=== PATIENT | female | born 1955 | race Caucasian/White ===

== ENCOUNTER 2023-12-04 08:15 | Outpatient (RCR) | payer MEDICARE, OTHER, SELFPAY ==
[2023-11-29] MEDS: ZOFRAN 4 MG IV (13:50)
[2023-11-29] MEDS: ROCEPHIN 70 MG IV (13:51)
[2023-11-29 14:22] VITALS: BP 171/68
[2023-11-30 11:59] LABS: Glucose - Point of Care 139 mg/dl (70-99)
[2023-11-30] MEDS: ZOFRAN 4 MG IV (12:01)
[2023-11-30 12:03] VITALS: BP 119/77
[2023-11-30] MEDS: ROCEPHIN 70 MG IV (12:07)
[2023-12-01 11:00] VITALS: BP 162/65
[2023-12-01] MEDS: ZOFRAN 4 MG IV (11:13)
[2023-12-01] MEDS: ROCEPHIN 70 MG IV (11:14)
[2023-12-01 11:50] VITALS: BP 149/66
[2023-12-02] MEDS: ZOFRAN 4 MG IV (10:23)
[2023-12-02] MEDS: ROCEPHIN 70 MG IV (10:24)
[2023-12-02 10:38] VITALS: BP 170/66
[2023-12-04] MEDS: ZOFRAN 4 MG IV (09:50)
[2023-12-04] MEDS: ROCEPHIN 70 MG IV (10:00)
[2023-12-04 11:36] VITALS: BP 143/72
== END 2023-12-06 09:26 | disposition home or self-care (01) ==
LOC: OID 08:15
PROVIDERS: ATTENDING PHYSICIAN Student in an Organized Health Care Education/Training Program; FAMILY PHYSICIAN Family Medicine
DX: T80.211A Bloodstream infection due to central venous catheter, initial encounter (principal); Y83.8 Other surgical procedures as the cause of abnormal reaction of the patient, or of later complication, without mention of misadventure at the time of the procedure
CPT/HCPCS: 82962; 96365; 96374; 96375

== ENCOUNTER 2024-01-16 13:13 | Emergency (ER) | payer MEDICARE, OTHER, SELFPAY ==
[2024-01-16 13:21] VITALS: BP 144/58
[2024-01-16 16:35] VITALS: BMI 25.4
[2024-01-16 17:23] LABS: % Basophils 0.5 % (0-2); % Eosinophils 1.5 % (0-6); % Immature Granulocytes 0.6 % (0-0.5); % Lymphocytes 9.3 % (20.5-51.1); % Monocytes 9.3 % (1.7-9.3); % Neutrophils 78.8 % (42.2-75.2); Absolute Basophils 0.1 10^3/uL (0-0.2); Absolute Eosinophils 0.2 10^3/uL (0-0.7); Absolute Immature Granulocytes 0.1 10^3/uL (0-0.05); Absolute Lymphocytes 1.3 10^3/uL (1.2-3.4); Absolute Monocytes 1.3 10^3/uL (0.1-0.6); Absolute Neutrophils 11.3 10^3/uL (1.4-6.5); Hematocrit 29.2 % (37.0-47.0); Hemoglobin 9.3 g/dL (12.0-16.0); Mean Corp Hgb Conc. 31.8 g/dL (33.0-37.0); Mean Corpuscular Hgb 24.8 pg (27.0-31.0); Mean Corpuscular Volume 77.9 fL (81.0-99.0); Mean Platelet Volume 10.2 fL (7.4-10.4); Nucleated Red Blood Cells % 0 %; Platelet Count 344 10^3/uL (130-400); Red Blood Cell Count 3.75 10^6/uL (4.20-5.40); White Blood Cell Count 14.4 10^3/uL (4.8-10.8)
[2024-01-16 17:26] VITALS: BP 97/46
[2024-01-16 17:31] LABS: INR 1.82; PT 20.9 Sec (11.4-14.6)
[2024-01-16 17:32] LABS: APTT 38.8 Sec (23.4-35.0)
[2024-01-16 17:42] LABS: ALT (SGPT) 28 U/L (0-35); AST (SGOT) 42 U/L (14-36); Albumin 3.7 g/dl (3.5-5.0); Alkaline Phosphatase 180 U/L (38-126); Blood Urea Nitrogen 30 mg/dl (7-17); Calcium 9.2 mg/dl (8.4-10.2); Carbon Dioxide 29 mmol/L (22-30); Chloride 100 mmol/L (98-107); Estimated Creatinine Clearance 50 ml/min; Glucose 136 mg/dl (70-99); Potassium 4.1 mmol/L (3.5-5.1); Sodium 137 mmol/L (135-145); Total Bilirubin 0.4 mg/dl (0.2-1.3); Total Protein 6.6 g/dl (6.3-8.2); eGFR > 60.00
[2024-01-16 17:48] LABS: NT-proBNP 691 pg/ml; Troponin I < 0.012 ng/ml
--- NOTE | 2024-01-16 18:31 | ED.GENMED ---
History of Present Illness
General
Chief Complaint: Chest Pain
Source: patient
Exam Limitations: none
Time Seen by Provider: 01/16/24 16:40
Nursing documentation reviewed up to this point in time: agreed with
Travel History
Have you had any contact with someone who has COVID-19?: No
Do you have any symptoms of coronavirus? Fever > 100 degrees, chills, cough, shortness of breath, sore throat, loss of taste or smell, muscle aches, or headache?: No
History of Present Illness
History of Present Illness:
68-year-old female presenting to the emergency department today with concerns of worsening chest pain shortness of breath since yesterday only with exertion asymptomatic at rest last episode was 5 hours ago. Does have a history of previous PE
currently on Eliquis did not miss any doses history of hypertension hyperlipidemia pulmonary fibrosis and diabetes.
Past History
Past History
ED Past Medical History: Cancer (Patient has had breast cancer and Hodgkin's lymphoma. Squamous cell carcinoma of the esophagus), COPD, CVA, HTN, Hypercholesterolemia, Valvular disease (Mitral regurgitation, aortic regurgitation with normal EF 55
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 Pneumonia, infectious colitis, IBS. PNA, Pulmonary nodules, right lymphedema. PE)
ED Past Surgical History: Other (Abdominal surgery for Hodgkin's disease modified right mastectomy, hysterectomy with ovary removed. Splenectomy, Breast reconstruction)
Social History
Tobacco: Non-smoker
Alcohol: None
Drug: None
Personal: Single
Living: alone
Employment: Employed
Family History
Family History: Hypertension
Review of Systems
Review of Systems
Allergies reviewed?: Yes
All Other Systems: ROS reviewed and negative except as documented in HPI and ROS
Phy Exam
Physical Exam
Physical Exam:
GENERAL: Alert , in no apparent distress
EYE: pupils equal and reactive
NECK: Supple, no significant adenopathy.
ENT: o/p clr, mmm.
CARDIAC: Regular rate and rhythm .
LUNGS: Clear breath sounds bilaterally, no acute respiratory distress, no wheezes/rales/rhonchi
ABDOMEN: Soft, without focal tenderness, no r/g, no cvat
NEUROLOGICAL: Alert and oriented, no focal neuro deficits
SKIN: Warm and dry, skin intact.
MUSCULOSKELETAL: No edema, well perfused.
PSYCH: Normal and appropriate interaction.
Scores
Heart Score for Chest Pain Patients
STEMI patient?: No
History: Slightly or Non-Suspicious
ECG: Normal
Age: >/= 65 years
Risk Factors: >/= 3 Risk Factors or History of CAD
Troponin: </= Normal Limit
Heart Score for Chest Pain Patients: 4
Heart Score Risk: 20.3% MACE over next 6 weeks
Course
Orders/Labs/Results
Orders:
Orders
01/16/24 13:22
Electrocardiogram (*1) Urgent
Reason for Study: Chest Pain
01/16/24 13:23
EKG- Treatment ONCE
01/16/24 16:41
Chest [CR Chest - 2 Views ] Urgent
Comment:
Reason For Exam: chest pain sob
01/16/24 17:05
BNP [NT-proBNP] Urgent
Complete Blood Count/With Diff Urgent
Comprehensive Metabolic Panel Urgent
Protime/PTT Urgent
Troponin I Urgent
01/16/24 18:00
EKG [Electrocardiogram (*1)] Urgent
Reason for Study: Shortness of Breath
Hydrocortisone [Cortef] 5 mg PO NOW ONE
01/16/24 18:01
EKG- Treatment ONCE
Abnormal Lab Results
01/16/24
17:05
WBC 14.4 H 10^3/uL
(4.8-10.8)
RBC 3.75 L 10^6/uL
(4.20-5.40)
Hgb 9.3 L g/dL
(12.0-16.0)
Hct 29.2 L %
(37.0-47.0)
MCV 77.9 L fL
(81.0-99.0)
MCH 24.8 L pg
(27.0-31.0)
MCHC 31.8 L g/dL
(33.0-37.0)
RDW 17.0 H %
(11.5-14.5)
Abs Immat Gran (auto) 0.1 H 10^3/uL
(0-0.05)
Absolute Neuts (auto) 11.3 H 10^3/uL
(1.4-6.5)
Absolute Monos (auto) 1.3 H 10^3/uL
(0.1-0.6)
Immature Gran % 0.6 H %
(0-0.5)
Neutrophils % 78.8 H %
(42.2-75.2)
Lymphocytes % 9.3 L %
(20.5-51.1)
PT 20.9 H Sec
(11.4-14.6)
APTT 38.8 H Sec
(23.4-35.0)
BUN 30 H mg/dl
(7-17)
Glucose 136 H mg/dl
(70-99)
AST 42 H U/L
(14-36)
Alkaline Phosphatase 180 H U/L
(38-126)
01/16/24 17:05
01/16/24 17:05
Vital Signs
Initial and Last Documented VS:
Initial Vital Signs
Temp Pulse Resp BP Pulse Ox
98.6 F 105 18 144/58 99
01/16/24 13:21 01/16/24 13:21 01/16/24 13:21 01/16/24 13:21 01/16/24 13:21
Last Documented Vital Signs
Temp Pulse Resp BP Pulse Ox
98.6 F 88 13 97/46 97
01/16/24 13:21 01/16/24 17:45 01/16/24 17:45 01/16/24 17:26 01/16/24 18:00
MDM/Problems Addressed
MDM/Problems Addressed:
68-year-old female presenting to the emergency department today with concerns of pressure and shortness of breath mainly with exertion starting yesterday last episode 5 hours prior to arrival. Here EKG nonischemic troponin negative BNP better than
previous baseline other labs unremarkable. Asymptomatic throughout ER stay normal pulse ox when ambulated here has been taking her Eliquis for PE. Patient appears stable for outpatient close follow-up with cardiology. Patient was given the option
of being admitted for further assessment if she feels that symptoms are significant considering her significant medical history she significantly preferred to go home and will return for any worsening symptoms.
*Critical Care Note
Total Time (30-74mins, 75-104mins- exclusive of procedures): Not Applicable
ED Attending Note
-
Portions of this chart may have been created with voice recognition software.� Occasional wrong word or��sound alike� substitutions may have occurred due to the inherent limitations of voice recognition software.
Discharge Plan
Departure
Patient Disposition: Home (Routine Discharge)
Date of Disposition: 01/16/24
Time of Disposition: 18:31
Patient with high blood pressure during this ER visit?: No
Condition: Good
Covid-19: Not Applicable
Discharge Problem:
Chest pain
Instructions: Chest Pain DCA Follow Up
Prescriptions:
No Action
Eliquis 5 mg tablet
5 mg PO BID
hydrocortisone 5 mg Tablet
5 mg PO BID@1200,1800
pantoprazole 20 mg Tablet,Delayed Release (Dr/Ec)
20 mg PO DAILY
levothyroxine 100 mcg Tablet
88 mcg PO DAILY
hydrocortisone 20 mg Tablet
10 mg PO DAILY
metoprolol succinate [Toprol XL] 25 mg Tablet Extended Release 24 Hr
12.5 mg PO BID
albuterol sulfate [ProAir HFA] 90 mcg/actuation Hfa Aerosol Inhaler
2 puff INHALATION R Q6HPRN PRN (Reason: sob)
ceftriaxone 2 gram Recon Soln
2,000 mg IV Q24H Qty: 6 0RF
Probiotic 3 billion cell Capsule
1 PO
Referrals:
Asa Munoz DO [Family Provider] -
Activity Restrictions/Additional Instructions:
You came to the emergency department today with concerns of chest discomfort.. Reassuring evaluation. Please follow-up closely with cardiology. Return to the emergency department immediately for any worsening, new or concerning symptoms.
Interventions
Interventions:
*Risk Screen - Suicide Last Done: 01/16/24 13:21
*General Assessment Last Done: 01/16/24 13:21
*Neglect/Abuse Screening Last Done: 01/16/24 13:21
*ED COVID-19 Vaccine History Last Done: 01/16/24 13:21
ED- Cardiac Assessment Last Done: 01/16/24 16:33
[2024-01-16] MEDS: NSS 500 IV (18:49)
[2024-01-16] MEDS: CORTEF 5 MG PO (19:02)
[2024-01-16 19:30] VITALS: BP 134/50
== END 2024-01-16 20:01 | disposition home or self-care (01) ==
LOC: EMR 13:13
PROVIDERS: Emergency Medicine; EMERGENCY PHYSICIAN Emergency Medicine; FAMILY PHYSICIAN Family Medicine
DX: R07.89 Other chest pain (principal); R06.02 Shortness of breath; I10 Essential (primary) hypertension; E78.00 Pure hypercholesterolemia, unspecified; C50.919 Malignant neoplasm of unspecified site of unspecified female breast; C78.7 Secondary malignant neoplasm of liver and intrahepatic bile duct; J84.10 Pulmonary fibrosis, unspecified; E11.9 Type 2 diabetes mellitus without complications; I08.0 Rheumatic disorders of both mitral and aortic valves; J44.9 Chronic obstructive pulmonary disease, unspecified; K58.9 Irritable bowel syndrome, unspecified; Z79.01 Long term (current) use of anticoagulants; Z85.71 Personal history of Hodgkin lymphoma; Z85.01 Personal history of malignant neoplasm of esophagus; Z87.01 Personal history of pneumonia (recurrent); Z86.711 Personal history of pulmonary embolism; Z86.73 Personal history of transient ischemic attack (TIA), and cerebral infarction without residual deficits; Z86.16 Personal history of COVID-19; Z92.3 Personal history of irradiation; Z90.11 Acquired absence of right breast and nipple; Z90.81 Acquired absence of spleen; Z88.8 Allergy status to other drugs, medicaments and biological substances; Z88.1 Allergy status to other antibiotic agents; Z91.041 Radiographic dye allergy status
CPT/HCPCS: 99284; 71046; 80053; 83880; 84484; 85025; 85610; 85730; 93005

== ENCOUNTER 2024-01-17 16:22 | Inpatient (IN) | payer MEDICARE, OTHER, SELFPAY ==
[2024-01-17 16:38] VITALS: BMI 24.7
[2024-01-17 16:42] VITALS: BP 132/58
--- NOTE | 2024-01-17 16:43 | W.PN.CARDCBS ---
Addendum entered and electronically signed by Rossy Ronquillo MD 01/17/24 17:19:
Please refer to my office note. Patient with increased shortness of breath and angina which has been crescendo over the past week and especially the past few days limiting household activity.
Patient with history of mantle radiation and direct esophageal radiation in the setting of metastatic esophageal cancer. Upcoming plan is noted for intrahepatic chemotherapy.
Moderate regurgitant valvular heart disease noted. History of pneumonitis, pulmonary embolism (08/2022) and adrenal insufficiency.
Given crescendo symptoms plan is for cardiac catheterization tomorrow early afternoon. Eliquis on hold heparin to be started. Aspirin to be started here.
Avoid hepatotoxic medication. Studies started.
Patient understands the plan. All questions answered. Procedure discussed with patient and also with interventional cardiology given complexities.
Original Note:
Today's Communication / Plan
-
-Patient was directly admitted from cardiology office to IVU.
-Check labs once port is accessed and then start Heparin gtt tonight. Eliquis is on hold.
-Plan is for cath tomorrow afternoon, will make NPO after midnight.
-Aspirin 324 mg PO now and then 81 mg daily starting in AM.
-Start Zetia 10 mg daily.
-No evidence of volume overload and patient takes Lasix 20 mg daily PRN and has not taken a dose for weeks.
-Patient with a h/o orthostasis. If significant this admission then consider starting midodrine.
-Patient with a significant oncologic history as detailed above. If patient requires coronary intervention then we should notify Dr. Godinez at the number listed above.
Impression / Plan
-
PCP: Dr. Munoz
Cardiology: Dr. Rossy Ronquillo
Onc: Dr. Godinez at [facility] [phone]
Impression:
Chest pain
SOB/MONTANEZ
Chronic HFpEF
Chronic orthostasis
h/o mantle radiation for Non-Hodgkin's lymphoma age 30
h/o breast cancer treated with mastectomy, Cytoxan, methotrexate and 5-FU 1997
Esophageal cancer with liver mets undergoing chemoembolization therapy directed at the liver, scheduled at [facility] for 01/25/24
Chronic B/L UE lymphedema
PE 08/08/22
Chronic Eliquis OAC, last dose 01/17/24 AM
h/o CVA 08/02/20
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
Mod AI without
HTN
Hyperlipidemia
Echo 11/22/23: EF 55-60%, GLS -14.2% (previously -18% 08/2023), mod eccentric MR, mod aortic regurgitation
Plan:
-Patient was seen in the cardiology office 01/17/24 as a follow up to ER visit 01/16/24 for chest pain. Troponin was undetectable in the ER 01/16/24. Patient had visible MONTANEZ walking from waiting room to exam room in the office and this is new MONTANEZ.
Patient also has a h/o NHL with mantle radiation at age 30 then later she had breast cancer and now she is battling esophageal cancer with mets to liver. Patient is scheduled to undergo chemoembolization therapy directed at the liver at [facility]
01/25/24. Patient also with a h/o PE in 08/2022 and she took her usual dose of Eliquis this morning. Patient previously had lacunar infarcts on MRI brain, but there is no known h/o atrial arrhythmia.
-Patient was directly admitted from cardiology office to IVU.
-Check labs once port is accessed and then start Heparin gtt tonight. Eliquis is on hold.
-Plan is for cath tomorrow afternoon, will make NPO after midnight.
-Aspirin 324 mg PO now and then 81 mg daily starting in AM.
-Start Zetia 10 mg daily.
-No evidence of volume overload and patient takes Lasix 20 mg daily PRN and has not taken a dose for weeks.
-Patient with a h/o orthostasis. If significant this admission then consider starting midodrine.
-Patient with a significant oncologic history as detailed above. If patient requires coronary intervention then we should notify Dr. Godinez at the number listed above.
Progress Note - Zone Maintenance Technician
Subjective
Date of Service: January 17, 2024
Objective
Labs:
Labs
APTT Cancelled 01/17/24 16:41
Vital Signs and I&O:
Vital Signs
Temp Pulse Resp Pulse Ox
98.3 F 100 16 99
01/17/24 16:39 01/17/24 16:39 01/17/24 16:39 01/17/24 16:39
Vital Signs
Temp Pulse Resp Pulse Ox
98.3 F 100 16 99
01/17/24 16:39 01/17/24 16:39 01/17/24 16:39 01/17/24 16:39
Physical Exam
Physical Exam
GEN: No distress, awake, Ox3
HEENT: EOMI, MMM
LUNGS: CTA B/L, no wheezes/rales
CV: Reg, S1/S2, 2/6 BSM, 2/6 diastolic murmur
ABD: soft, BS+, NT, ND
EXT: No LE edema, but B/L UE edema.
NEURO: Gross non-focal
SKIN: No rash
[2024-01-17] MEDS: LOW STRENGTH ASPIRIN 324 MG PO (18:14)
[2024-01-17] MEDS: CORTEF 5 MG PO (18:15)
[2024-01-17 18:17] LABS: Hematocrit 29.9 % (37.0-47.0); Hemoglobin 9.6 g/dL (12.0-16.0); Mean Corp Hgb Conc. 32.1 g/dL (33.0-37.0); Mean Corpuscular Hgb 25.1 pg (27.0-31.0); Mean Corpuscular Volume 78.3 fL (81.0-99.0); Mean Platelet Volume 10.3 fL (7.4-10.4); Platelet Count 348 10^3/uL (130-400); Red Blood Cell Count 3.82 10^6/uL (4.20-5.40); White Blood Cell Count 12.4 10^3/uL (4.8-10.8)
[2024-01-17 18:25] LABS: APTT 39.3 Sec (23.4-35.0)
[2024-01-17 18:28] LABS: Troponin I < 0.012 ng/ml
--- NOTE | 2024-01-17 18:31 | PTCARENOTE ---
received as direct admit. admission done. ekg done. port accessed by iv team rn. labs drawn and sent. no current complaints of chest pain. will continue to monitor
[2024-01-17 18:32] LABS: ALT (SGPT) 29 U/L (0-35); AST (SGOT) 48 U/L (14-36); Albumin 3.8 g/dl (3.5-5.0); Alkaline Phosphatase 187 U/L (38-126); Blood Urea Nitrogen 27 mg/dl (7-17); Chloride 105 mmol/L (98-107); Estimated Creatinine Clearance 45 ml/min; Glucose 139 mg/dl (70-99); Total Bilirubin 0.7 mg/dl (0.2-1.3); Total Protein 6.9 g/dl (6.3-8.2); eGFR 55.42
[2024-01-17 18:38] LABS: Carbon Dioxide 24 mmol/L (22-30); Potassium 4.2 mmol/L (3.5-5.1); Sodium 136 mmol/L (135-145)
[2024-01-17 18:44] VITALS: BP 117/40
[2024-01-17 19:15] LABS: Hepatitis C Antibody Negative (Negative)
[2024-01-17] MEDS: HEPARIN 25000 UNITS/250 ML IV (19:38)
[2024-01-17] MEDS: TOPROL XL 12.5 MG PO (19:48)
[2024-01-17 22:51] VITALS: BP 114/47
--- NOTE | 2024-01-17 23:00 | PTCARENOTE ---
report received from previous RN, assumed care of pt. pt in bed, AAOx4. pt denies any pain. NSR on monitor, HR 70's-80's. Heparin gtt infusing per protocol. POX 99% on room air. right subclavian port intact and patent. see worklist for full
assessment, VS, and interventions. pt resting between care.
[2024-01-17 23:38] LABS: Troponin I < 0.012 ng/ml
[2024-01-18] VITALS (27 sets, daily range): BP systolic 95–150; BP diastolic 37–95; BMI 24.5
--- NOTE | 2024-01-18 03:30 | PTCARENOTE ---
no changes in assessment overnight, pt VSS. NSR, RA. AM labs drawn and sent. pt sleeping between care. heparin gtt maintained.
[2024-01-18 03:56] LABS: APTT 69.6 Sec (23.4-35.0)
[2024-01-18 04:14] LABS: Troponin I < 0.012 ng/ml
[2024-01-18 05:24] LABS: Blood Urea Nitrogen 29 mg/dl (7-17); Calcium 8.5 mg/dl (8.4-10.2); Carbon Dioxide 26 mmol/L (22-30); Chloride 104 mmol/L (98-107); Estimated Creatinine Clearance 50 ml/min; Glucose 146 mg/dl (70-99); HDL Cholesterol 37 mg/dl; LDL Cholesterol, Calculated 97 mg/dl; Sodium 138 mmol/L (135-145); Total Cholesterol 161 mg/dl (50-199); Triglyceride 135 mg/dl (10-149); Very Low Density Lipoprotein 27 mg/dl (0-30); eGFR > 60.00
[2024-01-18] MEDS: SYNTHROID 88 MCG PO (08:17)
[2024-01-18] MEDS: ZETIA 10 MG PO (08:23)
[2024-01-18] MEDS: CORTEF 10 MG PO (08:23)
[2024-01-18] MEDS: PROTONIX 20 MG PO (08:23)
[2024-01-18] MEDS: LOW STRENGTH ASPIRIN 81 MG PO (08:24)
[2024-01-18] MEDS: TOPROL XL 12.5 MG PO (08:24)
--- NOTE | 2024-01-18 08:56 | PTCARENOTE ---
Patient received from cook night resting comfortably in bed, AAO X 3, denies SOB or pain at this time. NSR via cm. R chest wall SQ port, accessed, heparin infusing @ 900units/hr. Patient updated to plan of care for the day, in agreement, emotional
support provided. See work list for full assessment and interventions performed.
[2024-01-18 10:04] LABS: APTT 76.5 Sec (23.4-35.0)
--- NOTE | 2024-01-18 11:22 | PTCARENOTE ---
VS obtained, assessment unchanged. Patient resting comfortably, awaiting CCL.
--- NOTE | 2024-01-18 11:42 | CM ---
Chart reviewed. Patient is independent of ADLS, lives alone in a 1 STH, 5 NOAH through the front and 2 NOAH in the back, 0 DME. Plan is for the patient to return home. CM to follow
--- NOTE | 2024-01-18 11:54 | PTCARENOTE ---
human resource officer to bedside for patient keys. Car to be moved out of senior storage engineer.
[2024-01-18] MEDS: CORTEF 5 MG PO ×2 (13:50→22:03)
--- NOTE | 2024-01-18 14:29 | PTCARENOTE ---
laboratory inspector staff to bedside, heparin gtt discontinued. Patient to CCL via bed w/staff for procedure.
[2024-01-18 15:46] LABS: ACT-LR - POC 202 Seconds (116-155)
[2024-01-18 16:07] LABS: ACT-LR - POC 226 Seconds (116-155)
[2024-01-18 16:18] LABS: ACT-LR - POC 329 Seconds (116-155)
[2024-01-18 16:41] LABS: ACT-LR - POC 303 Seconds (116-155)
[2024-01-18 17:08] LABS: ACT-LR - POC 268 Seconds (116-155)
[2024-01-18] MEDS: NSS 500 VEN SHEATH (17:56)
--- NOTE | 2024-01-18 17:59 | W.PN.UPDATE ---
Update Note
Progress Note Update
I spoke with Dr. Godinez at [facility] the physician who is planning to proceed with intrahepatic chemotherapy. He prefers not to do the procedure on Plavix.
Plan will be once triple therapy is completed at 1 week Plavix and Eliquis.
Patient is to contact him to move out procedure to 30 days. At that time before procedure she will hold Plavix (5 days) and during the Plavix hold start 81 mg aspirin. She will hold Eliquis (2 days).
She then will resume Plavix and Eliquis postprocedure. Anytime she is off of the Plavix during this time she must be on 81 mg aspirin.
[2024-01-18] MEDS: NSS 1000 IV (18:04)
--- NOTE | 2024-01-18 18:08 | ITS.CL.CATH ---
[facility] - Catheterization
Cardiac Catheterization
Procedure Report:
LEFT HEART CATHETERIZATION AND CORONARY INTERVENTION
Date of Procedure: January 18, 2024
Referring: Rossy Joseronnie
PROCEDURES:
1. Left heart catheterization, coronary angiogram.
2. Right heart catheterization.
3. Ultrasound-guided access.
4. IVUS assessment of ostial left main stenosis.
5. Successful percutaneous coronary artery intervention of 70 to 80% mid LAD stenosis with one 3.5 x 28 mm Xience terry point drug-eluting stent, successfully post dilated using a 3.5 x 20 mm NC Euphora balloon at 20 kodi with an excellent
angiographic result.
6. Successful percutaneous coronary artery intervention of 90% ostial RCA stenosis with one 3.0 x 12 mm Xience terry point drug-eluting stent, postdilated using a 3.5 x 15 mm NC trek balloon at 18 kodi with an excellent angiographic result.
INDICATION: Progressive dyspnea on exertion and exertional chest pressure.
ACCESS:
1. Right common femoral artery, 6 Slovenian sheath, under ultrasound guidance using a micropuncture kit.
2. Right common femoral vein, 6 Slovenian sheath, under ultrasound guidance using a micropuncture kit.
HEMODYNAMICS : (mmHg)
RA (m) :11
RV (s/d,m) : 43/7, 14
PA (s/d, m) : 46/22, 35
PCWP (m) : 24 with V waves up to 39
PA saturation: 62.1% on room air
AO saturation: 98.4% on room air
RA saturation: 58.3% on room air
Cardiac Output : 4.08 L/min by Marielle
Cardiac Index : 2.3 L/min/m-2 by Marielle
Systemic vascular resistance: 1313 dsc^(-5)
Pulmonary vascular resistance: 2.70 watson unit
AO (s/d) : 146/60
LV (s/d) : 144/9
LVEDP : 20
CORONARY FINDINGS
DOMINANCE: Right
LEFT MAIN: The left main artery is a large-caliber vessel which gives rise to left anterior descending artery and the left circumflex artery. There is an eccentric 30% ostial left main stenosis. There was pressure dampening and ventricularization
with engagement with a 5 Slovenian diagnostic catheter and therefore intravascular ultrasound was utilized to assess this lesion to make sure it was not significant. The smallest MLA was found to be 7.9 mm�
LEFT ANTERIOR DESCENDING: The left anterior descending artery is a large-caliber vessel which gives rise to multiple small to medium caliber diagonal branches as it courses through the anterior interventricular groove and wraps around the apex.
There is an eccentric 70 to 80% mid LAD stenosis.
CIRCUMFLEX: The left circumflex artery is a medium caliber vessel which gives rise to one major obtuse marginal branch. There is mild diffuse atherosclerotic plaque in the proximal left circumflex. Otherwise there is minimal luminal irregularities.
RIGHT CORONARY ARTERY: The right coronary artery is a medium to large caliber, dominant vessel which gives rise to the right posterior descending artery and the right posterolateral system. There is a 90% ostial RCA stenosis with otherwise minimal
luminal irregularities.
IVUS ASSESSMENT OF OSTIAL LEFT MAIN: The left coronary artery was selectively engaged using a 5 Slovenian JL 4 guide catheter and a 190 cm 0.014 BMW wire was carefully advanced across the ostial left main stenosis into the left circumflex artery.
Using Venetie eye IVUS catheter, we performed multiple passes and upon assessment of these images the minimal luminal area was noted to be smallest at 7.9 mm�.
While patient was on the table a lengthy discussion was had over the phone with one of our CT surgeons, Dr. Henrik Burger discussing the anatomy and patient's past medical history including mantle cell radiation for history of Hodgkin's lymphoma.
Given that we had proven through intravascular ultrasound that the ostial left main was not involved and did not need acute intervention, CT surgery agreed that patient would be too high risk for CABG even in the setting of two-vessel coronary
artery disease and diabetes and therefore decision was made to move forward with percutaneous coronary artery intervention.
CORONARY INTERVENTION: Using the same 5 Slovenian JL 4 guide catheter that we utilized to perform intravascular ultrasound, the same 190 cm 0.014' BMW wire was carefully rewired into the LAD and advanced across the mid LAD stenosis into the distal LAD.
The mid LAD lesion was directly stented using a 3.5 x 28 mm Xience terry point drug-eluting stent and successfully postdilated using a 3.5 x 20 mm NC Euphora balloon at 20 kodi with an excellent angiographic result. We then decided to move forward
with ostial RCA intervention. The groin access was upgraded to a 6 Slovenian femoral sheath. Through this we introduced a 6 Slovenian JR4 guide catheter with an holes and attempted to selectively engage the RCA. After multiple passes we successfully
navigated a new 190 cm 0.014 BMW wire across the ostial RCA stenosis into the RPDA. The lesion was initially predilated using a 2.5 x 12 mm semi-compliant balloon with good expansion. Despite this we were not able to introduce her stent. We
further predilated using a 3.0 x 12 mm semi-compliant balloon where we noted a waist which eventually expanded well. At this point we deployed a 3.0 x 12 mm Xience terry point drug-eluting stent at the ostium of the RCA and postdilated using a 3.5 x
15 mm NC trek balloon at 18 kodi with an excellent angiographic result. Patient was loaded with 600 mg of Plavix at the end of the case. No acute complications.
SEDATION: 148 minutes of procedural sedation was utilized. An independent medical physics researcher was present to assist with and help manage the patient's level of consciousness and physiologic status.
RADIATION SUMMARY: Fluoro Time (min): 25.9, Dose (mGy): 456.4, DAP (Gy.cm2) : 36.2
Closure Device:
1. Perclose over right common femoral arterial access with successful hemostasis.
2. Manual pressure will be held over the right common femoral venous access site once ACT is below 200 ms
CONCLUSIONS
1. Successful percutaneous coronary artery intervention of 70 to 80% mid LAD stenosis with one 3.5 x 28 mm Xience terry point drug-eluting stent, successfully post dilated using a 3.5 x 20 mm NC Euphora balloon at 20 kodi with an excellent
angiographic result.
2. Successful percutaneous coronary artery intervention of 90% ostial RCA stenosis with one 3.0 x 12 mm Xience terry point drug-eluting stent, postdilated using a 3.5 x 15 mm NC trek balloon at 18 kodi with an excellent angiographic result.
3. Significantly elevated right and left-sided filling pressures with normal cardiac output and mildly elevated systemic vascular resistance.
RECOMMENDATIONS
1. Bedrest per protocol.
2. Uninterrupted dual antiplatelet therapy with daily baby aspirin and Plavix 75 mg daily for at least 1 week, then plan to discontinue daily baby aspirin and continue Plavix 75 mg daily and Eliquis. Trial statin along with Zetia. Beta-shayna if
tolerated.
3. IV diuresis to improve filling pressures.
4. Aggressive management of cardiovascular risk factors.
Copy to: Rossy Ronquillo
[2024-01-18 18:21] LABS: ACT-LR - POC 266 Seconds (116-155)
--- NOTE | 2024-01-18 18:34 | PTCARENOTE ---
Pt received from CCL post R and L CC and stenting to Mid lad and Ostial RCA. Pt arrives awake and alert, Ox3. VSS, CM shows NSR 90's, POX 97%. Venous sheath intact to right femoral artery, ACT at [id number]. HOB raised as directed. Pt denies any
pain or discomfort.
[2024-01-18 19:24] LABS: ACT-LR - POC 197 Seconds (116-155)
[2024-01-18 20:03] LABS: ACT-LR - POC 192 Seconds (116-155)
[2024-01-18 21:01] LABS: ACT-LR - POC 171 Seconds (116-155)
[2024-01-18 21:50] LABS: ACT-LR - POC 147 Seconds (116-155)
[2024-01-18] MEDS: LASIX 20 MG IV (22:27)
--- NOTE | 2024-01-18 23:09 | W.PN.CARD.SR ---
Sheath/IABP Sheath Removal
Sheath Removal
Right Venous Femoral:
Site appearance prior to sheath removal: Intact
Size of hematoma in cm: 0
Sheath removed by:: Physician cataloging assistant
Name of associate removing sheath: Pradip Damian
Time of sheath removal: 22:10
Time hemostasis achieved: 22:25
Site appearance post sheath removal: Intact
Size of hematoma in cm: 0
Method of Hemostasis Post Sheath Removal: Manual Pressure
Dressing dry and intact?: Yes
Comments: R groin is soft, dry, intact, no hematoma, no pain. Prior arterial incision is also cdi. Placed Innoseal, gauze, tegaderm dressing.
[2024-01-19] VITALS (11 sets, daily range): BP systolic 91–136; BP diastolic 37–63; BMI 24.9
[2024-01-19] MEDS: TOPROL XL PO (00:08)
--- NOTE | 2024-01-19 00:13 | PTCARENOTE ---
ACT down to 147 at 2144; Right venous femoral sheath pulled at 2210 by MARCI Medina. Hemostasis achieved at 2225 using manual pressure & external hemostasis pad; site remains free from hematoma/drainage, pedal pulse palpable. Lasix IV x 1
given, after which pt. was unable to void using both Purewick and bedpan. Bladder scanned for 647 ml then strait cath'd for 1150 ml clear yellow urine; pt. expressed much relief. SBP 90's-low 100's, 2000 Toprol help per Pradip. Pt. denies any
CP/discomfort, currently in NSR rate 80's. Resting quietly.
[2024-01-19] MEDS: TUMS 2 TABLET PO (03:27)
--- NOTE | 2024-01-19 03:34 | PTCARENOTE ---
Pt. OOB to BR, able to ambulate without difficulty. Voided large amount urine on toilet. Right groin site intact, no bleeding or hematoma, pedal pulse palpable.
[2024-01-19] MEDS: SYNTHROID 88 MCG PO (03:44)
[2024-01-19 03:58] LABS: Hematocrit 27.4 % (37.0-47.0); Hemoglobin 8.7 g/dL (12.0-16.0); Mean Corp Hgb Conc. 31.8 g/dL (33.0-37.0); Mean Corpuscular Hgb 24.6 pg (27.0-31.0); Mean Corpuscular Volume 77.6 fL (81.0-99.0); Mean Platelet Volume 10.7 fL (7.4-10.4); Platelet Count 354 10^3/uL (130-400); Red Blood Cell Count 3.53 10^6/uL (4.20-5.40); Red Cell Dist. Width 16.9 % (11.5-14.5); White Blood Cell Count 12.1 10^3/uL (4.8-10.8)
[2024-01-19 04:22] LABS: Blood Urea Nitrogen 23 mg/dl (7-17); Calcium 8.4 mg/dl (8.4-10.2); Carbon Dioxide 27 mmol/L (22-30); Chloride 103 mmol/L (98-107); Estimated Creatinine Clearance 45 ml/min; Glucose 136 mg/dl (70-99); HDL Cholesterol 41 mg/dl; LDL Cholesterol, Calculated 121 mg/dl; Sodium 136 mmol/L (135-145); Total Cholesterol 185 mg/dl (50-199); Triglyceride 116 mg/dl (10-149); Very Low Density Lipoprotein 23 mg/dl (0-30); eGFR 55.42
--- NOTE | 2024-01-19 07:28 | W.PN.CARDCBS ---
Addendum entered and electronically signed by Leigh Nichols MD 01/19/24 11:30:
I saw and examined the patient.
The Die Repair's note was reviewed and I agree with the note.
Comment: Overall patient is doing well and tells me that her chest discomfort has not reoccurred. She does experience still ongoing dyspnea on exertion even with just walking within the room. No issues at the right groin access site.
No major events noted on telemetry. Vital signs and lab work reviewed. Patient is a well-appearing female in no acute distress, normal S1 and S2, no murmurs, rubs or gallops, lungs are clear to auscultation bilaterally, right femoral arterial and
venous access site with dressing in place which is clean, dry and intact without evidence of hematoma or bruit. Warm extremities without significant edema.
Recommendations:
1. In regards to her LAD and RCA PCI, plan is for triple therapy for 1 week, then discontinue daily baby aspirin and continue on Plavix 75 mg daily and Eliquis for at least a total of 4 weeks. Beyond this, her oncologist will help facilitate
scheduling of her chemoembolization for her active liver cancer which they are not comfortable performing on Plavix. Therefore the plan will be to hold Plavix as requested per her oncologist and resume baby aspirin in place of it and to stop
Eliquis 2 days prior to planned chemoembolization. Recommend resuming Plavix as soon as safe postprocedure.
2. We will plan to resume her Eliquis this evening.
3. Given elevated right and left-sided filling pressures, continue with IV diuresis with close monitoring of orthostatic vitals given her history.
4. Start discharge planning with tentative discharge in next 24 to 48 hours.
5. Referral for outpatient cardiac rehab.
Discussed all of the above in significant detail with patient and answered all of her questions. Discussed findings of the heart catheterization with her outpatient rn on site yesterday evening who helped facilitate discussion with her oncologist.
Leigh Nichols MD, [facility], [facility]
Original Note:
Today's Communication / Plan
-
Resume Eliquis today, then triples for a week, then stop Plavix at 30 days post-PCI and start aspirin, then stop Eliquis 2 days prior to planned chemoembolization, then post-chemoembolization restart Plavix and Eliquis
Lasix 40 mg IV x1 now
If orthostatic then consider starting midodrine
Impression / Plan
-
PCP: Dr. Munoz
Cardiology: Dr. Rossy Ronquillo
Onc: Dr. Godinez at [facility] [phone]
Impression:
Chest pain
CAD
s/p 3.5 mm Xience mid LAD and 3.0 mm Xience ostial RCA 01/18/24
SOB/MONTANEZ
Acute on chronic HFpEF
PCWP 24 by [facility] 01/18/24
Chronic orthostasis
h/o mantle radiation for Non-Hodgkin's lymphoma age 30
h/o breast cancer treated with mastectomy, Cytoxan, methotrexate and 5-FU 1997
Esophageal cancer with liver mets undergoing chemoembolization therapy directed at the liver, scheduled at [facility] for 01/25/24
Chronic B/L UE lymphedema
PE 08/08/22
Chronic Eliquis OAC, last dose 01/17/24 AM
h/o CVA 08/02/20
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
Mod AI without
HTN
Hyperlipidemia
Echo 11/22/23: EF 55-60%, GLS -14.2% (previously -18% 08/2023), mod eccentric MR, mod aortic regurgitation
Plan:
-Patient reports symptomatic improvement with regards to chest pain after PCI 01/18/24, but ongoing MONTANEZ.
-Tolerating DAPT with aspirin and Plavix. Eventually resume Eliquis for h/o PE.
-Patient needs to have intrahepatic chemoembolization therapy at [facility] and was scheduled for 01/25/24. Dr. Rossy Ronquillo communicated with patient's oncologist at [facility], Dr. Godinez, and the plan is for triple therapy with aspirin 81 mg daily, Plavix 75
mg daily and Eliquis 5 mg BID for 1 week (until 01/26/24), then patient will discontinue aspirin and continue to take Plavix 75 mg daily and Eliquis 5 mg BID for 3 more weeks (until 02/18/24). Then patient will stop Plavix at 30 days post-PCI
(02/18/24) and resume aspirin and pending the exact date of procedure with Dr. Godinez she will stop Eliquis 2 days prior to procedure. Following chemoembolization procedure she will resume Plavix and Eliquis.
-PCWP was 24 by [facility] 01/18/24. Weight is up 2 lbs despite Lasix 20 mg IV x1 on 01/18/24. Patient was taking Lasix 20 mg daily PRN prior to admission and had not taken a dose for weeks leading up to admission. Patient with a h/o orthostasis. Will try
another dose of Lasix 40 mg IV 01/19/24 AM and follow response. If recurrent orthostasis then consider starting midodrine
-EF 55-60% by echo 11/22/23.
-Cre stable at 1.1
-Outpatient Eliquis is for h/o PE. Eliquis has been interrupted for treatments at [facility] in the past without bridging. Patient was bridged with Heparin on admission to 01/17/24. Eliquis can likely be restarted 01/19/24.
-New to Zetia 10 mg daily this admission. Patient was not started on statin due to liver mets. LDL 121.
-Patient feels she is deconditioned, offered PT and she declines. Reports that overall she is already feeling better and does not need PT eval.
-Likely d/c to home 01/20/24
HPI: Patient was seen in the cardiology office 01/17/24 as a follow up to ER visit 01/16/24 for chest pain. Troponin was undetectable in the ER 01/16/24. Patient had visible MONTANEZ walking from waiting room to exam room in the office and this is new MONTANEZ.
Patient also has a h/o NHL with mantle radiation at age 30 then later she had breast cancer and now she is battling esophageal cancer with mets to liver. Patient is scheduled to undergo chemoembolization therapy directed at the liver at [facility]
01/25/24. Patient also with a h/o PE in 08/2022 and she took her usual dose of Eliquis this morning. Patient previously had lacunar infarcts on MRI brain, but there is no known h/o atrial arrhythmia.
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
Subjective
Date of Service: January 19, 2024
She has not chest pain, but still some MONTANEZ
Objective
Labs:
01/19/24 03:25
01/19/24 03:25
Labs
Hgb 8.7 g/dL (12.0-16.0) L 01/19/24 03:25
Hct 27.4 % (37.0-47.0) L 01/19/24 03:25
Plt Count 354 10^3/uL (130-400) 01/19/24 03:25
APTT Cancelled 01/18/24 16:00
Sodium 136 mmol/L (135-145) 01/19/24 03:25
Potassium 4.0 mmol/L (3.5-5.1) 01/19/24 03:25
BUN 23 mg/dl (7-17) H 01/19/24 03:25
Creatinine 1.1 mg/dL (0.6-1.0) H 01/19/24 03:25
Glucose 136 mg/dl (70-99) H 01/19/24 03:25
Troponins
01/17/24 01/17/24 01/18/24
17:51 23:05 03:17
Troponin I < 0.012 < 0.012 < 0.012
Vital Signs and I&O:
Vital Signs
Temp Pulse Resp BP Pulse Ox
97.6 F 97 20 112/47 100
01/19/24 03:02 01/19/24 03:00 01/19/24 03:02 01/19/24 02:11 01/19/24 03:02
Vital Signs
Temp Pulse Resp BP Pulse Ox
97.6 F 97 20 112/47 100
01/19/24 03:02 01/19/24 03:00 01/19/24 03:02 01/19/24 02:11 01/19/24 03:02
Intake & Output
01/17/24 01/18/24 01/19/24 01/20/24
06:59 06:59 06:59 06:59
Intake Total 240 / 240 885 / 885
Output Total 1150 / 1150
Balance 240 / 240 -265 / -265
Physical Exam
Physical Exam
GEN: NAD, AAOx3
HEENT: EOMI, MMM
LUNGS: CTA B/L
CV: Reg, S1/S2, 2/6 BSM, 2/6 diastolic murmur
ABD: soft, BS+, NT, ND
EXT: No LE edema, but B/L UE edema.
NEURO: Gross non-focal
SKIN: No rash
[2024-01-19] MEDS: NSS VEN SHEATH (09:27)
[2024-01-19] MEDS: LOW STRENGTH ASPIRIN 81 MG PO (09:34)
[2024-01-19] MEDS: PLAVIX 75 MG PO (09:34)
[2024-01-19] MEDS: CORTEF 10 MG PO (09:35)
[2024-01-19] MEDS: ZETIA 10 MG PO (09:35)
[2024-01-19] MEDS: PROTONIX 20 MG PO (09:35)
[2024-01-19] MEDS: TOPROL XL 12.5 MG PO ×2 (09:35→20:02)
[2024-01-19] MEDS: LASIX 40 MG IV (09:35)
[2024-01-19] MEDS: FLUSH (NSS) 2 FLUSH IV (09:36)
--- NOTE | 2024-01-19 10:46 | PTCARENOTE ---
Received patient this morning resting in bed. Dressing right groin is dry and intact without any signs of hematoma. Patient stating she feels much better. Rechecked patient's weight with the standing scale and result the same as recorded weight by
shift leader. Seen by cardiology and given IV lasix as ordered. Patient is aware of need for accurate I&O.
--- NOTE | 2024-01-19 11:33 | CM ---
Chart reviewed. Patient is independent of ADLS, lives alone in a 1 [address], 5 NOAH through the front and 2 NOAH through the back, 0 DME. Patient currently with no discharge needs. Plan is for the patient to return home. CM to follow
--- NOTE | 2024-01-19 13:00 | PTCARENOTE ---
Patient ambulating to the bathroom and diuresing after IV lasix. States she does feel a little 'winded' with activity/ambulation but nothing like prior to getting her stent, denies any chest pain and overall feels great.
[2024-01-19] MEDS: CORTEF 5 MG PO ×2 (14:33→20:03)
[2024-01-19] MEDS: ELIQUIS 5 MG PO (20:02)
--- NOTE | 2024-01-19 22:34 | W.PN.UPDATE ---
Update Note
Progress Note Update
Nursing requesting something for constipation. Patient with complaint of feeling constipated and no BM since Tuesday. Order placed for one time [place].
[2024-01-19] MEDS: SENOKOT-S 1 TABLET PO (22:43)
--- NOTE | 2024-01-19 23:58 | PTCARENOTE ---
Recieved pt at handoff. AOx3. R groin c/d/i. Assessment noted as documented. VSS. Pt ambulatory in hallway w/ this RN standby assist. Pt reports being excited about not being so SOB like she was before stents. Pt c/o last BM Tuesday 01/16. Aniket LOPEZ
notified. Senokot ordered and administered. Currently in bed; call huan w/in reach.
[2024-01-20 04:08] VITALS: BP 126/52
[2024-01-20 04:25] VITALS: BMI 24.8
[2024-01-20 05:28] LABS: ALT (SGPT) 23 U/L (0-35); AST (SGOT) 38 U/L (14-36); Albumin 3.4 g/dl (3.5-5.0); Alkaline Phosphatase 174 U/L (38-126); Blood Urea Nitrogen 26 mg/dl (7-17); Calcium 8.7 mg/dl (8.4-10.2); Carbon Dioxide 31 mmol/L (22-30); Chloride 99 mmol/L (98-107); Estimated Creatinine Clearance 45 ml/min; Glucose 115 mg/dl (70-99); Potassium 3.6 mmol/L (3.5-5.1); Sodium 138 mmol/L (135-145); Total Bilirubin 0.3 mg/dl (0.2-1.3); Total Protein 6.2 g/dl (6.3-8.2); eGFR 55.42
[2024-01-20 08:09] VITALS: BP 99/46
--- NOTE | 2024-01-20 08:53 | W.PN.CARDCBS ---
Addendum entered and electronically signed by Eileen Osborne PA-C 01/20/24 15:35:
[id number]
Addendum entered and electronically signed by Bhavesh Murray MD 01/20/24 11:32:
I saw and examined the patient.
The STAFF MINE WARFARE OFFICER or PA's note was reviewed and I agree with the note.
Comment: General: Well developed, well nourished in NAD.
Neck: Supple, no JVD, HJR, carotids +2 B/L, no bruits bilaterally.
Heart: Non displaced PMI, RRR, no murmurs, No S3, S4, no rubs.
Lungs: Scattered rhonchi
Extremities: No clubbing, cyanosis or edema bilaterally.
Neuro: Grossly nonfocal, awake, alert and oriented x3.
She complains of not having bowel movement. No weight loss with diuresis and likely is at dry weight. Stable cardiology status for discharge. Follow-up arranged. Will give laxative.
Original Note:
Today's Communication / Plan
-
miralax
for DC today
asa, plavix, eliquis as outlined below
20mg po lasix MWF
BMP in 1 week
Impression / Plan
-
PCP: Dr. Munoz
Cardiology: Dr. Rossy Ronquillo
Onc: Dr. Godinez at [facility] [phone]
Impression:
Chest pain
CAD
s/p 3.5 mm Xience mid LAD and 3.0 mm Xience ostial RCA 01/18/24
SOB/MONTANEZ
Acute on chronic HFpEF
PCWP 24 by [facility] 01/18/24
Chronic orthostasis
h/o mantle radiation for Non-Hodgkin's lymphoma age 30
h/o breast cancer treated with mastectomy, Cytoxan, methotrexate and 5-FU 1997
Esophageal cancer with liver mets undergoing chemoembolization therapy directed at the liver, scheduled at [facility] for 01/25/24
Chronic B/L UE lymphedema
PE 08/08/22
Chronic Eliquis OAC, last dose 01/17/24 AM
h/o CVA 08/02/20
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
Mod AI without
HTN
Hyperlipidemia
Echo 11/22/23: EF 55-60%, GLS -14.2% (previously -18% 08/2023), mod eccentric MR, mod aortic regurgitation
Plan:
-she had been in ER 01/16/24 due to CP, trops were negative and she was discharged to home. she was seen in cardiology office 01/17/24 and had MONTANEZ. was directly admitted for cardiac catheterization. by cath 01/18/24 patient had LAD and RCA lesion s/p
PCI.
-she was also noted to be in acute CHF with PCWP of 24. consider for po lasix 20mg MWF upon DC with BMP in 1 week. initially discussed PRN lasix however patient with concerns about how she will know when to take lasix at home.
-Cr stable at 1.1
-recent echo 11/22/23 with preserved EF, mod MR and AR
-she also has history of orthostasis so will need to follow volume status closely. if recurrent orthostasis, consider midodrine
-weight stable overnight if accurate despite IV lasix however patient feels this is due to constipation and is requesting miralax.
-she is currently on triple therapy (DAPT for stents, eliquis for history of PE). she needs intrahepatic chemoembolization therapy at [facility] and was originally scheduled for 01/25/24. Dr. Rossy Ronquillo communicated with patient's oncologist at [facility],
Dr. Godinez, and the plan is for triple therapy with aspirin 81 mg daily, Plavix 75 mg daily and Eliquis 5 mg BID for 1 week (until 01/26/24), then patient will discontinue aspirin and continue to take Plavix 75 mg daily and Eliquis 5 mg BID for 3 more
weeks (until 02/18/24). Then patient will stop Plavix at 30 days post-PCI (02/18/24) and resume aspirin and pending the exact date of procedure with Dr. Godinez she will stop Eliquis 2 days prior to procedure. Following chemoembolization procedure she
will resume Plavix and Eliquis.
-New to Zetia 10 mg daily this admission. Patient was not started on statin due to liver mets. LDL 121.
-remains in SR upon review of tele. continue toprol 12.5mg BID
-plan for DC to home today
-OP cardiac follow up arranged
-cardiac rehab
-d/w nursing
-total DC time 35 minutes
HPI: Patient was seen in the cardiology office 01/17/24 as a follow up to ER visit 01/16/24 for chest pain. Troponin was undetectable in the ER 01/16/24. Patient had visible MONTANEZ walking from waiting room to exam room in the office and this is new MONTANEZ.
Patient also has a h/o NHL with mantle radiation at age 30 then later she had breast cancer and now she is battling esophageal cancer with mets to liver. Patient is scheduled to undergo chemoembolization therapy directed at the liver at [facility]
01/25/24. Patient also with a h/o PE in 08/2022 and she took her usual dose of Eliquis this morning. Patient previously had lacunar infarcts on MRI brain, but there is no known h/o atrial arrhythmia.
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
Subjective
Date of Service: January 20, 2024
reports constipation this morning. no CP
Objective
Labs:
01/19/24 03:25
01/20/24 04:36
Labs
Hgb 8.7 g/dL (12.0-16.0) L 01/19/24 03:25
Hct 27.4 % (37.0-47.0) L 01/19/24 03:25
Plt Count 354 10^3/uL (130-400) 01/19/24 03:25
APTT Cancelled 01/18/24 16:00
Sodium 138 mmol/L (135-145) 01/20/24 04:36
Potassium 3.6 mmol/L (3.5-5.1) 01/20/24 04:36
BUN 26 mg/dl (7-17) H 01/20/24 04:36
Creatinine 1.1 mg/dL (0.6-1.0) H 01/20/24 04:36
Glucose 115 mg/dl (70-99) H 01/20/24 04:36
Troponins
01/17/24 01/17/24 01/18/24
17:51 23:05 03:17
Troponin I < 0.012 < 0.012 < 0.012
Vital Signs and I&O:
Vital Signs
Temp Pulse Resp BP Pulse Ox
98.8 F 95 16 99/46 98
01/20/24 08:11 01/20/24 08:09 01/20/24 08:11 01/20/24 08:09 01/20/24 08:11
Vital Signs
Temp Pulse Resp BP Pulse Ox
98.8 F 95 16 99/46 98
01/20/24 08:11 01/20/24 08:09 01/20/24 08:11 01/20/24 08:09 01/20/24 08:11
Intake & Output
01/18/24 01/19/24 01/20/24 01/21/24
07:59 07:59 07:59 07:59
Intake Total 240 / 249 885 / 885 940 / 940
Output Total 1150 / 1150 1999 / 1999
Balance 240 / 249 -265 / -265 -1060 / -1060
Physical Exam
Physical Exam
GEN: No distress, awake, alert, oriented x3
HEENT: supple, anicteric, mmm, eomi
LUNGS: CTA B/L, no wheezes/rales
CV: Reg, S1/S2, 2/6 murmur
ABD: soft, BS+, NT/ND
EXT: No cyanosis, clubbing, edema
NEURO: Gross non-focal
SKIN: Warm, pink, dry. No rash. R chest port
[2024-01-20] MEDS: PLAVIX 75 MG PO (09:01)
[2024-01-20] MEDS: ELIQUIS 5 MG PO (09:01)
[2024-01-20] MEDS: LOW STRENGTH ASPIRIN 81 MG PO (09:01)
[2024-01-20] MEDS: CORTEF 10 MG PO (09:02)
[2024-01-20] MEDS: PROTONIX 20 MG PO (09:02)
[2024-01-20] MEDS: ZETIA 10 MG PO (09:02)
[2024-01-20] MEDS: MIRALAX 17 GRAMS PO (09:02)
[2024-01-20 09:05] VITALS: BP 112/48
[2024-01-20] MEDS: TOPROL XL 12.5 MG PO (09:07)
--- NOTE | 2024-01-20 09:31 | W.DS.TRANS ---
DC Summary - Staff Development Manager
-
Discharge Instructions:
Discharge Diagnosis/Procedures Angioplasty with stent to LAD and RCA
Diet Low Cholesterol,2 Gram Sodium,Restrict fluids to
64 oz
Activity Other activity
Additional Activity See attached sheet
Driving Restrictions No driving for 24 hours
Bathing Restrictions OK to Shower
Blood Work BMP in 1 week
Other Services Cardiac Rehab
Specialty Instructions Weigh Daily
Instructions:
Stand-Alone Forms: DC Instructions- Cath/EP Lab
Changes to Home Medications: Yes
Discharge Medications:
DC Medications w/original date entered in [email or web address]
apixaban 5 mg tablet (Eliquis) 5 mg PO BID Blood clot prevention/tx 08/30/22
hydrocortisone 20 mg tablet 10 mg PO DAILY Anti-Inflammatory 07/17/23
hydrocortisone 5 mg tablet 5 mg PO BID@1200,1800 Anti-Inflammatory 07/17/23
metoprolol succinate 25 mg tablet,extended release 24 hr (Toprol XL) 12.5 mg PO BID Blood Pressure 07/17/23
pantoprazole 20 mg tablet,delayed release 20 mg PO DAILY Gastrointestinal Issue 07/17/23
albuterol sulfate 90 mcg/actuation aerosol inhaler (ProAir HFA) 2 puff inhalation R [id number] PRN sob 08/07/23
aspirin 81 mg chewable tablet (Children's Aspirin) 81 mg PO DAILY Heart disease/condition #30 tabs 01/19/24
clopidogrel 75 mg tablet 75 mg PO DAILY Heart disease/condition #30 tabs 01/19/24
ezetimibe 10 mg tablet 10 mg PO DAILY High cholesterol #30 tabs 01/19/24
levothyroxine 88 mcg tablet 88 mcg PO DAILY 01/19/24
furosemide 20 mg tablet (Lasix) 20 mg PO MOWEFR #30 tabs 01/20/24
Home Medication Changes
asa, plavix, zetia, lasix are new
Pending Results: No
--- NOTE | 2024-01-20 10:40 | PTCARENOTE ---
Received patient this morning resting in bed. Concerned that she has not had a bowel movement and upset that her weight did not change since receiving IV lasix yesterday. Seen by cardiology, discharge plan discussed and patient given miralax as
ordered. Patient drove herself to the hospital, she wants to wait until she moves her bowels before heading home.
[2024-01-20] MEDS: SYNTHROID 88 MCG PO (10:53)
[2024-01-20 12:01] VITALS: BP 119/49
[2024-01-20] MEDS: CORTEF 5 MG PO (13:18)
--- NOTE | 2024-01-20 15:27 | PTCARENOTE ---
Patient was able to move her bowels, order was obtained for a supp but she states she no longer needs and plans to go home later this afternoon.
--- NOTE | 2024-01-20 17:20 | PTCARENOTE ---
Reviewed discharge orders in detail and special instructions re: baby aspirin, plavix and eliquis with her upcoming embolization and she states her understanding of plan. Patient aware of follow up appointment and lab work needed. Patient discharged
home at 1600 after having a bowel movement, aware of prescriptions needed to be picked up.
== END 2024-01-20 17:36 | disposition home or self-care (01) | DRG 321 ==
LOC: IVU 16:22
PROVIDERS: Internal Medicine Interventional Cardiology; Nurse Practitioner Adult Health; Physician Assistant Medical; ADMITTING PHYSICIAN Internal Medicine Cardiovascular Disease; FAMILY PHYSICIAN Family Medicine
PROC: 027135Z Dilation of Coronary Artery, Two Arteries with Two Drug-eluting Intraluminal Devices, Percutaneous Approach (ICD-10-PCS; 2024-01-18)
PROC: B2151ZZ Fluoroscopy of Left Heart using Low Osmolar Contrast (ICD-10-PCS; 2024-01-18)
PROC: 4A023N8 Measurement of Cardiac Sampling and Pressure, Bilateral, Percutaneous Approach (ICD-10-PCS; 2024-01-18)
PROC: B240ZZ3 Ultrasonography of Single Coronary Artery, Intravascular (ICD-10-PCS; 2024-01-18)
PROC: B2111ZZ Fluoroscopy of Multiple Coronary Arteries using Low Osmolar Contrast (ICD-10-PCS; 2024-01-18)
DX: I25.119 Atherosclerotic heart disease of native coronary artery with unspecified angina pectoris (principal); I50.33 Acute on chronic diastolic (congestive) heart failure; C15.9 Malignant neoplasm of esophagus, unspecified; C78.7 Secondary malignant neoplasm of liver and intrahepatic bile duct; E27.40 Unspecified adrenocortical insufficiency; I11.0 Hypertensive heart disease with heart failure; I95.1 Orthostatic hypotension; I89.0 Lymphedema, not elsewhere classified; I08.0 Rheumatic disorders of both mitral and aortic valves; E78.5 Hyperlipidemia, unspecified; K59.00 Constipation, unspecified; Z79.01 Long term (current) use of anticoagulants; Z85.3 Personal history of malignant neoplasm of breast; Z85.72 Personal history of non-Hodgkin lymphomas; Z86.711 Personal history of pulmonary embolism; Z86.73 Personal history of transient ischemic attack (TIA), and cerebral infarction without residual deficits; Z92.3 Personal history of irradiation
CPT/HCPCS: 71046; 76937; 80048; 80053; 80061; 83735; 83880; 84484; 85025; 85027; 85347; 85610; 85730; 86803; 92978; 93005; 93460; 99152; 99153; C1725; C1753; C1760; C1769; C1874; C1894; C9600; Q9967

== ENCOUNTER 2024-01-30 11:56 | Emergency (ER) | payer MEDICARE, OTHER, SELFPAY ==
[2024-01-30 11:58] VITALS: BP 145/56
--- NOTE | 2024-01-30 13:26 | ED.GENMED ---
History of Present Illness
General
Chief Complaint: Breathing Problem
Source: patient
Exam Limitations: none
Time Seen by Provider: 01/30/24 12:14
Nursing documentation reviewed up to this point in time: agreed with
Travel History
Have you had any contact with someone who has COVID-19?: No
Do you have any symptoms of coronavirus? Fever > 100 degrees, chills, cough, shortness of breath, sore throat, loss of taste or smell, muscle aches, or headache?: No
History of Present Illness
History of Present Illness:
68 y/o F with h/o mulitple medical problems hodgkins lymphoma s/p radiation and then breast ca, esophageal ca with newer mets to liver
complicated by valve disorder, HTN, HLD, cad s/p stents R coronary and LAD 01/17 here
pulm fibrosis
anticoagulated
here with fatigue and sob
pt says she has chroind MONTANEZ which has been worked up every which way and without explanation. it has progressed over time
she has had it for at least a year
there was thought that pt had CHF and cards tried to diurse her but she didn't tolerate it and she didn't get any better
recently she had 2 stents placed and she felt better initialy but still had exertional dyspnea though her energy was better
but she continues with inability to do easy tasks, like stairs and getting drressed etc
Past History
Past History
ED Past Medical History: Cancer (Patient has had breast cancer and Hodgkin's lymphoma. Squamous cell carcinoma of the esophagus), COPD, CVA, HTN, Hypercholesterolemia, Valvular disease (Mitral regurgitation, aortic regurgitation with normal EF 55
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 Pneumonia, infectious colitis, IBS. PNA, Pulmonary nodules, right lymphedema. PE)
ED Past Surgical History: Other (Abdominal surgery for Hodgkin's disease modified right mastectomy, hysterectomy with ovary removed. Splenectomy, Breast reconstruction)
Social History
Tobacco: Non-smoker
Alcohol: None
Drug: None
Personal: Single
Living: alone
Employment: Employed
Family History
Family History: Hypertension
Phy Exam
Physical Exam
Physical Exam:
GENERAL: Alert , in no apparent distress
EYE: pupils equal and reactive
NECK: Supple
ENT: o/p clr, mmm.
CARDIAC: Regular rate and rhythm . Speaking full sentences
LUNGS: Clear breath sounds bilaterally, no acute respiratory distress, no wheezes/rales/rhonchi
ABDOMEN: Soft, without focal tenderness, no r/g, no cvat, normal bowel sounds
NEUROLOGICAL: Alert and oriented, no focal neuro deficits
SKIN: Warm and dry, skin intact.
MUSCULOSKELETAL: Lymphedema right arm, nontender, and no significant erythema in the lower extremities
PSYCH: Normal and appropriate interaction.
Scores
Heart Failure Risk
Heart Failure Risk Score: Not Applicable
Course
Orders/Labs/Results
Orders:
Orders
01/30/24
Electrocardiogram (*1) Stat
Comment: DONE EMR
01/30/24 13:10
Type+Screen Urgent
Complete Blood Count/With Diff Urgent
Comprehensive Metabolic Panel Urgent
NT-proBNP Urgent
Troponin I Urgent
01/30/24 13:54
COVID-19 Antigen Urgent
Source: Nasal Swab
Influenza A+B Rapid Molecular Urgent
MICK Source: Nasal Swab
Specimen Description:
01/30/24 14:39
CR Chest - 2 Views Urgent
Comment:
Reason For Exam: sob
01/30/24 16:17
Heparin Pf [Heparin Lock Flush] 500 unit IV NOW ONE
Abnormal Lab Results
01/30/24
13:10
WBC 18.7 H 10^3/uL
(4.8-10.8)
RBC 3.72 L 10^6/uL
(4.20-5.40)
Hgb 9.0 L g/dL
(12.0-16.0)
Hct 28.6 L %
(37.0-47.0)
MCV 76.9 L fL
(81.0-99.0)
MCH 24.2 L pg
(27.0-31.0)
MCHC 31.5 L g/dL
(33.0-37.0)
RDW 17.2 H %
(11.5-14.5)
Plt Count 520 H 10^3/uL
(130-400)
Abs Immat Gran (auto) 0.1 H 10^3/uL
(0-0.05)
Absolute Neuts (auto) 16.0 H 10^3/uL
(1.4-6.5)
Absolute Lymphs (auto) 0.9 L 10^3/uL
(1.2-3.4)
Absolute Monos (auto) 1.5 H 10^3/uL
(0.1-0.6)
Immature Gran % 0.7 H %
(0-0.5)
Neutrophils % 85.3 H %
(42.2-75.2)
Lymphocytes % 4.7 L %
(20.5-51.1)
Carbon Dioxide 31 H mmol/L
(22-30)
BUN 24 H mg/dl
(7-17)
Creatinine 1.1 H mg/dL
(0.6-1.0)
Glucose 157 H mg/dl
(70-99)
AST 43 H U/L
(14-36)
Alkaline Phosphatase 198 H U/L
(38-126)
01/30/24 13:10
01/30/24 13:10
Vital Signs
Initial and Last Documented VS:
Initial Vital Signs
Temp Pulse Resp BP Pulse Ox
97.6 F 105 18 145/56 100
01/30/24 11:58 01/30/24 11:58 01/30/24 11:58 01/30/24 11:58 01/30/24 11:58
Last Documented Vital Signs
Temp Pulse Resp BP Pulse Ox
97.6 F 84 16 122/74 98
01/30/24 11:58 01/30/24 16:00 01/30/24 16:00 01/30/24 16:00 01/30/24 16:00
MDM/Problems Addressed
Differential Diagnosis Includes:
Anxiety, CHF, anemia, pulmonary fibrosis
MDM/Problems Addressed:
68-year-old female with a very complex medical history, ongoing active cancer in her liver, anticoagulated and recently status post PCI of LAD in the right RCA 2 weeks ago presents for continued exertional dyspnea. Patient thought that the PCI
would have treated her dyspnea however she was frustrated to realize that she has had the same symptoms since her cath that she has had over the last year which has been not able to be diagnosed. Patient says she initially was thought to have CHF
and was treated with IV diuresis but ultimately that did not treat her symptoms which include exam dyspnea with any activity which resolved completely with rest. She has not had any chest discomfort. This morning which seems to be different is
that felt like she could not even get dressed without being winded. She has had her oxygen level checked and she has been to the acid correction hand and she does have some restrictive lung disease but it is not severe and she is never hypoxic and she is
anticoagulated so she should not not have a new clot. It really is quite a mystery why the patient feels this way. She thought maybe she was increasingly anemic since her hemoglobin has been downtrending and wanted that checked today. She
unfortunately could not get it done as an outpatient because she would need her port accessed because she has poor venous access otherwise and ultimately decided to come here. On exam the patient speaks in full sentences and is not tachypneic, she
has clear lungs, no signs of CHF on x-ray, BNP is normal, she does have a leukocytosis but always takes hydrocortisone and her baseline is in the 12-16,000 range, she is up to 18,000 and was otherwise not feeling well this morning so perhaps she has
an infectious cause for this bump in her white count. I did a flu and COVID which were negative and she has no signs of pneumonia and is not coughing. Requested a UA but she was not able to give 1 and she has no urinary symptoms. I spoke with
Trevor who is the compliance representative who knows her and says that he is perplexed by her case as well. He doubts that this is cardiac related, she has had a follow-up with the PA since her surgery and was complaining of the same symptoms. His thought
was that the patient could be symptomatic anemia but patient's hemoglobin is back up to 9.0 and is not going down. At this point he does not feel that the patient needs any further testing cardiac macdonald. I spent a long time speaking with this
patient and what she ended up requesting was that I give her a very low-dose of muscle relaxer because she believes that since her abdominoplasty following her surgeries previously that her abdomen is pulled too tight and she feels like she gets a
spasm in her diaphragm. Reviewing her medications I did not feel that 2 mg Valium at night would be risky for her and I only gave her a few tablets just in case, patient will follow-up with her family doctor if she does have relief here.
*Critical Care Note
Total Time (30-74mins, 75-104mins- exclusive of procedures): Not Applicable
ED Attending Note
-
Portions of this chart may have been created with voice recognition software.� Occasional wrong word or��sound alike� substitutions may have occurred due to the inherent limitations of voice recognition software.
Discharge Plan
Departure
Patient Disposition: Home (Routine Discharge)
Date of Disposition: 01/30/24
Time of Disposition: 15:59
Patient with high blood pressure during this ER visit?: No
Condition: Fair
Covid-19: Not Applicable
Discharge Problem:
Dyspnea
Instructions: Shortness of Breath (Dyspnea) (DC)
Prescriptions:
New
diazepam [Valium] 2 mg tablet
2 mg PO HS PRN (Reason: muscle spasm) Qty: 5 0RF
No Action
Eliquis 5 mg tablet
5 mg PO BID
hydrocortisone 5 mg Tablet
5 mg PO BID@1200,1800
pantoprazole 20 mg Tablet,Delayed Release (Dr/Ec)
20 mg PO DAILY
hydrocortisone 20 mg Tablet
10 mg PO DAILY
metoprolol succinate [Toprol XL] 25 mg Tablet Extended Release 24 Hr
12.5 mg PO BID
albuterol sulfate [ProAir HFA] 90 mcg/actuation Hfa Aerosol Inhaler
2 puff INHALATION R Q6HPRN PRN (Reason: sob)
clopidogrel 75 mg Tablet
75 mg PO DAILY Qty: 30 11RF
ezetimibe 10 mg Tablet
10 mg PO DAILY Qty: 30 11RF
levothyroxine 88 mcg Tablet
88 mcg PO DAILY
furosemide [Lasix] 20 mg tablet
20 mg PO MOWEFR Qty: 30 0RF
polyethylene glycol 3350 [Miralax] 17 gram Powder In Packet
17 g PO DAILYPRN PRN (Reason: constipation)
Tums 300 mg (750 mg) Tablet,Chewable
300 mg PO BIDPRN PRN (Reason: gerd)
famotidine [Pepcid] 20 mg Tablet
20 mg PO HS
Referrals:
Asa Munoz DO [Family Provider] -
Activity Restrictions/Additional Instructions:
We are not sure the cause of your shortness of breath is this is been an ongoing issue but it does not seem to be an acute emergency with your heart. You are anemic but not worse than previous. At night you can try Valium 2 mg to see if this helps
your diaphragm spasm that you are having. Talk to your family doctor if this helps.
Interventions
Interventions:
*Risk Screen - Suicide Last Done: 01/30/24 16:33
*General Assessment Last Done: 01/30/24 16:33
*Neglect/Abuse Screening Last Done: 01/30/24 16:33
*ED COVID-19 Vaccine History Last Done: 01/30/24 11:58
*Nursing Disposition Last Done: 01/30/24 16:37
ED- Cardiac Assessment Last Done: 01/30/24 16:33
ED- Pulmonary Assessment Last Done: 01/30/24 16:33
Discharge Date and Time
Discharge Date/Time: 01/30/24 16:38
[2024-01-30 13:28] LABS: % Basophils 0.4 % (0-2); % Eosinophils 1.1 % (0-6); % Immature Granulocytes 0.7 % (0-0.5); % Lymphocytes 4.7 % (20.5-51.1); % Monocytes 7.8 % (1.7-9.3); % Neutrophils 85.3 % (42.2-75.2); Absolute Basophils 0.1 10^3/uL (0-0.2); Absolute Eosinophils 0.2 10^3/uL (0-0.7); Absolute Immature Granulocytes 0.1 10^3/uL (0-0.05); Absolute Lymphocytes 0.9 10^3/uL (1.2-3.4); Absolute Monocytes 1.5 10^3/uL (0.1-0.6); Hematocrit 28.6 % (37.0-47.0); Mean Corp Hgb Conc. 31.5 g/dL (33.0-37.0); Mean Corpuscular Hgb 24.2 pg (27.0-31.0); Mean Corpuscular Volume 76.9 fL (81.0-99.0); Mean Platelet Volume 9.6 fL (7.4-10.4); Nucleated Red Blood Cells % 0.1 %; Platelet Count 520 10^3/uL (130-400); Red Blood Cell Count 3.72 10^6/uL (4.20-5.40); Red Cell Dist. Width 17.2 % (11.5-14.5); White Blood Cell Count 18.7 10^3/uL (4.8-10.8)
[2024-01-30 13:32] LABS: ALT (SGPT) 25 U/L (0-35); AST (SGOT) 43 U/L (14-36); Albumin 3.9 g/dl (3.5-5.0); Alkaline Phosphatase 198 U/L (38-126); Blood Urea Nitrogen 24 mg/dl (7-17); Calcium 8.9 mg/dl (8.4-10.2); Carbon Dioxide 31 mmol/L (22-30); Chloride 98 mmol/L (98-107); Glucose 157 mg/dl (70-99); Sodium 136 mmol/L (135-145); Total Bilirubin 0.5 mg/dl (0.2-1.3); Total Protein 6.7 g/dl (6.3-8.2); eGFR 55.42
[2024-01-30 13:43] LABS: NT-proBNP 789 pg/ml; Troponin I < 0.012 ng/ml
[2024-01-30 14:00] VITALS: BP 150/63
[2024-01-30 14:24] LABS: COVID-19 Antigen Negative (Negative)
[2024-01-30 15:00] VITALS: BP 119/52
[2024-01-30 16:00] VITALS: BP 122/74
--- NOTE | 2024-01-30 16:21 | VATNOTE ---
right subq port deaccessed per protocol. Brisk blood return noted prior to.
== END 2024-01-30 16:38 | disposition home or self-care (01) ==
LOC: EMR 11:56
PROVIDERS: Physician Assistant; EMERGENCY PHYSICIAN Emergency Medicine; FAMILY PHYSICIAN Family Medicine
DX: R06.00 Dyspnea, unspecified (principal); E78.00 Pure hypercholesterolemia, unspecified; I11.0 Hypertensive heart disease with heart failure; I50.9 Heart failure, unspecified; I25.10 Atherosclerotic heart disease of native coronary artery without angina pectoris; J44.9 Chronic obstructive pulmonary disease, unspecified; J84.10 Pulmonary fibrosis, unspecified; K58.9 Irritable bowel syndrome, unspecified; Z82.49 Family history of ischemic heart disease and other diseases of the circulatory system; Z85.01 Personal history of malignant neoplasm of esophagus; Z85.3 Personal history of malignant neoplasm of breast; Z85.71 Personal history of Hodgkin lymphoma; Z86.73 Personal history of transient ischemic attack (TIA), and cerebral infarction without residual deficits; Z90.11 Acquired absence of right breast and nipple; Z90.710 Acquired absence of both cervix and uterus; Z90.721 Acquired absence of ovaries, unilateral; Z92.3 Personal history of irradiation; Z95.5 Presence of coronary angioplasty implant and graft
CPT/HCPCS: 99283; 71046; 80053; 83880; 84484; 85025; 86850; 86900; 86901; 87502; 87811; 93005

== ENCOUNTER 2024-02-03 15:49 | Emergency (ER) | payer MEDICARE, OTHER, SELFPAY ==
[2024-02-03 15:57] VITALS: BP 140/50
[2024-02-03 17:11] VITALS: BMI 25.8
[2024-02-03 17:13] VITALS: BP 100/86
--- NOTE | 2024-02-03 17:15 | ED.GENMED ---
History of Present Illness
<Vianney Hernández PA-C - Last Filed: 02/06/24 11:07>
General
Chief Complaint: Blood Pressure Problem
Source: patient
Exam Limitations: none
Time Seen by Provider: 02/03/24 16:44
Nursing documentation reviewed up to this point in time: agreed with
Travel History
Have you had any contact with someone who has COVID-19?: No
Do you have any symptoms of coronavirus? Fever > 100 degrees, chills, cough, shortness of breath, sore throat, loss of taste or smell, muscle aches, or headache?: No
History of Present Illness
History of Present Illness:
68-year-old female with past medical history of radiation pneumonitis, POTS, metastatic cancer, valvular disease, diabetes, adrenal insufficiency, CVA presenting to the emergency department today with concerns of chronic shortness of breath and
concerns of low blood pressure. Patient states that she has feeling dizziness and lightheadedness with standing which she experiences with her POTS. Patient was evaluated in office today by Dr. Ronquillo, her management engineer, who started her on
midodrine today. However, midodrine takes many days to kick in and Dr. Ronquillo advised her to report to emergency department for IV fluids. Regarding patient's shortness of breath, she states that she has had this chronically however recently
has become worse. It only occurs with exertion. Patient has had a PE in the past but she does take Eliquis twice daily. Patient has been worked up by her university extension specialist, management engineer, and seen in the ER a few days ago for the shortness of breath.
Patient denies any chest pain, nausea or vomiting, abdominal pain, fevers or chills.
Past History
<Vianney Hernández PA-C - Last Filed: 02/06/24 11:07>
Past History
ED Past Medical History: Cancer (Patient has had breast cancer and Hodgkin's lymphoma. Squamous cell carcinoma of the esophagus), COPD, CVA, HTN, Hypercholesterolemia, Valvular disease (Mitral regurgitation, aortic regurgitation with normal EF 55
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 Pneumonia, infectious colitis, IBS. PNA, Pulmonary nodules, right lymphedema. PE)
ED Past Surgical History: Other (Abdominal surgery for Hodgkin's disease modified right mastectomy, hysterectomy with ovary removed. Splenectomy, Breast reconstruction)
Social History
Tobacco: Non-smoker
Alcohol: None
Drug: None
Personal: Single
Living: alone
Employment: Employed
Family History
Family History: Hypertension
Review of Systems
<Vianney Hernández PA-C - Last Filed: 02/06/24 11:07>
Review of Systems
All Other Systems: ROS reviewed and negative except as documented in HPI and ROS
EENT: Reports no symptoms
ABD/GI: Reports no symptoms
: Reports no symptoms
Musculoskeletal: Reports no symptoms
Skin: Reports no symptoms
Neurological: Reports no symptoms
Endocrine: Reports no symptoms
Psychiatric: Reports no symptoms
Phy Exam
<Vianney Hernández PA-C - Last Filed: 02/06/24 11:07>
Physical Exam
Physical Exam:
Vitals: Vital signs are stable
General: Patient is well-appearing, no acute distress
Skin: Warm and dry, no rashes or lesions
Head: Normocephalic, atraumatic
Cardiac: Patient is tachycardic, otherwise regular rhythm, no murmurs
Peripheral vascular: No lower extremity edema. 2+ dorsalis pedis pulses bilaterally. Chronic right sided upper extremity lymphedema.
Pulm: Normal respiratory effort, patient not hypoxic, no wheezes, rales, rhonchi heard on exam
Abdomen: No abdominal tenderness palpation
Neuro: CN II-XII intact. AAOx3. No focal neurologic deficits.
Course
<VERONICA Henao Last Filed: 02/06/24 11:07>
Orders/Labs/Results
Orders:
Orders
02/03/24 17:11
0.9% Sodium Chloride 1000 ml [Nss] 1,000 ml IV BOLUS
02/03/24 17:40
Complete Blood Count/With Diff Urgent
Comprehensive Metabolic Panel Urgent
02/03/24 17:47
Electrocardiogram (*1) Urgent
Reason for Study: Shortness of Breath
EKG- Treatment ONCE
02/03/24 18:09
Midodrine [ProAmatine] 2.5 mg PO NOW STA
Abnormal Lab Results
02/03/24
17:40
WBC 14.0 H 10^3/uL
(4.8-10.8)
RBC 3.59 L 10^6/uL
(4.20-5.40)
Hgb 8.7 L g/dL
(12.0-16.0)
Hct 27.2 L %
(37.0-47.0)
MCV 75.8 L fL
(81.0-99.0)
MCH 24.2 L pg
(27.0-31.0)
MCHC 32.0 L g/dL
(33.0-37.0)
RDW 17.0 H %
(11.5-14.5)
Plt Count 450 H 10^3/uL
(130-400)
Abs Immat Gran (auto) 0.1 H 10^3/uL
(0-0.05)
Absolute Neuts (auto) 11.1 H 10^3/uL
(1.4-6.5)
Absolute Monos (auto) 1.2 H 10^3/uL
(0.1-0.6)
Neutrophils % 79.3 H %
(42.2-75.2)
Lymphocytes % 10.3 L %
(20.5-51.1)
Chloride 97 L mmol/L
(98-107)
BUN 28 H mg/dl
(7-17)
Creatinine 1.4 H mg/dL
(0.6-1.0)
Glucose 150 H mg/dl
(70-99)
AST 39 H U/L
(14-36)
Alkaline Phosphatase 175 H U/L
(38-126)
02/03/24 17:40
02/03/24 17:40
Vital Signs
Initial and Last Documented VS:
Initial Vital Signs
Temp Pulse Resp BP Pulse Ox
97.7 F 101 18 140/50 100
02/03/24 15:57 02/03/24 15:57 02/03/24 15:57 02/03/24 15:57 02/03/24 15:57
Last Documented Vital Signs
Temp Pulse Resp BP Pulse Ox
97.7 F 80 7 155/67 98
02/03/24 15:57 02/03/24 20:45 02/03/24 20:45 02/03/24 20:00 02/03/24 20:45
<Asa Woodson MD - Last Filed: 02/03/24 19:56>
Orders/Labs/Results
Orders:
Orders
02/03/24 17:11
0.9% Sodium Chloride 1000 ml [Nss] 1,000 ml IV BOLUS
02/03/24 17:40
Complete Blood Count/With Diff Urgent
Comprehensive Metabolic Panel Urgent
02/03/24 17:47
Electrocardiogram (*1) Urgent
Reason for Study: Shortness of Breath
EKG- Treatment ONCE
02/03/24 18:09
Midodrine [ProAmatine] 2.5 mg PO NOW STA
Abnormal Lab Results
02/03/24
17:40
WBC 14.0 H 10^3/uL
(4.8-10.8)
RBC 3.59 L 10^6/uL
(4.20-5.40)
Hgb 8.7 L g/dL
(12.0-16.0)
Hct 27.2 L %
(37.0-47.0)
MCV 75.8 L fL
(81.0-99.0)
MCH 24.2 L pg
(27.0-31.0)
MCHC 32.0 L g/dL
(33.0-37.0)
RDW 17.0 H %
(11.5-14.5)
Plt Count 450 H 10^3/uL
(130-400)
Abs Immat Gran (auto) 0.1 H 10^3/uL
(0-0.05)
Absolute Neuts (auto) 11.1 H 10^3/uL
(1.4-6.5)
Absolute Monos (auto) 1.2 H 10^3/uL
(0.1-0.6)
Neutrophils % 79.3 H %
(42.2-75.2)
Lymphocytes % 10.3 L %
(20.5-51.1)
Chloride 97 L mmol/L
(98-107)
BUN 28 H mg/dl
(7-17)
Creatinine 1.4 H mg/dL
(0.6-1.0)
Glucose 150 H mg/dl
(70-99)
AST 39 H U/L
(14-36)
Alkaline Phosphatase 175 H U/L
(38-126)
02/03/24 17:40
02/03/24 17:40
Vital Signs
Initial and Last Documented VS:
Initial Vital Signs
Temp Pulse Resp BP Pulse Ox
97.7 F 101 18 140/50 100
02/03/24 15:57 02/03/24 15:57 02/03/24 15:57 02/03/24 15:57 02/03/24 15:57
Last Documented Vital Signs
Temp Pulse Resp BP Pulse Ox
97.7 F 80 7 155/67 98
02/03/24 15:57 02/03/24 20:45 02/03/24 20:45 02/03/24 20:00 02/03/24 20:45
<Vianney Hernández PA-C - Last Filed: 02/06/24 11:07>
MDM/Problems Addressed
Differential Diagnosis Includes:
ddx include pulmonary embolism, heart block/dysrhythmia, POTS, anemia, adrenal insufficiency, dehydration
MDM/Problems Addressed:
Problems adressed: Low blood pressure, shortness of breath

Will obtain labs, EKG, give fluids and reassess
Chronic conditions affecting care:
CVA, PE, POTS, hypertension, diabetes, Hodgkin's lymphoma, breast cancer, liver mets, hyperlipidemia, CAD
Acute Exacerbation and/or Progression of Chronic Illness:
CVA, PE, POTS, hypertension, diabetes, Hodgkin's lymphoma, breast cancer, liver mets, hyperlipidemia, CAD
<Vianney Hernández PA-C - Last Filed: 02/06/24 11:07>
*Pulse Oximetry
Patient hypoxic: no
*Critical Care Note
Total Time (30-74mins, 75-104mins- exclusive of procedures): Not Applicable
Data Reviewed
Review of Other/Old Records Reveals: Records (Reviewed ER physician documentation from 01/30/2024, 01/16/24) and Discharge Summary (Reviewed discharge summary from 01/21/2024)
Source: patient and records
<Asa Woodson MD - Last Filed: 02/03/24 19:56>
*EKG
Interpreted by ED Provider?: Yes
Interpretation: normal
Comparison EKG: no changes
Heart Rate: 90
Rate: normal
Rhythm: sinus
[place]: normal axis
Interval: normal interval
QRS Pattern: normal QRS
Ischemia: no ischemia
*Chef'S Assistant Interpretation
Rate: normal
Interpretation: normal
Heart Rate: 88
Rhythm: sinus
ED Attending Note
<Vianney Hernández PA-C - Last Filed: 02/06/24 11:07>
-
Portions of this chart may have been created with voice recognition software.� Occasional wrong word or��sound alike� substitutions may have occurred due to the inherent limitations of voice recognition software.
<Asa Woodson MD - Last Filed: 02/03/24 19:56>
ED Attending Note
Patient seen and examined by attending physician: Yes
I performed the substantive portion of visit, reviewed & personally made and approve the management plan that is documented in note by myself or LOUANN.: Yes
ED Attending Note:
68-year-old female stood up this morning hypotensive. Blood pressure in the 60s. Saw her management engineer today who wanted her sent for fluids. Feels well at rest. No pleuritic chest pain. Has had ongoing shortness of breath that has become
progressive. No fever chills cough leg pain etc.
GENERAL: Alert and oriented in no apparent distress
EYE: Orbits normal.
NECK: Supple
CARDIAC: Regular rate and rhythm without any obvious murmurs. Port upper right chest wall
LUNGS: Clear breath sounds,normal
ABDOMEN: Soft, without focal tenderness or distention
NEUROLOGICAL: Alert and oriented , grossly non-focal
SKIN: Warm and dry, no rash or lesion, no discoloration, skin intact.
MUSCULOSKELETAL: No edema,no deformity.Good color
PSYCH: Normal and appropriate interaction.
EKG normal sinus rhythm at 90. No acute changes. Intervals within normal limits. Likely all orthostatic related to her ongoing recurrent episodes of hypotension. Patient has had slow progression of shortness of breath. Very unlikely to be
pulmonary emboli given her faithful Eliquis dosing, lack of tachycardia lack of tachypnea and lack of chest pain. I did discuss getting a CT scan which would be complicated with her history of dye allergy and history of antihistamine issues. Joint
decision we decided to hold on CT given the very low risk that this would be a pulmonary emboli.
1952... Patient doing well. Stable. Will discharge after liter of fluid
Discharge Plan
Departure
Patient Disposition: Home (Routine Discharge)
Date of Disposition: 02/03/24
Time of Disposition: 19:54
Patient with high blood pressure during this ER visit?: Yes
Condition: Good
Discharge Problem:
POTS (postural orthostatic tachycardia syndrome), Hypotension
Instructions: Shortness of Breath (Dyspnea) (DC), Orthostatic Hypotension (DC)
Prescriptions:
No Action
Eliquis 5 mg tablet
5 mg PO BID
hydrocortisone 5 mg Tablet
5 mg PO BID@1200,1800
pantoprazole 20 mg Tablet,Delayed Release (Dr/Ec)
20 mg PO DAILY
hydrocortisone 20 mg Tablet
10 mg PO DAILY
metoprolol succinate [Toprol XL] 25 mg Tablet Extended Release 24 Hr
12.5 mg PO BID
albuterol sulfate [ProAir HFA] 90 mcg/actuation Hfa Aerosol Inhaler
2 puff INHALATION R Q6HPRN PRN (Reason: sob)
clopidogrel 75 mg Tablet
75 mg PO DAILY Qty: 30 11RF
ezetimibe 10 mg Tablet
10 mg PO DAILY Qty: 30 11RF
levothyroxine 88 mcg Tablet
88 mcg PO DAILY
furosemide [Lasix] 20 mg tablet
20 mg PO MOWEFR Qty: 30 0RF
polyethylene glycol 3350 [Miralax] 17 gram Powder In Packet
17 g PO DAILYPRN PRN (Reason: constipation)
Tums 300 mg (750 mg) Tablet,Chewable
300 mg PO BIDPRN PRN (Reason: gerd)
famotidine [Pepcid] 20 mg Tablet
20 mg PO HS
diazepam [Valium] 2 mg tablet
2 mg PO HS PRN (Reason: muscle spasm) Qty: 5 0RF
Referrals:
Asa Munoz DO [Family Provider] - Follow up in 2-3 days
Activity Restrictions/Additional Instructions:
Please follow-up with your primary care provider and your university extension specialist regarding your persistent shortness of breath.
Please return to emergency department should you experience any acute worsening or symptoms, chest pain, syncopal episodes, slurring of speech, motor weakness, severe headache, or other concerning signs or symptoms.
Interventions
Interventions:
*Risk Screen - Suicide Last Done: 02/03/24 19:05
*General Assessment Last Done: 02/03/24 17:13
*Neglect/Abuse Screening Last Done: 02/03/24 19:04
ED- Fall Risk Assessment Last Done: 02/03/24 19:05
*ED COVID-19 Vaccine History Last Done: 02/03/24 17:13
*Nursing Disposition Last Done: 02/03/24 20:57
ED- Cardiac Assessment Last Done: 02/03/24 19:04
ED- Neurological Assessment Last Done: 02/03/24 19:05
ED- Pulmonary Assessment Last Done: 02/03/24 19:04
Discharge Date and Time
Discharge Date/Time: 02/03/24 20:58
Print Language: CHINESE
[2024-02-03 17:45] LABS: % Basophils 0.6 % (0-2); % Eosinophils 1.2 % (0-6); % Immature Granulocytes 0.4 % (0-0.5); % Lymphocytes 10.3 % (20.5-51.1); % Monocytes 8.2 % (1.7-9.3); % Neutrophils 79.3 % (42.2-75.2); Absolute Basophils 0.1 10^3/uL (0-0.2); Absolute Eosinophils 0.2 10^3/uL (0-0.7); Absolute Immature Granulocytes 0.1 10^3/uL (0-0.05); Absolute Lymphocytes 1.5 10^3/uL (1.2-3.4); Absolute Monocytes 1.2 10^3/uL (0.1-0.6); Absolute Neutrophils 11.1 10^3/uL (1.4-6.5); Hematocrit 27.2 % (37.0-47.0); Hemoglobin 8.7 g/dL (12.0-16.0); Mean Corpuscular Hgb 24.2 pg (27.0-31.0); Mean Corpuscular Volume 75.8 fL (81.0-99.0); Mean Platelet Volume 9.7 fL (7.4-10.4); Nucleated Red Blood Cells % 0 %; Platelet Count 450 10^3/uL (130-400); Red Blood Cell Count 3.59 10^6/uL (4.20-5.40)
[2024-02-03 18:00] VITALS: BP 99/63
[2024-02-03 18:04] LABS: ALT (SGPT) 23 U/L (0-35); AST (SGOT) 39 U/L (14-36); Albumin 3.9 g/dl (3.5-5.0); Alkaline Phosphatase 175 U/L (38-126); Blood Urea Nitrogen 28 mg/dl (7-17); Calcium 9.2 mg/dl (8.4-10.2); Carbon Dioxide 30 mmol/L (22-30); Chloride 97 mmol/L (98-107); Estimated Creatinine Clearance 36 ml/min; Glucose 150 mg/dl (70-99); Potassium 4.1 mmol/L (3.5-5.1); Sodium 137 mmol/L (135-145); Total Bilirubin 0.5 mg/dl (0.2-1.3); Total Protein 6.9 g/dl (6.3-8.2); eGFR 41.49
[2024-02-03] MEDS: NSS 1000 IV (18:57)
[2024-02-03] MEDS: ProAmatine 2.5 MG PO (18:57)
[2024-02-03 19:00] VITALS: BP 126/68
[2024-02-03 20:00] VITALS: BP 155/67
== END 2024-02-03 20:58 | disposition home or self-care (01) ==
LOC: EMR 15:49
PROVIDERS: Physician Assistant; EMERGENCY PHYSICIAN Emergency Medicine; FAMILY PHYSICIAN Family Medicine
DX: G90.A Postural orthostatic tachycardia syndrome [POTS] (principal); I95.9 Hypotension, unspecified
CPT/HCPCS: 99284; 96360; 80053; 85025; 93005

== ENCOUNTER 2024-02-21 20:09 | Inpatient (IN) | payer MEDICARE, OTHER, SELFPAY ==
[2024-02-21] VITALS (10 sets, daily range): BP systolic 106–153; BP diastolic 42–82; BMI 26.1
--- NOTE | 2024-02-21 14:33 | ED.GENMED ---
History of Present Illness
<Vianney Hernández PA-C - Last Filed: 02/21/24 18:48>
General
Chief Complaint: Breathing Problem
Source: patient and records
Exam Limitations: none
Time Seen by Provider: 02/21/24 14:29
Nursing documentation reviewed up to this point in time: agreed with
Travel History
Have you had any contact with someone who has COVID-19?: No
Do you have any symptoms of coronavirus? Fever > 100 degrees, chills, cough, shortness of breath, sore throat, loss of taste or smell, muscle aches, or headache?: No
History of Present Illness
History of Present Illness:
68-year-old female with past medical history of radiation pneumonitis, POTS, metastatic cancer, valvular disease, diabetes, adrenal insufficiency, CVA presenting to the emergency department today with concerns of acute on chronic shortness of
breath. Patient states that she has had persistent shortness of breath for many months which has been getting worse as the week progressed, her central aisle cashier attributes this to radiation pneumonitis but she feels that this is something more.
Patient was evaluated by her demurrage man today, Dr. Ronquillo, in the office who advised patient to come into the emergency department today for evaluation. Patient demurrage man suspects that she is still short of breath because of her anemia.
Patient had a coronary artery catheterization done last month and had stents placed in her heart, this did not improve her symptoms. Patient has a follow-up appointment scheduled with her central aisle cashier at the end of this week. Patient is no
shortness of breath associated with this. Patient has no upper URI symptoms. Patient is no fever here or chills. Patient states that is gotten so severe to the point where she could not barely walk without severe shortness of breath. At rest,
she feels well.
Past History
<Vianney Hernández PA-C - Last Filed: 02/21/24 18:48>
Past History
ED Past Medical History: Cancer (Patient has had breast cancer and Hodgkin's lymphoma. Squamous cell carcinoma of the esophagus), COPD, CVA, HTN, Hypercholesterolemia, Valvular disease (Mitral regurgitation, aortic regurgitation with normal EF 55
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 Pneumonia, infectious colitis, IBS. PNA, Pulmonary nodules, right lymphedema. PE)
ED Past Surgical History: Other (Abdominal surgery for Hodgkin's disease modified right mastectomy, hysterectomy with ovary removed. Splenectomy, Breast reconstruction)
Social History
Tobacco: Non-smoker
Alcohol: None
Drug: None
Personal: Single
Living: alone
Employment: Employed
Family History
Family History: Hypertension
Review of Systems
<Vianney Hernández PA-C - Last Filed: 02/21/24 18:48>
Review of Systems
All Other Systems: ROS reviewed and negative except as documented in HPI and ROS
Phy Exam
<Vianney Hernández PA-C - Last Filed: 02/21/24 18:48>
Physical Exam
Physical Exam:
Vitals: Patient's vital signs are stable
General: Patient is well-appearing in no acute distress
Skin: Warm and dry, no rashes or lesions
Head: Normocephalic, atraumatic
Eyes: Scleral nonicteric
Cardiac: Regular rate and rhythm, no murmurs
Pulm: Tachypnea, breath sounds equal on exam, no wheezes, rales, or rhonchi. No tenderness palpation of the posterior chest wall.
Abdomen: No abdominal tenderness to palpation
Psychiatric: Appropriate mood and affect
Scores
<VERONICA Henao Last Filed: 02/21/24 18:48>
Heart Failure Risk
Heart Failure Risk Score: Not Applicable
Course
<VERONICA Henao Last Filed: 02/21/24 18:48>
Orders/Labs/Results
Orders:
Orders
02/21/24 12:31
Electrocardiogram (*1) Urgent
Reason for Study: Chest Pain
EKG- Treatment ONCE
02/21/24 15:01
BNP [NT-proBNP] Urgent
Complete Blood Count/With Diff Urgent
Comprehensive Metabolic Panel Urgent
Ferritin Urgent
Iron Urgent
Total Iron Binding Urgent
02/21/24 15:42
Transferrin [S] Urgent
Troponin I Urgent
02/21/24 16:06
CR Chest - 2 Views Urgent
Comment:
Reason For Exam: shortness of breath
02/21/24 18:17
Blood Bank Products [* Blood Bank Products] Urgent
Blood Bank Products: *Packed RBC Leuko(PRBC's)
Quantity: 1
Transfuse Today: Yes
Reason: Anemia
02/21/24 18:40
Type+Screen Urgent
BBK Wristband Number:
02/21/24 19:40
Admit/Transfer Patient As Directed
Co-Sign Provider:
Level of Care: Inpatient admission
Assign to:: Medical/Surgical
Physician / Group: tyrel
Diagnosis: anemia
Reason for Hospitalization: anemia
Expected length of stay greater than two midnights?: Yes
ELOS- Estimated Length of Stay in days: 3
I certify the patient meets the requirements for IP care: Yes
02/21/24 19:41
Code Status As Directed
Resuscitation Status: Full Code
02/21/24 19:43
Add On- LAB Stat
Tests Added?: iron, b12, ferritin tibc, folate
Abnormal Lab Results
02/21/24
15:01
WBC 17.4 H 10^3/uL
(4.8-10.8)
RBC 3.55 L 10^6/uL
(4.20-5.40)
Hgb 8.4 L g/dL
(12.0-16.0)
Hct 26.5 L %
(37.0-47.0)
MCV 74.6 L fL
(81.0-99.0)
MCH 23.7 L pg
(27.0-31.0)
MCHC 31.7 L g/dL
(33.0-37.0)
RDW 17.7 H %
(11.5-14.5)
Plt Count 406 H 10^3/uL
(130-400)
Abs Immat Gran (auto) 0.1 H 10^3/uL
(0-0.05)
Absolute Neuts (auto) 14.7 H 10^3/uL
(1.4-6.5)
Absolute Lymphs (auto) 0.9 L 10^3/uL
(1.2-3.4)
Absolute Monos (auto) 1.5 H 10^3/uL
(0.1-0.6)
Immature Gran % 0.7 H %
(0-0.5)
Neutrophils % 84.9 H %
(42.2-75.2)
Lymphocytes % 4.9 L %
(20.5-51.1)
BUN 28 H mg/dl
(7-17)
Creatinine 1.8 H mg/dL
(0.6-1.0)
Glucose 138 H mg/dl
(70-99)
Iron 28 L ug/dl
(37-170)
% Saturation 7 L %
(20-50)
AST 55 H U/L
(14-36)
Alkaline Phosphatase 167 H U/L
(38-126)
02/21/24 15:01
02/21/24 15:01
Vital Signs
Initial and Last Documented VS:
Initial Vital Signs
Temp Pulse Resp BP Pulse Ox
97.7 F 95 20 106/82 97
02/21/24 12:26 02/21/24 12:26 02/21/24 12:26 02/21/24 12:26 02/21/24 12:26
Last Documented Vital Signs
Temp Pulse Resp BP Pulse Ox
97.7 F 83 19 107/44 98
02/21/24 12:26 02/21/24 18:00 02/21/24 18:00 02/21/24 17:06 02/21/24 17:45
<Hever Redmond, DO - Last Filed: 02/21/24 19:50>
Orders/Labs/Results
Orders:
Orders
02/21/24 12:31
Electrocardiogram (*1) Urgent
Reason for Study: Chest Pain
EKG- Treatment ONCE
02/21/24 15:01
BNP [NT-proBNP] Urgent
Complete Blood Count/With Diff Urgent
Comprehensive Metabolic Panel Urgent
Ferritin Urgent
Iron Urgent
Total Iron Binding Urgent
02/21/24 15:42
Transferrin [S] Urgent
Troponin I Urgent
02/21/24 16:06
CR Chest - 2 Views Urgent
Comment:
Reason For Exam: shortness of breath
02/21/24 18:17
Blood Bank Products [* Blood Bank Products] Urgent
Blood Bank Products: *Packed RBC Leuko(PRBC's)
Quantity: 1
Transfuse Today: Yes
Reason: Anemia
02/21/24 18:40
Type+Screen Urgent
BBK Wristband Number:
02/21/24 19:40
Admit/Transfer Patient As Directed
Co-Sign Provider:
Level of Care: Inpatient admission
Assign to:: Medical/Surgical
Physician / Group: veldanda
Diagnosis: anemia
Reason for Hospitalization: anemia
Expected length of stay greater than two midnights?: Yes
ELOS- Estimated Length of Stay in days: 3
I certify the patient meets the requirements for IP care: Yes
02/21/24 19:41
Code Status As Directed
Resuscitation Status: Full Code
02/21/24 19:43
Add On- LAB Stat
Tests Added?: iron, b12, ferritin tibc, folate
Abnormal Lab Results
02/21/24
15:01
WBC 17.4 H 10^3/uL
(4.8-10.8)
RBC 3.55 L 10^6/uL
(4.20-5.40)
Hgb 8.4 L g/dL
(12.0-16.0)
Hct 26.5 L %
(37.0-47.0)
MCV 74.6 L fL
(81.0-99.0)
MCH 23.7 L pg
(27.0-31.0)
MCHC 31.7 L g/dL
(33.0-37.0)
RDW 17.7 H %
(11.5-14.5)
Plt Count 406 H 10^3/uL
(130-400)
Abs Immat Gran (auto) 0.1 H 10^3/uL
(0-0.05)
Absolute Neuts (auto) 14.7 H 10^3/uL
(1.4-6.5)
Absolute Lymphs (auto) 0.9 L 10^3/uL
(1.2-3.4)
Absolute Monos (auto) 1.5 H 10^3/uL
(0.1-0.6)
Immature Gran % 0.7 H %
(0-0.5)
Neutrophils % 84.9 H %
(42.2-75.2)
Lymphocytes % 4.9 L %
(20.5-51.1)
BUN 28 H mg/dl
(7-17)
Creatinine 1.8 H mg/dL
(0.6-1.0)
Glucose 138 H mg/dl
(70-99)
Iron 28 L ug/dl
(37-170)
% Saturation 7 L %
(20-50)
AST 55 H U/L
(14-36)
Alkaline Phosphatase 167 H U/L
(38-126)
02/21/24 15:01
02/21/24 15:01
Vital Signs
Initial and Last Documented VS:
Initial Vital Signs
Temp Pulse Resp BP Pulse Ox
97.7 F 95 20 106/82 97
02/21/24 12:26 02/21/24 12:26 02/21/24 12:26 02/21/24 12:26 02/21/24 12:26
Last Documented Vital Signs
Temp Pulse Resp BP Pulse Ox
97.7 F 83 19 107/44 98
02/21/24 12:26 02/21/24 18:00 02/21/24 18:00 02/21/24 17:06 02/21/24 17:45
<Vianney Hernández PA-C - Last Filed: 02/21/24 18:48>
MDM/Problems Addressed
Differential Diagnosis Includes:
ddx include progression of radiation pneumonitis, PE, pneumonia, lung metastasis, COPD,
MDM/Problems Addressed:
shortness of breath
Chronic conditions affecting care: DM, HTN, CAD, Cancer and Other (adrenal insufficiency, hyperlipidemia, IBS)
Acute Exacerbation and/or Progression of Chronic Illness: DM, HTN, CAD, Cancer and Other (adrenal insufficiency, hyperlipidemia, IBS)
<Vianney Hernández PA-C - Last Filed: 02/21/24 18:48>
*Pulse Oximetry
Patient hypoxic: no
*Critical Care Note
Total Time (30-74mins, 75-104mins- exclusive of procedures): Not Applicable
<Hever Redmond DO - Last Filed: 02/21/24 19:50>
*Critical Care Note
Total Time (30-74mins, 75-104mins- exclusive of procedures): 30
comment:
Critical care statement: A total of 30 minutes of critical care time was provided for this patient. This includes management of unstable vital signs, evaluation of the patient at bedside, reviewing the patient's pertinent medical records, discussion
with consultants, review of old EKGs and review of pertinent medical records. This time with separate from time utilized to perform the aforementioned documented procedures
<Vianney Hernández PA-C - Last Filed: 02/21/24 18:48>
Patient Management
Escalation/DeEscalation of care consider admission/obs:
68-year-old female with past medical history of radiation pneumonitis, POTS, metastatic cancer, valvular disease, diabetes, adrenal insufficiency, CVA presenting to the emergency department today with concerns of acute on chronic shortness of
breath. Patient was seen in the office today by her demurrage man who sent her here due to her significant shortness of breath in the office today. Patient has been worked up for this issue and follows with a central aisle cashier from [facility], central aisle cashier and [facility] believes is due to her radiation pneumonitis. Dr. Ronquillo is concerned about symptomatic anemia. Here in the emergency department, patient is anemic to 8.4. CXR negative for acute cardiopulmonary disease.
Patient was consented for blood and blood has been ordered, admit for response to treatment and further evaluation.
ED Attending Note
<Vianney Hernández PA-C - Last Filed: 02/21/24 18:48>
-
Portions of this chart may have been created with voice recognition software.� Occasional wrong word or��sound alike� substitutions may have occurred due to the inherent limitations of voice recognition software.
<Hever Redmond, DO - Last Filed: 02/21/24 19:50>
ED Attending Note
Patient seen and examined by attending physician: Yes
I performed a history and physical exam of patient and discussed management with resident, I reviewed resident's note and agree with documented findings and plan of care.: Yes
ED Attending Note:
I have reviewed and agree with history and treatment plan by Vianney Hernández. My exam revealed 68-year-old female with clear lungs, no acute distress. Suspect shortness of breath due to anemia. Will not CT scan at this time, PE diagnosis less
likely. 1 unit packed red blood cells ordered. Admit to hospitalist.
Discharge Plan
Departure
Patient Disposition: Admit
Date of Disposition: 02/21/24
Time of Disposition: 18:36
Presentation/result/management discussed w/ accepting MD/DO: Hospitalist
Patient with high blood pressure during this ER visit?: No
Condition: Fair
Discharge Problem:
Symptomatic anemia
Prescriptions:
No Action
Eliquis 5 mg tablet
5 mg PO BID
hydrocortisone 5 mg Tablet
5 mg PO BID@1200,1800
pantoprazole 20 mg Tablet,Delayed Release (Dr/Ec)
20 mg PO BID@0800,1200
hydrocortisone 20 mg Tablet
10 mg PO DAILY
metoprolol succinate [Toprol XL] 25 mg Tablet Extended Release 24 Hr
12.5 mg PO BID
albuterol sulfate [ProAir HFA] 90 mcg/actuation Hfa Aerosol Inhaler
2 puff INHALATION R Q6HPRN PRN (Reason: sob)
clopidogrel 75 mg Tablet
75 mg PO DAILY Qty: 30 11RF
ezetimibe 10 mg Tablet
10 mg PO DAILY Qty: 30 11RF
levothyroxine 88 mcg Tablet
88 mcg PO DAILY
furosemide [Lasix] 20 mg tablet
20 mg PO MOWEFR Qty: 30 0RF
polyethylene glycol 3350 [Miralax] 17 gram Powder In Packet
17 g PO DAILYPRN PRN (Reason: constipation)
Tums 300 mg (750 mg) Tablet,Chewable
300 mg PO BIDPRN PRN (Reason: gerd)
famotidine [Pepcid] 20 mg Tablet
20 mg PO HS
sennosides [senna] 8.6 mg Tablet
17.2 mg PO HS
acetaminophen 500 mg Tablet
1,000 mg PO HS PRN (Reason: mild pain)
midodrine 2.5 mg tablet
2.5 mg PO BID@0800,1800
diazepam [Valium] 2 mg tablet
1 mg PO HS PRN (Reason: muscle spasm)
Patient Comments:
02/21/2024: last filled 02/03/24, 10 tabs for 10 days from [id number]
Referrals:
Asa Munoz DO [Family Provider] -
Interventions
Interventions:
*Risk Screen - Suicide Last Done: 02/21/24 12:26
*General Assessment Last Done: 02/21/24 12:26
*Neglect/Abuse Screening Last Done: 02/21/24 12:26
ED- Fall Risk Assessment Last Done: 02/21/24 14:38
*ED COVID-19 Vaccine History Last Done: 02/21/24 14:38
ED- Cardiac Assessment Last Done: 02/21/24 14:38
ED- Pulmonary Assessment Last Done: 02/21/24 14:58
Discharge Date and Time
Print Language: SWAZI
[2024-02-21 15:09] LABS: % Basophils 0.5 % (0-2); % Eosinophils 0.7 % (0-6); % Immature Granulocytes 0.7 % (0-0.5); % Lymphocytes 4.9 % (20.5-51.1); % Monocytes 8.3 % (1.7-9.3); % Neutrophils 84.9 % (42.2-75.2); Absolute Basophils 0.1 10^3/uL (0-0.2); Absolute Eosinophils 0.1 10^3/uL (0-0.7); Absolute Immature Granulocytes 0.1 10^3/uL (0-0.05); Absolute Lymphocytes 0.9 10^3/uL (1.2-3.4); Absolute Monocytes 1.5 10^3/uL (0.1-0.6); Absolute Neutrophils 14.7 10^3/uL (1.4-6.5); Hematocrit 26.5 % (37.0-47.0); Hemoglobin 8.4 g/dL (12.0-16.0); Mean Corp Hgb Conc. 31.7 g/dL (33.0-37.0); Mean Corpuscular Hgb 23.7 pg (27.0-31.0); Mean Corpuscular Volume 74.6 fL (81.0-99.0); Mean Platelet Volume 10.4 fL (7.4-10.4); Nucleated Red Blood Cells % 0.3 %; Platelet Count 406 10^3/uL (130-400); Red Blood Cell Count 3.55 10^6/uL (4.20-5.40); Red Cell Dist. Width 17.7 % (11.5-14.5); White Blood Cell Count 17.4 10^3/uL (4.8-10.8)
[2024-02-21 15:28] LABS: NT-proBNP 1720 pg/ml
[2024-02-21 15:34] LABS: Iron 28 ug/dl (37-170)
[2024-02-21 15:35] LABS: ALT (SGPT) 32 U/L (0-35); AST (SGOT) 55 U/L (14-36); Albumin 3.7 g/dl (3.5-5.0); Alkaline Phosphatase 167 U/L (38-126); Blood Urea Nitrogen 28 mg/dl (7-17); Calcium 8.8 mg/dl (8.4-10.2); Carbon Dioxide 28 mmol/L (22-30); Chloride 101 mmol/L (98-107); Estimated Creatinine Clearance 28 ml/min; Glucose 138 mg/dl (70-99); Potassium 3.7 mmol/L (3.5-5.1); Sodium 139 mmol/L (135-145); Total Bilirubin 0.9 mg/dl (0.2-1.3); Total Protein 6.5 g/dl (6.3-8.2); eGFR 30.69
[2024-02-21 15:43] LABS: Percent Saturation 7 % (20-50); Total Iron Binding Capacity 384 ug/dl (265-497)
[2024-02-21 16:11] LABS: Ferritin 20.4 ng/ml (11.1-264.0)
[2024-02-21 16:21] LABS: Troponin I < 0.012 ng/ml
--- NOTE | 2024-02-21 19:05 | HPS.HSE ---
Family Physician
-
Family Physician: Asa Munoz
Chief Complaint
-
sob
History of Present Illness
68-year-old female with past medical history of radiation pneumonitis, POTS, metastatic cancer, valvular disease, diabetes, adrenal insufficiency, CVA presenting to the emergency department today with concerns of acute on chronic shortness of
breath. Patient states that she has had persistent shortness of breath for many months which has been getting worse as the week progressed. Patient denies chest pain. Patient had a cardiac stent on January 17, but this did not improved her short of
breath. Patient stated short of breath worse with mild activity. Denied chest pain since the stent. Patient denied runny nose, congestion, cough, fever, chills patient denied headache, dizziness, syncopal episode patient denied any abdominal pain
nausea, vomiting, diarrhea. Patient denied any blood in the stool. Patient denied any dysuria hematuria. patient has a follow-up appointment scheduled with her extension service specialist at the end of this week.
Chest x-ray with no acute disease. Troponin negative. BNP 1720. Patient was noted to have a hemoglobin of 8.4. 1 unit ordered in ER. Admitting for further management
Medical History
Past Medical History
Past Medical History: Reports Other
Additional Past Medical History:
Hyperlipidemia
CVA
TIA
Type 2 diabetes
breast cancer squamous cell esophageal cancer
Compression fracture
Pulmonary fibrosis
History of Hodgkin's disease
History of basal cell cancer
Essential hypertension
Lymphedema of right upper extremity
Arthritis
Mitral valve regurgitation
Pulmonary embolism
Coronary artery disease
hypothyroidism
osteopenia
Depression
Heart failure
Past Surgical History: Reports Other
Additional Past Surgical History:
Splenectomy
Hysterectomy
Mastectomy with axillary node resection
Liposuction
Social History
Tobacco: Non-smoker
Alcohol: None
Drug: None
Personal: Single
Living: Alone
Family History
Family History: Not pertinent
Allergies / Home Medications
Allergies reflects when Allergies were last updated in [facility].
Home Medications with original date entered in [facility]
Allergy/Medication List:
Allergies
Allergy/AdvReac Type Severity Reaction Status Date / Time
diphenhydramine Allergy IV Verified 02/21/24 12:30
[From Benadryl] benadryl
caused
reaction
Iodinated Contrast Media Allergy Hives Verified 02/21/24 12:30
vancomycin Allergy infusion Verified 02/21/24 12:30
reaction
Home Medications
apixaban 5 mg tablet (Eliquis) 5 mg PO BID Blood clot prevention/tx 08/30/22
hydrocortisone 20 mg tablet 10 mg PO DAILY Anti-Inflammatory 07/17/23
hydrocortisone 5 mg tablet 5 mg PO BID@1200,1800 Anti-Inflammatory 07/17/23
metoprolol succinate 25 mg tablet,extended release 24 hr (Toprol XL) 12.5 mg PO BID Blood Pressure 07/17/23
pantoprazole 20 mg tablet,delayed release 20 mg PO BID@0800,1200 Gastrointestinal Issue 07/17/23
albuterol sulfate 90 mcg/actuation aerosol inhaler (ProAir HFA) 2 puff inhalation R Q6HPRN PRN sob 08/07/23
clopidogrel 75 mg tablet 75 mg PO DAILY Heart disease/condition #30 tabs 01/19/24
ezetimibe 10 mg tablet 10 mg PO DAILY High cholesterol #30 tabs 01/19/24
levothyroxine 88 mcg tablet 88 mcg PO DAILY 01/19/24
furosemide 20 mg tablet (Lasix) 20 mg PO MOWEFR #30 tabs 01/20/24
calcium carbonate (Tums) 300 mg PO BIDPRN PRN gerd 01/30/24
famotidine 20 mg tablet (Pepcid) 20 mg PO HS 01/30/24
polyethylene glycol 3350 17 gram oral powder packet (Miralax) 17 g PO DAILYPRN PRN constipation 01/30/24
acetaminophen 500 mg tablet 1,000 mg PO HS PRN mild pain 02/21/24
diazepam 2 mg tablet (Valium) 1 mg PO HS PRN muscle spasm 02/21/24
midodrine 2.5 mg tablet 2.5 mg PO BID@0800,1800 02/21/24
sennosides 8.6 mg tablet (senna) 17.2 mg PO HS 02/21/24
Review of Systems
-
Constitutional: Reports No Symptoms
EENT: Reports No Symptoms
Respiratory: Reports Trouble Breathing
Cardiac: Reports No Symptoms
Abdomen/GI: Reports No Symptoms
: Reports No Symptoms
Musculoskeletal: Reports No Symptoms
Skin: Reports No Symptoms
Neurological: Reports No Symptoms
Endocrine: Reports No Symptoms
Hematologic/Lymphatic: Reports No Symptoms
Psych: Reports No Symptoms
Physical Exam
Vital Signs
Vital Signs
Temp Pulse Resp BP Pulse Ox
97.7 F 83 19 107/44 98
02/21/24 12:26 02/21/24 18:00 02/21/24 18:00 02/21/24 17:06 02/21/24 17:45
Physical Exam
General: Well Developed, Well Nourished and No Apparent Distress
HEENT: NormoCephalic, Moist mucous membranes and Atraumatic
Respiratory: Clear
Cardiac: S1/S2 and Regular Rhythm; No Murmur or Rub
GI: Soft, Non Tender, Non Distended and Normal Bowel Sounds; No Organomegaly
Rectal: Deferred by Provider
Musculoskeletal: No Clubbing, No Cyanosis and No Edema
Skin: No Rash
Neuro: AO x 3 and Nonfocal/grossly intact
Psych: Calm
Laboratory Results
-
02/21/24 15:01
02/21/24 15:01
Laboratory Results
Total Bilirubin 0.9 mg/dl (0.2-1.3) 02/21/24 15:01
AST 55 U/L (14-36) H 02/21/24 15:01
ALT 32 U/L (0-35) 02/21/24 15:01
Alkaline Phosphatase 167 U/L (38-126) H 02/21/24 15:01
Troponin I < 0.012 ng/ml 02/21/24 15:42
Data Reviewed
-
Diagnostic Radiology: Report Reviewed by me
Lab Data: Labs Reviewed by me
Impression/Plan
-
# Acute on chronic exertion short of breath likely from symptomatic anemia
-Hemoglobin 8.4
-1 unit of blood ordered in ER
-Chest x-ray with no acute cardiopulmonary process
-Continue to monitor hemoglobin
-Obtain iron panel, b12, ferritin, folate
# Chronic leukocytosis likely from steroids
-WBC 17.4
-Afebrile
-Continue to monitor
# Acute on chronic kidney disease stage IIIb likely from diuretics
-Creatinine 1.8
-Continue to monitor
# History for heart failure
-Not in acute exacerbation
-Check I's and O's/daily weights
-Lasix continued
-Recent echocardiogram showed EF of 55 to 60%
#Right upper extremity edema secondary to lymphedema secondary to breast cancer
#Esophageal cancer, with later metastatic lesion of liver
-Scheduled for chemo later this month follows [facility]
-Follows with [facility]
#Adrenal insufficiency secondary to surgery/radiation/chemotherapy for Hodgkin's disease
-Continue hydrocortisone
#Hypothyroidism
-Continue levothyroxine
#Essential hypertension
-Continue metoprolol
# History of hypotension
-Midodrine continued
#History of DVT/pulm embolism
-Continue Eliquis
# GERD
-PPI
GERD
History of small lacunar CVA
FULL/Eliquis
--- NOTE | 2024-02-21 19:44 | W.PN.UPDATE ---
Update Note
Progress Note Update
This is an addendum to the H&P written by JESSICA Arguelles on 02/21/2024.
Patient seen and examined independently with FINISH GRINDER. 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
breast cancer, adrenal insufficiency, anemia of chronic disease, pulm embolism, radiation pneumonitis, Streptococcus oralis/anginosus bacteremia in November, here for acute on chronic shortness of breath ongoing for months but worse in the past week
associate with minimal exertion. No bleeding.
Patient underwent cardiac catheterization with stent placement in January without any improvement in symptoms. She saw Dr. Ronquillo who noted that she was very pale and suspected symptoms were due to anemia. Labs show hemoglobin of 8.4 which is
stable in recent times although downtrending from 12 in July when she last received chemotherapy. Anemia workup, 1 unit of blood transfusion.
Labs show GERALDO on CKD, and may need to decrease Lasix dosage after receiving blood transfusion as patient appears to be euvolemic.
[2024-02-21 21:29] LABS: Folate 13.1 ng/ml (2.76-20); Vitamin B12 613 pg/ml (239-931)
[2024-02-21] MEDS: TOPROL XL 12.5 MG PO (23:20)
[2024-02-21] MEDS: PEPCID 20 MG PO (23:20)
[2024-02-21] MEDS: SENOKOT 17.1999999999999993 MG PO (23:23)
[2024-02-21] MEDS: ELIQUIS 5 MG PO (23:23)
[2024-02-21] MEDS: TYLENOL 1000 MG PO (23:24)
[2024-02-21] MEDS: CORTEF 10 MG PO (23:58)
[2024-02-22] VITALS (13 sets, daily range): BP systolic 75–141; BP diastolic 39–72; PULSE 66–90; O2SAT 98–99; BMI 25.1
--- NOTE | 2024-02-22 04:46 | DOWNTIME ---
There was a [employer] Client [employer] Downtime on 02/22/2024 from 0100 to 02/22/2024 at 0439. Downtime documentation of patient's care, including medication administrations, has been reconciled in the electronic record per guidelines. Refer to the
patient's paper chart under the miscellaneous tab to see printed paper medication records and downtime forms.
[2024-02-22 06:17] LABS: Hematocrit 31.4 % (37.0-47.0); Hemoglobin 9.9 g/dL (12.0-16.0); Mean Corp Hgb Conc. 31.5 g/dL (33.0-37.0); Mean Corpuscular Hgb 24.7 pg (27.0-31.0); Mean Corpuscular Volume 78.3 fL (81.0-99.0); Mean Platelet Volume 11.1 fL (7.4-10.4); Platelet Count 360 10^3/uL (130-400); Red Blood Cell Count 4.01 10^6/uL (4.20-5.40); Red Cell Dist. Width 18.4 % (11.5-14.5); White Blood Cell Count 13.8 10^3/uL (4.8-10.8)
[2024-02-22] MEDS: SYNTHROID 88 MCG PO (06:26)
[2024-02-22 06:41] LABS: Blood Urea Nitrogen 29 mg/dl (7-17); Calcium 8.6 mg/dl (8.4-10.2); Carbon Dioxide 31 mmol/L (22-30); Chloride 104 mmol/L (98-107); Estimated Creatinine Clearance 31 ml/min; Glucose 107 mg/dl (70-99); Potassium 4.4 mmol/L (3.5-5.1); Sodium 139 mmol/L (135-145); eGFR 35.35
--- NOTE | 2024-02-22 08:39 | W.PN.HOSP.TC ---
Today's Communication/Plan
-
Pulm Cardio Eval
PT/OT
checking ECHO
orthostatic Vitals
Assessment / Plan
Assessment / Plan
Physical Exam
General: Well Developed, Well Nourished and No Apparent Distress
HEENT: NormoCephalic, Moist mucous membranes and Atraumatic
Respiratory: Clear
Cardiac: S1/S2 and Regular Rhythm; Possible 2/6 systolic murmur
GI: Soft, Non Tender, Non Distended and Normal Bowel Sounds; No Organomegaly
Musculoskeletal: RUE lymphedema
Skin: No Rash
Neuro: AO x 3 and Nonfocal/grossly intact
Psych: Calm
68F hx Radiation Pneumonitis POTS Met Ca Valve Dz DM Adrenal Insuff CVA HFpEF Hypothyroidism hx PE on Eliqus here for progressive SOB since November, debilitating. Asymptomatic at rest but SOB occurs with a few steps.
# Unclear Etiology Exertional Dyspnea, possibly multifactorial vs heart failure vs progressive pulm htn
#Anemia, Iron def, Anemia of chronic disease
-No improvement in symptoms noted with 1PRBC transfusion Hgb 8.4 increased to 9.9
-Chest x-ray with no acute cardiopulmonary process
-Continue to monitor hemoglobin
-B12 wnl
-IV iron supplementation
-check Orthostatic Vitals
-PT/OT
# Chronic leukocytosis likely from steroids
-Afebrile
-Continue to monitor
# Acute on chronic kidney disease stage IIIb likely from diuretics
-initial Creatinine 1.8
-trending down
-Continue to monitor
# HFpEF
-Check I's and O's/daily weights
-Lasix continued
-Recent echocardiogram November showed EF of 55 to 60%
-Repeating ECHO
-Cardio Eval requested
#Possible progressive Pulm Hypertension
Repeat ECHO as above
Pulm eval requested
#Right upper extremity edema secondary to lymphedema secondary to breast cancer
#Esophageal cancer, with later metastatic lesion of liver
-Scheduled for chemo later this month follows [facility]abb[facility] Robles
-Follows with Shabbir Robles
#Adrenal insufficiency secondary to surgery/radiation/chemotherapy for Hodgkin's disease
-Continue hydrocortisone
#Hypothyroidism
-Continue levothyroxine
#Essential hypertension
-Continue metoprolol
# History of hypotension
-Midodrine continued
#History of DVT/pulm embolism
-Continue Eliquis
# GERD
-PPI
GERD
History of small lacunar CVA
dvt ppx Eliquis
Full Code
I spent a total of 55 minutes with the patient or on the floor. More than 50% of this time involved counseling and coordination of care.
Anticipated Discharge: 24 - 48 hours
Subjective/Interval History
-
Date of Service: February 22, 2024
continues to report exertional dyspnea. Asymptomatic at rest. SOB with 1-3 steps
Objective Data
-
Labs:
Laboratory Results
02/22/24
04:41
WBC 13.8 H
Hgb 9.9 L
Hct 31.4 L
Plt Count 360
Sodium 139
Potassium 4.4
Chloride 104
Carbon Dioxide 31 H
BUN 29 H
Creatinine 1.6 H
Glucose 107 H
Calcium 8.6
Vital Signs:
Vital Signs
Temp Pulse Resp BP Pulse Ox
98.2 F 75 13 126/55 98
02/22/24 00:38 02/22/24 03:45 02/22/24 03:45 02/22/24 01:00 02/22/24 04:57
I&O
02/21/24 02/22/24 02/23/24
06:59 06:59 06:59
Intake Total 1080 / 1080
Balance 1080 / 1080
[2024-02-22] MEDS: TOPROL XL 12.5 MG PO ×2 (10:00→22:20)
[2024-02-22] MEDS: ProAmatine 2.5 MG PO ×2 (10:01→17:25)
[2024-02-22] MEDS: ELIQUIS 5 MG PO ×2 (10:01→22:20)
[2024-02-22] MEDS: PROTONIX 20 MG PO ×2 (10:02→13:45)
[2024-02-22] MEDS: ZETIA 10 MG PO (10:02)
[2024-02-22] MEDS: CORTEF 10 MG PO (10:02)
[2024-02-22] MEDS: LASIX 20 MG PO (10:05)
--- NOTE | 2024-02-22 10:18 | CON.PUL ---
Consultation
Consultation Request
Date/Time Consultation Requested: 02/22/2024 - 901
Date/Time Consultation Performed: 02/22/2024 - 1000
Requesting Provider: Dr. Henderson
Performing Provider: Dr. Collins
Reason for Consultation: MONTANEZ
Medical History
-
Chief Complaint: SOB
History of Present Illness:
68-year-old female with a past medical history of POTS, history of breast cancer, Hodgkin lymphoma, CVA, adrenal insufficiency and DM type II who presents with shortness of breath. SOB has been occurring for many months but worsened over the last
week [employer]. She had a coronary stent placed on 01/18/2024 in the mid LAD as well as the ostial RCA but her shortness of breath did not improve. Of note, she had elevated PCWP (24 with PADP of 22) during the [facility]. Initial labs here showed an Hb of
8.4, leukocytosis to 17.4, GERALDO to 1.8, and elevated BNP at 1720 (789 on 01/30/2024). Patient transfused 1 unit PRBC on 02/20 but her shortness of breath did not improve. CXR 02/20 showed no acute pathology. She remains on room air with pulse
oximetry between 97-99%. Her troponin was negative X1 on 02/20. She does have a history of pulm hypertension. Given her continued shortness of breath with no obvious inciting factor, pulmonary now consulted for additional
management/recommendations.
When I saw the patient she was in bed, in no acute distress complaining of shortness of breath. She does have a patient coordinator at [facility] - Dr. Gabbie Beltran. She says she has known restrictive lung disease. She says she has been off chemotherapy
since , and has been off of immunotherapy since fall 2022 (Opdivo). She says that this current severity of her SOB has happened twice, and the last time she was this short of breath her breathing spontaneously improved. She was here in
November 2023 with sepsis after getting a clinical trial drug for her esophageal cancer, and after she went home she started feeling shortness of breath since that time. She currently denies fevers, chills, cough, chest pain. She is eager to go
home but understands that she wants to feel better. She denies headache, diarrhea.
PMHx: History of radiation pneumonitis, Hodgkin lymphoma, DM type II, history of TIA/CVA, history of breast cancer, adrenal insufficiency, right upper extremity lymphedema, mitral valve regurgitation, pulmonary hypertension, anemia, depression,
chronic HFpEF, CAD, history of PE (RLL - Dx 08/2022) on Eliquis
PSHx: Modified radical right mastectomy with lymph node resection, hysterectomy, splenectomy, s/p coronary stents
Past Medical History
Past Medical History: Other (Above as per HPI)
Past Surgical History: Other (Above as per HPI)
Social History
Tobacco: Non-smoker
Alcohol: None
Drug: None
Personal: Single
Family History
Family History: Reviewed & Not Pertinent
Allergies / Home Medications
Allergies
Allergy/AdvReac Type Severity Reaction Status Date / Time
diphenhydramine Allergy IV Verified 02/21/24 12:30
[From Benadryl] benadryl
caused
reaction
Iodinated Contrast Media Allergy Hives Verified 02/21/24 12:30
vancomycin Allergy infusion Verified 02/21/24 12:30
reaction
Home Medications
�Medication �Instructions �Recorded �Confirmed �Last Taken �Type
apixaban 5 mg tablet (Eliquis) 5 mg PO BID Blood clot 08/30/22 02/21/24 02/21/24 History
prevention/tx
hydrocortisone 20 mg tablet 10 mg PO DAILY Anti-Inflammatory 07/17/23 02/21/24 02/21/24 History
hydrocortisone 5 mg tablet 5 mg PO BID@1200,1800 07/17/23 02/21/24 02/20/24 History
Anti-Inflammatory
metoprolol succinate 25 mg 12.5 mg PO BID Blood Pressure 07/17/23 02/21/24 02/21/24 History
tablet,extended release 24 hr
(Toprol XL)
pantoprazole 20 mg tablet,delayed 20 mg PO BID@0800,1200 07/17/23 02/21/24 02/21/24 08:00 History
release Gastrointestinal Issue
albuterol sulfate 90 mcg/actuation 2 puff inhalation R Q6HPRN PRN sob 08/07/23 02/21/24 11/30/23 History
aerosol inhaler (ProAir HFA)
clopidogrel 75 mg tablet 75 mg PO DAILY Heart 01/19/24 02/21/24 02/21/24 Rx
disease/condition #30 tabs
ezetimibe 10 mg tablet 10 mg PO DAILY High cholesterol 01/19/24 02/21/24 02/21/24 Rx
#30 tabs
levothyroxine 88 mcg tablet 88 mcg PO DAILY 01/19/24 02/21/24 02/21/24 History
furosemide 20 mg tablet (Lasix) 20 mg PO MOWEFR #30 tabs 01/20/24 02/21/24 02/20/24 Rx
calcium carbonate (Tums) 300 mg PO BIDPRN PRN gerd 01/30/24 02/21/24 Unknown History
famotidine 20 mg tablet (Pepcid) 20 mg PO HS 01/30/24 02/21/24 02/20/24 History
polyethylene glycol 3350 17 gram 17 g PO DAILYPRN PRN constipation 01/30/24 02/21/24 Unknown History
oral powder packet (Miralax)
acetaminophen 500 mg tablet 1,000 mg PO HS PRN mild pain 02/21/24 02/21/24 Unknown History
diazepam 2 mg tablet (Valium) 1 mg PO HS PRN muscle spasm 02/21/24 02/21/24 Unknown History
midodrine 2.5 mg tablet 2.5 mg PO BID@0800,1800 02/21/24 02/21/24 02/21/24 08:00 History
sennosides 8.6 mg tablet (senna) 17.2 mg PO HS 02/21/24 02/21/24 02/20/24 History
Review of Systems
-
History Source: Patient
All other systems: Negative unless noted (12 point ROS performed and is negative unless mentioned above.)
Vitals / Labs / Diagnostic Testing
Vital Signs
Temp Pulse Resp BP Pulse Ox
97.7 F 87 18 118/47 97
02/22/24 07:00 02/22/24 15:09 02/22/24 15:09 02/22/24 15:09 02/22/24 15:09
Lab Data
02/22/24 04:41
02/22/24 04:41
Diagnostic Testing:
Physical Exam
-
HEENT: Normocephalic and Anicteric
Cardiovascular: S1/S2 and Peripheral Edema (Edematous right upper extremity; lower extremities show no edema b/l)
Respiratory: Clear, Wheeze (negative), Rales (negative), Rhonchi (negative) and Non-Labored Respirations
GI: Soft, Non Distended and Non Tender
Neurology: AO x 3
Skin: Warm and Dry
General: Comfortable, Chills (negative) and Sweats (negative)
Assessment
-
Assessment: 68-year-old female with a past medical history of POTS, history of breast cancer, Hodgkin lymphoma, CVA, adrenal insufficiency and DM type II who presents with shortness of breath. SOB has been occurring for many months but worsened
over the last week [employer]. She had a coronary stent placed on 01/18/2024 in the mid LAD as well as the ostial RCA but her shortness of breath did not improve. Of note, she had elevated PCWP (24 with PADP of 22) during the [facility]. Initial labs here
showed an Hb of 8.4, leukocytosis to 17.4, GERALDO to 1.8, and elevated BNP at 1720 (789 on 01/30/2024). Patient transfused 1 unit PRBC on 02/20 but her shortness of breath did not improve. CXR 02/20 showed no acute pathology. She remains on room air
with pulse oximetry between 97-99%. Her troponin was negative X1 on 02/20. She does have a history of pulm hypertension. Given her continued shortness of breath with no obvious inciting factor, pulmonary now consulted for additional
management/recommendations.
Chronic conditions [employer]: History of radiation pneumonitis, Hodgkin lymphoma, DM type II, history of TIA/CVA, history of breast cancer, adrenal insufficiency, right upper extremity lymphedema, mitral valve regurgitation, pulmonary hypertension,
anemia, depression, chronic HFpEF, CAD, history of PE (RLL - Dx 08/2022) on Eliquis, history of esophageal cancer with mets to liver (follows at [facility])
Impression:
#MONTANEZ without hypoxia at rest - seems to be neuromuscular vs other myopathy; lungs appear functional as she is not hypoxic and her CXR is clear, doubt PE given not tachycardic or hypoxic
#Anemia (baseline Hb 9�10.5)
#Acute kidney injury (baseline Cr 0.9 - 1.1)
#Adrenal insufficiency on hydrocortisone
#Reported history of restrictive lung disease
#History of radiation pneumonitis/fibrosis
Plan:
- Given concern for neuromuscular vs muscular etiology of her SOB, I will check a NIF study. If abnormal, then will consult neurology
- Re-check TTE to assess severity of pHTN and r-sided pressures
- Check blood gas given her elevated sHCO3 despite having an GERALDO
- Check TSH and free T4
- If leukocytosis persists then check blood and UA/UCx and consider arredondo-scan with CT chest/Abd/Pelvis
- Iron supplementation per primary team
- Maintain SpO2 >90-94% with supplemental O2 as needed
- Encourage incentive spirometer
- Replete electrolytes with K>4, Mg>2
- Maintain euglycemia with goal BG >100 and <180
- prn nebulized bronchodilators
- PT/OT - recommending home with home health
- DVT ppx
Pulmonary service will continue to follow along.
Total time spent today was 55 minutes for this encounter. Time includes reviewing laboratory test/imaging results, reviewing pertinent medical records, obtaining and reviewing medical history, performing an appropriate exam, ordering medications,
tests and procedures. Time also includes documentation of this encounter, coordinating patient care and communicating with other healthcare professionals. Total time does not include separately billed tests performed on this date of service.
Data:
CXR 02-21-2024: No acute cardiopulmonary process.
--- NOTE | 2024-02-22 12:58 | CON.CAR ---
Addendum entered and electronically signed by Luis Alfaro DO 02/22/24 15:28:
I saw and examined the patient.
The Hub Lead's note was reviewed and I agree with the note.
Comment:
Plan:
Multifactorial dyspnea.
Just seen yesterday by Dr Rossy Ronquillo.
Check echo. Last echo reviewed, EF preserved.
Cont oral lasix regimen. Cr improved. Monitor wt. pBNP was 1720
Monitor H/H s/p transfusion
Patient needs to have intrahepatic chemoembolization therapy at [facility] and is scheduled for 03/01/24. Patient completed triple therapy with aspirin 81 mg daily, Plavix 75 mg daily and Eliquis 5 mg BID for 1 week (stopped 01/26/24). With upcoming
procedure Plavix was stopped and aspirin was started 02/18/24.
Cont Eliquis 5 mg BID (age 68, Cre 1.6, wt 68 kg) for now and patient will stop 3 days prior to chemoembolization procedure (last dose should be 02/26/24 PM).
-Patient should resume Eliquis and Plavix post-procedure.
Continue Zetia 10 mg daily since 01/2024 admission. Patient was not started on statin due to liver mets. LDL 121.
Original Note:
Consultation
Consultation Request
Date/Time Consultation Requested: 02/22/24
Date/Time Consultation Performed: 02/22/24
Requesting Provider: Dr. Henderson
Performing Provider: Dr. Alfaro
Reason for Consultation: SOB, MONTANEZ
Medical History
-
History of Present Illness:
Patient came to [facility] after her cardiology office visit yesterday for concerns about anemia and cardiology is now consulted for ongoing MONTANEZ. Patient also has a h/o NHL with mantle radiation at age 30 then later she had breast cancer and now she is
battling esophageal cancer with mets to liver. Patient is scheduled to undergo chemoembolization therapy directed at the liver at [facility] 03/01/24. Patient also with a h/o PE in 08/2022 and takes Eliquis. Patient previously had lacunar infarcts on MRI
brain, but there is no known h/o atrial arrhythmia. Most recently patient was sent to [facility] from cardiology office 01/17/24 with MONTANEZ. At that time patient had R/LHC and PCWP was 24 so she was diuresed. There was LAD and ostial RCA disease on cath so
she had PCI. Overall situation is complicated because patient needs to have chemoembolization of liver mets so a plan for interrupting DAPT and Eliquis was made. Patient was discharged to home 01/19/24 and was back in the ER 02/03/24 and that was also
after a cardiology office visit. On 02/03/24 the patient was seen in the office and was orthostatic and complained of MONTANEZ and it was felt that orthostasis might be contributing to symptoms so she was started on midodrine and sent to [facility] for IVFs and
then discharged to home. Patient was seen in the office yesterday and had ongoing MONTANEZ and was sent to [facility] for possible anemia. Hgb was 8.4 in the ER and patient was given 1 unit of PRBCs and she says that initially she had dramatic symptomatic
improvement, but after waking up this AM she feels she is back to her usual MONTANEZ symptoms. Patient repeatedly says, 'I can't live like this anymore.'
PMH:
CAD
s/p 3.5 mm Xience mid LAD and 3.0 mm Xience ostial RCA 01/18/24
Chronic HFpEF
PCWP 24 by [facility] 01/18/24
Chronic orthostasis, started midodrine 02/03/24
h/o mantle radiation for Non-Hodgkin's lymphoma age 30
h/o breast cancer treated with mastectomy, Cytoxan, methotrexate and 5-FU 1997
Esophageal cancer with liver mets undergoing chemoembolization therapy directed at the liver, scheduled at [facility] for 01/25/24
Chronic B/L UE lymphedema
PE 08/08/22
Chronic Eliquis OAC, last dose 01/17/24 AM
h/o CVA 08/02/20
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
Mod AI without
HTN
Hyperlipidemia
Past Medical History
Past Medical History: Other (in HPI)
Past Surgical History: Gynecological (hysterectomy, YOSSI BSO, breast reconstruction) and Other (anterior ethmoidectomy and maxillary antrostomy, splenectomy)
Social History
Tobacco: Non-Smoker
Alcohol: None
Drug: None
Personal: Single
Family History
Family History: CAD, Cancer and Diabetes
Allergies / Home Medications
Allergy/AdvReac Type Severity Reaction Status Date / Time
diphenhydramine Allergy IV Verified 02/21/24 12:30
[From Benadryl] benadryl
caused
reaction
Iodinated Contrast Media Allergy Hives Verified 02/21/24 12:30
vancomycin Allergy infusion Verified 02/21/24 12:30
reaction
�Medication �Instructions �Recorded �Confirmed �Type
apixaban 5 mg tablet (Eliquis) 5 mg PO BID Blood clot 08/30/22 02/21/24 History
prevention/tx
hydrocortisone 20 mg tablet 10 mg PO DAILY Anti-Inflammatory 07/17/23 02/21/24 History
hydrocortisone 5 mg tablet 5 mg PO BID@1200,1800 07/17/23 02/21/24 History
Anti-Inflammatory
metoprolol succinate 25 mg 12.5 mg PO BID Blood Pressure 07/17/23 02/21/24 History
tablet,extended release 24 hr
(Toprol XL)
pantoprazole 20 mg tablet,delayed 20 mg PO BID@0800,1200 07/17/23 02/21/24 History
release Gastrointestinal Issue
albuterol sulfate 90 mcg/actuation 2 puff inhalation R Q6HPRN PRN sob 08/07/23 02/21/24 History
aerosol inhaler (ProAir HFA)
clopidogrel 75 mg tablet 75 mg PO DAILY Heart 01/19/24 02/21/24 Rx
disease/condition #30 tabs
ezetimibe 10 mg tablet 10 mg PO DAILY High cholesterol 01/19/24 02/21/24 Rx
#30 tabs
levothyroxine 88 mcg tablet 88 mcg PO DAILY 01/19/24 02/21/24 History
furosemide 20 mg tablet (Lasix) 20 mg PO MOWEFR #30 tabs 01/20/24 02/21/24 Rx
calcium carbonate (Tums) 300 mg PO BIDPRN PRN gerd 01/30/24 02/21/24 History
famotidine 20 mg tablet (Pepcid) 20 mg PO HS 01/30/24 02/21/24 History
polyethylene glycol 3350 17 gram 17 g PO DAILYPRN PRN constipation 01/30/24 02/21/24 History
oral powder packet (Miralax)
acetaminophen 500 mg tablet 1,000 mg PO HS PRN mild pain 02/21/24 02/21/24 History
diazepam 2 mg tablet (Valium) 1 mg PO HS PRN muscle spasm 02/21/24 02/21/24 History
midodrine 2.5 mg tablet 2.5 mg PO BID@0800,1800 02/21/24 02/21/24 History
sennosides 8.6 mg tablet (senna) 17.2 mg PO HS 02/21/24 02/21/24 History
Review of Systems
-
History Source: Patient
All other systems: Negative unless noted
Physical Exam
Vital Signs
Temp Pulse Resp BP Pulse Ox
97.7 F 75 13 126/55 98
02/22/24 07:00 02/22/24 03:45 02/22/24 03:45 02/22/24 01:00 02/22/24 04:57
GEN: NAD, AAOx3
HEENT: EOMI, MMM
LUNGS: CTA B/L
CV: Reg, S1/S2, 2/6 BSM, 2/6 diastolic murmur
ABD: soft, BS+, NT, ND
EXT: No LE edema, but B/L UE edema.
NEURO: Gross non-focal
SKIN: No rash
Lab Results
02/22/24 04:41
02/22/24 04:41
Troponin I < 0.012 ng/ml 02/21/24 15:42
Enf-Q-Mhgcsqxivwd Pept 1720 pg/ml 02/21/24 15:01
Impression / Plan
-
PCP: Dr. Munoz
Cardiology: Dr. Rossy Ronquillo
Onc: Dr. Godinez at [facility] [phone]
Impression:
MONTANEZ
Anemia
s/p 1 unit PRBCs 02/21/24
CAD
s/p 3.5 mm Xience mid LAD and 3.0 mm Xience ostial RCA 01/18/24
Chronic HFpEF
PCWP 24 by [facility] 01/18/24
Chronic orthostasis, started midodrine 02/03/24
h/o mantle radiation for Non-Hodgkin's lymphoma age 30
h/o breast cancer treated with mastectomy, Cytoxan, methotrexate and 5-FU 1997
Esophageal cancer with liver mets undergoing chemoembolization therapy directed at the liver, scheduled at [facility] for 01/25/24
Chronic B/L UE lymphedema
PE 08/08/22
Chronic Eliquis OAC, last dose 01/17/24 AM
h/o CVA 08/02/20
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
Mod AI without
HTN
Hyperlipidemia
Echo 11/22/23: EF 55-60%, GLS -14.2% (previously -18% 08/2023), mod eccentric MR, mod aortic regurgitation
Echo 02/22/24: Report pending
Plan:
-Patient came to [facility] after her cardiology office visit yesterday for concerns about anemia and cardiology is now consulted for ongoing MONTANEZ. Patient also has a h/o NHL with mantle radiation at age 30 then later she had breast cancer and now she is
battling esophageal cancer with mets to liver. Patient is scheduled to undergo chemoembolization therapy directed at the liver at [facility] 03/01/24. Patient also with a h/o PE in 08/2022 and takes Eliquis. Patient previously had lacunar infarcts on MRI
brain, but there is no known h/o atrial arrhythmia. Most recently patient was sent to [facility] from cardiology office 01/17/24 with MONTANEZ. At that time patient had R/LHC and PCWP was 24 so she was diuresed. There was LAD and ostial RCA disease on cath so
she had PCI. Overall situation is complicated because patient needs to have chemoembolization of liver mets so a plan for interrupting DAPT and Eliquis was made. Patient was discharged to home 01/19/24 and was back in the ER 02/03/24 and that was also
after a cardiology office visit. On 02/03/24 the patient was seen in the office and was orthostatic and complained of MONTANEZ and it was felt that orthostasis might be contributing to symptoms so she was started on midodrine and sent to [facility] for IVFs and
then discharged to home. Patient was seen in the office yesterday and had ongoing MONTANEZ and was sent to [facility] for possible anemia. Hgb was 8.4 in the ER and patient was given 1 unit of PRBCs and she says that initially she had dramatic symptomatic
improvement, but after waking up this AM she feels she is back to her usual MONTANEZ symptoms. Patient repeatedly says, 'I can't live like this anymore.'
-Patient with 1+ month of MONTANEZ that has not improved with diuresis, PCI, initiation of midodrine or transfusion. Patient says that she feels her problems are either structural or metabolic. She says structural problems could be related to previous
surgeries and that she understands her labs haven't shown any obvious metabolic disorder findings thus far. Patient says her biggest fear is that she will not be able to have her chemoembolization of liver mets on 03/01/24 and that she could have
further metastatic spread and this obviously worries her.
-Check echo. EF 55-60% by echo 11/22/23.
-Ordered Lasix 20 mg PO now and then 20 mg every MWF which is her outpatient regimen
-Patient needs to have intrahepatic chemoembolization therapy at [facility] and is scheduled for 03/01/24. Patient completed triple therapy with aspirin 81 mg daily, Plavix 75 mg daily and Eliquis 5 mg BID for 1 week (stopped 01/26/24). With upcoming
procedure Plavix was stopped and aspirin was started 02/18/24. She does not have an order for the aspirin 81 mg daily, I will order now. Also she was ordered Plavix 75 mg daily and thankfully was smart enough to refuse that dose this AM, I d/c'd the
Plavix. Cont Eliquis 5 mg BID (age 68, Cre 1.6, wt 68 kg) for now and patient will stop 3 days prior to chemoembolization procedure (last dose should be 02/26/24 PM).
-Patient should resume Eliquis and Plavix post-procedure.
-pro-BNP 1720 which is high for her although no change in edema or weight. GERALDO with Cre up to 1.8 on admission and improved to 1.6 today following transfusion overnight. Will cont Lasix 20 mg PO MWF for now
-New to Zetia 10 mg daily since 01/2024 admission. Patient was not started on statin due to liver mets. LDL 121.
-Patient feels deconditioned and was agreeable to seeing PT and following through with home PT if offered.
[2024-02-22] MEDS: CORTEF PO (13:44)
[2024-02-22] MEDS: CORTEF 5 MG PO ×2 (13:45→17:58)
[2024-02-22] MEDS: TYLENOL 1000 MG PO (13:49)
[2024-02-22] MEDS: FERRLECIT 110 MG IV (15:57)
[2024-02-22] MEDS: LOW STRENGTH ASPIRIN 81 MG PO (16:00)
--- NOTE | 2024-02-22 16:23 | PTCARENOTE ---
1548 pt received from ED via stretcher accompanied by 2 ED staff. pt AAOX3. Pt oriented to staff, call light and environment. personal items and call light within reach.
[2024-02-22] MEDS: PEPCID 20 MG PO (22:20)
[2024-02-22] MEDS: SENOKOT 17.1999999999999993 MG PO (22:21)
[2024-02-23] MEDS: SYNTHROID 88 MCG PO (05:40)
[2024-02-23 06:10] LABS: Venous Blood Gas B.E. 4.2 mmol/L (-4 to +4); Venous Blood Gas HCO3 29.7 mmol/L (22-27); Venous Blood Gas O2 Sat % 95.7 %; Venous Blood Gas pCO2 48 mmHg (35-48); Venous Blood Gas pO2 70 mmHg (30-50)
[2024-02-23 06:12] LABS: Hematocrit 31.5 % (37.0-47.0); Mean Corp Hgb Conc. 31.7 g/dL (33.0-37.0); Mean Corpuscular Hgb 24.2 pg (27.0-31.0); Mean Corpuscular Volume 76.1 fL (81.0-99.0); Mean Platelet Volume 10.8 fL (7.4-10.4); Platelet Count 339 10^3/uL (130-400); Red Blood Cell Count 4.14 10^6/uL (4.20-5.40); Red Cell Dist. Width 18.6 % (11.5-14.5); White Blood Cell Count 11.8 10^3/uL (4.8-10.8)
[2024-02-23 06:35] LABS: Blood Urea Nitrogen 30 mg/dl (7-17); Calcium 8.9 mg/dl (8.4-10.2); Carbon Dioxide 28 mmol/L (22-30); Chloride 101 mmol/L (98-107); Estimated Creatinine Clearance 36 ml/min; Glucose 94 mg/dl (70-99); Potassium 4.1 mmol/L (3.5-5.1); Sodium 139 mmol/L (135-145); eGFR 41.49
[2024-02-23 07:23] LABS: TSH Reflex To Free T4 1.55 uIU/ml (0.47-4.68)
[2024-02-23 07:25] VITALS: BP 123/58
--- NOTE | 2024-02-23 07:28 | W.PN.HOSP.TC ---
Today's Communication/Plan
-
cont PT/OT
IV iron supplementation
monitor
Assessment / Plan
Assessment / Plan
Physical Exam
General: Well Developed, Well Nourished and No Apparent Distress
HEENT: NormoCephalic, Moist mucous membranes and Atraumatic
Respiratory: Clear
Cardiac: S1/S2 and Regular Rhythm; Possible 2/6 systolic murmur
GI: Soft, Non Tender, Non Distended and Normal Bowel Sounds; No Organomegaly
Musculoskeletal: RUE lymphedema
Skin: No Rash
Neuro: AO x 3 and Nonfocal/grossly intact
Psych: Calm
68F hx Radiation Pneumonitis POTS Met Ca Valve Dz DM Adrenal Insuff CVA HFpEF Hypothyroidism hx PE on Eliqus here for progressive SOB since November, debilitating. Asymptomatic at rest but SOB occurs with a few steps.
# Unclear Etiology Exertional Dyspnea, possibly multifactorial vs heart failure vs progressive pulm htn
#Anemia, Iron def, Anemia of chronic disease
-No improvement in symptoms noted with 1PRBC transfusion Hgb 8.4 increased to 9.9, H&H remains stable
-Chest x-ray with no acute cardiopulmonary process
-Continue to monitor hemoglobin
-B12 wnl
-IV iron supplementation
-monitor Orthostatic Vitals
-PT/OT appreciated Home Health
-Neuro eval appreciated neuromuscular disorder unlikely
# Chronic leukocytosis likely from steroids
-Afebrile
-Continue to monitor
# Acute on chronic kidney disease stage IIIb likely from diuretics
-initial Creatinine 1.8
-trending down
-Continue to monitor
# HFpEF
-Check I's and O's/daily weights
-Lasix continued
-Recent echocardiogram November showed EF of 55 to 60%
-Repeating ECHO
-Cardio Eval appreciated EF 50-55% Mod MR mod to severe AR mod TR, no significant change from Nov ECHO noted
#Possible progressive Pulm Hypertension ruled out
Pulm eval appreciated
#Right upper extremity edema secondary to lymphedema secondary to breast cancer
#Esophageal cancer, with later metastatic lesion of liver
-Scheduled for chemo later this month follows [facility]
-Follows with Shabb[facility] Robles
#Adrenal insufficiency secondary to surgery/radiation/chemotherapy for Hodgkin's disease
-Continue hydrocortisone
#Hypothyroidism
-Continue levothyroxine
#Essential hypertension
-Continue metoprolol
# History of hypotension
-Midodrine continued
#History of DVT/pulm embolism
-Continue Eliquis
# GERD
-PPI
GERD
History of small lacunar CVA
dvt ppx Eliquis
Full Code
I spent a total of 55 minutes with the patient or on the floor. More than 50% of this time involved counseling and coordination of care.
Anticipated Discharge: Within 24 hours
Subjective/Interval History
-
Date of Service: February 23, 2024
Reports exertional dyspnea symptom persists but remains asymptomatic at rest.
Objective Data
-
Labs:
Laboratory Results
02/23/24
05:58
WBC 11.8 H
Hgb 10.0 L
Hct 31.5 L
Plt Count 339
Sodium 139
Potassium 4.1
Chloride 101
Carbon Dioxide 28
BUN 30 H
Creatinine 1.4 H
Glucose 94
Calcium 8.9
Vital Signs:
Vital Signs
Temp Pulse Resp BP Pulse Ox
98.3 F 76 17 123/58 97
02/23/24 07:25 02/23/24 07:25 02/23/24 07:25 02/23/24 07:25 02/23/24 07:25
I&O
02/22/24 02/23/24 02/24/24
06:59 06:59 06:59
Intake Total 1080 / 1080 710 / 710
Balance 1080 / 1080 710 /
[2024-02-23] MEDS: ProAmatine 2.5 MG PO ×2 (07:39→17:12)
[2024-02-23] MEDS: ZETIA 10 MG PO (07:40)
[2024-02-23] MEDS: LOW STRENGTH ASPIRIN 81 MG PO (07:40)
[2024-02-23] MEDS: TOPROL XL 12.5 MG PO (07:40)
[2024-02-23] MEDS: ELIQUIS 5 MG PO ×2 (07:41→20:03)
[2024-02-23] MEDS: PROTONIX 20 MG PO ×2 (07:41→12:05)
[2024-02-23 07:47] VITALS: BMI 25.3
--- NOTE | 2024-02-23 08:38 | W.PN.PUL3 ---
Today's Communication / Plan
-
Up OOB as tolerated
Encourage incentive spirometer
Maintain SpO2 >90-94%
Resting saturations are >95% on room air, hence no need to check ambulatory pulse oximetry prior to discharge
Would discuss obtaining outpatient CPET with her private records coordinator to further evaluate her MONTANEZ
Pulmonary service will continue to briefly follow along
Assessment
-
Assessment: 68-year-old female with a past medical history of POTS, history of breast cancer, Hodgkin lymphoma, CVA, adrenal insufficiency and DM type II who presents with shortness of breath. SOB has been occurring for many months but worsened
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 She had a coronary stent placed on 01/18/2024 in the mid LAD as well as the ostial RCA but her shortness of breath did not improve. Of note, she had elevated PCWP (24 with PADP of 22) during the [facility]. Initial labs here
showed an Hb of 8.4, leukocytosis to 17.4, GERALDO to 1.8, and elevated BNP at 1720 (789 on 01/30/2024). Patient transfused 1 unit PRBC on 02/20 but her shortness of breath did not improve. CXR 02/20 showed no acute pathology. She remains on room air
with pulse oximetry between 97-99%. Her troponin was negative X1 on 02/20. She does have a history of pulm hypertension. Given her continued shortness of breath with no obvious inciting factor, pulmonary now consulted for additional
management/recommendations.
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
anemia, depression, chronic HFpEF, CAD, history of PE (RLL - Dx 08/2022) on Eliquis, history of esophageal cancer with mets to liver (follows at [place])
Impression:
#MONTANEZ without hypoxia at rest - unknown etiology - perhaps physical deconditioning given normal NIF, normal CPK, she is not hypoxic and her CXR is clear; doubt PE given not tachycardic or hypoxic
#Anemia (baseline Hb 9�10.5)
#Acute kidney injury (baseline Cr 0.9 - 1.1)
#Adrenal insufficiency on hydrocortisone
#Reported history of restrictive lung disease
#History of radiation pneumonitis/fibrosis
Plan:
- MIP was 50 cmH2O, ruling out neuromuscular etiology for SOB
- Check CPK and aldolase levels --> CPK levels are low, ruling out an active myositis
- Repeat TTE shows improved PASP from 45 now down to 33mmHg, compared to former TTE in nov 2023; moderate MR persists
- Blood gas shows adequate ventilation (7.4/48/70/96%)
- Leukocytosis is better today; can hold off on imaging at this time; if she spikes fever then arredondo-Cx and arredondo-scan with CT chest/Abd/Pelvis
- Iron supplementation per primary team
- Maintain SpO2 >90-94% with supplemental O2 as needed
- Encourage incentive spirometer
- Replete electrolytes with K>4, Mg>2
- Maintain euglycemia with goal BG >100 and <180
- prn nebulized bronchodilators
- PT/OT - recommending home with home health
- DVT ppx
Pulmonary service will continue to follow along. I advised her to follow-up with her private records coordinator at [place], Dr. Gabbie Beltran. I advised her to request a CPET as well to further evaluate her SOB/MONTANEZ.
Total time spent today was 35 minutes for this encounter. Time includes reviewing laboratory test/imaging results, reviewing pertinent medical records, obtaining and reviewing medical history, performing an appropriate exam, ordering medications,
tests and procedures. Time also includes documentation of this encounter, coordinating patient care and communicating with other healthcare professionals. Total time does not include separately billed tests performed on this date of service.
Data:
CXR 02-21-2024: No acute cardiopulmonary process.
TTE 02-22-2024:
Normal left ventricular size, wall thickness and systolic function. No regional
wall motion abnormalities are seen. LV ejection fraction is 50-55% by Johnson's
method of discs. Diastolic function indeterminate.
GLS is -15.8%.
Mitral valve opens normally. Mitral sclerosis without stenosis. Moderate mitral
regurgitation.
Trileaflet aortic valve. Aortic sclerosis without stenosis. Moderate to severe
aortic regurgitation.
Structurally normal tricuspid valve. Tricuspid valve opens normally. Moderate
tricuspid regurgitation. Estimated pulmonary artery pressure of 33 mmHg.
Assuming a right atrial pressure of 3 mmHg.
Since echocardiogram November 2023, there is no significant change. Global
strain was -14.2% and is currently -15.8%.
Subjective Data
-
Date of Service:
Date of Service: February 23, 2024
Chief Complaint: Pulmonary Follow Up
Subjective:
Patient seen today. Sleeping in no acute distress. No acute events reported from overnight. Echo repeated today showing improved pulmonary hypertension with PASP improving to 33 mmHg from 45 previously. Patient still endorsing shortness of
breath with activity. She is on room air breathing comfortably. MIP performed yesterday and it was normal ([id number]).
Review of Systems
General: Other (Negative unless mentioned above)
Objective Data
Data Reviewed
Vital Signs / I&O / Oxygen:
Vital Signs
Temp Pulse Resp BP Pulse Ox
98.3 F 76 17 123/58 97
02/23/24 07:25 02/23/24 07:25 02/23/24 07:25 02/23/24 07:25 02/23/24 07:25
Intake and Output
02/22/24 02/23/24 02/24/24
06:59 06:59 06:59
Intake Total 1080 / 1080 710 / 710
Balance 1080 / 1080 710 / 710
SaO2 97
Physical Exam
General: Respiratory Distress (Negative) and Comfortable
HEENT: Normocephalic and Anicteric
Cardiovascular: S1-S2 and Peripheral Edema (Edematous right upper extremity; lower extremities have no edema)
Respiratory: Clear, Wheeze (Negative), Crackles (Negative), Rhonchi (Negative) and Accessory Resp Muscle Use (With exertion)
GI: Soft, Non Distended, Non Tender and Normal Bowel Sounds
Neurology: Awake and Alert
Skin: Warm and Dry
Labs/Micro/Reports
Lab Data
02/23/24 05:58
02/23/24 05:58
[2024-02-23] MEDS: CORTEF 10 MG PO (09:26)
--- NOTE | 2024-02-23 09:26 | W.PN.CARDCBS ---
Today's Communication / Plan
-
Her echo was reviewed and is unchanged from prior.
She appears euvolemic and she will continue with oral diuretic therapy. Lasix 20 mg every MWF is her outpatient regimen
Agree with pulm eval of her symptoms. Pulm is considering neuro eval.
She needs intrahepatic chemoembolization of liver mets on 03/01/24
Monitor H/H s/p transfusion
Continue Zetia 10 mg daily since 01/2024 admission. Patient was not started on statin due to liver mets. LDL 121.
Outpt follow up with Dr Rossy Ronquillo.
Please recall if needed
Impression / Plan
-
.
PCP: Dr. Munoz
Cardiology: Dr. Rossy Ronquillo
Onc: Dr. Godinez at [facility] [phone]
Impression:
MONTANEZ
Anemia
s/p 1 unit PRBCs 02/21/24
CAD
s/p 3.5 mm Xience mid LAD and 3.0 mm Xience ostial RCA 01/18/24
Chronic HFpEF
PCWP 24 by [facility] 01/18/24
Chronic orthostasis, started midodrine 02/03/24
h/o mantle radiation for Non-Hodgkin's lymphoma age 30
h/o breast cancer treated with mastectomy, Cytoxan, methotrexate and 5-FU 1997
Esophageal cancer with liver mets undergoing chemoembolization therapy directed at the liver, scheduled at [facility] for 01/25/24
Chronic B/L UE lymphedema
PE 08/08/22
Chronic Eliquis OAC, last dose 01/17/24 AM
h/o CVA 08/02/20
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
Mod AI without
HTN
Hyperlipidemia
Echo 11/22/23: EF 55-60%, GLS -14.2% (previously -18% 08/2023), mod eccentric MR, mod aortic regurgitation
Echo 02/22/24: EF 50-55% GLS is -15.8%. Moderate mitral regurgitation. Moderate to severe AR
Moderate TR Estimated pulmonary artery pressure of 33 mmHg. Since echocardiogram November 2023, there is no significant change. Global strain was -14.2% and is currently -15.8%.
Plan:
Her echo was reviewed and is unchanged from prior.
She appears euvolemic and she will continue with oral diuretic therapy. Lasix 20 mg every MWF is her outpatient regimen
Agree with pulm eval of her symptoms. Pulm is considering neuro eval.
She needs intrahepatic chemoembolization of liver mets on 03/01/24
Monitor H/H s/p transfusion
Continue Zetia 10 mg daily since 01/2024 admission. Patient was not started on statin due to liver mets. LDL 121.
Outpt follow up with Dr Rossy Ronquillo.
Please recall if needed
HPI: Patient came to [facility] after her cardiology office visit yesterday for concerns about anemia and cardiology is now consulted for ongoing MONTANEZ. Patient also has a h/o NHL with mantle radiation at age 30 then later she had breast cancer and now she
is battling esophageal cancer with mets to liver. Patient is scheduled to undergo chemoembolization therapy directed at the liver at [facility] 03/01/24. Patient also with a h/o PE in 08/2022 and takes Eliquis. Patient previously had lacunar infarcts on
MRI brain, but there is no known h/o atrial arrhythmia.
Most recently patient was sent to [facility] from cardiology office 01/17/24 with MONTANEZ. At that time patient had R/LHC and PCWP was 24 so she was diuresed. There was LAD and ostial RCA disease on cath so she had PCI. Overall situation is complicated because
patient needs to have chemoembolization of liver mets so a plan for interrupting DAPT and Eliquis was made. Patient was discharged to home 01/19/24 and was back in the ER 02/03/24 and that was also after a cardiology office visit.
On 02/03/24 the patient was seen in the office and was orthostatic and complained of MONTANEZ and it was felt that orthostasis might be contributing to symptoms so she was started on midodrine and sent to [facility] for IVFs and then discharged to home. Patient
was seen in the office yesterday and had ongoing MONTANEZ and was sent to [facility] for possible anemia. Hgb was 8.4 in the ER and patient was given 1 unit of PRBCs and she says that initially she had dramatic symptomatic improvement, but after waking up this
AM she feels she is back to her usual MONTANEZ symptoms. Patient repeatedly says, 'I can't live like this anymore.'
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
Subjective
Date of Service: February 23, 2024
Pt seen and examined. No complaints. No chest pain or shortness of breath.
Objective
Labs:
02/23/24 05:58
02/23/24 05:58
Labs
Hgb 10.0 g/dL (12.0-16.0) L 02/23/24 05:58
Hct 31.5 % (37.0-47.0) L 02/23/24 05:58
Plt Count 339 10^3/uL (130-400) 02/23/24 05:58
Sodium 139 mmol/L (135-145) 02/23/24 05:58
Potassium 4.1 mmol/L (3.5-5.1) 02/23/24 05:58
BUN 30 mg/dl (7-17) H 02/23/24 05:58
Creatinine 1.4 mg/dL (0.6-1.0) H 02/23/24 05:58
Glucose 94 mg/dl (70-99) 02/23/24 05:58
Troponins
02/21/24
15:42
Troponin I < 0.012
Vital Signs and I&O:
Vital Signs
Temp Pulse Resp BP Pulse Ox
98.3 F 76 17 123/58 97
04/18/24 07:25 02/23/24 07:25 02/23/24 07:25 02/23/24 07:25 02/23/24 07:25
Vital Signs
Temp Pulse Resp BP Pulse Ox
98.3 F 76 17 123/58 97
02/23/24 07:25 02/23/24 07:25 02/23/24 07:25 02/23/24 07:25 02/23/24 07:25
Intake & Output
02/21/24 02/22/24 02/23/24 02/24/24
06:59 06:59 06:59 06:59
Intake Total 1080 / 1080 710 / 710
Balance 1080 / 1080 710 / 710
Physical Exam
Physical Exam
General: No acute distress, AAOX3
Neck: Negative JVD
Heart: Regular, Negative S3 positive S1/S2, Negative S4, No murmur
Lungs: CTA b/l, negative wheezes/rales/rhonchi
Abd: Positive BS, NT/ND, neg rebound/rigidity/guarding
Ext: Negative cyanosis/clubbing/edema
Neuro: nonfocal
[2024-02-23] MEDS: VALIUM 1 MG PO (09:30)
[2024-02-23 11:30] LABS: Creatine Phosphokinase 24 U/L (30-135)
[2024-02-23] MEDS: CORTEF 5 MG PO ×2 (12:04→17:12)
--- NOTE | 2024-02-23 14:11 | CON.NEURO4 ---
Consultation - Neurology 4
-
CONSULTING PHYSICIAN: Meghann Nath
REFERRING PHYSICIAN: Hospitalist
DICTATED BY: Meghann Nath
DATE/TIME OF REQUEST: 02/23/24
DATE/TIME OF CONSULTATION: 02/23/24
Reason for Consultation: Dyspnea on exertion evaluation for neuromuscular disorders
History of Present Illness:
Patient is a 68-year-old woman with a past medical history of breast cancer, Hodgkin's disease, esophageal cancer status post radiation treatments, pulmonary embolism and coronary artery disease who presents to the hospital because of acute on
chronic shortness of breath. Reports that this has been going on on a frequent basis since approximately November of this year. Reports this is similar to an instance in the past where she had complications with esophageal cancer as well as
pulmonary embolism.
She is clear in saying that the shortness of breath comes on with activity. She is able to speak and have long conversations without any involvement of dyspnea or difficulty in speaking. There is not been any dysarthria, she does feel like she
needs some dilation for her esophagus with some occasional dysphagia, there is been no ptosis double vision, or weakness of the neck muscles or hand muscles. No tremors no history of peripheral neuropathy or previous cancers or chemotherapy
treatments denies any paresthesia.
Past Medical History: TIA, type 2 diabetes mellitus, breast cancer, esophageal cancer, pulmonary fibrosis, Hodgkin's disease, hypertension, lymphedema, pulmonary embolism, coronary artery disease status post stent, hypothyroidism, osteopenia,
depression
Surgical History: Splenectomy, hysterectomy, mastectomy with axillary node resection
Family History: No family history neuromuscular disorder
Social History: Is retired, non-smoker no significant alcohol lives at home with her dog and she loves, has supportive friends if she keeps in touch with
Review of Symptoms:
Patient denies any fever, headache, chest pain, positive for shortness of breath on exertion, GI or symptoms.
Physical Exam:
Middle-aged woman appears in no distress well-nourished, well-groomed no signs of head or neck trauma oropharynx is clear eyes are clear, heart regular breathing unlabored abdomen is obese soft nontender no lower extremity edema or rash or joint
deformities seen.
Neurologic Examination:
The patient is awake, alert and oriented x 3. (He/She) is able to follow commands and answer questions appropriately. There is no aphasia or dysarthria. On cranial nerve assessment, pupils are 3 mm bilateral, round and reactive to light and
accommodation. Visual brown are full. Extraocular movements are intact. Facial sensations are intact and bilaterally symmetrical, there is no facial asymmetry. Hearing is intact bilaterally to normal conversation volume. Tongue palate and uvula
are midline. Sternocleidomastoid strengths are full bilaterally. Normal muscle bulk and tone no fasciculations or tremor. Motor strengths are 5/5 head and neck flexion as well as bilateral upper and lower extremities on medical research [employer]
scale. No muscle atrophy noted. There is no drift or involuntary movement noted.Reflexes absent throughout. Normal to light touch and vibration throughout. There was no extinction noted on double simultaneous stimulation. Coordination is intact by
finger to nose bilaterally.
Impressions
Her history and neurologic examination are very reassuring that there is no neuromuscular disorder present. No description of episodes that fit a Lambert Eaton or myasthenia gravis picture. Patient is able to have long conversations without any
development of dyspnea or dysarthria which argues very strongly against any type of weakness of the diaphragm or muscles of speech. Her examination shows absent reflexes but otherwise very good strength and muscle tone.
CONSULTING PHYSICIAN: Meghann Nath
REFERRING PHYSICIAN: Hospitalist
DICTATED BY: Meghann Nath
DATE/TIME OF REQUEST: 02/23/24
DATE/TIME OF CONSULTATION: 02/23/24
Reason for Consultation: Dyspnea on exertion evaluation for neuromuscular disorders
History of Present Illness:
Patient is a 68-year-old woman with a past medical history of breast cancer, Hodgkin's disease, esophageal cancer status post radiation treatments, pulmonary embolism and coronary artery disease who presents to the hospital because of acute on
chronic shortness of breath. Reports that this has been going on on a frequent basis since approximately November of this year. Reports this is similar to an instance in the past where she had complications with esophageal cancer as well as
pulmonary embolism.
She is clear in saying that the shortness of breath comes on with activity. She is able to speak and have long conversations without any involvement of dyspnea or difficulty in speaking. There is not been any dysarthria, she does feel like she
needs some dilation for her esophagus with some occasional dysphagia, there is been no ptosis double vision, or weakness of the neck muscles or hand muscles. No tremors no history of peripheral neuropathy or previous cancers or chemotherapy
treatments denies any paresthesia.
Past Medical History: TIA, type 2 diabetes mellitus, breast cancer, esophageal cancer, pulmonary fibrosis, Hodgkin's disease, hypertension, lymphedema, pulmonary embolism, coronary artery disease status post stent, hypothyroidism, osteopenia,
depression
Surgical History: Splenectomy, hysterectomy, mastectomy with axillary node resection
Family History: No family history neuromuscular disorder
Social History: Is retired, non-smoker no significant alcohol lives at home with her dog and she loves, has supportive friends if she keeps in touch with
Review of Symptoms:
Patient denies any fever, headache, chest pain, positive for shortness of breath on exertion, GI or symptoms.
Physical Exam:
Middle-aged woman appears in no distress well-nourished, well-groomed no signs of head or neck trauma oropharynx is clear eyes are clear, heart regular breathing unlabored abdomen is obese soft nontender no lower extremity edema or rash or joint
deformities seen.
Neurologic Examination:
The patient is awake, alert and oriented x 3. (He/She) is able to follow commands and answer questions appropriately. There is no aphasia or dysarthria. On cranial nerve assessment, pupils are 3 mm bilateral, round and reactive to light and
accommodation. Visual brown are full. Extraocular movements are intact. Facial sensations are intact and bilaterally symmetrical, there is no facial asymmetry. Hearing is intact bilaterally to normal conversation volume. Tongue palate and uvula
are midline. Sternocleidomastoid strengths are full bilaterally. Normal muscle bulk and tone no fasciculations or tremor. Motor strengths are 5/5 head and neck flexion as well as bilateral upper and lower extremities on medical research [employer]
scale. No muscle atrophy noted. There is no drift or involuntary movement noted.Reflexes absent throughout. Normal to light touch and vibration throughout. There was no extinction noted on double simultaneous stimulation. Coordination is intact by
finger to nose bilaterally.
Impressions
Her history and neurologic examination are very reassuring that there is no neuromuscular disorder present. No description of episodes that fit a Lambert Eaton or myasthenia gravis picture. Patient is able to have long conversations without any
development of dyspnea or dysarthria which argues very strongly against any type of weakness of the diaphragm or muscles of speech. Her examination shows absent reflexes but otherwise very good strength and muscle tone.
Would estimate her dyspnea on exertion is multifactorial. Malignancy, previous heart issues and PE, deconditioning and sarcopenia.
Recommendations:
-Continue the current treatment plans and workup I do not have any diagnostic testing or therapeutics to offer at this time
Discussed patient care with: Patient and hospitalist
[2024-02-23] MEDS: FERRLECIT 110 MG IV (14:12)
[2024-02-23] MEDS: TUMS EX (EXTRA STRENGTH) CHEWABLE 1 TABLET PO (14:21)
[2024-02-23 16:04] VITALS: BP 129/56
[2024-02-23 17:12] VITALS: BP 103/42; BP 92/44; BP 99/44; PULSE 101; PULSE 91; PULSE 96
[2024-02-23 17:15] VITALS: BP 103/42; BP 92/44; BP 99/44; PULSE 101; PULSE 91; PULSE 96
[2024-02-23 19:00] LABS: Hepatitis C Antibody Negative (Negative)
[2024-02-23] MEDS: TOPROL XL PO (20:26)
[2024-02-23] MEDS: PEPCID 20 MG PO (21:21)
[2024-02-23] MEDS: SENOKOT 17.1999999999999993 MG PO (21:21)
[2024-02-23 23:00] VITALS: BP 115/50
[2024-02-24 00:34] LABS: Transferrin 281 mg/dL (200-360)
[2024-02-24 05:00] LABS: Hematocrit 30.1 % (37.0-47.0); Hemoglobin 9.7 g/dL (12.0-16.0); Mean Corp Hgb Conc. 32.2 g/dL (33.0-37.0); Mean Corpuscular Hgb 24.9 pg (27.0-31.0); Mean Corpuscular Volume 77.4 fL (81.0-99.0); Mean Platelet Volume 10.5 fL (7.4-10.4); Platelet Count 308 10^3/uL (130-400); Red Blood Cell Count 3.89 10^6/uL (4.20-5.40); Red Cell Dist. Width 18.9 % (11.5-14.5); White Blood Cell Count 11.7 10^3/uL (4.8-10.8)
[2024-02-24 05:29] LABS: Blood Urea Nitrogen 23 mg/dl (7-17); Calcium 8.9 mg/dl (8.4-10.2); Carbon Dioxide 28 mmol/L (22-30); Chloride 102 mmol/L (98-107); Estimated Creatinine Clearance 41 ml/min; Glucose 99 mg/dl (70-99); Potassium 4.1 mmol/L (3.5-5.1); Sodium 138 mmol/L (135-145); eGFR 49.92
[2024-02-24 06:00] VITALS: BMI 25.5
[2024-02-24] MEDS: SYNTHROID 88 MCG PO (06:08)
[2024-02-24 07:00] VITALS: BP 128/61
[2024-02-24] MEDS: PROTONIX 20 MG PO ×2 (08:11→13:07)
[2024-02-24] MEDS: LOW STRENGTH ASPIRIN 81 MG PO (08:11)
[2024-02-24] MEDS: ZETIA 10 MG PO (08:11)
[2024-02-24] MEDS: ProAmatine 2.5 MG PO (08:12)
[2024-02-24] MEDS: TOPROL XL 12.5 MG PO (08:13)
[2024-02-24] MEDS: CORTEF 10 MG PO (08:13)
[2024-02-24] MEDS: ELIQUIS 5 MG PO (08:13)
[2024-02-24] MEDS: LASIX 20 MG PO (08:14)
--- NOTE | 2024-02-24 09:10 | W.PN.PUL3 ---
Today's Communication / Plan
-
Up OOB as tolerated
Encourage incentive spirometer
Maintain SpO2 >90-94%
Resting saturations are >95% on room air, hence no need to check ambulatory pulse oximetry prior to discharge
Would discuss obtaining outpatient CPET with her private training and development specialist to further evaluate her MONTANEZ
Pt being prepared for DC home. Pulmonary service will now sign off. Please reconsult if respiratory issues develop.
Assessment
-
Assessment: 68-year-old female with a past medical history of POTS, history of breast cancer, Hodgkin lymphoma, CVA, adrenal insufficiency and DM type II who presents with shortness of breath. SOB has been occurring for many months but worsened
over the last week [employer] WORK[employer]. She had a coronary stent placed on 01/18/2024 in the mid LAD as well as the ostial RCA but her shortness of breath did not improve. Of note, she had elevated PCWP (24 with PADP of 22) during the [facility]. Initial labs here
showed an Hb of 8.4, leukocytosis to 17.4, GERALDO to 1.8, and elevated BNP at 1720 (789 on 01/30/2024). Patient transfused 1 unit PRBC on 02/20 but her shortness of breath did not improve. CXR 02/20 showed no acute pathology. She remains on room air
with pulse oximetry between 97-99%. Her troponin was negative X1 on 02/20. She does have a history of pulm hypertension. Given her continued shortness of breath with no obvious inciting factor, pulmonary now consulted for additional
management/recommendations.
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
anemia, depression, chronic HFpEF, CAD, history of PE (RLL - Dx 08/2022) on Eliquis, history of esophageal cancer with mets to liver (follows at [facility])
Impression:
#MONTANEZ without hypoxia at rest - unknown etiology - perhaps physical deconditioning given normal NIF, normal CPK, she is not hypoxic and her CXR is clear; doubt PE given not tachycardic or hypoxic
#Anemia (baseline Hb 9�10.5)
#Acute kidney injury (baseline Cr 0.9 - 1.1)
#Adrenal insufficiency on hydrocortisone
#Reported history of restrictive lung disease
#History of radiation pneumonitis/fibrosis
Plan:
- MIP was 50 cmH2O, ruling out neuromuscular etiology for SOB
- Check CPK and aldolase levels --> CPK levels are low, ruling out an active myositis; aldolase levels are pending
- Repeat TTE shows improved PASP from 45 now down to 33mmHg, compared to former TTE in nov 2023; moderate MR persists
- Blood gas shows adequate ventilation (7.4/48/70/96%)
- Leukocytosis has improved and is stable; hold off on imaging at this time; if she spikes fever then arredondo-Cx and arredondo-scan with CT chest/Abd/Pelvis
- Iron supplementation per primary team
- Maintain SpO2 >90-94% with supplemental O2 as needed
- Encourage incentive spirometer
- Replete electrolytes with K>4, Mg>2
- Maintain euglycemia with goal BG >100 and <180
- prn nebulized bronchodilators
- PT/OT - recommending home with home health
- DVT ppx
Pt being prepared for DC home. Pulmonary service will now sign off. Thank you for allowing us to be involved in the care of this patient. Please reconsult if respiratory issues develop.
I advised her to follow-up with her private training and development specialist at [facility], Dr. Gabbie Beltran. I advised her to request a CPET as well to further evaluate her SOB/MONTANEZ.
Total time spent today was 35 minutes for this encounter. Time includes reviewing laboratory test/imaging results, reviewing pertinent medical records, obtaining and reviewing medical history, performing an appropriate exam, ordering medications,
tests and procedures. Time also includes documentation of this encounter, coordinating patient care and communicating with other healthcare professionals. Total time does not include separately billed tests performed on this date of service.
Data:
CXR 02-21-2024: No acute cardiopulmonary process.
TTE 02-22-2024:
Normal left ventricular size, wall thickness and systolic function. No regional
wall motion abnormalities are seen. LV ejection fraction is 50-55% by Johnson's
method of discs. Diastolic function indeterminate.
GLS is -15.8%.
Mitral valve opens normally. Mitral sclerosis without stenosis. Moderate mitral
regurgitation.
Trileaflet aortic valve. Aortic sclerosis without stenosis. Moderate to severe
aortic regurgitation.
Structurally normal tricuspid valve. Tricuspid valve opens normally. Moderate
tricuspid regurgitation. Estimated pulmonary artery pressure of 33 mmHg.
Assuming a right atrial pressure of 3 mmHg.
Since echocardiogram November 2023, there is no significant change. Global
strain was -14.2% and is currently -15.8%.
Subjective Data
-
Date of Service:
Date of Service: February 24, 2024
Chief Complaint: Pulmonary Follow Up
Subjective:
Seen today. No acute events reported from overnight. Going home today. No significant changes compared to yesterday. Still SOB with exertion. On room air with sats >94%.
Review of Systems
General: Other (negative unless mentioned above.)
Objective Data
Data Reviewed
Vital Signs / I&O / Oxygen:
Vital Signs
Temp Pulse Resp BP Pulse Ox
97.6 F 92 16 138/61 95
02/24/24 07:00 02/24/24 08:14 02/24/24 07:00 02/24/24 08:14 02/24/24 07:00
Intake and Output
02/23/24 02/24/24 02/25/24
06:59 06:59 06:59
Intake Total 710 / 710 360 / 360
Balance 710 / 710 360 / 360
SaO2 95
Physical Exam
General: Respiratory Distress (Negative) and Comfortable
HEENT: Normocephalic and Anicteric
Cardiovascular: S1-S2 and Peripheral Edema (Edematous right upper extremity; lower extremities have no edema)
Respiratory: Clear, Wheeze (Negative), Crackles (Negative), Rhonchi (Negative) and Accessory Resp Muscle Use (With exertion)
GI: Soft, Non Distended, Non Tender and Normal Bowel Sounds
Neurology: AO x 3
Skin: Warm and Dry
Labs/Micro/Reports
Lab Data
02/24/24 04:45
02/24/24 04:45
[2024-02-24] MEDS: VALIUM 1 MG PO (09:15)
--- NOTE | 2024-02-24 09:36 | W.PN.HOSP.TC ---
Today's Communication/Plan
-
discharge
Assessment / Plan
Assessment / Plan
Physical Exam
General: Well Developed, Well Nourished and No Apparent Distress
HEENT: NormoCephalic, Moist mucous membranes and Atraumatic
Respiratory: Clear
Cardiac: S1/S2 and Regular Rhythm; Possible 2/6 systolic murmur
GI: Soft, Non Tender, Non Distended and Normal Bowel Sounds; No Organomegaly
Musculoskeletal: RUE lymphedema
Skin: No Rash
Neuro: AO x 3 and Nonfocal/grossly intact
Psych: Calm
68F hx Radiation Pneumonitis POTS Met Ca Valve Dz DM Adrenal Insuff CVA HFpEF Hypothyroidism hx PE on Eliqus here for progressive SOB since November, debilitating. Asymptomatic at rest but SOB occurs with a few steps.
# Unclear Etiology Exertional Dyspnea, most likely multifactorial
#Anemia, Iron def, Anemia of chronic disease
-No improvement in symptoms noted with 1PRBC transfusion Hgb 8.4 increased to 9.9, H&H remains stable
-Chest x-ray with no acute cardiopulmonary process
-Continue to monitor hemoglobin
-B12 wnl
-IV iron supplementation
-monitor Orthostatic Vitals
-PT/OT appreciated Home Health
-Neuro eval appreciated neuromuscular disorder unlikely
# Chronic leukocytosis likely from steroids
-Afebrile
-Continue to monitor
# Acute on chronic kidney disease stage IIIb
-initial Creatinine 1.8
-trending down, near baseline
# HFpEF
-Check I's and O's/daily weights
-Lasix continued
-Recent echocardiogram November showed EF of 55 to 60%
-Repeated ECHO appreciated EF 50-55% Mod MR mod to severe AR mod TR, no significant change from [place] ECHO noted
-Cardio Eval appreciated
#Possible progressive Pulm Hypertension ruled out
Pulm eval appreciated oupt CPET (cardiopulmonary exercise test) recommended
#Right upper extremity edema secondary to lymphedema secondary to breast cancer
#Esophageal cancer, with later metastatic lesion of liver
-Scheduled for chemo later this month follows [facility]
-Follows with [facility]
#Adrenal insufficiency secondary to surgery/radiation/chemotherapy for Hodgkin's disease
-Continue hydrocortisone
#Hypothyroidism
-Continue levothyroxine
#Essential hypertension
-Continue metoprolol
# History of hypotension
-Midodrine continued
#History of DVT/pulm embolism
-Continue Eliquis
# GERD
-PPI
GERD
History of small lacunar CVA
dvt ppx Eliquis
Full Code
PT/OT appreciated home services
Medically stable for discharge home with home services and outpatient follow up recommendations.
Total Time Preparing Discharge ___50____ minutes including examination of the patient, summary of the hospital stay, instructions for continuing care to all relevant caregivers; and preparation of discharge records, prescriptions, and referral
forms if necessary.
Anticipated Discharge: Today
Subjective/Interval History
-
Date of Service: February 24, 2024
Seen and examined at bedside in no acute distress sitting up comfortably in bed. Reports muscle spasm earlier in morning resolved with once Valium. Continues to report exertional dyspnea. Denies new acute issues at this time.
Objective Data
-
Labs:
Laboratory Results
02/24/24
04:45
WBC 11.7 H
Hgb 9.7 L
Hct 30.1 L
Plt Count 308
Sodium 138
Potassium 4.1
Chloride 102
Carbon Dioxide 28
BUN 23 H
Creatinine 1.2 H
Glucose 99
Calcium 8.9
Vital Signs:
Vital Signs
Temp Pulse Resp BP Pulse Ox
97.6 F 92 16 138/61 95
02/24/24 07:00 02/24/24 08:14 02/24/24 07:00 02/24/24 08:14 02/24/24 07:00
I&O
02/23/24 02/24/24 02/25/24
06:59 06:59 06:59
Intake Total 710 / 710 360 / 360
Balance 710 / 710 360 / 360
[2024-02-24] MEDS: CORTEF 5 MG PO (13:07)
[2024-02-24 14:24] VITALS: BP 112/54; PULSE 89; O2SAT 96
[2024-02-24] MEDS: FERRLECIT 110 MG IV (15:01)
--- NOTE | 2024-02-24 16:04 | CM ---
Spoke with patient to obtain information for assessment, patient stated that she lives alone in a one floor townhouse with no steps. She described herself as in need of some assistance with bathing, dressing all ADLs and ambulating but she does the
best she can independently. She does use a cane. She orders food, has a friend do laundry, she can drive herself to her appointments and do all her own shopping. Her family assists her with vamp liner.
Patient has had VN in the past.
She has not been to a SNF.
She has a prescription plan and uses [facility] on [address] for all of her medications.
Her PCP is, Asa Brar.
Patient was asked if she would like VN services and she stated that she would like PT, OT, and a CERTIFIED ADAPTED PHYSICAL EDUCATOR.
Updated VN liason.
Plan: Case management will continue to follow and assist with discharge planning. Home with VN services.
--- NOTE | 2024-02-24 16:06 | W.DCSUMMARY ---
Discharge Summary
Discharge Data
Date of Admission: 02/21/24
Date of Discharge: 02/24/24
-
Pending Results: Yes
Additional Pending Results:
aldolase
Hospital Course
68F hx Radiation Pneumonitis POTS Met Ca Valve Dz DM Adrenal Insuff CVA HFpEF Hypothyroidism hx PE on Eliqus here for progressive SOB since November, debilitating. Asymptomatic at rest but SOB occurs with a few steps. Unclear Etiology Exertional
Dyspnea, most likely multifactorial, physically deconditioned, Anemia, Iron def, Anemia of chronic disease. No improvement in symptoms noted with 1PRBC transfusion Hgb 8.4 increased to 9.9, H&H remains stable. Chest x-ray with no acute
cardiopulmonary process. B12 wnl. IV iron supplementation was provided. PT/OT appreciated Home Health. Neuro eval appreciated neuromuscular disorder unlikely. Chronic leukocytosis likely from steroids. Acute on chronic kidney disease stage
IIIb, initial Creatinine 1.8, trended down near baseline towards end of hospitalization. HFpEF, home Lasix continued, recent echocardiogram November showed EF of 55 to 60%. Repeated ECHO appreciated EF 50-55% Mod MR mod to severe AR mod TR, no
significant change from Nov ECHO noted. Cardiology evaluated during this hospitalization. Possible progressive Pulm Hypertension ruled out. Pulm evaluated and recommended oupt CPET (cardiopulmonary exercise test). Esophageal cancer metastatic
lesion of liver, scheduled for chemo later this month follows [facility]. Medically stable, patient was discharged home with home services and outpatient follow up recommendations.
Discharge Plan
-
Patient Disposition: Home with Home Care
Discharge Diagnosis/Procedures: Exertional Dyspnea likely multifactorial due to multiple medical issues, possible physical deconditioning, history Radiation Pneumonitis, POTS, Esophageal Cancer Metastatic to Liver, Valve Disease, Adrenal
Insufficiency, Hypothyroidism, History Pulmonary Embolism on Eliquis, history stroke, Heart Failure with preserved ejection fraction, Anemia, Iron deficiency, Anemia of Chronic Disease, Acute Kidney Injury on Chronic Kidney disease stage III
resolving, GERD, Hypotension
Condition: Fair
Diet: Low Cholesterol and 2 Gram Sodium
Activity: As tolerated
Driving Restrictions: As prior to admission
Bathing Restrictions: None
Blood Work: Please obtain CBC and BMP with primary care provider or other healthcare provider involved in your care in 1 week of discharge.
Please repeat Iron studies with primary care provider in 1 month of discharge.
Others Tests: Outpatient Cardiopulmonary Exercise Test (CPET) is recommended with [facility] in 1 month of discharge. Referral has been provided if you do not currently follow with a Pulmnologist.
Other Services: VN, PT and OT
Activity Restrictions/Additional Instructions:
Please follow up with primary care provider in 1 week of discharge, pulmonology in 1 month of discharge, and keep your appointments with all healthcare providers involved in your care.
Iron supplementation has been prescribed for anemia of chronic disease and iron deficiency.
Please take medications as prescribed/recommended and follow up with primary care provider and/or other healthcare provider involved in your care for refills and/or further adjustment to your medication regimen as necessary.
apixaban 5 mg tablet (Eliquis) 5 mg PO BID history pulmonary embolism
hydrocortisone 20 mg tablet 10 mg PO DAILY Adrenal Insufficiency
hydrocortisone 5 mg tablet 5 mg PO BID@1200,1800 Adrenal Insufficiency
metoprolol succinate 25 mg tablet,extended release 24 hr (Toprol XL) 12.5 mg PO BID Heart Failure
pantoprazole 20 mg tablet,delayed release 20 mg PO BID@0800,1200 Gastrointestinal Issue
albuterol sulfate 90 mcg/actuation aerosol inhaler (ProAir HFA) 2 puff inhalation R Q6HPRN PRN sob
clopidogrel 75 mg tablet 75 mg PO DAILY Coronary artery disease on hold for intrahepatic chemoembolization therapy at [facility], aspirin 81 mg daily substituted in the meantime.
ezetimibe 10 mg tablet 10 mg PO DAILY High cholesterol
levothyroxine 88 mcg tablet 88 mcg PO DAILY Hypothyroidism
furosemide 20 mg tablet (Lasix) 20 mg PO MOWEFR Heart Failure
calcium carbonate (Tums) 300 mg PO BIDPRN PRN GERD
famotidine 20 mg tablet (Pepcid) 20 mg PO HS Gastrointestinal Issue
polyethylene glycol 3350 17 gram oral powder packet (Miralax) 17 g PO DAILYPRN PRN constipation
acetaminophen 500 mg tablet 1,000 mg PO HS PRN mild pain
diazepam 2 mg tablet (Valium) 1 mg PO HS PRN muscle spasm
midodrine 2.5 mg tablet 2.5 mg PO BID@0800,1800 Blood Pressure Support
sennosides 8.6 mg tablet (senna) 17.2 mg PO HS Constipation
aspirin 81 mg chewable tablet (Children's Aspirin) 81 mg PO DAILY Coronary Artery Disease substituting Plavix as above
ferrous sulfate 325 mg (65 mg iron) tablet (iron) 325 mg PO DAILY Iron Deficiency Anemia, Anemia of chronic disease
Referrals:
Demetrio Collins MD [Active] - in one month
Asa Munoz DO [Family Provider] - in one week
Prescriptions:
New
ferrous sulfate [iron] 325 mg (65 mg iron) tablet
325 mg PO DAILY 30 Days Qty: 30 0RF
aspirin [Children's Aspirin] 81 mg Tablet,Chewable
81 mg PO DAILY Qty: 7 0RF
Continued
Eliquis 5 mg tablet
5 mg PO BID
hydrocortisone 5 mg Tablet
5 mg PO BID@1200,1800
pantoprazole 20 mg Tablet,Delayed Release (Dr/Ec)
20 mg PO BID@0800,1200
hydrocortisone 20 mg Tablet
10 mg PO DAILY
metoprolol succinate [Toprol XL] 25 mg Tablet Extended Release 24 Hr
12.5 mg PO BID
albuterol sulfate [ProAir HFA] 90 mcg/actuation Hfa Aerosol Inhaler
2 puff INHALATION R Q6HPRN PRN (Reason: sob)
ezetimibe 10 mg Tablet
10 mg PO DAILY Qty: 30 11RF
levothyroxine 88 mcg Tablet
88 mcg PO DAILY
furosemide [Lasix] 20 mg tablet
20 mg PO MOWEFR Qty: 30 0RF
polyethylene glycol 3350 [Miralax] 17 gram Powder In Packet
17 g PO DAILYPRN PRN (Reason: constipation)
Tums 300 mg (750 mg) Tablet,Chewable
300 mg PO BIDPRN PRN (Reason: gerd)
famotidine [Pepcid] 20 mg Tablet
20 mg PO HS
sennosides [senna] 8.6 mg Tablet
17.2 mg PO HS
acetaminophen 500 mg Tablet
1,000 mg PO HS PRN (Reason: mild pain)
midodrine 2.5 mg tablet
2.5 mg PO BID@0800,1800
diazepam [Valium] 2 mg tablet
1 mg PO HS PRN (Reason: muscle spasm)
Patient Comments:
02/21/2024: last filled 02/03/24, 10 tabs for 10 days from [facility]#[id number]
Held
clopidogrel 75 mg Tablet
75 mg PO DAILY Qty: 30 11RF
Hold Instructions: Continue with aspirin for now, eventually resume plavix after intrahepatic chemoembolization therapy at [facility]. Discuss with your healthcare providers before switching back
Discharge Orders:
Discharge Patient (As Directed); Ordered 02/24/24
Ordered By: Sarai Henderson
Discharge Date and Time
Discharge Date/Time: 02/24/24 18:09
Print Language: SINHALA
--- NOTE | 2024-02-24 16:19 | VNURNOTE ---
Home Health Liaison met spoke patient at 1615 to discuss [facility] nurse/therapy, visits, schedule and homebound status. Patient is agreeable only for PT/OT and understands that visits at home will be 2x per week to assess and teach strengthening
exercises and energy conservation.
Patient is aware that [facility] will contact them for start of care in couple of days after discharge from .
[facility] referral completed in Care Port.
[2024-02-25 17:03] LABS: Aldolase 9.9 U/L (1.2-7.6)
== END 2024-02-24 18:09 | disposition home health service (06) | DRG 315 ==
LOC: 3 WEST ACU 20:09
PROVIDERS: Emergency Medicine; Physician Assistant; Registered Nurse; ADMITTING PHYSICIAN Hospitalist; ATTENDING PHYSICIAN Internal Medicine; CONSULT PHYSICIAN Internal Medicine Critical Care Medicine; CONSULT PHYSICIAN Nuclear Medicine Nuclear Cardiology; CONSULT PHYSICIAN Student in an Organized Health Care Education/Training Program; EMERGENCY PHYSICIAN Emergency Medicine; FAMILY PHYSICIAN Family Medicine
PROC: 30233N1 Transfusion of Nonautologous Red Blood Cells into Peripheral Vein, Percutaneous Approach (ICD-10-PCS; 2024-02-21)
DX: I27.20 Pulmonary hypertension, unspecified (principal); C15.9 Malignant neoplasm of esophagus, unspecified; I13.0 Hypertensive heart and chronic kidney disease with heart failure and stage 1 through stage 4 chronic kidney disease, or unspecified chronic kidney disease; C78.7 Secondary malignant neoplasm of liver and intrahepatic bile duct; E27.40 Unspecified adrenocortical insufficiency; Z79.01 Long term (current) use of anticoagulants; Z79.82 Long term (current) use of aspirin; D63.8 Anemia in other chronic diseases classified elsewhere; E11.22 Type 2 diabetes mellitus with diabetic chronic kidney disease; N18.32 Chronic kidney disease, stage 3b; E03.9 Hypothyroidism, unspecified; K21.9 Gastro-esophageal reflux disease without esophagitis; E78.00 Pure hypercholesterolemia, unspecified; I25.10 Atherosclerotic heart disease of native coronary artery without angina pectoris
CPT/HCPCS: 71046; 80048; 80053; 82085; 82550; 82607; 82728; 82746; 82805; 83540; 83550; 83880; 84443; 84466; 84484; 85025; 85027; 86803; 86850; 86900; 86901; 86920; 93005; 93306; 97116; 99291; J2916; P9016

== ENCOUNTER 2024-03-14 21:00 | Emergency (ER) | payer MEDICARE, OTHER, SELFPAY ==
[2024-03-14 21:12] VITALS: BP 98/36
[2024-03-14 21:34] VITALS: BP 88/40
[2024-03-14 22:00] VITALS: BP 103/43
[2024-03-14 22:05] LABS: % Basophils 0.3 % (0-2); % Eosinophils 0.7 % (0-6); % Immature Granulocytes 1.2 % (0-0.5); % Lymphocytes 8.9 % (20.5-51.1); % Monocytes 8.9 % (1.7-9.3); Absolute Basophils 0.1 10^3/uL (0-0.2); Absolute Eosinophils 0.2 10^3/uL (0-0.7); Absolute Immature Granulocytes 0.3 10^3/uL (0-0.05); Absolute Lymphocytes 1.8 10^3/uL (1.2-3.4); Absolute Monocytes 1.8 10^3/uL (0.1-0.6); Absolute Neutrophils 16.5 10^3/uL (1.4-6.5); Hematocrit 32.7 % (37.0-47.0); Hemoglobin 10.7 g/dL (12.0-16.0); Mean Corp Hgb Conc. 32.7 g/dL (33.0-37.0); Mean Corpuscular Hgb 26.2 pg (27.0-31.0); Mean Corpuscular Volume 80.1 fL (81.0-99.0); Nucleated Red Blood Cells % 0.2 %; Platelet Count 156 10^3/uL (130-400); Red Blood Cell Count 4.08 10^6/uL (4.20-5.40); Red Cell Dist. Width 26.9 % (11.5-14.5); White Blood Cell Count 20.6 10^3/uL (4.8-10.8)
--- NOTE | 2024-03-14 22:09 | ED.GENMED ---
History of Present Illness
<REYES Garrison - Last Filed: 03/15/24 05:28>
General
Chief Complaint: Abdominal Symptoms
Source: patient
Exam Limitations: none
Time Seen by Provider: 03/14/24 22:08
Travel History
Have you had any contact with someone who has COVID-19?: No
Do you have any symptoms of coronavirus? Fever > 100 degrees, chills, cough, shortness of breath, sore throat, loss of taste or smell, muscle aches, or headache?: No
History of Present Illness
History of Present Illness:
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 She estimates vomiting 4 times and took an oral zofran at 3pm. She states nausea has
persisted since arrival. She admits to associated epigastric abdominal pain 7/10 in severity and nonradiating. This pain began after arrival to the ED. She has been having difficulty urinating with the comode since arrival to the ED, but denies
dysuria.
She denies diarrhea, constipation, hematemesis, hematochezia, fever.
Recent medical history significant for 8 days spent in hospital for sepsis after involvement in a clinical trial.
Past History
<REYES Garrison - Last Filed: 03/15/24 05:28>
Past History
ED Past Medical History: Cancer (Patient has had breast cancer and Hodgkin's lymphoma. Squamous cell carcinoma of the esophagus), COPD, CVA, HTN, Hypercholesterolemia, Valvular disease (Mitral regurgitation, aortic regurgitation with normal EF 55
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 Pneumonia, infectious colitis, IBS. PNA, Pulmonary nodules, right lymphedema. PE)
ED Past Surgical History: Other (Abdominal surgery for Hodgkin's disease modified right mastectomy, hysterectomy with ovary removed. Splenectomy, Breast reconstruction)
Social History
Tobacco: Non-smoker
Alcohol: None
Drug: None
Personal: Single
Living: alone
Employment: Employed
Family History
Family History: Hypertension
Review of Systems
<REYES Garrison - Last Filed: 03/15/24 05:28>
Review of Systems
Allergies reviewed?: Yes
Constitutional: Reports no symptoms
EENT: Reports no symptoms
Respiratory: Reports no symptoms
ABD/GI: Reports abdominal pain, nausea and vomiting
: Reports difficulty voiding
Musculoskeletal: Reports muscle pain and edema
Skin: Reports no symptoms
Neurological: Reports no symptoms
Phy Exam
<REYES Garrison - Last Filed: 03/15/24 05:28>
General Physical Exam
General Presentation: well appearing
General age: appears stated age
General Skin: warm and dry
General Habitus: normal
General Mental: alert
Cardiovascular Exam
Cardiovascular Exam: tachycardia
Pulmonary Exam
Pulmonary Exam: lungs clear
Gastrointestinal Exam
Gastrointestinal Exam: non tender, soft and non distended
Neurological Exam
Neurological Exam: alert and oriented x3
Course
<REYES Garrison - Last Filed: 03/15/24 05:28>
Orders/Labs/Results
Orders:
Orders
03/14/24 21:49
EKG [Electrocardiogram (*1)] Urgent
Reason for Study: Fatigue / Weakness
03/14/24 21:50
EKG- Treatment ONCE
03/14/24 21:55
Complete Blood Count/With Diff Urgent
Comprehensive Metabolic Panel Urgent
Lipase Urgent
Comment: ADD ON
03/14/24 22:47
Bladder Scan- Treatment ONCE
Lactic Acid Urgent
Urinalysis Reflex To Culture Urgent
Date Specimen was Collected: 03/15/24
Time Specimen was Collected: 04:28
03/14/24 23:00
Blood Culture Q30M
MICK Source: Blood/Venous
Specimen Description:
03/14/24 23:03
0.9% Sodium Chloride 1000 ml [Nss] 1,000 ml IV BOLUS
Hydrocortisone Sod Succinate [Solu-Cortef] 100 mg IV NOW STA
Lidocaine [Lidocaine 4% Patch] 1 patch TOPICAL NOW STA
Pantoprazole [Protonix IV] 40 mg IV NOW STA
Prochlorperazine [Compazine] 10 mg IV NOW STA
03/14/24 23:04
Add On- LAB Urgent
Tests Added?: lipase
03/14/24 23:30
Blood Culture Q30M
MICK Source: Blood/Venous
Specimen Description:
03/15/24 00:08
Morphine Sulfate 4 mg IV NOW STA
03/15/24 01:42
US Abdomen Complete/Upper Urgent
Comment:
Reason For Exam: uper abd pain, N/V, elev LFT's.esoph ca-liver mets
03/15/24 04:29
Urine Microscopic Reflex Cult Urgent
Urine Culture Urgent
MICK Source: U
Specimen Description:
Date Specimen was Collected: 03/15/24
Time Specimen was Collected: 04:28
Abnormal Lab Results
03/14/24 03/15/24
21:55 04:29
WBC 20.6 H 10^3/uL
(4.8-10.8)
RBC 4.08 L 10^6/uL
(4.20-5.40)
Hgb 10.7 L g/dL
(12.0-16.0)
Hct 32.7 L %
(37.0-47.0)
MCV 80.1 L fL
(81.0-99.0)
MCH 26.2 L pg
(27.0-31.0)
MCHC 32.7 L g/dL
(33.0-37.0)
RDW 26.9 H %
(11.5-14.5)
Abs Immat Gran (auto) 0.3 H 10^3/uL
(0-0.05)
Absolute Neuts (auto) 16.5 H 10^3/uL
(1.4-6.5)
Absolute Monos (auto) 1.8 H 10^3/uL
(0.1-0.6)
Immature Gran % 1.2 H %
(0-0.5)
Neutrophils % 80.0 H %
(42.2-75.2)
Lymphocytes % 8.9 L %
(20.5-51.1)
Sodium 134 L mmol/L
(135-145)
BUN 33 H mg/dl
(7-17)
Creatinine 1.8 H mg/dL
(0.6-1.0)
Total Bilirubin 2.1 H mg/dl
(0.2-1.3)
AST 98 H U/L
(14-36)
ALT 51 H U/L
(0-35)
Alkaline Phosphatase 311 H U/L
(38-126)
Total Protein 5.9 L g/dl
(6.3-8.2)
Albumin 3.2 L g/dl
(3.5-5.0)
Urine RBC 7-10 A /HPF
(0-2)
Urine WBC (Reflex) 30-40 A /HPF
(0-5)
Urine Bacteria (Reflex) Moderate A
(Negative)
Urine Albumin (Reflex) 2+ A
(Neg - Trace)
03/14/24 21:55
03/14/24 21:55
Vital Signs
Initial and Last Documented VS:
Initial Vital Signs
Pulse Resp BP Pulse Ox
105 18 98/36 95
03/14/24 21:12 03/14/24 21:12 03/14/24 21:12 03/14/24 21:12
Last Documented Vital Signs
Temp Pulse Resp BP Pulse Ox
98.2 F 78 13 99/43 89
03/14/24 21:15 03/15/24 03:00 03/15/24 03:00 03/15/24 03:00 03/15/24 03:00
<Maryana Akhtar, DO - Last Filed: 03/15/24 06:21>
Orders/Labs/Results
Orders:
Orders
03/14/24 21:49
EKG [Electrocardiogram (*1)] Urgent
Reason for Study: Fatigue / Weakness
03/14/24 21:50
EKG- Treatment ONCE
03/14/24 21:55
Complete Blood Count/With Diff Urgent
Comprehensive Metabolic Panel Urgent
Lipase Urgent
Comment: ADD ON
03/14/24 22:47
Bladder Scan- Treatment ONCE
Lactic Acid Urgent
Urinalysis Reflex To Culture Urgent
Date Specimen was Collected: 03/15/24
Time Specimen was Collected: 04:28
03/14/24 23:00
Blood Culture Q30M
MICK Source: Blood/Venous
Specimen Description:
03/14/24 23:03
0.9% Sodium Chloride 1000 ml [Nss] 1,000 ml IV BOLUS
Hydrocortisone Sod Succinate [Solu-Cortef] 100 mg IV NOW STA
Lidocaine [Lidocaine 4% Patch] 1 patch TOPICAL NOW STA
Pantoprazole [Protonix IV] 40 mg IV NOW STA
Prochlorperazine [Compazine] 10 mg IV NOW STA
03/14/24 23:04
Add On- LAB Urgent
Tests Added?: lipase
03/14/24 23:30
Blood Culture Q30M
MICK Source: Blood/Venous
Specimen Description:
03/15/24 00:08
Morphine Sulfate 4 mg IV NOW STA
03/15/24 01:42
US Abdomen Complete/Upper Urgent
Comment:
Reason For Exam: uper abd pain, N/V, elev LFT's.esoph ca-liver mets
03/15/24 04:29
Urine Microscopic Reflex Cult Urgent
Urine Culture Urgent
MICK Source: U
Specimen Description:
Date Specimen was Collected: 03/15/24
Time Specimen was Collected: 04:28
Abnormal Lab Results
03/14/24 03/15/24
21:55 04:29
WBC 20.6 H 10^3/uL
(4.8-10.8)
RBC 4.08 L 10^6/uL
(4.20-5.40)
Hgb 10.7 L g/dL
(12.0-16.0)
Hct 32.7 L %
(37.0-47.0)
MCV 80.1 L fL
(81.0-99.0)
MCH 26.2 L pg
(27.0-31.0)
MCHC 32.7 L g/dL
(33.0-37.0)
RDW 26.9 H %
(11.5-14.5)
Abs Immat Gran (auto) 0.3 H 10^3/uL
(0-0.05)
Absolute Neuts (auto) 16.5 H 10^3/uL
(1.4-6.5)
Absolute Monos (auto) 1.8 H 10^3/uL
(0.1-0.6)
Immature Gran % 1.2 H %
(0-0.5)
Neutrophils % 80.0 H %
(42.2-75.2)
Lymphocytes % 8.9 L %
(20.5-51.1)
Sodium 134 L mmol/L
(135-145)
BUN 33 H mg/dl
(7-17)
Creatinine 1.8 H mg/dL
(0.6-1.0)
Total Bilirubin 2.1 H mg/dl
(0.2-1.3)
AST 98 H U/L
(14-36)
ALT 51 H U/L
(0-35)
Alkaline Phosphatase 311 H U/L
(38-126)
Total Protein 5.9 L g/dl
(6.3-8.2)
Albumin 3.2 L g/dl
(3.5-5.0)
Urine RBC 7-10 A /HPF
(0-2)
Urine WBC (Reflex) 30-40 A /HPF
(0-5)
Urine Bacteria (Reflex) Moderate A
(Negative)
Urine Albumin (Reflex) 2+ A
(Neg - Trace)
03/14/24 21:55
03/14/24 21:55
Vital Signs
Initial and Last Documented VS:
Initial Vital Signs
Pulse Resp BP Pulse Ox
105 18 98/36 95
03/14/24 21:12 03/14/24 21:12 03/14/24 21:12 03/14/24 21:12
Last Documented Vital Signs
Temp Pulse Resp BP Pulse Ox
98.2 F 78 13 99/43 89
03/14/24 21:15 03/15/24 03:00 03/15/24 03:00 03/15/24 03:00 03/15/24 03:00
<REYES Garrison - Last Filed: 03/15/24 05:28>
MDM/Problems Addressed
Differential Diagnosis Includes:
Urinary Tract infection, Acute Pancreatitis, electrolyte abnormality, bowel obstruction, adrenal insufficiency
-acute onset epigastric pain
<REYES Garrison - Last Filed: 03/15/24 05:28>
*Critical Care Note
Total Time (30-74mins, 75-104mins- exclusive of procedures): Not Applicable
<Maryana Akhtar DO - Last Filed: 03/15/24 06:21>
*Radiology
Radiology exam reviewed: radiology read reviewed
*Pulse Oximetry
Patient hypoxic: no
*EKG
Interpreted by ED Provider?: Yes
Comparison EKG: no changes (Unchanged from previous February 21, 2024)
Rate: normal
Rhythm: sinus
[place]: normal axis
Interval: normal interval
QRS Pattern: normal QRS
Ischemia: no ischemia
*Timber Framer Interpretation
Rate: normal
Interpretation: normal
Rhythm: sinus
ED Attending Note
<REYES Garrison - Last Filed: 03/15/24 05:28>
-
Portions of this chart may have been created with voice recognition software.� Occasional wrong word or��sound alike� substitutions may have occurred due to the inherent limitations of voice recognition software.
<Maryana Akhtar DO - Last Filed: 03/15/24 06:21>
ED Attending Note
Patient seen and examined by attending physician: Yes
I performed the substantive portion of visit, reviewed & personally made and approve the management plan that is documented in note by myself or LOUANN.: Yes
I performed a history and physical exam of patient and discussed management with resident, I reviewed resident's note and agree with documented findings and plan of care.: Yes
ED Attending Note:
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 She also
has history of hypertension, hyperlipidemia, CHF with preserved EF, history of CAD status post right coronary and LAD stents January of this year.
She had been enrolled in a trial medication at [facility] for her esophageal carcinoma but this was discontinued in November after she developed sepsis syndrome and was hospitalized here. Since then she has had no further cancer treatments but is
scheduled to initiate chemotherapy this March 16 at [facility].
She was last hospitalized here 1 month ago with complaints of persistent dyspnea. Initial thought was dyspnea related to symptomatic anemia but no improvement in dyspnea after 1 unit of packed red blood cells. There is no evidence of pneumonia nor
CHF.
She does continue with some chronic dyspnea on exertion but has not had a cough nor fever. She denies difficulty swallowing. No chest pain nor palpitations.
She presents today with complaints of generalized upper abdominal discomfort accompanied with nausea and several episodes of vomiting since this afternoon. She did take a dose of Zofran 8 mg without improvement in nausea. She admits to overall not
feeling well but has not had a fever, no diarrhea or constipation.
She reports no similar episodes of nausea and vomiting in the past. No close contacts with similar symptoms.
She denies dysuria and urgency nor hematuria but admits that she has attempted to void on the commode twice since arrival to the ED and is unable to do so. She feels this inability to void is related to the commode itself.
She does note some chronic 'sciatic' pain right lateral hip. She denies back pain. Right lateral hip pain has been persistent since hospitalization here in November. She has had no falls. No weakness nor numbness and she denies back pain.
GENERAL: 68-year-old woman appears her stated age, chronically ill in appearance. Awake and alert, easily communicative.
EYE: pupils equal and reactive. anicteric
NECK: Supple, nontender, no meningismus, no significant adenopathy.
ENT: posterior pharynx is clear, oral mucosa is moderately dry. TM clear b/l, nares patent.
CARDIAC: Regular rate and rhythm. no murmur. Port-A-Cath right upper chest wall.
LUNGS: Clear breath sounds bilaterally, no acute respiratory distress, no wheezes/rales/rhonchi
ABDOMEN: Soft, nondistended, mild generalized tenderness to the upper abdomen, no r/g, no cvat. normoactive BS.
NEUROLOGICAL: Alert and oriented x3, no focal neuro deficits.
SKIN: Warm and dry, moderately pale, skin intact. No rash.
MUSCULOSKELETAL: No C/C/E. peripheral pulses are full and equal b/l. Mild tenderness right lateral hip posterior to the greater trochanter. There is no tenderness to the posterior hip, no tenderness to the lumbar spine nor palpable bony pelvic
tenderness. There is no erythema nor soft tissue swelling.
PSYCH: Normal and appropriate interaction.
Concern for progression of metastatic liver disease, concern for cholecystitis, pancreatitis, bowel obstruction, sepsis, adrenal insufficiency, electrolyte abnormality, UTI.
Labs thus far reveal moderately elevated white blood cell count of 20. She is noted to have some chronically elevated white blood cell count which generally ranges 11-18.
Mild anemia with hemoglobin of 10.7 is improved from previous.
Chemistries reveal mildly elevated LFTs, mildly elevated T. bili of 2.1 as well as elevated alkaline phosphatase of 311, all have trended up compared to previous.
Will add lipase to blood in lab.
Will check lactic acid, blood cultures, urinalysis with reflex to culture. Patient remains afebrile and has not reported a fever but is certainly at risk for sepsis due to chronically immunocompromised.
Blood pressure borderline low and she has history of adrenal insufficiency, history of POTS. Chronically maintained on hydrocortisone as well as midodrine.
Will give an IV dose of Solu-Cortef.
Will initiate IV fluids, given IV dose of Compazine for nausea. Patient requesting lidocaine patch for right lateral hip pain.
Will consider imaging depending on results and clinical course.
03/15/2024 0609 AM
Patient feeling markedly improved after IV fluids, 1 IV dose of Compazine and 1 IV dose of morphine.
Has been resting comfortably with no further abdominal pain or nausea.
Abdominal ultrasound shows cholelithiasis but no evidence of cholecystitis. Common bile duct 6 mm. 3.5 cm central mass consistent with known metastatic disease.
Urinalysis is leukocyte Estrace negative. Nitrite negative. There is moderate bacteria, 30-40 white cells but appears to be a contaminated specimen with 11-15 squamous epithelial cells.
She remains afebrile.
Due to potential for UTI we will treat with a one-time dose of Monurol and await urine culture.
Patient is eager to be discharged to home, she plans to follow-up with Shabbir Robles tomorrow.
She has Compazine tablets at home available to her for as needed nausea.
Discharge Plan
Departure
Patient Disposition: Home (Routine Discharge)
Date of Disposition: 03/15/24
Time of Disposition: 06:18
Patient with high blood pressure during this ER visit?: No
Condition: Good
Discharge Problem:
acute nausea and vomiting, Bacteriuria
Instructions: Independence Diet, Acute Nausea and Vomiting
Prescriptions:
No Action
Eliquis 5 mg tablet
5 mg PO BID
hydrocortisone 5 mg Tablet
5 mg PO BID@1200,1800
pantoprazole 20 mg Tablet,Delayed Release (Dr/Ec)
20 mg PO BID@0800,1200
hydrocortisone 20 mg Tablet
10 mg PO DAILY
metoprolol succinate [Toprol XL] 25 mg Tablet Extended Release 24 Hr
12.5 mg PO BID
albuterol sulfate [ProAir HFA] 90 mcg/actuation Hfa Aerosol Inhaler
2 puff INHALATION R Q6HPRN PRN (Reason: sob)
clopidogrel 75 mg Tablet
75 mg PO DAILY Qty: 30 11RF
Hold Instructions: Continue with aspirin for now, eventually resume plavix after intrahepatic chemoembolization therapy at [facility]. Discuss with your healthcare providers before switching back
ezetimibe 10 mg Tablet
10 mg PO DAILY Qty: 30 11RF
levothyroxine 88 mcg Tablet
88 mcg PO DAILY
furosemide [Lasix] 20 mg tablet
20 mg PO MOWEFR Qty: 30 0RF
polyethylene glycol 3350 [Miralax] 17 gram Powder In Packet
17 g PO DAILYPRN PRN (Reason: constipation)
Tums 300 mg (750 mg) Tablet,Chewable
300 mg PO BIDPRN PRN (Reason: gerd)
famotidine [Pepcid] 20 mg Tablet
20 mg PO HS
sennosides [senna] 8.6 mg Tablet
17.2 mg PO HS
acetaminophen 500 mg Tablet
1,000 mg PO HS PRN (Reason: mild pain)
midodrine 2.5 mg tablet
2.5 mg PO BID@0800,1800
diazepam [Valium] 2 mg tablet
1 mg PO HS PRN (Reason: muscle spasm)
Patient Comments:
02/21/2024: last filled 02/03/24, 10 tabs for 10 days from [id number]
ferrous sulfate [iron] 325 mg (65 mg iron) tablet
325 mg PO DAILY 30 Days Qty: 30 0RF
aspirin [Children's Aspirin] 81 mg Tablet,Chewable
81 mg PO DAILY Qty: 7 0RF
Referrals:
Asa Munoz DO [Family Provider] -
Activity Restrictions/Additional Instructions:
Follow-up with Shabbir Robles tomorrow as already planned.
Continue Compazine/prochlorperazine every 6 hours as needed for nausea.
Continue clear liquids/bland diet.
Interventions
Interventions:
*Risk Screen - Suicide Last Done: 03/14/24 21:15
*General Assessment Last Done: 03/14/24 21:15
*Neglect/Abuse Screening Last Done: 03/14/24 21:15
ED- Fall Risk Assessment Last Done: 03/14/24 21:32
*ED COVID-19 Vaccine History Last Done: 03/14/24 21:32
SY-Onvhfb-Lywrbgzcff Assessment Last Done: 03/14/24 21:32
Discharge Date and Time
Print Language: VIETNAMESE
[2024-03-14 22:18] LABS: ALT (SGPT) 51 U/L (0-35); AST (SGOT) 98 U/L (14-36); Albumin 3.2 g/dl (3.5-5.0); Alkaline Phosphatase 311 U/L (38-126); Anisocytosis 2+; Blood Urea Nitrogen 33 mg/dl (7-17); Calcium 8.8 mg/dl (8.4-10.2); Carbon Dioxide 28 mmol/L (22-30); Chloride 99 mmol/L (98-107); Glucose 97 mg/dl (70-99); Normal RBC Morphology No; Potassium 4.2 mmol/L (3.5-5.1); Sodium 134 mmol/L (135-145); Target Cells 2+; Total Bilirubin 2.1 mg/dl (0.2-1.3); Total Protein 5.9 g/dl (6.3-8.2); eGFR 30.69
[2024-03-14 22:19] LABS: Acanthocytes 2+
[2024-03-14 22:30] VITALS: BP 105/32
[2024-03-14 23:00] VITALS: BP 107/56
[2024-03-14 23:30] VITALS: BP 111/49
[2024-03-14 23:36] LABS: Lipase 40 U/L (23-300)
[2024-03-14] MEDS: LIDOCAINE 4% PATCH 1 PATCH TOPICAL (23:58)
[2024-03-14] MEDS: PROTONIX IV 40 MG IV (23:58)
[2024-03-14] MEDS: COMPAZINE 10 MG IV (23:58)
[2024-03-14] MEDS: SOLU-CORTEF 100 MG IV (23:58)
[2024-03-14] MEDS: NSS 1000 IV (23:59)
[2024-03-15] VITALS (8 sets, daily range): BP systolic 85–125; BP diastolic 36–46
[2024-03-15] MEDS: MORPHINE SULFATE 4 MG IV (00:17)
[2024-03-15 00:44] LABS: Lactic Acid 1.8 mmol/L (0.7-2.0)
[2024-03-15 04:47] LABS: Urine Bilirubin Negative (Negative); Urine Character Clear (Clear); Urine Color Yellow; Urine Glucose Negative (Negative); Urine Ketone Negative (Negative); Urine Leukocyte Negative (Negative); Urine Nitrite Negative (Negative); Urine Occult Blood Negative (Negative); Urine Specific Gravity 1.015 (<1.030); Urine Urobilinogen Negative (Neg - 1+)
[2024-03-15 04:52] LABS: Urine Albumin 2+ (Neg - Trace)
[2024-03-15 05:59] LABS: Urine Bacteria Moderate (Negative); Urine White Cell 30-40 /HPF (0-5)
[2024-03-15] MEDS: MONUROL 3 GM PO (06:32)
--- NOTE | 2024-03-15 07:00 | VATNOTE ---
Right SQ port flushed with 500 units of heparin and deaccessed.
== END 2024-03-15 07:36 | disposition home or self-care (01) ==
LOC: EMR 21:00
PROVIDERS: Emergency Medicine; EMERGENCY PHYSICIAN Emergency Medicine; FAMILY PHYSICIAN Family Medicine
DX: R11.2 Nausea with vomiting, unspecified (principal); R10.13 Epigastric pain; E27.40 Unspecified adrenocortical insufficiency; J44.9 Chronic obstructive pulmonary disease, unspecified; E78.00 Pure hypercholesterolemia, unspecified; I25.10 Atherosclerotic heart disease of native coronary artery without angina pectoris; R11.0 Nausea; I50.32 Chronic diastolic (congestive) heart failure; J84.10 Pulmonary fibrosis, unspecified; K56.609 Unspecified intestinal obstruction, unspecified as to partial versus complete obstruction; K58.9 Irritable bowel syndrome, unspecified; Z82.49 Family history of ischemic heart disease and other diseases of the circulatory system; Z85.3 Personal history of malignant neoplasm of breast; Z86.73 Personal history of transient ischemic attack (TIA), and cerebral infarction without residual deficits; Z90.11 Acquired absence of right breast and nipple; Z90.710 Acquired absence of both cervix and uterus; Z90.721 Acquired absence of ovaries, unilateral; Z92.3 Personal history of irradiation; Z95.5 Presence of coronary angioplasty implant and graft
CPT/HCPCS: 99284; 96374; 96375; 76700; 80053; 81003; 81015; 83605; 83690; 85025; 87040; 87086; 93005

== ENCOUNTER 2024-03-18 02:11 | Emergency (ER) | payer MEDICARE, OTHER, SELFPAY ==
[2024-03-18 02:11] VITALS: BMI 25.9
[2024-03-18 02:23] VITALS: BP 130/63
[2024-03-18 03:36] LABS: Hematocrit 37.5 % (37.0-47.0); Hemoglobin 12.5 g/dL (12.0-16.0); Mean Corp Hgb Conc. 33.3 g/dL (33.0-37.0); Mean Corpuscular Hgb 26.5 pg (27.0-31.0); Mean Corpuscular Volume 79.6 fL (81.0-99.0); Platelet Count 115 10^3/uL (130-400); Red Blood Cell Count 4.71 10^6/uL (4.20-5.40); Red Cell Dist. Width 27.2 % (11.5-14.5); White Blood Cell Count 21.8 10^3/uL (4.8-10.8)
[2024-03-18] MEDS: COMPAZINE 10 MG IV (03:59)
[2024-03-18 04:00] LABS: ALT (SGPT) 95 U/L (0-35); AST (SGOT) 91 U/L (14-36); Albumin 3.6 g/dl (3.5-5.0); Alkaline Phosphatase 349 U/L (38-126); Blood Urea Nitrogen 49 mg/dl (7-17); Calcium 8.3 mg/dl (8.4-10.2); Carbon Dioxide 27 mmol/L (22-30); Chloride 99 mmol/L (98-107); Estimated Creatinine Clearance 29 ml/min; Glucose 199 mg/dl (70-99); Potassium 4.6 mmol/L (3.5-5.1); Sodium 136 mmol/L (135-145); Total Bilirubin 1.6 mg/dl (0.2-1.3); Total Protein 6.4 g/dl (6.3-8.2); eGFR 30.69
[2024-03-18 04:05] VITALS: BP 124/50
[2024-03-18 04:10] LABS: NT-proBNP 2140 pg/ml
[2024-03-18 04:52] LABS: Absolute Neutrophils -Man Diff 21.5 10^3/uL (1.4-6.5); Band Neutrophils 4 % (0-3); Hypochromasia Slight; Lymphocytes 1 % (20-51); Microcytosis Slight; Normal RBC Morphology No; Platelets Checked Yes; Poikilocytosis Moderate; Segmented Neutrophils 95 % (42-75)
[2024-03-18 04:53] LABS: Acanthocytes Slight; Burr Cells Slight; Target Cells Slight; Total Cells Counted 100
[2024-03-18 05:00] VITALS: BP 121/53
[2024-03-18] MEDS: LASIX 20 MG IV (05:32)
[2024-03-18] MEDS: LIDOCAINE 4% PATCH 1 PATCH TOPICAL (05:34)
[2024-03-18 06:00] VITALS: BP 132/59
--- NOTE | 2024-03-18 06:03 | ED.GENMED ---
History of Present Illness
General
Chief Complaint: Breathing Problem
Source: patient and previous hospital records (ED visit 2 days ago for similar complaint. Hospitalization 1 month ago for similar complaint.)
Exam Limitations: none
Time Seen by Provider: 03/18/24 02:46
Nursing documentation reviewed up to this point in time: agreed with
Travel History
Have you had any contact with someone who has COVID-19?: No
Do you have any symptoms of coronavirus? Fever > 100 degrees, chills, cough, shortness of breath, sore throat, loss of taste or smell, muscle aches, or headache?: No
Symptoms:: SOB
History of Present Illness
History of Present Illness:
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 She also
has history of hypertension, hyperlipidemia, CHF with preserved EF, history of CAD status post right coronary and LAD stents January of this year. She had been enrolled in a trial medication at [facility] for her esophageal carcinoma but this was
discontinued in November after developing sepsis syndrome and was hospitalized here. Since then she has had no further cancer treatments until initiation of 5-FU at [facility] just yesterday. 5-FU currently infusing via her Port-A-Cath and is
scheduled to be completed Tuesday, March 18.
She was most recently hospitalized here 1 month ago with complaints of persistent dyspnea. Initially dyspnea thought to be related to symptomatic anemia but no improvement after 1 unit of packed red blood cells. There was also no evidence of
pneumonia nor CHF.
She continues with chronic dyspnea and was evaluated in this ED just 3 days ago. Dyspnea was accompanied with nausea and dry heaves as well. She was feeling improved after a liter of IV fluids and IV Compazine and discharged to home
morning. Laboratory studies significant for elevated white blood cell count of 20. Chronically elevated white blood cell count generally runs 11-18. Hemoglobin had improved to 10.7.
Mildly elevated LFTs with mildly elevated T. bili of 2.1 and elevated alkaline phosphatase of 311, all mildly trended up compared to previous.
Unremarkable lactic acid, unremarkable urinalysis and abdominal ultrasound showed cholelithiasis but no evidence of cholecystitis as well as hepatic mass consistent with known metastatic disease.
She was discharged to home, has since followed up with [facility] and has started 5-FU on March 16.
She presents this morning with complaints of shortness of breath that feels worse than her prior shortness of breath. She does admit to rare, chronic dry cough but has not had a fever, no chest pain, no palpitations.
She admits to ongoing nausea but has had no recurrent vomiting, no abdominal pain, no diarrhea or constipation.
She has not had a fever nor chills. No dizziness nor lightheadedness nor palpitations.
She does note very mild swelling around her right ankle that is new this morning. She denies leg pain, no ankle pain. No injury nor fall.
Past History
Past History
ED Past Medical History: Cancer (Patient has had breast cancer and Hodgkin's lymphoma. Squamous cell carcinoma of the esophagus), COPD, CVA, HTN, Hypercholesterolemia, Valvular disease (Mitral regurgitation, aortic regurgitation with normal EF 55
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 Pneumonia, infectious colitis, IBS. PNA, Pulmonary nodules, right lymphedema. PE)
ED Past Surgical History: Other (Abdominal surgery for Hodgkin's disease modified right mastectomy, hysterectomy with ovary removed. Splenectomy, Breast reconstruction)
Social History
Tobacco: Non-smoker
Alcohol: None
Drug: None
Personal: Single
Living: alone
Employment: Employed
Family History
Family History: Hypertension
Phy Exam
Physical Exam
Physical Exam:
GENERAL: 68-year-old woman appears her stated age, chronically ill in appearance. She is awake and alert, pleasant, easily communicative. Respirations are easy and nonlabored. Pulse ox 97% on room air. No cough appreciated during exam.
EYE: pupils equal and reactive. anicteric
NECK: Supple, nontender, no meningismus, no significant adenopathy.
ENT: oral mucosa is moist. No rhinorrhea.
CARDIAC: Regular rate and rhythm. no murmur.
LUNGS: Clear breath sounds bilaterally, no acute respiratory distress, no wheezes/rales/rhonchi
ABDOMEN: Soft, nondistended, without focal tenderness, no r/g, no cvat. normoactive BS.
NEUROLOGICAL: Alert and oriented x3, no focal neuro deficits.
SKIN: Warm and dry, mildly pale in color, skin intact. No rash.
MUSCULOSKELETAL: No clubbing or cyanosis. There is minimal/trace edema about the right ankle, otherwise no appreciable lower extremity edema. Peripheral pulses are full and equal b/l. No palpable tenderness.
PSYCH: Normal and appropriate interaction.
Scores
Heart Failure Risk
Heart Failure Risk Score: Yes
History of Stroke or TIA: No
History of intubation for respiratory distress: No
Heart rate on ED arrival >/= 110: No
SaO2 <90% on arrival on room air: No
HR >/=110 during 3min walk test (or too ill to perform test): No
ECG has acute ischemic changes: No
Urea >/=12mmol/L (BUN 33.6mg/dL): Yes
Serum CO2>/=35mmol/L: No
Troponin I or T elevated to ND Level (0.4mg/dL): No
NT-proBNP >/=5,000ng/L (5,000pg/ml): No
HF Risk Score: 1
Admission Status: MEDIUM RISK 5.1% Consider observation or discharge to home with homecare & f/u visit to PCP/[facility], or SNF for treatment
Course
Orders/Labs/Results
Orders:
Orders
03/18/24 02:55
Electrocardiogram (*1) Urgent
Reason for Study: Shortness of Breath
EKG- Treatment ONCE
CR Chest - 2 Views Urgent
Comment:
Reason For Exam: SOB
03/18/24 03:26
Complete Blood Count/With Diff Urgent
Comprehensive Metabolic Panel Urgent
Manual Differential Urgent
NT-proBNP Urgent
03/18/24 03:50
Prochlorperazine [Compazine] 10 mg IV NOW STA
03/18/24 05:22
Furosemide [Lasix] 20 mg IV NOW STA
Lidocaine [Lidocaine 4% Patch] 1 patch TOPICAL NOW STA
03/18/24 06:01
Doxycycline [Vibramycin] 100 mg PO NOW STA
Abnormal Lab Results
03/18/24
03:26
WBC 21.8 H 10^3/uL
(4.8-10.8)
MCV 79.6 L fL
(81.0-99.0)
MCH 26.5 L pg
(27.0-31.0)
RDW 27.2 H %
(11.5-14.5)
Plt Count 115 L D 10^3/uL
(130-400)
Abs Neuts (Manual) 21.5 H 10^3/uL
(1.4-6.5)
Segmented Neutrophils 95 H %
(42-75)
Band Neutrophils 4 H %
(0-3)
Lymphocytes (Manual) 1 L %
(20-51)
BUN 49 H mg/dl
(7-17)
Creatinine 1.8 H mg/dL
(0.6-1.0)
Glucose 199 H mg/dl
(70-99)
Calcium 8.3 L mg/dl
(8.4-10.2)
Total Bilirubin 1.6 H mg/dl
(0.2-1.3)
AST 91 H U/L
(14-36)
ALT 95 H U/L
(0-35)
Alkaline Phosphatase 349 H U/L
(38-126)
03/18/24 03:26
03/18/24 03:26
Vital Signs
Initial and Last Documented VS:
Initial Vital Signs
Temp Pulse Resp BP Pulse Ox
97.8 F 94 20 130/63 99
03/18/24 02:23 03/18/24 02:23 03/18/24 02:23 03/18/24 02:23 03/18/24 02:23
Last Documented Vital Signs
Temp Pulse Resp BP Pulse Ox
97.8 F 82 20 132/59 100
03/18/24 02:23 03/18/24 06:15 03/18/24 02:23 03/18/24 06:00 03/18/24 05:30
MDM/Problems Addressed
Differential Diagnosis Includes:
As patient received IV fluids 2 days ago, concern for mild acute exacerbation of CHF. Other consideration is pneumonia, exacerbation of radiation pneumonitis.
Overall appears comfortable and there is a significant element of worry, anxiety which is certainly understandable.
Will check labs including BNP, check chest x-ray.
Chronic conditions affecting care: HTN, CAD, COPD, Immunosuppressed, Psychiatric illness and Cancer
*Radiology
Radiology exam reviewed: preliminary read by ED provider
*Pulse Oximetry
Patient hypoxic: no
*EKG
Interpreted by ED Provider?: Yes
Interpretation: normal
Comparison EKG: no changes (un-Changed from previous March 14, 2024)
Rate: normal
Rhythm: sinus
[place]: normal axis
Interval: normal interval
QRS Pattern: normal QRS
Ischemia: no ischemia
*Computer Customer Support Specialist Interpretation
Rate: normal
Interpretation: normal
Rhythm: sinus
*Critical Care Note
Total Time (30-74mins, 75-104mins- exclusive of procedures): Not Applicable
Update Note
Update Note:
03/18/2024 0613 AM
Patient continues to rest comfortably, respirations are easy nonlabored. No cough appreciated. She remains afebrile.
Labs show continued elevated white blood cell count, trending up slightly from previous.
Chronic but stable kidney disease.
BNP 2100 has trended up slightly from 1700, 1-month ago.
Chest x-ray shows no evidence of cephalization but there is evidence of a small pleural effusion right lower lobe/posteriorly which is new compared to previous film.
Patient maintained on Lasix 20 mg Tuesday and weekends, will give an IV dose of Lasix now for potential mild CHF, small right pleural effusion and due to elevated white blood cell count there may be an element of pneumonia and will
initiate a course of doxycycline.
We discussed hospitalization versus discharge home and patient feels comfortable going home. She admits to chronic dyspnea which overall is unchanged. She has not had a fever, no chest pain, no significant cough.
She request a refill of Valium 2 mg which she takes for as needed chest wall muscle spasms, PDMP reveals 2 small prescriptions for Valium 2 mg with most recent prescription January of this year.
She is following closely with [facility].
Recommend prompt follow-up with PCP as well.
Return precautions discussed.
ED Attending Note
-
Portions of this chart may have been created with voice recognition software.� Occasional wrong word or��sound alike� substitutions may have occurred due to the inherent limitations of voice recognition software.
Discharge Plan
Departure
Patient Disposition: Home (Routine Discharge)
Date of Disposition: 03/18/24
Time of Disposition: 06:06
Patient with high blood pressure during this ER visit?: No
Condition: Good
Discharge Problem:
Chronic dyspnea, Pleural effusion
Instructions: Pleural effusion
Prescriptions:
New
doxycycline monohydrate 100 mg capsule
100 mg PO BID Qty: 14 1RF
diazepam [Valium] 2 mg tablet
2 mg PO HS PRN (Reason: anxiety/muscle spasm) Qty: 10 0RF
No Action
Eliquis 5 mg tablet
5 mg PO BID
hydrocortisone 5 mg Tablet
5 mg PO BID@1200,1800
pantoprazole 20 mg Tablet,Delayed Release (Dr/Ec)
20 mg PO BID@0800,1200
hydrocortisone 20 mg Tablet
10 mg PO DAILY
metoprolol succinate [Toprol XL] 25 mg Tablet Extended Release 24 Hr
12.5 mg PO BID
albuterol sulfate [ProAir HFA] 90 mcg/actuation Hfa Aerosol Inhaler
2 puff INHALATION R Q6HPRN PRN (Reason: sob)
clopidogrel 75 mg Tablet
75 mg PO DAILY Qty: 30 11RF
Hold Instructions: Continue with aspirin for now, eventually resume plavix after intrahepatic chemoembolization therapy at [facility]. Discuss with your healthcare providers before switching back
ezetimibe 10 mg Tablet
10 mg PO DAILY Qty: 30 11RF
levothyroxine 88 mcg Tablet
88 mcg PO DAILY
furosemide [Lasix] 20 mg tablet
20 mg PO MOWEFR Qty: 30 0RF
polyethylene glycol 3350 [Miralax] 17 gram Powder In Packet
17 g PO DAILYPRN PRN (Reason: constipation)
Tums 300 mg (750 mg) Tablet,Chewable
300 mg PO BIDPRN PRN (Reason: gerd)
famotidine [Pepcid] 20 mg Tablet
20 mg PO HS
sennosides [senna] 8.6 mg Tablet
17.2 mg PO HS
acetaminophen 500 mg Tablet
1,000 mg PO HS PRN (Reason: mild pain)
midodrine 2.5 mg tablet
2.5 mg PO BID@0800,1800
diazepam [Valium] 2 mg tablet
1 mg PO HS PRN (Reason: muscle spasm)
Patient Comments:
02/21/2024: last filled 02/03/24, 10 tabs for 10 days from [facility]
ferrous sulfate [iron] 325 mg (65 mg iron) tablet
325 mg PO DAILY 30 Days Qty: 30 0RF
aspirin [Children's Aspirin] 81 mg Tablet,Chewable
81 mg PO DAILY Qty: 7 0RF
Referrals:
Asa Munoz, DO [Family Provider] - Call in 1-3 days for appt
Interventions
Interventions:
*Risk Screen - Suicide Last Done: 03/18/24 05:50
*General Assessment Last Done: 03/18/24 05:50
*Neglect/Abuse Screening Last Done: 03/18/24 05:50
ED- Fall Risk Assessment Last Done: 03/18/24 02:35
*ED COVID-19 Vaccine History Last Done: 03/18/24 05:50
*Nursing Disposition Last Done: 03/18/24 06:12
ED- Cardiac Assessment Last Done: 03/18/24 02:35
ED- Pulmonary Assessment Last Done: 03/18/24 02:35
Discharge Date and Time
Discharge Date/Time: 03/18/24 06:39
Print Language: CROATIAN
[2024-03-18] MEDS: VIBRAMYCIN 100 MG PO (06:14)
== END 2024-03-18 06:39 | disposition home or self-care (01) ==
LOC: EMR 02:11
PROVIDERS: EMERGENCY PHYSICIAN Emergency Medicine; FAMILY PHYSICIAN Family Medicine
DX: R06.00 Dyspnea, unspecified (principal); J90 Pleural effusion, not elsewhere classified; D84.81 Immunodeficiency due to conditions classified elsewhere; E27.40 Unspecified adrenocortical insufficiency; E78.00 Pure hypercholesterolemia, unspecified; F41.9 Anxiety disorder, unspecified; I11.0 Hypertensive heart disease with heart failure; I50.32 Chronic diastolic (congestive) heart failure; I25.10 Atherosclerotic heart disease of native coronary artery without angina pectoris; J44.9 Chronic obstructive pulmonary disease, unspecified; J84.10 Pulmonary fibrosis, unspecified; K58.9 Irritable bowel syndrome, unspecified; Z82.49 Family history of ischemic heart disease and other diseases of the circulatory system; Z85.3 Personal history of malignant neoplasm of breast; Z85.71 Personal history of Hodgkin lymphoma; Z86.73 Personal history of transient ischemic attack (TIA), and cerebral infarction without residual deficits; Z90.11 Acquired absence of right breast and nipple; Z90.710 Acquired absence of both cervix and uterus; Z90.721 Acquired absence of ovaries, unilateral; Z92.3 Personal history of irradiation; Z95.5 Presence of coronary angioplasty implant and graft
CPT/HCPCS: 99283; 71046; 80053; 83880; 85025; 93005

== ENCOUNTER 2024-03-19 17:03 | Inpatient (IN) | payer MEDICARE, OTHER, SELFPAY ==
[2024-03-19] VITALS (7 sets, daily range): BP systolic 101–149; BP diastolic 43–56; BMI 25.1
--- NOTE | 2024-03-19 13:22 | ED.GENMED ---
History of Present Illness
General
Chief Complaint: Breathing Problem
Time Seen by Provider: 03/19/24 13:05
Travel History
Have you had any contact with someone who has COVID-19?: No
Do you have any symptoms of coronavirus? Fever > 100 degrees, chills, cough, shortness of breath, sore throat, loss of taste or smell, muscle aches, or headache?: No
History of Present Illness
History of Present Illness:
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
over the past day. Patient states that she feels short of breath with minimal exertion. Patient reports cough productive of green sputum starting today. Patient states that she typically feels short of breath but her cough significantly worse
today prompting ED evaluation. Patient states that she was seen here yesterday when she was started on doxycycline for possible pneumonia which she has been taking as prescribed. Patient denies missing any doses of Eliquis. Patient reports
chronic lower extremity swelling which is worse today because she did not elevate her legs. Patient denies fever, chills, chest pain, nausea or vomiting. Patient denies any recent increases in hydrocortisone or being on additional steroids.
Past History
Past History
ED Past Medical History: Cancer (Patient has had breast cancer and Hodgkin's lymphoma. Squamous cell carcinoma of the esophagus), COPD, CVA, HTN, Hypercholesterolemia, Valvular disease (Mitral regurgitation, aortic regurgitation with normal EF 55
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 Pneumonia, infectious colitis, IBS. PNA, Pulmonary nodules, right lymphedema. PE)
ED Past Surgical History: Other (Abdominal surgery for Hodgkin's disease modified right mastectomy, hysterectomy with ovary removed. Splenectomy, Breast reconstruction)
Social History
Tobacco: Non-smoker
Alcohol: None
Drug: None
Personal: Single
Living: alone
Employment: Employed
Family History
Family History: Hypertension
Phy Exam
Physical Exam
Physical Exam:
General: Alert, no acute distress
Head: NCAT
Eyes: clear conjunctiva
Neck: supple
Cardiac: tachycardic, regular rhythm, no murmur
Lungs: clear to auscultation bilaterally. Faint rales right base. No wheezes or rhonchi. Speaking full unlabored sentences. No respiratory distress. Became tachypneic to 30s with leaning forward
Abdomen: soft, nondistended nontender. No rebound or guarding.
MSK: No deformity. equal bilateral lower extremity edema, no overlying erythema
Skin: warm, dry
Neuro: Alert and oriented x3. no focal deficits
Scores
Heart Failure Risk
Heart Failure Risk Score: Not Applicable
Course
Orders/Labs/Results
Orders:
Orders
03/19/24 Breakfast
Cholesterol Lowering
At Your Request: Full Participation
Does patient need a safe tray?: No
Cholesterol Lowering: Sodium, 2 Gram
03/19/24 13:27
EKG [Electrocardiogram (*1)] Urgent
Reason for Study: Shortness of Breath
EKG- Treatment ONCE
03/19/24 13:41
Complete Blood Count/With Diff Urgent
Comprehensive Metabolic Panel Urgent
Lactate Level [Lactic Acid] Urgent
NT-proBNP Urgent
Troponin I Urgent
Venous Blood Gas Urgent
%Oxygen/Room Air: ra
03/19/24 14:10
Piperacillin/Tazo 4.5 Gram [Zosyn] 4.5 gram in 100 ml IV NOW
03/19/24 14:11
CT Chest W/o Iv Contrast Urgent
Comment:
Reason For Exam: sob
03/19/24 15:13
Blood Culture Urgent
MICK Source: Blood/Venous
Specimen Description:
03/19/24 15:37
Doxycycline Hyclate [Vibramycin] 100 mg 0.9% Sodium Chloride 250 ml [Nss] 250 ml IV NOW
03/19/24 16:00
Flush (0.9% Sodium Chloride) [Flush (Nss)] See Dose Instructions IV PER PROTOCOL
03/19/24 16:27
Admit/Transfer Patient As Directed
Co-Sign Provider:
Level of Care: Inpatient admission
Assign to:: Telemetry
Physician / Group: fannie
Diagnosis: acute hypoxia
Reason for Telemetry: Arrhythmia
Date to Stop Telemetry: 03/22/24
Time to Stop Telemetry: 11:00
Reason for Hospitalization: acute hypoxia
Expected length of stay greater than two midnights?: Yes
ELOS- Estimated Length of Stay in days: 3
I certify the patient meets the requirements for IP care: Yes
03/19/24 16:29
Code Status As Directed
Resuscitation Status: Full Code
03/19/24 16:37
INFECTIOUS DISEASE CONSULT Routine
Consulting Provider: Ruthie Angeles
Was physician already notified: Yes
03/19/24 16:38
CARDIOLOGY CONSULT Routine
Consulting Provider: Luis Alfaro
Was physician already notified: Yes
03/19/24 16:54
COVID-19 Antigen Stat
Source: Nasal Swab
03/19/24 17:40
Acetaminophen [Tylenol] 650 mg PO Q4HPRN PRN
Diazepam [Valium] 2 mg PO DAILYPRN PRN
Ferrous Sulfate [Feosol] 325 mg PO DAILY
Ipratropium/Albuterol Sulfate [Duoneb] 3 ml INH R Q4HPRN PRN
03/19/24 17:40
HF DIETARY CONSULT Routine
HF EDUCATOR CONSULT Routine
Comment:
Legionella Urinary Antigen Routine
MICK Source: Urine
Specimen Description:
Respiratory Culture/Gram Stain Routine
MICK Source: Sputum
Specimen Description:
Strep pneumoniae Antigen Routine
MICK Source: Urine
Specimen Description:
Activity As Directed
Activity Level: Out of Bed-Early Mobility
Intake/ Output As Directed
Frequency: Per unit guidelines
Patient Education As Directed
Type: CHF folder
Comment: give on admission. Document in Interdisciplinary Education record
Pneumatic Compression Sleeves As Directed
Type: Thigh high
Sleep Apnea Assessment by RN As Directed
Comment:
Physician Instructions:
Vital Signs As Directed
Frequency: Per unit guidelines
Weight As Directed
Frequency: Once
Type of Scale: Standing Scale
Comment: Upon Admission. If unable to stand, use balanced bed scale.
Weight As Directed
Frequency: Once
Comment: on admission
O2 Therapy [RESP] Routine
Titrate/Wean O2 to maintain O2 sat greater than (%): 92
Special Instructions: Wean as tolerated
Pulse Ox/cont/shift [RESP] Routine
Quantity: 1
Pulse Ox/cont/shift [RESP] Routine
Quantity: 1
Special Instructions: Daily pulse oximetry at rest. If greater than 92% at rest also obtain pulse oximetry
while ambulating as tolerated.
Ot Eval And Treat Routine
Pt Eval And Treat Routine
Activity Level: As Tolerated
DX Deep Vein Thrombosis Video Routine
03/19/24 18:00
Piperacillin/Tazo 3.375 Gram [Zosyn] 3.375 gram in 50 ml IV Q6H
midodrine 2.5 mg PO BID@0800,1800
03/19/24 18:33
Blood Culture Stat
MICK Source: Blood/Venous
Specimen Description:
03/19/24 18:34
Lactic Acid Q4H
03/19/24 20:00
Apixaban [Eliquis] 5 mg PO BID
Guaifenesin [Mucinex] 600 mg PO Q12
Metoprolol Xl [Toprol Xl] 12.5 mg PO BID
03/19/24 22:00
Lactic Acid Q4H
Famotidine [Pepcid] 20 mg PO HS
Hydrocortisone [Cortef] 5 mg PO BID@1600,2200
03/20/24 02:00
Lactic Acid Q4H
03/20/24 04:00
Doxycycline Hyclate [Vibramycin] 100 mg 0.9% Sodium Chloride 250 ml [Nss] 250 ml IV Q12H
03/20/24 06:00
Cardiovascular Evaluation IN AM
Complete Blood Count/No Diff IN AM
Comprehensive Metabolic Panel IN AM
Rerko-Tpft-Iripbgs IN AM
TSH Reflex To Free T4 IN AM
Levothyroxine [Synthroid] 88 mcg PO DAILY @ 0600
03/20/24 08:00
Aspirin Chewable [Low Strength Aspirin] 81 mg PO DAILY
Ezetimibe [Zetia] 10 mg PO DAILY
Hydrocortisone [Cortef] 10 mg PO DAILY
Pantoprazole [Protonix] 20 mg PO BID@0800,1600
03/21/24 06:00
Complete Blood Count/No Diff IN AM
Comprehensive Metabolic Panel IN AM
03/21/24 08:00
Furosemide [Lasix] 20 mg PO MOWEFR@0800
03/22/24 06:00
Complete Blood Count/No Diff IN AM
Comprehensive Metabolic Panel IN AM
03/22/24 11:00
DC Protocol for Telemetry ONCE
03/23/24 06:00
Complete Blood Count/No Diff IN AM
Comprehensive Metabolic Panel IN AM
03/24/24 06:00
Complete Blood Count/No Diff IN AM
Comprehensive Metabolic Panel IN AM
Abnormal Lab Results
03/19/24
13:41
WBC 26.1 H 10^3/uL
(4.8-10.8)
Hgb 11.8 L g/dL
(12.0-16.0)
Hct 36.7 L %
(37.0-47.0)
MCH 26.5 L pg
(27.0-31.0)
MCHC 32.2 L g/dL
(33.0-37.0)
RDW 27.6 H %
(11.5-14.5)
Plt Count 62 L D 10^3/uL
(130-400)
Abs Immat Gran (auto) 0.3 H 10^3/uL
(0-0.05)
Absolute Neuts (auto) 25.1 H 10^3/uL
(1.4-6.5)
Absolute Lymphs (auto) 0.4 L 10^3/uL
(1.2-3.4)
Immature Gran % 1.0 H %
(0-0.5)
Neutrophils % 96.2 H %
(42.2-75.2)
Lymphocytes % 1.4 L %
(20.5-51.1)
Monocytes % 1.0 L %
(1.7-9.3)
VBG pO2 55 H mmHg
(30-50)
VBG HCO3 27.8 H mmol/L
(22-27)
BUN 52 H mg/dl
(7-17)
Creatinine 1.4 H mg/dL
(0.6-1.0)
Glucose 195 H mg/dl
(70-99)
Lactic Acid 4.3 H* mmol/L
(0.7-2.0)
Total Bilirubin 2.1 H mg/dl
(0.2-1.3)
AST 56 H U/L
(14-36)
ALT 73 H U/L
(0-35)
Alkaline Phosphatase 354 H U/L
(38-126)
Total Protein 6.0 L g/dl
(6.3-8.2)
Albumin 3.4 L g/dl
(3.5-5.0)
03/19/24 13:41
03/19/24 13:41
Vital Signs
Initial and Last Documented VS:
Initial Vital Signs
Temp Pulse Resp BP Pulse Ox
97.5 F 107 20 133/54 99
03/19/24 12:12 03/19/24 12:12 03/19/24 12:12 03/19/24 12:12 03/19/24 12:12
Last Documented Vital Signs
Temp Pulse Resp BP Pulse Ox
97.5 F 92 16 101/48 100
03/19/24 19:10 03/19/24 19:10 03/19/24 19:10 03/19/24 19:10 03/19/24 19:10
MDM/Problems Addressed
MDM/Problems Addressed:
Patient presents to the Emergency Department with sob and cough
Number and Complexity of Problems Addressed at the Encounter
� Chronic conditions affecting care: esophageal cancer with mets to liver, pulmonary fibrosis, chf
� Acute Exacerbation and/or Progression of Chronic Illness:
� Differential Diagnosis includes: pneumonia, chf, anemia, viral infection. low suspicion for PE given on eliquis and has not missed any doses
Amount and/or Complexity of Data to be Reviewed and Analyzed
� I performed an independent evaluation of and my interpretation is:
EKG: EKG shows NSR at 92bpm with PA 114 QTc 437 no acute ischemic changes, poor baseline
CT:
Xrays:
Laboratory Studies: WBC trending upwards over the past 5 days from 20.6 on 03/14 to 21.8 03/18 to 26.1 today. AST/ALT/Alk phos chronically elevated most likely secondary to metastatic disease. lactate 4.3
Other:
� Review of other/old records reveals: Evaluated in the ER yesterday, given 1 dose IV Lasix and started on doxycycline
� Clinical information was obtained by an independent historian:
� Prescriptions/Medications Considered but not given:
� Further testing considered but not performed:
Risk of Complications and/or Morbidity or Mortality of Patient Management
� Social Determinants of health affecting care:
� Discussion with other providers (PCP, Hospitalists, Consultants, etc):
� Escalation of care including admission/observation vs risk of discharge considered: 68-year-old female history of esophageal cancer with mets to the liver last received chemo on 03/16 presenting with shortness of breath and cough worsening today.
Patient was seen yesterday, started on doxycycline at discharge. WBC 26, lactate 4. Concern for infection, started on Zosyn. Ordered CT chest due to CXR yesterday showing no focal infiltrate/consolidation. CT chest showed EMILY groundglass opacity
concerning for possible pneumonia/atypical infection. Added doxycycline for atypical coverage. Discussed with hospitalist who accepts for admission
*Critical Care Note
Total Time (30-74mins, 75-104mins- exclusive of procedures): Not Applicable
ED Attending Note
-
Portions of this chart may have been created with voice recognition software.� Occasional wrong word or��sound alike� substitutions may have occurred due to the inherent limitations of voice recognition software.
Discharge Plan
Departure
Patient Disposition: Admit
Date of Disposition: 03/19/24
Time of Disposition: 15:41
Admit to: Telemetry
Presentation/result/management discussed w/ accepting MD/DO: Hospitalist
Patient with high blood pressure during this ER visit?: No
Discharge Problem:
Pneumonia
Interventions
Interventions:
*Risk Screen - Suicide Last Done: 03/19/24 12:12
*General Assessment Last Done: 03/19/24 12:12
*Neglect/Abuse Screening Last Done: 03/19/24 12:12
ED- Fall Risk Assessment Last Done: 03/19/24 12:12
*ED COVID-19 Vaccine History Last Done: 03/19/24 12:12
*Nursing Disposition Last Done: 03/19/24 17:30
ED- Cardiac Assessment Last Done: 03/19/24 13:08
ED- Pulmonary Assessment Last Done: 03/19/24 13:08
Discharge Date and Time
Discharge Date/Time: 03/19/24 17:30
[2024-03-19 13:55] LABS: % Basophils 0.2 % (0-2); % Eosinophils 0.2 % (0-6); % Lymphocytes 1.4 % (20.5-51.1); % Neutrophils 96.2 % (42.2-75.2); Absolute Basophils 0.1 10^3/uL (0-0.2); Absolute Eosinophils 0.1 10^3/uL (0-0.7); Absolute Immature Granulocytes 0.3 10^3/uL (0-0.05); Absolute Lymphocytes 0.4 10^3/uL (1.2-3.4); Absolute Monocytes 0.3 10^3/uL (0.1-0.6); Absolute Neutrophils 25.1 10^3/uL (1.4-6.5); Hematocrit 36.7 % (37.0-47.0); Hemoglobin 11.8 g/dL (12.0-16.0); Mean Corp Hgb Conc. 32.2 g/dL (33.0-37.0); Mean Corpuscular Hgb 26.5 pg (27.0-31.0); Mean Corpuscular Volume 82.3 fL (81.0-99.0); Nucleated Red Blood Cells % 0 %; Red Blood Cell Count 4.46 10^6/uL (4.20-5.40); Red Cell Dist. Width 27.6 % (11.5-14.5); Venous Blood Gas B.E. 2.3 mmol/L (-4 to +4); Venous Blood Gas HCO3 27.8 mmol/L (22-27); Venous Blood Gas O2 Sat % 86.3 %; Venous Blood Gas pCO2 46 mmHg (35-48); Venous Blood Gas pH 7.39 (7.32-7.43); Venous Blood Gas pO2 55 mmHg (30-50); White Blood Cell Count 26.1 10^3/uL (4.8-10.8)
[2024-03-19 14:08] LABS: Lactic Acid 4.3 mmol/L (0.7-2.0)
[2024-03-19 14:15] LABS: Anisocytosis 1+; Hypochromasia Slight; Platelet Count 62 10^3/uL (130-400); Target Cells 1+
[2024-03-19 14:16] LABS: Acanthocytes 1+; Normal RBC Morphology No; Stomatocytes Slight
[2024-03-19 14:19] LABS: NT-proBNP 3650 pg/ml; Troponin I 0.016 ng/ml
[2024-03-19 14:41] LABS: ALT (SGPT) 73 U/L (0-35); AST (SGOT) 56 U/L (14-36); Albumin 3.4 g/dl (3.5-5.0); Alkaline Phosphatase 354 U/L (38-126); Blood Urea Nitrogen 52 mg/dl (7-17); Calcium 8.4 mg/dl (8.4-10.2); Carbon Dioxide 26 mmol/L (22-30); Chloride 99 mmol/L (98-107); Glucose 195 mg/dl (70-99); Potassium 4.3 mmol/L (3.5-5.1); Sodium 137 mmol/L (135-145); Total Bilirubin 2.1 mg/dl (0.2-1.3); eGFR 41.49
[2024-03-19] MEDS: ZOSYN 100 IV (15:15)
--- NOTE | 2024-03-19 15:55 | HPS.HSE ---
Addendum entered and electronically signed by Tulio Garcias MD 03/19/24 16:50:
I saw and examined the patient.
The MEDICATION RECONCILIATION TECHNICIAN or PA's note was reviewed and I agree with the note.
Comment:
68-year-old female with past medical history of pots disease, radiation pneumonitis, adrenal insufficiency, CVA, pulmonary embolism, hypothyroidism, CHF, metastatic esophageal cancer, hypertension, DVT, GERD came to the hospital with progressive
shortness of breath.� Patient has been having shortness of breath for some time.� It was very in the hospital last month for shortness of breath was attributed to anemia.� Patient also had CHF component for which Lasix was continued. �Patient also
started noting increasing frequency with her cough and now with green sputum.� CT chest was consistent with possible pneumonia.� Start antibiotics.� Consult infectious disease.� proBNP elevated.� Consult cardiology.� Elevated lactic could likely be
secondary to malignancy. will trend
General: Well Developed, Well Nourished and No Apparent Distress
HEENT: NormoCephalic, Moist mucous membranes and Atraumatic;+right chest wall chemoport
Respiratory: Clear
Cardiac: S1/S2 and Regular Rhythm; No Murmur or Rub
GI: Soft, Non Tender, Non Distended and Normal Bowel Sounds; No Organomegaly
Rectal: Deferred by Provider
Musculoskeletal: No Clubbing, No Cyanosis and No Edema
Skin: No Rash
Neuro: AO x 3 and Nonfocal/grossly intact
Psych: Calm
I spent a total of 78 minutes with the patient or on the floor. More than 50% of this time involved counseling and coordination of care.
Original Note:
Family Physician
-
Family Physician: Asa Munoz
Chief Complaint
-
sob
History of Present Illness
68-year-old female history of esophageal cancer with mets to liver , pulmonary fibrosis, adrenal insufficiency, breast cancer currently on chemotherapy last received on 03/16, PE on Eliquis presenting with shortness of breath since Tuesday.short of
breath worse with activity patient also complained orthopnea.patient was evaluated in the ER last Tuesday and was sent home on doxycycline . Last night she noticed a productive cough with green sputum. Patient denies any chest pain patient denied
any headache, dizziness .or syncopal episode patient denied abdominal pain, vomiting, diarrhea .stated nausea patient denied dysuria hematuria.
Elevated WBCs, lactic acid. Chest x-ray with pneumonia. Patient received a dose of Doxy and Zosyn in the ER. Admitting for further management
Medical History
Past Medical History
Past Medical History: Reports Other
Additional Past Medical History:
Chronic tachycardia
Hyperlipidemia
History of lacunar cerebrovascular accident
History of TIA
Type 2 diabetes
Breast cancer
squamous cell esophageal cancer
Pulmonary fibrosis
Compression fracture of L4 vertebra
History of Hodgkin's disease
Basal cell carcinoma lymphedema
history of pulmonary embolism
Coronary artery disease
Hypothyroidism
Osteopenia
Depression
Heart failure
Past Surgical History: Reports Other
Additional Past Surgical History:
Splenectomy
Coronary artery stent
Hysterectomy
Removal of polyps
Breast reconstruction
Laparotomy staging of Hodgkin's
Social History
Tobacco: Non-smoker
Alcohol: None
Drug: None
Personal: Single
Living: Alone
Family History
Family History: Not pertinent
Allergies / Home Medications
Allergies reflects when Allergies were last updated in [facility].
Home Medications with original date entered in [facility]
Allergy/Medication List:
Allergies
Allergy/AdvReac Type Severity Reaction Status Date / Time
diphenhydramine Allergy IV Verified 03/18/24 02:17
[From Benadryl] benadryl
caused
reaction
Iodinated Contrast Media Allergy Hives Verified 03/18/24 02:17
vancomycin Allergy infusion Verified 03/18/24 02:17
reaction
Home Medications
apixaban 5 mg tablet (Eliquis) 5 mg PO BID Blood clot prevention/tx 08/30/22
metoprolol succinate 25 mg tablet,extended release 24 hr (Toprol XL) 12.5 mg PO BID Blood Pressure 07/17/23
pantoprazole 20 mg tablet,delayed release 20 mg PO BID@0800,1600 Gastrointestinal Issue 07/17/23
ezetimibe 10 mg tablet 10 mg PO DAILY High cholesterol #30 tabs 01/19/24
levothyroxine 88 mcg tablet 88 mcg PO DAILY Thyroid 01/19/24
famotidine 20 mg tablet (Pepcid) 20 mg PO HS Gastrointestinal Issue 01/30/24
acetaminophen 500 mg tablet 1,000 mg PO HS PRN mild pain 02/21/24
diazepam 2 mg tablet (Valium) 2 mg PO DAILYPRN PRN muscle spasm 02/21/24
midodrine 2.5 mg tablet 2.5 mg PO BID@0800,1800 Blood Pressure 02/21/24
aspirin 81 mg chewable tablet (Children's Aspirin) 81 mg PO DAILY Blood Clot Prevention/Tx 03/19/24
doxycycline monohydrate 100 mg capsule 100 mg PO BID Infection 03/19/24
ferrous sulfate 325 mg (65 mg iron) tablet (iron) 325 mg PO .SEE BELOW Supplement 03/19/24
furosemide 20 mg tablet (Lasix) 20 mg PO MOWEFR@0800 Fluid Retention/Swelling 03/19/24
hydrocortisone 10 mg tablet 5 mg PO BID@1600,2200 Anti-Inflammatory 03/19/24
hydrocortisone 10 mg tablet 10 mg PO DAILY Anti-Inflammatory 03/19/24
hydrocortisone 10 mg tablet 15 mg PO BIDPRN PRN stress dosing 03/19/24
hydrocortisone 10 mg tablet 30 mg PO DAILYPRN PRN stress dosing 03/19/24
ondansetron 8 mg disintegrating tablet 8 mg PO Q12H PRN nausea/vomiting 03/19/24
prochlorperazine maleate 10 mg tablet 10 mg PO Q6H PRN nausea/vomiting 03/19/24
Review of Systems
-
Constitutional: Reports No Symptoms
EENT: Reports No Symptoms
Respiratory: Reports Cough and Trouble Breathing
Cardiac: Reports No Symptoms
Abdomen/GI: Reports No Symptoms
: Reports No Symptoms
Musculoskeletal: Reports No Symptoms
Skin: Reports No Symptoms
Neurological: Reports No Symptoms
Endocrine: Reports No Symptoms
Hematologic/Lymphatic: Reports No Symptoms
Psych: Reports No Symptoms
Physical Exam
Vital Signs
Vital Signs
Temp Pulse Resp BP Pulse Ox
98.1 F 97 20 104/56 97
03/19/24 13:07 03/19/24 13:07 03/19/24 13:07 03/19/24 13:07 03/19/24 13:08
Physical Exam
General: Well Developed, Well Nourished and No Apparent Distress
HEENT: NormoCephalic, Moist mucous membranes and Atraumatic
Respiratory: Clear
Cardiac: S1/S2 and Regular Rhythm; No Murmur or Rub
GI: Soft, Non Tender, Non Distended and Normal Bowel Sounds; No Organomegaly
Rectal: Deferred by Provider
Musculoskeletal: No Clubbing, No Cyanosis and No Edema
Skin: No Rash
Neuro: AO x 3 and Nonfocal/grossly intact
Psych: Calm
Laboratory Results
-
03/19/24 13:41
03/19/24 13:41
Laboratory Results
Lactic Acid 4.3 mmol/L (0.7-2.0) H* 03/19/24 13:41
Total Bilirubin 2.1 mg/dl (0.2-1.3) H 03/19/24 13:41
AST 56 U/L (14-36) H 03/19/24 13:41
ALT 73 U/L (0-35) H 03/19/24 13:41
Alkaline Phosphatase 354 U/L (38-126) H 03/19/24 13:41
Troponin I 0.016 ng/ml 03/19/24 13:41
Data Reviewed
-
CT Scan: Report Reviewed by me
Lab Data: Labs Reviewed by me
Impression/Plan
-
# Cough/short of breath/acute hypoxic respiratory failure likely from atypical pneumonia
-Sepsis as evident by WBC 26, lactic 4.3, tachycardic
-CT chest with impression of small right pleural effusion, left upper lobe opacity which may be atypical pneumonia
-Zosyn and Doxy continued
-Monitor WBCs
-Trend lactic
-Tylenol as needed for fever
-Mucinex as needed for cough
-Continue supplemental oxygen to keep sat greater than 92
-Wean as tolerated
-Nebs as needed for short of breath and wheezing
-Blood culture sent from ER
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
- chemo on 03/16
-LFT elevation likely from liver mets
-Follows [place]
# Acute thrombocytopenia likely from chemo
-Platelets 62
-Continue to monitor
# Chronic kidney disease stage IIIb
-Creatinine 1.4
-Continue to monitor
# History of congestive heart failure
-On Lasix
-Monitor daily weight strict I&O continue to monitor
# History of coronary artery disease
-Status post cardiac stent
-Aspirin continued
# Muscle spasm
-Valium continued
# Hyperlipidemia
-Zetia continued
# History of pulmonary embolism
-On Eliquis
# Anemia of chronic disease
-Hemoglobin stable at 11.8
-No active bleeding
-Continue to monitor
#Adrenal insufficiency secondary to surgery/radiation/chemotherapy for Hodgkin's disease
-Continue hydrocortisone
#Hypothyroidism
-Continue levothyroxine
#Essential hypertension
-Continue metoprolol
# History of hypotension
-Midodrine continued
# History of tachycardia
-Toprol-XL continued
# GERD
-PPI
#History of small lacunar CVA
#dvt ppx Eliquis
#Full Code
[2024-03-19] MEDS: VIBRAMYCIN 260 MG IV (16:16)
--- NOTE | 2024-03-19 16:50 | W.PN.UPDATE ---
Update Note
Progress Note Update
For billing purpose only
[2024-03-19 17:16] LABS: COVID-19 Antigen Negative (Negative)
[2024-03-19] MEDS: FEOSOL PO (18:22)
[2024-03-19 18:52] LABS: Lactic Acid 3.2 mmol/L (0.7-2.0)
[2024-03-19] MEDS: LIDOCAINE 4% PATCH 1 PATCH TOPICAL (20:33)
[2024-03-19] MEDS: ELIQUIS 5 MG PO (20:35)
[2024-03-19] MEDS: TOPROL XL 12.5 MG PO (20:35)
[2024-03-19] MEDS: MUCINEX PO (20:35)
--- NOTE | 2024-03-19 22:10 | VATNOTE ---
heparin 500 units flushed via port after 2200 lactic lab draw completed.
[2024-03-19 22:24] LABS: Lactic Acid 3.2 mmol/L (0.7-2.0)
[2024-03-19] MEDS: ZOSYN 50 IV (22:57)
[2024-03-19] MEDS: PEPCID 20 MG PO (23:00)
[2024-03-19] MEDS: CORTEF 5 MG PO (23:01)
[2024-03-19] MEDS: FLUSH (NSS) 1 FLUSH IV (23:05)
[2024-03-20] VITALS (8 sets, daily range): BP systolic 105–131; BP diastolic 46–60; PULSE 78; O2SAT 99–100; BMI 25.1
[2024-03-20] MEDS: ZOSYN 50 IV ×2 (03:40→09:19)
[2024-03-20] MEDS: FLUSH (NSS) 1 FLUSH IV ×2 (03:41→06:21)
[2024-03-20] MEDS: VIBRAMYCIN 260 MG IV (04:47)
[2024-03-20 05:35] LABS: Hematocrit 30.5 % (37.0-47.0); Mean Corp Hgb Conc. 32.8 g/dL (33.0-37.0); Mean Corpuscular Hgb 26.8 pg (27.0-31.0); Mean Corpuscular Volume 81.8 fL (81.0-99.0); Platelet Count 41 10^3/uL (130-400); Red Blood Cell Count 3.73 10^6/uL (4.20-5.40); Red Cell Dist. Width 27.2 % (11.5-14.5); White Blood Cell Count 13.8 10^3/uL (4.8-10.8)
[2024-03-20 06:04] LABS: ALT (SGPT) 52 U/L (0-35); AST (SGOT) 45 U/L (14-36); Albumin 2.7 g/dl (3.5-5.0); Alkaline Phosphatase 293 U/L (38-126); Blood Urea Nitrogen 58 mg/dl (7-17); Carbon Dioxide 29 mmol/L (22-30); Chloride 102 mmol/L (98-107); Estimated Creatinine Clearance 33 ml/min; Glucose 154 mg/dl (70-99); HDL Cholesterol 23 mg/dl; LDL Cholesterol, Calculated 63 mg/dl; Sodium 138 mmol/L (135-145); Total Bilirubin 1.7 mg/dl (0.2-1.3); Total Cholesterol 113 mg/dl (50-199); Total Protein 5.3 g/dl (6.3-8.2); Triglyceride 137 mg/dl (10-149); Very Low Density Lipoprotein 27 mg/dl (0-30)
[2024-03-20] MEDS: SYNTHROID 88 MCG PO (06:20)
[2024-03-20 06:32] LABS: TSH Reflex To Free T4 4.58 uIU/ml (0.47-4.68)
[2024-03-20] MEDS: ProAmatine 2.5 MG PO ×2 (08:26→19:16)
[2024-03-20] MEDS: ZETIA 10 MG PO (08:27)
[2024-03-20] MEDS: MUCINEX 600 MG PO ×2 (08:27→21:04)
[2024-03-20] MEDS: PROTONIX 20 MG PO ×2 (08:28→16:38)
[2024-03-20] MEDS: CORTEF 10 MG PO (08:28)
[2024-03-20] MEDS: LOW STRENGTH ASPIRIN 81 MG PO (08:28)
[2024-03-20] MEDS: FEOSOL PO (08:28)
[2024-03-20] MEDS: ELIQUIS 5 MG PO ×2 (08:28→21:03)
[2024-03-20] MEDS: TOPROL XL 12.5 MG PO ×2 (08:30→21:04)
--- NOTE | 2024-03-20 08:53 | VNURNOTE ---
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
--- NOTE | 2024-03-20 09:12 | CON.CAR ---
Addendum entered and electronically signed by Leilani Jones PA-C 03/20/24 15:17:
Plan for OAC and DAPT is Eliquis 5 mg BID and aspirin 81 mg daily indefinitely.
Addendum entered and electronically signed by Luis Alfaro DO 03/20/24 14:45:
I saw and examined the patient.
The Supervisor [employer]'s note was reviewed and I agree with the note.
Comment:
Plan:
Her dyspnea is likely multifactorial including deconditioning, chemo, pneumonia and slight volume overload.
Would continue gentle episodic diuresis.
Lasix 40 mg IV X 1 today.
Monitor daily wts, Is and Os and cr.
Remains in sinus
continue supportive care
Gave emotional support.
Original Note:
Consultation
Consultation Request
Date/Time Consultation Requested: 03/19/24 at 1638
Date/Time Consultation Performed: 03/20/24 at 0940
Requesting Provider: Dr. Garcias
Performing Provider: Dr. Alfaro
Reason for Consultation: Recurrent SOB
Medical History
-
History of Present Illness:
Patient came to [facility] yesterday with recurrent SOB and is now admitted with PNA and possible acute HF so cardiology is being consulted. Patient with h/o NHL with mantle radiation at age 30 then later she had breast cancer and now she is battling
esophageal cancer with mets to liver. Patient is scheduled to undergo chemoembolization therapy directed at the liver at [facility] 03/01/24. Patient also with a h/o PE in 08/2022 and takes Eliquis. Patient previously had lacunar infarcts on MRI brain, but
there is no known h/o atrial arrhythmia. Earlier this year patient was sent to [facility] from cardiology office 01/17/24 with MONTANEZ and at that time patient had R/LHC and PCWP was 24 so she was diuresed. There was LAD and ostial RCA disease on cath so she
had PCI. Overall situation was complicated because patient needed to have chemoembolization of liver mets so a plan for interrupting DAPT and Eliquis was made. Patient was discharged to home 01/19/24 and was back in the ER 02/03/24 and that was also
after a cardiology office visit. On 02/03/24 the patient was seen in the office and was orthostatic and complained of MONTANEZ and it was felt that orthostasis might be contributing to symptoms so she was started on midodrine and sent to [facility] for IVFs and
then discharged to home. Patient was in the ER again after a cardiology visit 02/21/24 and this time was given a unit of PRBCs, diuresed and then discharged to home on 02/24/24. Patient was seen at [facility] 03/01/24 and was not able to receive
chemoembolization because the met had enlarged. Patient was seen in the ER again 03/14/24 for vomiting and abdominal pain that was treated with Zofran IV, IVFs, Compazine and morphine. Patient was also given a dose of Monurol for possible UTI and then
discharged to home. Patient then had her 5-FU chemo at [facility], which was in place of the previously planned hepatic chemoembolization, on 03/16/24. Patient was in the ER 03/18/24 with SOB and was given a dose of Lasix 20 mg IV x1 for possible
acute HF and started on doxycycline for possible PNA. Patient was again discharged to home and returned yesterday with increased SOB and was admitted with hypoxia, increased leukocytosis and is now being treated with Zosyn for PNA. Patient thinks
her LE edema is worse and feels that after taking her usual dose of Lasix 20 mg MWF yesterday that she urinated more than usual making her think she is in fact volume overloaded.
PMH:
Chronic HFpEF
Anemia
s/p 1 unit PRBCs 02/21/24
CAD
s/p 3.5 mm Xience mid LAD and 3.0 mm Xience ostial RCA 01/18/24
Chronic orthostasis, started midodrine 02/03/24
h/o mantle radiation for Non-Hodgkin's lymphoma age 30
h/o breast cancer treated with mastectomy, Cytoxan, methotrexate and 5-FU 1997
Esophageal cancer with liver mets, unable to undergo chemoembolization due to enlarging met size, instead given 5-FU at [facility] 03/16/24
Chronic B/L UE lymphedema
PE 08/08/22
Chronic Eliquis OAC, last dose 01/17/24 AM
h/o CVA 08/02/20
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
Mod AI without
HTN
Hyperlipidemia
Past Medical History
Past Medical History: Other (in HPI)
Past Surgical History: Gynecological (hysterectomy, YOSSI BSO, breast reconstruction) and Other (anterior ethmoidectomy and maxillary antrostomy, splenectomy)
Social History
Tobacco: Non-Smoker
Alcohol: None
Drug: None
Personal: Single
Living: Alone
Family History
Family History: CAD, Cancer and Diabetes
Allergies / Home Medications
Allergy/AdvReac Type Severity Reaction Status Date / Time
diphenhydramine Allergy IV Verified 03/18/24 02:17
[From Benadryl] benadryl
caused
reaction
Iodinated Contrast Media Allergy Hives Verified 03/18/24 02:17
vancomycin Allergy infusion Verified 03/18/24 02:17
reaction
�Medication �Instructions �Recorded �Confirmed �Type
apixaban 5 mg tablet (Eliquis) 5 mg PO BID Blood clot 08/30/22 03/19/24 History
prevention/tx
metoprolol succinate 25 mg 12.5 mg PO BID Blood Pressure 07/17/23 03/19/24 History
tablet,extended release 24 hr
(Toprol XL)
pantoprazole 20 mg tablet,delayed 20 mg PO BID@0800,1600 07/17/23 03/19/24 History
release Gastrointestinal Issue
ezetimibe 10 mg tablet 10 mg PO DAILY High cholesterol 01/19/24 03/19/24 Rx
#30 tabs
levothyroxine 88 mcg tablet 88 mcg PO DAILY Thyroid 01/19/24 03/19/24 History
famotidine 20 mg tablet (Pepcid) 20 mg PO HS Gastrointestinal Issue 01/30/24 03/19/24 History
acetaminophen 500 mg tablet 1,000 mg PO HS PRN mild pain 02/21/24 03/19/24 History
diazepam 2 mg tablet (Valium) 2 mg PO DAILYPRN PRN muscle spasm 02/21/24 03/19/24 History
midodrine 2.5 mg tablet 2.5 mg PO BID@0800,1800 Blood 02/21/24 03/19/24 History
Pressure
aspirin 81 mg chewable tablet 81 mg PO DAILY Blood Clot 03/19/24 03/19/24 History
(Children's Aspirin) Prevention/Tx
doxycycline monohydrate 100 mg 100 mg PO BID Infection 03/19/24 03/19/24 History
capsule
ferrous sulfate 325 mg (65 mg 325 mg PO .SEE BELOW 03/19/24 03/19/24 History
iron) tablet (iron) Supplement
furosemide 20 mg tablet (Lasix) 20 mg PO MOWEFR@0800 Fluid 03/19/24 03/19/24 History
Retention/Swelling
hydrocortisone 10 mg tablet 5 mg PO BID@1600,2200 03/19/24 03/19/24 History
Anti-Inflammatory
hydrocortisone 10 mg tablet 10 mg PO DAILY Anti-Inflammatory 03/19/24 03/19/24 History
hydrocortisone 10 mg tablet 15 mg PO BIDPRN PRN stress dosing 03/19/24 03/19/24 History
hydrocortisone 10 mg tablet 30 mg PO DAILYPRN PRN stress dosing 03/19/24 03/19/24 History
ondansetron 8 mg disintegrating 8 mg PO Q12H PRN nausea/vomiting 03/19/24 03/19/24 History
tablet
prochlorperazine maleate 10 mg 10 mg PO Q6H PRN nausea/vomiting 03/19/24 03/19/24 History
tablet
Review of Systems
-
History Source: Patient
All other systems: Negative unless noted
Physical Exam
Vital Signs
Temp Pulse Resp BP Pulse Ox
98.2 F 79 17 105/48 99
03/20/24 07:00 03/20/24 08:30 03/20/24 07:00 03/20/24 08:30 03/20/24 07:00
GEN: NAD, AAOx3
HEENT: EOMI, MMM
LUNGS: No audible wheeze and wearing oxygen at 2 L NC
CV: Reg, S1/S2, 2/6 BSM, 2/6 diastolic murmur
ABD: soft, BS+, NT, ND
EXT: +1 B/L LE edema and B/L UE edema.
NEURO: Gross non-focal
SKIN: No rash
Lab Results
03/20/24 05:23
03/20/24 05:23
Troponin I 0.016 ng/ml 03/19/24 13:41
Rud-F-Jxqjjwsqbwv Pept 3650 pg/ml 03/19/24 13:41
Impression / Plan
-
PCP: Dr. Munoz
Cardiology: Dr. Rossy Ronquillo
Onc: Dr. Godinez at [facility] [phone]
Impression:
Multifactorial MONTANEZ
PNA
Acute on chronic HFpEF
Anemia
s/p 1 unit PRBCs 02/21/24
CAD
s/p 3.5 mm Xience mid LAD and 3.0 mm Xience ostial RCA 01/18/24
Chronic HFpEF
Chronic orthostasis, started midodrine 02/03/24
h/o mantle radiation for Non-Hodgkin's lymphoma age 30
h/o breast cancer treated with mastectomy, Cytoxan, methotrexate and 5-FU 1997
Esophageal cancer with liver mets, unable to undergo chemoembolization due to enlarging met size, instead given 5-FU at [facility] 03/16/24
Chronic B/L UE lymphedema
PE 08/08/22
Chronic Eliquis OAC, last dose 01/17/24 AM
h/o CVA 08/02/20
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
Mod AI without
HTN
Hyperlipidemia
Echo 11/22/23: EF 55-60%, GLS -14.2% (previously -18% 08/2023), mod eccentric MR, mod aortic regurgitation
Echo 02/22/24: EF 50-55%, GLS -15.8%, mod MR, mod to sev AR, mod TR with PAP 33 mmHg
Plan:
-[facility] with recurrent SOB and is now admitted with PNA and possible acute HF so cardiology is being consulted. Patient with h/o NHL with mantle radiation at age 30 then later she had breast cancer and now she is battling
esophageal cancer with mets to liver. Patient is scheduled to undergo chemoembolization therapy directed at the liver at [facility] 03/01/24. Patient also with a h/o PE in 08/2022 and takes Eliquis. Patient previously had lacunar infarcts on MRI brain, but
there is no known h/o atrial arrhythmia. Earlier this year patient was sent to [facility] from cardiology office 01/17/24 with MONTANEZ and at that time patient had R/LHC and PCWP was 24 so she was diuresed. There was LAD and ostial RCA disease on cath so she
had PCI. Overall situation was complicated because patient needed to have chemoembolization of liver mets so a plan for interrupting DAPT and Eliquis was made. Patient was discharged to home 01/19/24 and was back in the ER 02/03/24 and that was also
after a cardiology office visit. On 02/03/24 the patient was seen in the office and was orthostatic and complained of MONTANEZ and it was felt that orthostasis might be contributing to symptoms so she was started on midodrine and sent to [facility] for IVFs and
then discharged to home. Patient was in the ER again after a cardiology visit 02/21/24 and this time was given a unit of PRBCs, diuresed and then discharged to home on 02/24/24. Patient was seen at [facility] 03/01/24 and was not able to receive
chemoembolization because the met had enlarged. Patient was seen in the ER again 03/14/24 for vomiting and abdominal pain that was treated with Zofran IV, IVFs, Compazine and morphine. Patient was also given a dose of Monurol for possible UTI and then
discharged to home. Patient then had her 5-FU chemo at [facility], which was in place of the previously planned hepatic chemoembolization, on 03/16/24. Patient was in the ER 03/18/24 with SOB and was given a dose of Lasix 20 mg IV x1 for possible
acute HF and started on doxycycline for possible PNA. Patient was again discharged to home and returned yesterday with increased SOB and was admitted with hypoxia, increased leukocytosis and is now being treated with Zosyn for PNA. Patient thinks
her LE edema is worse and feels that after taking her usual dose of Lasix 20 mg MWF yesterday that she urinated more than usual making her think she is in fact volume overloaded.
-pro-BNP up to 3750, increased LE edema and patient reports increased urine output with Lasix 20 mg PO at home yesterday. Will give a dose of Lasix 40 mg IV x1 now and plan on dosing Lasix on a daily basis pending symptoms and Cre.
-Patient also being treated for PNA
-No need to repeat echo
-Patient had 5-FU at [facility] 03/16/24. Unfortunately her liver met had enlarged too much to receive the previously planned hepatic chemoembolization.
-Patient completed triple therapy with aspirin 81 mg daily, Plavix 75 mg daily and Eliquis 5 mg BID for 1 week (stopped 01/26/24). Then Plavix was stopped and aspirin was started 02/18/24 in anticipation of chemoembolization. Now on a regimen of 5-FU
instead so will re-evaluate OAC and DAPT plans. Cont Eliquis 5 mg BID (age 68, Cre 1.6, wt 68 kg)
-Cont Zetia 10 mg daily since 01/2024 admission. Patient was not started on statin due to liver mets. LDL 121.
-ECG reviewed by me shows SR
--- NOTE | 2024-03-20 09:56 | CON.ID ---
Consultation
-
Date/Time Consultation Requested: March 19, 2024 1637
Date/Time Consultation Performed: March 20, 2024 1000
Requesting Provider: Dr. Tulio Garcias
Performing Provider: Dr. Ruthie Angeles
Reason for Consultation: Pneumonia
Chief Complaint / Past History
Chief Complaint
Cough and worsening shortness of breath
History of Present Illness
68-year-old female with history of splenectomy, adrenal insufficiency on steroid, esophageal cancer with liver metastases who started a new chemo regimen on March 16 with irinotecan and 5-FU. Over the past few days she developed worsening
shortness of breath different from her baseline dyspnea on exertion. This time shortness of breath is constant. Also she has been coughing up brown mucus. She feels weak. She went to the ER on March 18 and was prescribed doxycycline. The next
day, the visiting nurse recommended she come back to the hospital as patient looked very pale and unwell. Her white count was 26.1. Lactic acid 4.3. Chest x-ray showed small pleural effusions. Chest CT showed minimal groundglass opacity of left
upper lobe. She was started on Zosyn and maintained on doxycycline. She denies ill contacts. She hardly goes out except for doctors visits. She reports she is up-to-date with her splenectomy vaccines.
Past History
Additional Past Medical History:
Esophageal cancer (dx 2021) with metastatic lesion to liver,, on chemo at [facility]
remote Hodgkin's lymphoma status post abd surgery and radiation (20s)
Splenectomy
Adrenal insufficiency on steroid
POTS
Radiation pneumonitis
CKD3
PE
Breast cancer status post modified right mastectomy, chemo and XRT
Hypertension
Hyperlipidemia
Pulmonary fibrosis
Hypothyroidism
Valvular heart disease - Mitral regurgitation, aortic regurgitation
CAD s/p PCI stent
HFpEF
Lymphedema
CVA
IBS
SBO
Hysterectomy with ovary removed
Breast reconstruction
Allergy History:
diphenhydramine [From Benadryl] Allergy (Verified 03/18/24 02:17)
IV benadryl caused reaction
Iodinated Contrast Media Allergy (Verified 03/18/24 02:17)
Hives
vancomycin Allergy (Verified 03/18/24 02:17)
infusion reaction
Medications Reviewed: Yes
Current Antibiotics:
Zosyn
Doxycycline
Social History
Tobacco: Non-Smoker
Alcohol: None
Drug: None
Living: Alone (and 1 dog)
Family History
Family History: Not Pertinent
Review of Systems
Review of Systems
General: Change in Appetite; Negative Fever or Chills
HEENT: Negative Sinus Problems, Headache or Pharyngitis
Cardiovascular: Negative Chest Pain
Respiratory: Dyspnea, Cough and Sputum Production
Gasteroenterology: Nausea and Other (no diarrhea); Negative Vomiting
Genital / Urological: Negative Flank Pain
Endocrine: Weakness
Neurological: Negative Headache or Dizziness
All systems: All other systems were reviewed and were negative
Vital Signs
Temp Pulse Resp BP Pulse Ox
98.2 F 79 17 105/48 99
03/20/24 07:00 03/20/24 08:30 03/20/24 07:00 03/20/24 08:30 03/20/24 07:00
Physical Exam
Physical Exam
Constitutional: Comfortable
Head: Other (No frontal or maxillary sinus tenderness.)
Eyes: No Conjunctival Hemorrhage and Sclera Anicteric
Pharynx: Benign
Oral: No Thrush
Cardiovascular: Regular Rate and S1/S2
Pulmonary: Clear
Gastrointestinal: Soft, Non Tender, Non Distended and Normal Bowel Sounds
Genito-Urinary: Negative CVA Tenderness
Extremities: Negative Edema
Neurological: AO x 3
Lines: Port (RCW: no erythema)
Lab / Diagnostic Study Results
03/20/24 05:23
03/20/24 05:23
Abs Immat Gran (auto) 0.3 10^3/uL (0-0.05) H 03/19/24 13:41
Absolute Neuts (auto) 25.1 10^3/uL (1.4-6.5) H 03/19/24 13:41
Absolute Lymphs (auto) 0.4 10^3/uL (1.2-3.4) L 03/19/24 13:41
Absolute Monos (auto) 0.3 10^3/uL (0.1-0.6) 03/19/24 13:41
Absolute Basos (auto) 0.1 10^3/uL (0-0.2) 03/19/24 13:41
Total Counted Cancelled 03/19/24 13:41
Immature Gran % 1.0 % (0-0.5) H 03/19/24 13:41
Neutrophils % 96.2 % (42.2-75.2) H 03/19/24 13:41
Lymphocytes % 1.4 % (20.5-51.1) L 03/19/24 13:41
Monocytes % 1.0 % (1.7-9.3) L 03/19/24 13:41
Eosinophils % 0.2 % (0-6) 03/19/24 13:41
Basophils % 0.2 % (0-2) 03/19/24 13:41
Abs Neuts (Manual) Cancelled 03/19/24 13:41
Segmented Neutrophils Cancelled 03/19/24 13:41
Band Neutrophils Cancelled 03/19/24 13:41
Lymphocytes (Manual) Cancelled 03/19/24 13:41
Eosinophils (Manual) Cancelled 03/19/24 13:41
Basophils (Manual) Cancelled 03/19/24 13:41
Lactic Acid 2.0 mmol/L (0.7-2.0) 03/20/24 01:59
Microbiology Results
Micro:
03/19/24 22:36 Legionella Urinary Antigen - Final
Urine Negative for Legionella pneumophila Serogroup 1 antigen.
A negative result does not rule out the possiblity of
Legionella infection due to other serogroups or species of
Legionella. Clinical correlation is recommended.
Streptococcus pneumoniae Antigen (M - Final
Negative for Streptococcus pneumoniae antigen.
A negative result does not exclude infection with
Streptococcus pneumoniae. Clinical correlation is
recommended.
03/19/24 18:33 Blood Culture - Pending
Blood/Venous
03/19/24 15:13 Blood Culture - Pending
Blood/Venous
03/19/24 CT chest wo: Small right pleural effusion. Minimal groundglass opacity within the left upper lobe, which may represent pneumonia/atypical infection or subsegmental atelectasis. Innumerable hepatic metastases, also seen on recent prior
abdominal ultrasound dated 03/15/2024.
Assessment / Plan
# Possible pneumonia
- Productive cough, worsening SOB
-Chest CT minimal EMILY goundglass opacity which is non-specific
-Check Sputum for cx.
-Continue po doxycycline
-Narrow Zosyn to cefepime for now.
# Leukocytosis improving
-Trend wbc
# Thrombocytopenia - may be due to chemo
# Esophageal cancer with liver mets on chemo, new regimen started 03/16
# hx splenectomy
- per pt, up to date with vaccines.
--- NOTE | 2024-03-20 10:03 | W.PN.HOSP.TC ---
Today's Communication/Plan
-
Monitor vital signs and see plan
Wean oxygen as tolerated
Continue with antibiotics
Cardiology and infectious disease following
IV Lasix today
Assessment / Plan
Assessment / Plan
General: Well Developed, Well Nourished and No Apparent Distress
HEENT: NormoCephalic, Moist mucous membranes and Atraumatic;+right chest wall chemoport
Respiratory: Clear
Cardiac: S1/S2 and Regular Rhythm; No Murmur or Rub
GI: Soft, Non Tender, Non Distended and Normal Bowel Sounds; No Organomegaly
Musculoskeletal: 1-2+ edema
Neuro: AO x 3 and Nonfocal/grossly intact
Psych: Calm
Cough/shortness of breath/acute hypoxic respiratory insufficiency likely from atypical pneumonia
-Severe Sepsis as evident by WBC 26, lactic 4.3, tachycardic
-CT chest with impression of small right pleural effusion, left upper lobe opacity which may be atypical pneumonia
Continue with cefepime and doxycycline
-Monitor WBCs
-Elevated lactate, now improved.
Elevated lactate could be also secondary to poor clearance given liver mets
Mucinex for cough
Currently on 2 to 3 L, wean oxygen as tolerated
-Follow blood culture
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
- chemo on 03/16; per patient plan for 3 months of chemotherapy then followed by chemoembolization
-LFT elevation likely from liver mets
-Follows at [place]
# Acute thrombocytopenia likely from chemo
-Continue to monitor
# Chronic kidney disease stage IIIb
-Creatinine 1.5 today
-Continue to monitor
# History of congestive heart failure with preserved EF, suspect mild acute on chronic on admission
-On Lasix, trial of IV Lasix today
Cardiology evaluation
proBNP elevated
Recent echo 02/28 with EF 50 to 55%
# History of coronary artery disease
-Status post cardiac stent
-Aspirin continued
# Muscle spasm
-Valium continued
# Hyperlipidemia
-Zetia continued
# History of pulmonary embolism
-On Eliquis
# Anemia of chronic disease
HGB 10
-No active bleeding
-Continue to monitor
#Adrenal insufficiency secondary to surgery/radiation/chemotherapy for Hodgkin's disease
-Continue hydrocortisone
#Hypothyroidism
-Continue levothyroxine
#Essential hypertension
-Continue metoprolol
# History of hypotension
-Midodrine continued
# History of tachycardia
-Toprol-XL continued
# GERD
-PPI
#History of small lacunar CVA
#dvt ppx Eliquis
#Full Code
I spent a total of 52 minutes with the patient or on the floor. More than 50% of this time involved counseling and coordination of care.
Anticipated Discharge: > 48 hours
Subjective/Interval History
-
Date of Service: March 20, 2024
still has some sob
Objective Data
-
Labs:
Laboratory Results
03/20/24
05:23
WBC 13.8 H
Hgb 10.0 L
Hct 30.5 L
Plt Count 41 L D
Sodium 138
Potassium 4.0
Chloride 102
Carbon Dioxide 29
BUN 58 H
Creatinine 1.5 H
Glucose 154 H
Calcium 8.0 L
Total Bilirubin 1.7 H
AST 45 H
ALT 52 H
Alkaline Phosphatase 293 H
Vital Signs:
Vital Signs
Temp Pulse Resp BP Pulse Ox
98.2 F 79 17 105/48 99
03/20/24 07:00 03/20/24 08:30 03/20/24 07:00 03/20/24 08:30 03/20/24 07:00
I&O
03/19/24 03/20/24 03/21/24
06:59 06:59 06:59
Intake Total 600 / 600
Output Total 275 / 275
Balance 325 / 325
[2024-03-20] MEDS: LASIX 40 MG IV (11:15)
--- NOTE | 2024-03-20 12:31 | CM ---
Met with pt at bedside
Pt lives alone in a one floor condo. Has support form family
Prepares own meals, shops. Has cleaning service monthly. In process of hiring [employer] P[employer]
DME - none
SNF - denies past history
HH - current with [facility]
Has ride when d/c'ed
PCP - Dr Asa Munoz
Pharm - [facility]
CM will follow for d/c needs
Plan - anticipate home with [facility] when medically ready
[2024-03-20] MEDS: CORTEF 5 MG PO ×2 (16:37→21:05)
[2024-03-20] MEDS: MAXIPIME 2000 MG IV (16:42)
[2024-03-20] MEDS: STERILE WATER FOR INJECTION 10 ML IV (16:42)
[2024-03-20] MEDS: LIDOCAINE 4% PATCH 1 PATCH TOPICAL (20:57)
[2024-03-20] MEDS: PEPCID 20 MG PO (21:04)
[2024-03-20] MEDS: VIBRAMYCIN 100 MG PO (21:09)
[2024-03-20] MEDS: TUMS 2 TABLET PO (23:47)
[2024-03-21] VITALS (7 sets, daily range): BP systolic 121–150; BP diastolic 45–56; BMI 24.8
--- NOTE | 2024-03-21 03:12 | DOWNTIME ---
There was a [employer] Downtime on 03/20/2024 from 0100 to 03/21/2024 at 0300. Downtime documentation of patient's care, including medication administrations, has been reconciled in the electronic record per guidelines. Refer to the
patient's paper chart under the miscellaneous tab to see printed paper medication records and downtime forms.
[2024-03-21] MEDS: COMPAZINE 5 MG IV (03:29)
[2024-03-21] MEDS: MAXIPIME 2000 MG IV ×2 (03:29→15:53)
[2024-03-21] MEDS: STERILE WATER FOR INJECTION 10 ML IV ×2 (03:30→15:53)
[2024-03-21] MEDS: FLUSH (NSS) 3 FLUSH IV (03:31)
[2024-03-21 04:30] LABS: Hematocrit 30.3 % (37.0-47.0); Hemoglobin 9.7 g/dL (12.0-16.0); Mean Corpuscular Hgb 26.4 pg (27.0-31.0); Mean Corpuscular Volume 82.3 fL (81.0-99.0); Red Blood Cell Count 3.68 10^6/uL (4.20-5.40); Red Cell Dist. Width 27.3 % (11.5-14.5); White Blood Cell Count 11.4 10^3/uL (4.8-10.8)
[2024-03-21 04:45] LABS: Platelet Count 24 10^3/uL (130-400)
[2024-03-21 04:54] LABS: ALT (SGPT) 49 U/L (0-35); AST (SGOT) 37 U/L (14-36); Albumin 2.9 g/dl (3.5-5.0); Alkaline Phosphatase 275 U/L (38-126); Blood Urea Nitrogen 60 mg/dl (7-17); Calcium 7.8 mg/dl (8.4-10.2); Carbon Dioxide 32 mmol/L (22-30); Chloride 100 mmol/L (98-107); Estimated Creatinine Clearance 33 ml/min; Glucose 183 mg/dl (70-99); Potassium 3.7 mmol/L (3.5-5.1); Sodium 139 mmol/L (135-145); Total Bilirubin 1.5 mg/dl (0.2-1.3); Total Protein 5.5 g/dl (6.3-8.2)
--- NOTE | 2024-03-21 05:17 | PTCARENOTE ---
Critical platelet result of 24 reported to BUSINESS BANKING MANAGER, [facility]. No new orders at this time.
[2024-03-21] MEDS: SYNTHROID 88 MCG PO (05:52)
--- NOTE | 2024-03-21 09:07 | W.PN.HOSP.TC ---
Addendum entered and electronically signed by Humberto Allne MD 03/22/24 07:52:
Lactic acidosis resolved
Original Note:
Today's Communication/Plan
-
Antibiotics
Encourage IS
Maalox
Trop
Assessment / Plan
Assessment / Plan
Evaluated the patient as she was complaining of chest pain. States that the pain is in the middle of the chest
CVS: S1-S2 normal
Chest: Few rales at bilateral bases
Abdomen: Soft, Bowel sounds present
Extremities: No edema
FISH PROTECTOR: Non focal exam
# Chest pain-likely secondary to esophageal reasons EKG reviewed-improved
Check troponin
PPI to be continued
Give a dose of Maalox and 1 dose of morphine patient also has mild epigastric discomfort suspect this is secondary to gastritis.
Change aspirin to enteric-coated
#Cough/shortness of breath/acute hypoxic respiratory insufficiency likely from atypical pneumonia
-Severe Sepsis as evident by WBC 26, lactic 4.3, tachycardic
-CT chest with impression of small right pleural effusion, left upper lobe opacity which may be atypical pneumonia
-Continue with cefepime and doxycycline
-Monitor WBCs
-Elevated lactate, now improved.
-Elevated lactate could be also secondary to poor clearance given liver mets
-Mucinex for cough
-Currently on 2 to 3 L, wean oxygen as tolerated
-Follow blood culture
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
-Chemo on 03/16; per patient plan for 3 months of chemotherapy (Irinotecan and 5-FU) then followed by chemoembolization
-LFT elevation likely from liver mets
-Follows at [place]
# Acute thrombocytopenia likely from chemo
-Continue to monitor
# Chronic kidney disease stage IIIb
-Creatinine 1.5 today
-Continue to monitor
# History of congestive heart failure with preserved EF, suspect mild acute on chronic on admission
-On Lasix, trial of IV Lasix today
-Cardiology evaluation appreciated
-ProBNP elevated
-Recent echo 02/28 with EF 50 to 55%
# History of coronary artery disease
-Status post cardiac stent
-Aspirin continued
# Muscle spasm
-Valium
# Hyperlipidemia
-Zetia
# History of pulmonary embolism
-On Eliquis
#H/O Radiation pneumonitis
# Anemia of chronic disease and malignancy
HGB 10
-No active bleeding
-Continue to monitor
#Adrenal insufficiency secondary to surgery/radiation/chemotherapy for Hodgkin's disease
-Continue hydrocortisone
#Hypothyroidism
-Continue levothyroxine
#Essential hypertension
-Continue metoprolol
# History of hypotension (POTS)
-Midodrine
# History of tachycardia
-Toprol-XL
# History of Hodgkin's disease-status post abdominal surgery and radiation
# GERD
-PPI
# Splenectomy
# Pulmonary fibrosis
#History of small lacunar CVA
-Eliquis
#Breast cancer status post modified right mastectomy, chemo and XRT -Breast reconstruction
# Lymphedema arm
#Valvular heart disease - Mitral regurgitation, aortic regurgitation
#DVT prophylaxis- Eliquis
#Full Code
D/W RN
Time Spent 51 min
Anticipated Discharge: 24 - 48 hours
Subjective/Interval History
-
Date of Service: March 21, 2024
Objective Data
-
Labs:
Laboratory Results
03/21/24
04:08
WBC 11.4 H
Hgb 9.7 L
Hct 30.3 L
Plt Count 24 L* D
Sodium 139
Potassium 3.7
Chloride 100
Carbon Dioxide 32 H
BUN 60 H
Creatinine 1.5 H
Glucose 183 H
Calcium 7.8 L
Total Bilirubin 1.5 H
AST 37 H
ALT 49 H
Alkaline Phosphatase 275 H
Vital Signs:
Vital Signs
Temp Pulse Resp BP Pulse Ox
97.5 F 85 18 150/55 100
03/21/24 07:00 03/21/24 08:31 03/21/24 07:00 03/21/24 08:31 03/21/24 07:00
I&O
03/20/24 03/21/24 03/22/24
06:59 06:59 06:59
Intake Total 600 / 600 1170 / 1170
Output Total 275 / 275 550 / 550
Balance 325 / 325 620 / 620
[2024-03-21] MEDS: VIBRAMYCIN 100 MG PO ×2 (09:42→21:30)
[2024-03-21] MEDS: ASPIR LOW (ENTERIC COATED) 81 MG PO (09:42)
[2024-03-21] MEDS: MAALOX 30 ML PO (09:42)
[2024-03-21] MEDS: CORTEF 10 MG PO ×2 (09:43→15:52)
[2024-03-21] MEDS: LASIX 20 MG PO (09:43)
[2024-03-21] MEDS: ELIQUIS 5 MG PO ×2 (09:44→22:53)
[2024-03-21] MEDS: PROTONIX 20 MG PO ×2 (09:44→15:52)
[2024-03-21] MEDS: ZETIA 10 MG PO (09:44)
[2024-03-21] MEDS: MORPHINE SULFATE 1 MG IV (09:44)
[2024-03-21] MEDS: FEOSOL PO (09:47)
--- NOTE | 2024-03-21 09:55 | W.PN.CARDCBS ---
Addendum entered and electronically signed by Mitul Lenz MD 03/21/24 15:37:
I saw and examined the patient.
The Surgical Instrument Technician's note was reviewed and I agree with the note.
Comment: Briefly, 68-year-old woman with past medical history of heart failure with preserved ejection fraction and multiple malignancies who is presenting with worsening dyspnea. Dyspnea was thought to be multifactorial due to both pneumonia and
decompensated heart failure.
Would continue gentle diuresis in an attempt to improve her respiratory status
Patient was reporting chest discomfort this morning - seem less likely to be cardiac in etiology
ECG was nonischemic appearing and troponins have been within normal limits
Unfortunately she has developed thrombocytopenia
Currently on aspirin/Eliquis, but may need to be held if platelet count continues to drop
Given recent PCI in January 2024 would favor continuing at least aspirin
Original Note:
Today's Communication / Plan
-
Check troponin
Continue to monitor on telemetry
Continue antibiotics for pneumonia
New hematuria consider ruling out UTI
Impression / Plan
-
PCP: Dr. Munoz
Cardiology: Dr. Rossy Ronquillo
Onc: Dr. Godinez at [facility] [phone]
Impression:
Presented 03/19/2024 with worsening SOB
Multifactorial MONTANEZ
Acute PNA
Acute on chronic HFpEF, proBNP 3650
Anemia, acute on chronic
s/p 1 unit PRBCs 02/21/24
Thrombocytopenia
CAD
s/p 3.5 mm Xience mid LAD and 3.0 mm Xience ostial RCA 01/18/24
Chronic HFpEF
Chronic orthostasis, started midodrine 02/03/24
h/o mantle radiation for Non-Hodgkin's lymphoma age 30
h/o breast cancer treated with mastectomy, Cytoxan, methotrexate and 5-FU 1997
Esophageal cancer with liver mets, unable to undergo chemoembolization due to enlarging met size, instead given 5-FU at [facility] 03/16/24
Chronic B/L UE lymphedema
PE 08/08/22
Chronic Eliquis OAC, last dose 01/17/24 AM
h/o CVA 08/02/20
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
Mod AI without
HTN
Hyperlipidemia
Echo 11/22/23: EF 55-60%, GLS -14.2% (previously -18% 08/2023), mod eccentric MR, mod aortic regurgitation
Echo 02/22/24: EF 50-55%, GLS -15.8%, mod MR, mod to sev AR, mod TR with PAP 33 mmHg
Plan:
-Presented 03/19/2024 with worsening SOB
-Multifactorial MONTANEZ including deconditioning, chemo, pneumonia and slight volume overload
-Patient had episode of substernal chest pain a.m. of 03/21/2024 which started upon awakening. EKG without ischemic changes. Symptoms improved with Maalox and morphine but not resolved completely
-Would check troponin given she is status post LAD and RCA BRYANT 01/18/2024. Suspect chest pain GI related.
-Patient completed triple therapy with aspirin 81 mg daily, Plavix 75 mg daily and Eliquis 5 mg BID for 1 week (stopped 01/26/24). Then Plavix was stopped and aspirin was started 02/18/24 in anticipation of chemoembolization. Plan is for ASA 81 mg
indefinitely and Eliquis
-PLT continue to drop was 156,000 on 03/14 now 24,000 03/21. She did get chemo 03/16/24 - continue to monitor closely.
-Cont Eliquis 5 mg BID (age 68, Cre 1.6, wt 68 kg); Hgb 9.7
-Complained of hematuria with urinating 03/21/2024 in AM. Consider checking urine to rule out UTI. May need to hold aspirin given low platelets. Patient already received 03/21/2024
-Acute on chronic HFpEF, proBNP 3650. Got IV Lasix 40 mg x 1 03/20/24. Weight down 2 lbs overnight. Still with extremity edema. Got 20 mg oral Lasix Can consider given additional 20 mg. Edema may be secondary to third spacing from
hypoalbuminemia and low protein
-Recent echo in February 2024 - no need to repeat echo
-Esophageal cancer with mets to liver Patient had 5-FU at [facility] 03/16/24. Unfortunately her liver met had enlarged too much to receive the previously planned hepatic chemoembolization.
-Being treated for pneumonia, continue antibiotics
-Cont Zetia 10 mg daily since 01/2024 admission. Patient was not started on statin due to liver mets. LDL 121.
-ECG reviewed by me shows SR
HPI 03/20/2024:
Patient came to [facility] yesterday with recurrent SOB and is now admitted with PNA and possible acute HF so cardiology is being consulted. Patient with h/o NHL with mantle radiation at age 30 then later she had breast cancer and now she is battling
esophageal cancer with mets to liver. Patient is scheduled to undergo chemoembolization therapy directed at the liver at [facility] 03/01/24. Patient also with a h/o PE in 08/2022 and takes Eliquis. Patient previously had lacunar infarcts on MRI brain, but
there is no known h/o atrial arrhythmia. Earlier this year patient was sent to [facility] from cardiology office 01/17/24 with MONTANEZ and at that time patient had R/LHC and PCWP was 24 so she was diuresed. There was LAD and ostial RCA disease on cath so she
had PCI. Overall situation was complicated because patient needed to have chemoembolization of liver mets so a plan for interrupting DAPT and Eliquis was made. Patient was discharged to home 01/19/24 and was back in the ER 02/03/24 and that was also
after a cardiology office visit. On 02/03/24 the patient was seen in the office and was orthostatic and complained of MONTANEZ and it was felt that orthostasis might be contributing to symptoms so she was started on midodrine and sent to [facility] for IVFs and
then discharged to home. Patient was in the ER again after a cardiology visit 02/21/24 and this time was given a unit of PRBCs, diuresed and then discharged to home on 02/24/24. Patient was seen at [facility] 03/01/24 and was not able to receive
chemoembolization because the met had enlarged. Patient was seen in the ER again 03/14/24 for vomiting and abdominal pain that was treated with Zofran IV, IVFs, Compazine and morphine. Patient was also given a dose of Monurol for possible UTI and then
discharged to home. Patient then had her 5-FU chemo at [facility], which was in place of the previously planned hepatic chemoembolization, on 03/16/24. Patient was in the ER 03/18/24 with SOB and was given a dose of Lasix 20 mg IV x1 for possible
acute HF and started on doxycycline for possible PNA. Patient was again discharged to home and returned yesterday with increased SOB and was admitted with hypoxia, increased leukocytosis and is now being treated with Zosyn for PNA. Patient thinks
her LE edema is worse and feels that after taking her usual dose of Lasix 20 mg MWF yesterday that she urinated more than usual making her think she is in fact volume overloaded.
-pro-BNP up to 3750, increased LE edema and patient reports increased urine output with Lasix 20 mg PO at home yesterday. Will give a dose of Lasix 40 mg IV x1 now and plan on dosing Lasix on a daily basis pending symptoms and Cre.
Progress Note - [employer]
Subjective
Date of Service: March 21, 2024
Patient seen and examined. Patient sitting up in bed wearing oxygen. Patient reports she awoke this morning with 6 out of 10 substernal chest discomfort/pressure. She was provided IV morphine and Maalox with some improvement but not complete
resolution still notes mild discomfort at this time. Patient ambulated to commode without worsening of symptoms. Does note some hematuria
Objective
Labs:
03/21/24 04:08
03/21/24 04:08
Labs
Hgb 9.7 g/dL (12.0-16.0) L 03/21/24 04:08
Hct 30.3 % (37.0-47.0) L 03/21/24 04:08
Plt Count 24 10^3/uL (130-400) L* D 03/21/24 04:08
Sodium 139 mmol/L (135-145) 03/21/24 04:08
Potassium 3.7 mmol/L (3.5-5.1) 03/21/24 04:08
BUN 60 mg/dl (7-17) H 03/21/24 04:08
Creatinine 1.5 mg/dL (0.6-1.0) H 03/21/24 04:08
Glucose 183 mg/dl (70-99) H 03/21/24 04:08
Troponins
03/19/24
13:41
Troponin I 0.016
Vital Signs and I&O:
Vital Signs
Temp Pulse Resp BP Pulse Ox
97.5 F 85 18 150/55 100
03/21/24 07:00 03/21/24 09:43 03/21/24 07:00 03/21/24 09:43 03/21/24 07:00
Vital Signs
Temp Pulse Resp BP Pulse Ox
97.5 F 85 18 150/55 100
03/21/24 07:00 03/21/24 09:43 03/21/24 07:00 03/21/24 09:43 03/21/24 07:00
Intake & Output
03/19/24 03/20/24 03/21/24 03/22/24
06:59 06:59 06:59 06:59
Intake Total 600 / 600 1170 / 1170
Output Total 275 / 275 550 / 550
Balance 325 / 325 620 / 620
Physical Exam
Physical Exam
GEN: No distress, awake, Ox3; chronically ill-appearing, wearing oxygen
HEENT: supple, anicteric, mmm
LUNGS: Mildly diminished breath sounds otherwise CTA, no wheezes/rales; wearing oxygen
CV: Reg, S1/S2, 2/6 diastolic murmur
ABD: soft, BS+, NT/ND
EXT: +1 bilateral lower extremity edema, positive bilateral upper extremity edema
NEURO: Gross non-focal
SKIN: No rash, pallor
[2024-03-21] MEDS: MUCINEX PO (09:57)
[2024-03-21] MEDS: LOW STRENGTH ASPIRIN PO (09:57)
[2024-03-21] MEDS: ProAmatine 2.5 MG PO (10:36)
[2024-03-21] MEDS: TOPROL XL 12.5 MG PO ×2 (10:38→21:32)
[2024-03-21 10:55] LABS: Troponin I < 0.012 ng/ml
[2024-03-21] MEDS: COMPAZINE 10 MG IV (12:45)
[2024-03-21 14:09] LABS: Urine Albumin 2+ (Neg - Trace); Urine Bilirubin 1+ (Negative); Urine Character Very Cloudy (Clear); Urine Color Brown; Urine Glucose Negative (Negative); Urine Ketone 1+ (Negative); Urine Leukocyte 1+ (Negative); Urine Nitrite Negative (Negative); Urine Occult Blood 4+ (Negative); Urine Urobilinogen Negative (Neg - 1+)
--- NOTE | 2024-03-21 14:30 | W.PN.ID1 ---
Date of Service
Date of Service: March 21, 2024
Today's Communication
Continue cefepime, doxycycline.
Assessment / Plan
# Possible pneumonia
- Productive cough, worsening SOB
-Chest CT minimal EMILY goundglass opacity which is non-specific
-Check Sputum for cx (unable to produce)
-Continue po doxycycline and cefepime (d3)
# Leukocytosis improving
-Trend wbc
- bcx neg
# Gross hematuria
- due to thrombocytopenia and on anticoagulation
# Progressive thrombocytopenia - due to chemo
# Esophageal cancer with liver mets on chemo, new regimen started 03/16
# hx splenectomy
- per pt, up to date with vaccines.
#Additional Past Medical History:
Esophageal cancer (dx 2021) with metastatic lesion to liver,, on chemo at [facility]
remote Hodgkin's lymphoma status post abd surgery and radiation (20s)
Splenectomy
Adrenal insufficiency on steroid
POTS
Radiation pneumonitis
CKD3
PE
Breast cancer status post modified right mastectomy, chemo and XRT
Hypertension
Hyperlipidemia
Pulmonary fibrosis
Hypothyroidism
Valvular heart disease - Mitral regurgitation, aortic regurgitation
CAD s/p PCI stent
HFpEF
Lymphedema
CVA
IBS
SBO
Hysterectomy with ovary removed
Breast reconstruction
Chief Complaint
-: Pneumonia
Subjective / Review of Systems
c/o chest heaviness.
+ gross hematuria today. No dysuria/urgency
Cough better.
Vital Signs / Physical Exam
Vital Signs
Vital Signs
Temp Pulse Resp BP Pulse Ox
97.6 F 86 18 131/45 100
03/21/24 11:00 03/21/24 11:00 03/21/24 11:00 03/21/24 11:00 03/21/24 11:00
Physical Exam
Constitutional: Non-toxic
Cardiovascular: Regular Rate and S1/S2
Pulmonary: Clear
Gastrointestinal: Soft, Non Tender, Non Distended and Normal Bowel Sounds
Genito-Urinary: Negative CVA Tenderness
Neurological: AO x 3
Lines: Port ( RCW no erythema)
Objective Data
Lab Data
Lab Results
03/21/24 04:08
03/21/24 04:08
Estimated Creat Clear 33 ml/min 03/21/24 04:08
Lactic Acid 2.0 mmol/L (0.7-2.0) 03/20/24 01:59
Total Bilirubin 1.5 mg/dl (0.2-1.3) H 03/21/24 04:08
AST 37 U/L (14-36) H 03/21/24 04:08
ALT 49 U/L (0-35) H 03/21/24 04:08
Alkaline Phosphatase 275 U/L (38-126) H 03/21/24 04:08
Most recent labs reviewed.
Micro Results:
03/21/24 13:57 Urine Culture - Pending
Urine
03/19/24 18:33 Blood Culture - Preliminary
Blood/Venous No Growth in 24 hours- Final report to follow
03/19/24 15:13 Blood Culture - Preliminary
Blood/Venous No Growth in 24 hours- Final report to follow
03/19/24 22:36 Legionella Urinary Antigen - Final
Urine Negative for Legionella pneumophila Serogroup 1 antigen.
A negative result does not rule out the possiblity of
Legionella infection due to other serogroups or species of
Legionella. Clinical correlation is recommended.
Streptococcus pneumoniae Antigen (M - Final
Negative for Streptococcus pneumoniae antigen.
A negative result does not exclude infection with
Streptococcus pneumoniae. Clinical correlation is
recommended.
03/19/24 CT chest wo: Small right pleural effusion. Minimal groundglass opacity within the left upper lobe, which may represent pneumonia/atypical infection or subsegmental atelectasis. Innumerable hepatic metastases, also seen on recent prior
abdominal ultrasound dated 03/15/2024.
[2024-03-21 14:44] LABS: Urine Red Blood Cell >100 /HPF (0-2)
[2024-03-21 14:45] LABS: Urine Squamous Cell 0-2 /LPF (Few)
[2024-03-21 14:46] LABS: Urine Bacteria Few (Negative)
--- NOTE | 2024-03-21 15:08 | PN.CDI ---
CDI
- -
CDI:
Physician Documentation Request
Admit Date: 03/19/24 17:03
Dear Doctor Tiffany,
Patient admitted with severe sepsis.
03/21 PN, 'Elevated lactate.... lactic 4.3.'
Based on the above, please clarify in the progress notes, the appropriate diagnosis, if significant, that supports the above abnormalities and additional evaluation, monitoring and/or treatment rendered:
Lactic acidosis
Insignificant abnormal lab finding
Other
Use of terms such as suspected, likely, concern for, or probable (associated with a specific diagnosis that is being evaluated, monitored, or treated as if it exists) are acceptable and can be coded in the inpatient setting, when documented at the
time of discharge.
Thank you,
Alice BARRETT,RN,CCDS
CDI Specialist
Available via [facility] text
Please use your independent medical judgment in providing your response.
--- NOTE | 2024-03-21 15:46 | CM ---
Case management following for d/c planning
Cont antibiotics
PT/OT recommend HH - current with [facility] - tt sent to Liaison for [facility] at d/c
CM will cont to follow for d/c planning
plan - anticipate home with [facility] when medically ready
[2024-03-21] MEDS: CORTEF 5 MG PO ×2 (15:54→21:30)
[2024-03-21 16:25] LABS: Troponin I < 0.012 ng/ml
[2024-03-21] MEDS: ProAmatine PO (17:36)
[2024-03-21] MEDS: PEPCID 20 MG PO (21:41)
[2024-03-21] MEDS: LIDOCAINE 4% PATCH 1 PATCH TOPICAL (21:51)
[2024-03-21 22:40] LABS: Glucose - Point of Care 319 mg/dl (70-99)
--- NOTE | 2024-03-21 23:00 | PTCARENOTE ---
Order to monitor for clots in urine noted. Verified Eliquis order with HILARIO, covering house.
[2024-03-22] VITALS (11 sets, daily range): BP systolic 100–179; BP diastolic 39–97; BMI 24.7
[2024-03-22] MEDS: STERILE WATER FOR INJECTION 10 ML IV (03:25)
[2024-03-22] MEDS: MAXIPIME 2000 MG IV (03:25)
[2024-03-22] MEDS: FLUSH (NSS) 2 FLUSH IV ×2 (03:26→07:13)
[2024-03-22 04:49] LABS: Hematocrit 30.8 % (37.0-47.0); Hemoglobin 9.9 g/dL (12.0-16.0); Mean Corp Hgb Conc. 32.1 g/dL (33.0-37.0); Mean Corpuscular Hgb 26.7 pg (27.0-31.0); Red Blood Cell Count 3.71 10^6/uL (4.20-5.40); White Blood Cell Count 5.9 10^3/uL (4.8-10.8)
[2024-03-22 04:54] LABS: Platelet Count 14 10^3/uL (130-400)
--- NOTE | 2024-03-22 05:00 | PTCARENOTE ---
HILARIO, [facility] house, notified of critical lab: Platelets 14.
[2024-03-22 05:25] LABS: ALT (SGPT) 43 U/L (0-35); AST (SGOT) 36 U/L (14-36); Albumin 3.1 g/dl (3.5-5.0); Alkaline Phosphatase 274 U/L (38-126); Blood Urea Nitrogen 56 mg/dl (7-17); Calcium 7.8 mg/dl (8.4-10.2); Carbon Dioxide 31 mmol/L (22-30); Chloride 102 mmol/L (98-107); Estimated Creatinine Clearance 36 ml/min; Glucose 147 mg/dl (70-99); Potassium 3.8 mmol/L (3.5-5.1); Sodium 139 mmol/L (135-145); Total Bilirubin 1.5 mg/dl (0.2-1.3); Total Protein 5.6 g/dl (6.3-8.2); eGFR 41.49
[2024-03-22] MEDS: SYNTHROID 88 MCG PO (06:05)
--- NOTE | 2024-03-22 06:29 | W.PN.UPDATE ---
Update Note
Progress Note Update
Plt count dropped from 24 to 14 this am, patient continue with hematuria and developed nose bleeding this am with some blood clots noted. Will hold Eliquis for now as recommended in cardiology note'Eliquis be held if platelet count continues to
drop' and will update attending in am.
[2024-03-22] MEDS: COMPAZINE 5 MG IV (07:14)
--- NOTE | 2024-03-22 07:30 | PTCARENOTE ---
Patient removed O2 nasal cannula. Shortly after she had a small nose bleed with 2 small clots on tissue. Patient was rubbing nose but was informed not to irritate it. Pressure applied. Mustache dressing applied and ice to nose. EQUIPMENT ENGINEER, covering
house notified. Siomara ordered to hold. Compazine as order for patient c/o nausea. Day shift RN notified attending hospitalist of above.
[2024-03-22] MEDS: BACTROBAN 2% OINTMENT 1 APPLIC NASAL (09:29)
[2024-03-22] MEDS: FEOSOL 325 MG PO (09:30)
[2024-03-22] MEDS: ProAmatine 2.5 MG PO ×2 (09:30→17:42)
[2024-03-22] MEDS: ZETIA 10 MG PO (09:30)
[2024-03-22] MEDS: PROTONIX 20 MG PO ×2 (09:31→15:32)
[2024-03-22] MEDS: VIBRAMYCIN 100 MG PO (09:31)
[2024-03-22] MEDS: TOPROL XL 12.5 MG PO ×2 (09:32→20:13)
--- NOTE | 2024-03-22 10:09 | CON.ONC ---
Impression
Impression
Progressive bicytopenia postchemotherapy anemia and thrombocytopenia
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
Chronic tachycardia
POTS
Hyperlipidemia
Adrenal insufficiency
History of lacunar cerebrovascular accident
History of TIA
Type 2 diabetes
Breast cancer
Squamous cell esophageal cancer
Pulmonary fibrosis
Compression fracture of L4 vertebra
History of Hodgkin's disease
Basal cell carcinoma lymphedema
Pulmonary embolism
Coronary artery disease
Hypothyroidism
Osteopenia
Depression
CHF
Plan
Plan
Stress dose steroids Solu-Cortef 50 mg IV every 8 now reduced to 25 mg every 8
Transfuse platelets<20
Transfuse hemoglobin<8.0 g/dL
Continue antibiotic coverage as per ID
Presumably cytopenias are secondary to chemotherapy
Patient History
History of Present Illness
Beth Morris is an unfortunate 68-year-old female with multiple previous oncologic diagnoses. She was diagnosed originally with Hodgkin's disease in the mid 80s treated with chemotherapy and involved field radiation. Subsequent toxicities from
primary HD treatment led to breast carcinoma in the late 90s for which she received adjuvant CMF. She is now suffering from distal esophageal carcinoma that has progressed following carboplatin Taxol radiation therapy followed by nivolumab with
metastases to the liver. She received a dose of FOLFOX and has been admitted with progressive dyspnea associated cough and production of green sputum.. She is developed acute thrombocytopenia with evidence of oozing from her naris. She continues
to feel considerably fatigued requesting stress dose steroids for adrenal insufficiency.
Past-Medical/Surgical History
Medical History
Past Medical History
Chronic tachycardia
POTS
Hyperlipidemia
Adrenal insufficiency
History of lacunar cerebrovascular accident
History of TIA
Type 2 diabetes
Breast cancer
Squamous cell esophageal cancer
Pulmonary fibrosis
Compression fracture of L4 vertebra
History of Hodgkin's disease
Basal cell carcinoma lymphedema
Pulmonary embolism
Coronary artery disease
Hypothyroidism
Osteopenia
Depression
CHF
Surgical History
Splenectomy
Coronary artery stent
Hysterectomy
Removal of polyps
Breast reconstruction
Laparotomy staging of Hodgkin's
Social History
Tobacco: Non-smoker
Alcohol: None
Drug: None
Personal: Single
Living: Alone
Family History
Family History: Not pertinent
Patient Medication
�Medication �Instructions �Recorded �Confirmed �Last Taken �Type
apixaban 5 mg tablet (Eliquis) 5 mg PO BID Blood clot 08/30/22 03/19/24 03/19/24 History
prevention/tx
metoprolol succinate 25 mg 12.5 mg PO BID Blood Pressure 07/17/23 03/19/24 03/17/24 History
tablet,extended release 24 hr
(Toprol XL)
pantoprazole 20 mg tablet,delayed 20 mg PO BID@0800,1600 07/17/23 03/19/24 03/19/24 History
release Gastrointestinal Issue
ezetimibe 10 mg tablet 10 mg PO DAILY High cholesterol 01/19/24 03/19/24 03/18/24 Rx
#30 tabs
levothyroxine 88 mcg tablet 88 mcg PO DAILY Thyroid 01/19/24 03/19/24 03/19/24 History
famotidine 20 mg tablet (Pepcid) 20 mg PO HS Gastrointestinal Issue 01/30/24 03/19/24 03/18/24 History
acetaminophen 500 mg tablet 1,000 mg PO HS PRN mild pain 02/21/24 03/19/24 2 Weeks Ago History
~03/05/24
diazepam 2 mg tablet (Valium) 2 mg PO DAILYPRN PRN muscle spasm 02/21/24 03/19/24 03/18/24 History
midodrine 2.5 mg tablet 2.5 mg PO BID@0800,1800 Blood 02/21/24 03/19/24 03/19/24 History
Pressure
aspirin 81 mg chewable tablet 81 mg PO DAILY Blood Clot 03/19/24 03/19/24 03/19/24 History
(Children's Aspirin) Prevention/Tx
doxycycline monohydrate 100 mg 100 mg PO BID Infection 03/19/24 03/19/24 03/19/24 History
capsule
ferrous sulfate 325 mg (65 mg 325 mg PO .SEE BELOW 03/19/24 03/19/24 03/18/24 History
iron) tablet (iron) Supplement
furosemide 20 mg tablet (Lasix) 20 mg PO MOWEFR@0800 Fluid 03/19/24 03/19/24 03/19/24 History
Retention/Swelling
hydrocortisone 10 mg tablet 5 mg PO BID@1600,2200 03/19/24 03/19/24 03/18/24 History
Anti-Inflammatory
hydrocortisone 10 mg tablet 10 mg PO DAILY Anti-Inflammatory 03/19/24 03/19/24 03/19/24 History
hydrocortisone 10 mg tablet 15 mg PO BIDPRN PRN stress dosing 03/19/24 03/19/24 Unknown History
hydrocortisone 10 mg tablet 30 mg PO DAILYPRN PRN stress dosing 03/19/24 03/19/24 Unknown History
ondansetron 8 mg disintegrating 8 mg PO Q12H PRN nausea/vomiting 03/19/24 03/19/24 1 Week Ago History
tablet ~03/12/24
prochlorperazine maleate 10 mg 10 mg PO Q6H PRN nausea/vomiting 03/19/24 03/19/24 03/18/24 History
tablet
Active Medications
Generic Name Dose Route Start Last Admin
Trade Name Freq PRN Reason Stop Dose Admin
Acetaminophen 650 mg 03/19/24 17:40
Acetaminophen 325 Mg Tablet PO 04/16/24 17:39
Q4HPRN PRN
if temp > 101 F
Albuterol/Ipratropium 3 ml 03/19/24 17:40
Ipratropium 0.5/Albuterol 3 Mg (3 Ml Ampul) INH
R Q4HPRN PRN
shortness of breath/wheezing
Protocol
Apixaban 5 mg 03/19/24 20:00 03/21/24 22:53
Apixaban (Eliquis) 5 Mg Tablet PO 04/16/24 19:59 5 mg
BID ASHA Administration
Calcium Carbonate 2 tablet 03/20/24 23:33 03/20/24 23:47
Calcium Carbonate 500 Mg (Regular-Strength) Chew Tablet PO 04/17/24 23:32 2 tablet
Q4HPRN PRN Administration
indigestion
Cefepime HCl 2,000 mg 03/20/24 16:00 03/22/24 03:25
Cefepime Hcl 2,000 Mg/12.5 Ml Vial IV 2,000 mg
Q12H ASHA Administration
Diazepam 2 mg 03/19/24 17:40
Diazepam 2 Mg Tablet PO 04/16/24 17:39
DAILYPRN PRN
muscle spasm
Doxycycline Hyclate 100 mg 03/20/24 22:00 03/22/24 09:31
Doxycycline 100 Mg Capsule PO 100 mg
Q12@1000,2200 ASHA Administration
Ezetimibe 10 mg 03/20/24 08:00 03/22/24 09:30
Ezetimibe (Zetia) 10 Mg Tablet PO 04/17/24 07:59 10 mg
DAILY ASHA Administration
Famotidine 20 mg 03/19/24 22:00 03/21/24 21:41
Famotidine 20 Mg Tablet PO 04/16/24 21:59 20 mg
HS ASHA Administration
Ferrous Sulfate 325 mg 03/19/24 17:40 03/22/24 09:30
Ferrous Sulfate 325 Mg Tablet PO 04/16/24 17:39 325 mg
DAILY ASHA Administration
Furosemide 20 mg 03/21/24 08:00 03/21/24 09:43
Furosemide 20 Mg Tablet PO 04/18/24 07:59 20 mg
MOWEFR@0800 ASHA Administration
Heparin Sodium (Porcine) 500 unit 03/19/24 22:10 03/21/24 04:09
Heparin Flush Pf (100 Unit/Ml) 5 Ml Syringe IV 04/16/24 22:09 500 unit
PRN PRN Administration
PORT FLUSH
Hydrocortisone Sodium Succinate 25 mg 03/22/24 16:00
Hydrocortisone Sodium Succinate 100 Mg/2 Ml Vial IV 04/19/24 15:59
Q8 SAHA
Levothyroxine Sodium 88 mcg 03/20/24 06:00 03/22/24 06:05
Levothyroxine 88 Mcg Tablet PO 04/17/24 05:59 88 mcg
DAILY @ 0600 ASHA Administration
Lidocaine 1 patch 03/19/24 18:55 03/21/24 21:51
Lidocaine 4% Topical Patch TOPICAL 04/16/24 18:54 1 patch
QPM PRN Administration
LOW BACK PAIN
Metoprolol Succinate 12.5 mg 03/19/24 20:00 03/22/24 09:32
Metoprolol 12.5 Mg Extended Release Dose (1/2 Of 25 Mg Xl Tablet) PO 04/16/24 19:59 12.5 mg
BID ASHA Administration
Midodrine 2.5 mg 03/19/24 18:02 03/22/24 09:30
Midodrine 5 Mg Tablet PO 04/16/24 17:59 2.5 mg
BID@0800,1800 ASHA Administration
Mupirocin 0 applic 03/22/24 08:00 03/22/24 09:29
Mupirocin 2% (Ointment) 22 Gram Tube NASAL 1 applic
BID ASHA Administration
Pantoprazole Sodium 20 mg 03/20/24 08:00 03/22/24 09:31
Pantoprazole 20 Mg Delayed Release Tablet PO 04/17/24 07:59 20 mg
BID@0800,1600 ASHA Administration
Patch Removal 1 patch 03/20/24 06:00 03/22/24 06:05
Remove Lidocaine Patch REMOVE 04/17/24 05:59 1 patch
DAILY@0600 ASHA Administration
Sodium Chloride 0 flush 03/19/24 18:00 03/22/24 07:13
Sodium Chloride 0.9% (Flush) Syringe IV 04/16/24 17:59 2 flush
PER PROTOCOL ASHA Administration
Sterile Water 10 ml 03/20/24 16:00 03/22/24 03:25
Sterile Water For Injection 10 Ml Vial IV 04/17/24 15:59 10 ml
Q12H ASHA Administration
Review of Systems
-
12 point review of systems fails to elicit additional complaints other than those reviewed in HPI.
Physical Exam
-
Physical Exam
General: Well Developed, Appears chronically ill
HEENT: NormoCephalic, Moist mucous membranes and Atraumatic blood containing mucus oozing from the right naris
Respiratory: Clear
Cardiac: S1/S2 and Regular Rhythm; No Murmur or Rub
GI: Soft, Non Tender, Non Distended and Normal Bowel Sounds; No Organomegaly
Musculoskeletal: No Clubbing, No Cyanosis and No Edema
Skin: No Rash
Neuro: AO x 3 and Nonfocal/grossly intact
Psych: Calm
Labs
Lab Results
WBC 5.9 10^3/uL (4.8-10.8) 03/22/24 04:36
RBC 3.71 10^6/uL (4.20-5.40) L 03/22/24 04:36
Hgb 9.9 g/dL (12.0-16.0) L 03/22/24 04:36
Hct 30.8 % (37.0-47.0) L 03/22/24 04:36
MCV 83.0 fL (81.0-99.0) 03/22/24 04:36
MCH 26.7 pg (27.0-31.0) L 03/22/24 04:36
MCHC 32.1 g/dL (33.0-37.0) L 03/22/24 04:36
RDW 27.0 % (11.5-14.5) H 03/22/24 04:36
Plt Count 14 10^3/uL (130-400) L* D 03/22/24 04:36
MPV Not Reportable 03/22/24 04:36
Abs Immat Gran (auto) 0.3 10^3/uL (0-0.05) H 03/19/24 13:41
Absolute Neuts (auto) 25.1 10^3/uL (1.4-6.5) H 03/19/24 13:41
Absolute Lymphs (auto) 0.4 10^3/uL (1.2-3.4) L 03/19/24 13:41
Absolute Monos (auto) 0.3 10^3/uL (0.1-0.6) 03/19/24 13:41
Absolute Eos (auto) 0.1 10^3/uL (0-0.7) 03/19/24 13:41
Absolute Basos (auto) 0.1 10^3/uL (0-0.2) 03/19/24 13:41
Immature Gran % 1.0 % (0-0.5) H 03/19/24 13:41
Neutrophils % 96.2 % (42.2-75.2) H 03/19/24 13:41
Lymphocytes % 1.4 % (20.5-51.1) L 03/19/24 13:41
Monocytes % 1.0 % (1.7-9.3) L 03/19/24 13:41
Eosinophils % 0.2 % (0-6) 03/19/24 13:41
Basophils % 0.2 % (0-2) 03/19/24 13:41
Creatinine 1.4 mg/dL (0.6-1.0) H 03/22/24 04:36
Vital Signs
Vital Signs
Temp Pulse Resp BP Pulse Ox
97.8 F 82 18 117/46 94
03/22/24 03:05 03/22/24 09:30 03/22/24 07:00 03/22/24 09:30 03/22/24 07:00
--- NOTE | 2024-03-22 10:57 | W.PN.ID1 ---
Date of Service
Date of Service: March 22, 2024
Today's Communication
Transition po doxycycline and cefepime (d4) to Levofloxacin 750mg po q48 (renally dosed) for 2 doses.
Assessment / Plan
# Possible pneumonia
- Productive cough, worsening SOB
-Chest CT minimal EMILY groundglass opacity which is non-specific
-Sputum for cx (unable to produce)
- Transition po doxycycline and cefepime (d4) to Levofloxacin 750mg po q48 (renally dosed) x 2 doses to complete 7 days total antibiotic course.
# Leukocytosis resolved.
- bcx neg
# Severe thrombocytopenia with epistaxis, hemoptysis, gross hematuria
- Eliquis held.
- For plt transfusion as per Hem/Onc
# Esophageal cancer with liver mets on chemo, new regimen started 03/16
- Transfer to [facility] per hospitalist
# hx splenectomy
- per pt, up to date with vaccines.
#Additional Past Medical History:
Esophageal cancer (dx 2021) with metastatic lesion to liver,, on chemo at [facility]
remote Hodgkin's lymphoma status post abd surgery and radiation (20s)
Splenectomy
Adrenal insufficiency on steroid
POTS
Radiation pneumonitis
CKD3
PE
Breast cancer status post modified right mastectomy, chemo and XRT
Hypertension
Hyperlipidemia
Pulmonary fibrosis
Hypothyroidism
Valvular heart disease - Mitral regurgitation, aortic regurgitation
CAD s/p PCI stent
HFpEF
Lymphedema
CVA
IBS
SBO
Hysterectomy with ovary removed
Breast reconstruction
Chief Complaint
-: Pneumonia
Subjective / Review of Systems
c/o nose bleed, hematuria, coughing up mucous with blood
Vital Signs / Physical Exam
Vital Signs
Vital Signs
Temp Pulse Resp BP Pulse Ox
98.0 F 90 18 122/56 94
03/22/24 10:43 03/22/24 10:43 03/22/24 10:43 03/22/24 10:43 03/22/24 07:00
Physical Exam
Constitutional: Acutely Ill
Eyes: Sclera Anicteric
Cardiovascular: Regular Rate and S1/S2
Pulmonary: Clear
Gastrointestinal: Soft, Distended and Normal Bowel Sounds
Extremities: Edema
Neurological: AO x 3
Lines: Port (RCW no erythema)
Objective Data
Lab Data
Lab Results
03/22/24 04:36
03/22/24 04:36
Estimated Creat Clear 36 ml/min 03/22/24 04:36
Lactic Acid 2.0 mmol/L (0.7-2.0) 03/20/24 01:59
Total Bilirubin 1.5 mg/dl (0.2-1.3) H 03/22/24 04:36
AST 36 U/L (14-36) 03/22/24 04:36
ALT 43 U/L (0-35) H 03/22/24 04:36
Alkaline Phosphatase 274 U/L (38-126) H 03/22/24 04:36
Most recent labs reviewed.
Micro Results:
03/21/24 13:57 Urine Culture - Final
Urine NO GROWTH
03/19/24 18:33 Blood Culture - Preliminary
Blood/Venous No Growth in 48 hours- Final report to follow
03/19/24 15:13 Blood Culture - Preliminary
Blood/Venous No Growth in 48 hours- Final report to follow
03/19/24 22:36 Legionella Urinary Antigen - Final
Urine Negative for Legionella pneumophila Serogroup 1 antigen.
A negative result does not rule out the possiblity of
Legionella infection due to other serogroups or species of
Legionella. Clinical correlation is recommended.
Streptococcus pneumoniae Antigen (M - Final
Negative for Streptococcus pneumoniae antigen.
A negative result does not exclude infection with
Streptococcus pneumoniae. Clinical correlation is
recommended.
03/19/24 CT chest wo: Small right pleural effusion. Minimal groundglass opacity within the left upper lobe, which may represent pneumonia/atypical infection or subsegmental atelectasis. Innumerable hepatic metastases, also seen on recent prior
abdominal ultrasound dated 03/15/2024.
Care Review
Plan reviewed with: Physician (Dr. Allen)
--- NOTE | 2024-03-22 11:04 | W.PN.HOSP.TC ---
Addendum entered and electronically signed by Humberto Allen MD 03/22/24 15:09:
Dictation- [id number]
Addendum entered and electronically signed by Humberto Allen MD 03/22/24 14:28:
Spoke to POA and updated.
Original Note:
Today's Communication/Plan
-
Platelets
AB
Transfer to [facility]
Assessment / Plan
Assessment / Plan
Late Documentation. Pt seen earlier.
CVS: S1-S2 normal, sm at apex
Chest: Few rales at bilateral bases
Abdomen: Soft, Bowel sounds present
Extremities: No edema
GENERATOR TECHNICIAN: Non focal exam
#Epistaxis- Transfuse platelets
-Now stopped
-Hold ASA and Eliquis
#Cough/shortness of breath/acute hypoxic respiratory insufficiency likely from atypical pneumonia
-Severe Sepsis as evident by WBC 26, lactic 4.3, tachycardic
-CT chest with impression of small right pleural effusion, left upper lobe opacity which may be atypical pneumonia
-Continue with cefepime and doxycycline
-Lactic acidosis now improved.
-Elevated lactate could be also secondary to poor clearance given liver mets
-Mucinex for cough
-Currently Off O2
-Follow blood culture
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
-Chemo on 03/16; per patient plan for 3 months of chemotherapy (Irinotecan and 5-FU) then followed by chemoembolization
-LFT elevation likely from liver mets
-Follows at [facility] with Dr.Anthony Leon
-Hematology Consulted
# Acute thrombocytopenia likely from chemo
-Hold Eliquis and ASA
-Platelets ordered
# Chronic kidney disease stage IIIb
-Creatinine 1.4 today
-Continue to monitor
# History of congestive heart failure with preserved EF, suspect mild acute on chronic on admission
-On Lasix
-Cardiology evaluation appreciated
-ProBNP elevated
-Recent echo 02/28 with EF 50 to 55%
# History of coronary artery disease
-Status post cardiac stent
-Aspirin Stopped due to low platelets
-Restart ASA when OK with Heme Onc give PCI January 2024
# Muscle spasm
-Valium
# Hyperlipidemia
-Zetia
# History of pulmonary embolism
- Eliquis on Hold
#H/O Radiation pneumonitis
# Anemia of chronic disease and malignancy
#Adrenal insufficiency secondary to surgery/radiation/chemotherapy for Hodgkin's disease
-Continue hydrocortisone
-Per D/W [facility] changed to Stress dose 25 mg Q8H
#Hypothyroidism
-Continue levothyroxine
#Essential hypertension
-Continue metoprolol
# History of hypotension (POTS)
-Midodrine
# History of tachycardia
-Toprol-XL
# History of Hodgkin's disease-status post abdominal surgery and radiation
# GERD
-PPI
# Splenectomy
# Pulmonary fibrosis
#History of small lacunar CVA
-Hold Eliquis and ASA
#Breast cancer status post modified right mastectomy, chemo and XRT -Breast reconstruction
# Lymphedema arm
#Valvular heart disease - Mitral regurgitation, aortic regurgitation
#DVT prophylaxis- Eliquis
#Full Code
D/W RN
D/W ID
Spoke to Dr.Anthony Leon's PA Hayes uBrger at [facility]. Also got a call from her OP Endocrine Dr.Maryann Acosta .
Stress dose steroids ordered per rec from them though BP Stable.
[facility] wanted to transfer her to [facility].
Called transfer center and spoke to Dr. Case who accepted pt.
Pt agreeable for transfer and signed transfer form.
Patient also signed the consent
Called [facility] and left message to update
Total time spent over 65 minutes today
Anticipated Discharge: Within 24 hours
Subjective/Interval History
-
Date of Service: March 22, 2024
Objective Data
-
Labs:
Laboratory Results
03/22/24
04:36
WBC 5.9
Hgb 9.9 L
Hct 30.8 L
Plt Count 14 L* D
Sodium 139
Potassium 3.8
Chloride 102
Carbon Dioxide 31 H
BUN 56 H
Creatinine 1.4 H
Glucose 147 H
Calcium 7.8 L
Total Bilirubin 1.5 H
AST 36
ALT 43 H
Alkaline Phosphatase 274 H
Vital Signs:
Vital Signs
Temp Pulse Resp BP Pulse Ox
98.0 F 90 18 122/56 94
03/22/24 10:43 03/22/24 10:43 03/22/24 10:43 03/22/24 10:43 03/22/24 07:00
I&O
03/21/24 03/22/24 03/23/24
06:59 06:59 06:59
Intake Total 1170 / 1170 720 / 720 0 / 0
Output Total 550 / 550 125 / 125
Balance 620 / 620 595 / 595 0 / 0
--- NOTE | 2024-03-22 11:47 | W.PN.CARDCBS ---
Addendum entered and electronically signed by Clarissa Javier DO 03/22/24 18:14:
I saw and examined the patient.
The Chucking Machine Operator's note was reviewed and I agree with the note.
Comment: Patient seen and examined. Chart and telemetry/labs reviewed. Plan to transfer to [facility] today
GEN: NAD, AAOx3
HEENT: dried blood B/L nares, mmm
LUNGS: Bronchovesicular breath sounds, decreased bilaterally. Port anterior chest wall
CV: Regular, positive S1-S2 2/6 SM
ABD: Soft, nontender, positive bowel sounds
EXT: +1 B/L LE edema and B/L UE edema right worse than left.
Plan:
She called her oncologist at [facility] and they want her transferred, Dr. Allen arranging
Platelet count down to 14 on 03/22/24. Patient with epistaxis and reported hematuria. Plt transfusion ordered
Patient also being treated for PNA
Patient with chest pain 03/21/24 and Troponin serially undetectable
Patient is s/p 3.5 mm Xience mid LAD and 3.0 mm Xience ostial RCA 01/18/24. Completed triple therapy with aspirin 81 mg daily, Plavix 75 mg daily and Eliquis 5 mg BID for 1 week (stopped 01/26/24).
-Off OAC and antiplatelet agents with thrombocytopenia
-Cont Zetia 10 mg daily since 01/2024 admission. Patient was not started on statin due to liver mets. LDL 121.
-Pro-BNP up to 3750 so patient was given a dose of Lasix 40 mg IV x1 03/20/24 and weight is down 2 lbs. Will cont Lasix PO for now
Original Note:
Today's Communication / Plan
-
She called her oncologist at [facility] and they want her transferred, Dr. Allen arranging
Plt transfusion ordered as well
From CV standpoint will cont Lasix PO for now
Impression / Plan
-
PCP: Dr. Munoz
Cardiology: Dr. Rossy Ronquillo
Onc: Dr. Godinez at [facility] [phone]
Impression:
Presented 03/19/2024 with worsening SOB
Multifactorial MONTANEZ
Acute PNA
Acute on chronic HFpEF, proBNP 3650
Anemia, acute on chronic
s/p 1 unit PRBCs 02/21/24
Thrombocytopenia
s/p pack of platelets 03/22/24
CAD
s/p 3.5 mm Xience mid LAD and 3.0 mm Xience ostial RCA 01/18/24
Chronic HFpEF
Chronic orthostasis, started midodrine 02/03/24
h/o mantle radiation for Non-Hodgkin's lymphoma age 30
h/o breast cancer treated with mastectomy, Cytoxan, methotrexate and 5-FU 1997
Esophageal cancer with liver mets, unable to undergo chemoembolization due to enlarging met size, instead given FOLFOX at [facility] 03/16/24
Chronic B/L UE lymphedema
PE 08/08/22
Chronic Eliquis OAC, last dose 01/17/24 AM
h/o CVA 08/02/20
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
Mod AI without
HTN
Hyperlipidemia
Echo 11/22/23: EF 55-60%, GLS -14.2% (previously -18% 08/2023), mod eccentric MR, mod aortic regurgitation
Echo 02/22/24: EF 50-55%, GLS -15.8%, mod MR, mod to sev AR, mod TR with PAP 33 mmHg
Plan:
-Platelet count down to 14 on 03/22/24. Patient with epistaxis and reported hematuria. Hospitalist attending has ordered platelets for transfusion.
-Patient called her Heme/Onc at [facility] and they are going to accept patient as a transfer 03/22/24.
-Patient had FOLFOX at [facility] 03/16/24. Unfortunately her liver met had enlarged too much to receive the previously planned hepatic chemoembolization.
-Local Heme/Onc saw patient for consult 03/22/24 and recommended stress dose steroids in addition to transfusion. Cytopenias felt to be from chemo, patient was given FOLFOX 03/16/24
-pro-BNP up to 3750 so patient was given a dose of Lasix 40 mg IV x1 03/20/24 and weight is down 2 lbs.
-Patient also being treated for PNA
-Patient with chest pain 03/21/24 and Troponin serially undetectable
-Patient is s/p 3.5 mm Xience mid LAD and 3.0 mm Xience ostial RCA 01/18/24. Completed triple therapy with aspirin 81 mg daily, Plavix 75 mg daily and Eliquis 5 mg BID for 1 week (stopped 01/26/24). Then Plavix was stopped and aspirin was started
02/18/24 in anticipation of chemoembolization. Plan is for long-term Eliquis and aspirin.
-Cont Zetia 10 mg daily since 01/2024 admission. Patient was not started on statin due to liver mets. LDL 121.
HPI 03/20/2024:
Patient came to [facility] yesterday with recurrent SOB and is now admitted with PNA and possible acute HF so cardiology is being consulted. Patient with h/o NHL with mantle radiation at age 30 then later she had breast cancer and now she is battling
esophageal cancer with mets to liver. Patient is scheduled to undergo chemoembolization therapy directed at the liver at [facility] 03/01/24. Patient also with a h/o PE in 08/2022 and takes Eliquis. Patient previously had lacunar infarcts on MRI brain, but
there is no known h/o atrial arrhythmia. Earlier this year patient was sent to [facility] from cardiology office 01/17/24 with MONTANEZ and at that time patient had R/LHC and PCWP was 24 so she was diuresed. There was LAD and ostial RCA disease on cath so she
had PCI. Overall situation was complicated because patient needed to have chemoembolization of liver mets so a plan for interrupting DAPT and Eliquis was made. Patient was discharged to home 01/19/24 and was back in the ER 02/03/24 and that was also
after a cardiology office visit. On 02/03/24 the patient was seen in the office and was orthostatic and complained of MONTANEZ and it was felt that orthostasis might be contributing to symptoms so she was started on midodrine and sent to [facility] for IVFs and
then discharged to home. Patient was in the ER again after a cardiology visit 02/21/24 and this time was given a unit of PRBCs, diuresed and then discharged to home on 02/24/24. Patient was seen at [facility] 03/01/24 and was not able to receive
chemoembolization because the met had enlarged. Patient was seen in the ER again 03/14/24 for vomiting and abdominal pain that was treated with Zofran IV, IVFs, Compazine and morphine. Patient was also given a dose of Monurol for possible UTI and then
discharged to home. Patient then had her 5-FU chemo at [facility], which was in place of the previously planned hepatic chemoembolization, on 03/16/24. Patient was in the ER 03/18/24 with SOB and was given a dose of Lasix 20 mg IV x1 for possible
acute HF and started on doxycycline for possible PNA. Patient was again discharged to home and returned yesterday with increased SOB and was admitted with hypoxia, increased leukocytosis and is now being treated with Zosyn for PNA. Patient thinks
her LE edema is worse and feels that after taking her usual dose of Lasix 20 mg MWF yesterday that she urinated more than usual making her think she is in fact volume overloaded.
-pro-BNP up to 3750, increased LE edema and patient reports increased urine output with Lasix 20 mg PO at home yesterday. Will give a dose of Lasix 40 mg IV x1 now and plan on dosing Lasix on a daily basis pending symptoms and Cre.
Progress Note - Chief Counsel
Subjective
Date of Service: March 22, 2024
She feels weak, her nose is bleeding
Objective
Labs:
03/22/24 04:36
03/22/24 04:36
Labs
Hgb 9.9 g/dL (12.0-16.0) L 03/22/24 04:36
Hct 30.8 % (37.0-47.0) L 03/22/24 04:36
Plt Count 14 10^3/uL (130-400) L* D 03/22/24 04:36
Sodium 139 mmol/L (135-145) 03/22/24 04:36
Potassium 3.8 mmol/L (3.5-5.1) 03/22/24 04:36
BUN 56 mg/dl (7-17) H 03/22/24 04:36
Creatinine 1.4 mg/dL (0.6-1.0) H 03/22/24 04:36
Glucose 147 mg/dl (70-99) H 03/22/24 04:36
Troponins
03/19/24 03/21/24 03/21/24
13:41 10:25 15:39
Troponin I 0.016 < 0.012 < 0.012
Vital Signs and I&O:
Vital Signs
Temp Pulse Resp BP Pulse Ox
97.6 F 90 16 129/53 94
03/22/24 11:08 03/22/24 11:08 03/22/24 11:08 03/22/24 11:08 03/22/24 07:00
Vital Signs
Temp Pulse Resp BP Pulse Ox
97.6 F 90 16 129/53 94
03/22/24 11:08 03/22/24 11:08 03/22/24 11:08 03/22/24 11:08 03/22/24 07:00
Intake & Output
03/20/24 03/21/24 03/22/24 03/23/24
06:59 06:59 06:59 06:59
Intake Total 600 / 600 1170 / 1170 720 / 720 0 / 0
Output Total 275 / 275 550 / 550 125 / 125
Balance 325 / 325 620 / 620 595 / 595 0 / 0
Physical Exam
Physical Exam
GEN: NAD, AAOx3
HEENT: dried blood B/L nares, EOMI
LUNGS: No audible wheeze
CV: SR on tele
ABD: ND
EXT: +1 B/L LE edema and B/L UE edema right worse than left.
NEURO: Gross non-focal
SKIN: No rash
[2024-03-22 12:02] LABS: Glycohemoglobin (HgbA1c) 6.7 % (4.0-5.6)
[2024-03-22 12:05] LABS: Glucose - Point of Care 156 mg/dl (70-99)
--- NOTE | 2024-03-22 13:43 | CM ---
Per Dr. Bridges, Beth is to be transferred to [facility] when a bed is available. Transfer template completed and sent to [facility] RN. Transportation form completed and given to Carpet Inspector Finished for coordination.
Attempted to provide Beth with the IMM, however she refused and did not want to speak with Case Management. I reviewed the IMM verbaly with the patient. RN aware of same.
Plan: Await transfer to [facility] when bed availabe.
--- NOTE | 2024-03-22 15:05 | PN.CDI ---
CDI
- -
CDI:
Physician Documentation Request
Admit Date: 03/19/24 17:03
Dear Doctor Tiffany,
Patient admitted with severe sepsis.
03/22 PN, 'Epistaxis- Transfuse platelets-Now stopped-Hold ASA and Eliquis.'
Please clarify the likely relationship between these conditions:
Yes, epistaxis is associated with/ enhanced by Eliquis and ASA.
No, epistaxis is not associated with/ enhanced by Eliquis and ASA but it is due to ___. (Please specify)
Unable to determine
Use of terms such as suspected, likely, concern for, or probable (associated with a specific diagnosis that is being evaluated, monitored, or treated as if it exists) are acceptable and can be coded in the inpatient setting, when documented at the
time of discharge.
Thank you,
Alice CHAN,RN,CCDS
CDI Specialist
Available via Rosie text
Please use your independent medical judgment in providing your response.
[2024-03-22] MEDS: LEVAQUIN 750 MG PO (15:31)
[2024-03-22] MEDS: IMODIUM 2 MG PO (15:31)
[2024-03-22] MEDS: SOLU-CORTEF 25 MG IV ×2 (15:33→23:24)
[2024-03-22 16:33] LABS: Glucose - Point of Care 208 mg/dl (70-99)
[2024-03-22] MEDS: VALIUM 2 MG PO (17:41)
[2024-03-22] MEDS: PEPCID 20 MG PO (20:13)
[2024-03-22] MEDS: BACTROBAN 2% OINTMENT NASAL (20:14)
[2024-03-22 21:48] LABS: Glucose - Point of Care 282 mg/dl (70-99)
[2024-03-22] MEDS: LIDOCAINE 4% PATCH 1 PATCH TOPICAL (22:19)
[2024-03-22] MEDS: FLUSH (NSS) 1 FLUSH IV (23:25)
[2024-03-23] VITALS (9 sets, daily range): BP systolic 102–148; BP diastolic 39–56; BMI 24.7
[2024-03-23] MEDS: FLUSH (NSS) 1 FLUSH IV (04:21)
[2024-03-23] MEDS: COMPAZINE 5 MG IV (04:21)
[2024-03-23] MEDS: SYNTHROID 88 MCG PO (04:22)
[2024-03-23 04:54] LABS: Hematocrit 25.5 % (37.0-47.0); Hemoglobin 8.5 g/dL (12.0-16.0); Mean Corp Hgb Conc. 33.3 g/dL (33.0-37.0); Mean Corpuscular Hgb 27.2 pg (27.0-31.0); Mean Corpuscular Volume 81.7 fL (81.0-99.0); Red Blood Cell Count 3.12 10^6/uL (4.20-5.40); Red Cell Dist. Width 26.8 % (11.5-14.5); White Blood Cell Count 4.4 10^3/uL (4.8-10.8)
[2024-03-23 05:06] LABS: ALT (SGPT) 36 U/L (0-35); AST (SGOT) 31 U/L (14-36); Albumin 3.1 g/dl (3.5-5.0); Alkaline Phosphatase 239 U/L (38-126); Blood Urea Nitrogen 52 mg/dl (7-17); Carbon Dioxide 32 mmol/L (22-30); Chloride 101 mmol/L (98-107); Estimated Creatinine Clearance 38 ml/min; Glucose 171 mg/dl (70-99); Potassium 3.9 mmol/L (3.5-5.1); Sodium 138 mmol/L (135-145); Total Bilirubin 1.3 mg/dl (0.2-1.3); Total Protein 5.8 g/dl (6.3-8.2); eGFR 45.35
[2024-03-23 05:08] LABS: Platelet Count 18 10^3/uL (130-400)
--- NOTE | 2024-03-23 05:54 | PTCARENOTE ---
Patient would like to keep the lidocaine patch, doesn't want to remove at this time. will pass to next shift.
[2024-03-23 07:25] LABS: Glucose - Point of Care 185 mg/dl (70-99)
[2024-03-23] MEDS: FEOSOL 325 MG PO (10:03)
[2024-03-23] MEDS: BACTROBAN 2% OINTMENT 1 APPLIC NASAL (10:03)
[2024-03-23] MEDS: ProAmatine 2.5 MG PO ×2 (10:03→17:39)
[2024-03-23] MEDS: PROTONIX 20 MG PO ×2 (10:11→17:41)
[2024-03-23] MEDS: SOLU-CORTEF 25 MG IV ×2 (10:14→17:40)
[2024-03-23] MEDS: TOPROL XL 12.5 MG PO ×2 (10:15→21:09)
[2024-03-23] MEDS: ZETIA 10 MG PO (10:15)
[2024-03-23] MEDS: LASIX 20 MG PO (10:17)
--- NOTE | 2024-03-23 11:34 | W.PN.ID1 ---
Date of Service
Date of Service: March 23, 2024
Today's Communication
Tomorrow is last dose of levofloxacin.
ID will sign off. Call prn.
Assessment / Plan
# Possible pneumonia
- Productive cough, worsening SOB
-Chest CT minimal EMILY groundglass opacity which is non-specific
- s/p doxycycline and cefepime
- Transitioned to Levofloxacin 750mg po q48 (renally dosed) last dose 03/24 to complete 7 days total antibiotic course.
# Loose stool x 1, resolved.
- dc C. diff order.
# Leukocytosis resolved.
- bcx neg
# Severe thrombocytopenia with epistaxis, hemoptysis, gross hematuria
- Eliquis held.
- For plt transfusion as per Hem/Onc
# Esophageal cancer with liver mets on chemo, new regimen started 03/16
- Awaiting transfer to [facility]
# hx splenectomy
- per pt, up to date with vaccines.
ID will sign off.
#Additional Past Medical History:
Esophageal cancer (dx 2021) with metastatic lesion to liver,, on chemo at [facility]
remote Hodgkin's lymphoma status post abd surgery and radiation (20s)
Splenectomy
Adrenal insufficiency on steroid
POTS
Radiation pneumonitis
CKD3
PE
Breast cancer status post modified right mastectomy, chemo and XRT
Hypertension
Hyperlipidemia
Pulmonary fibrosis
Hypothyroidism
Valvular heart disease - Mitral regurgitation, aortic regurgitation
CAD s/p PCI stent
HFpEF
Lymphedema
CVA
IBS
SBO
Hysterectomy with ovary removed
Breast reconstruction
Chief Complaint
-: Pneumonia
Subjective / Review of Systems
Still with nose bleed. Hemoptysis last night.
Cough better.
Had loose stool x 1 yesterday,none since.
Vital Signs / Physical Exam
Vital Signs
Vital Signs
Temp Pulse Resp BP Pulse Ox
97.6 F 81 16 131/54 97
03/23/24 11:00 03/23/24 11:00 03/23/24 11:00 03/23/24 11:00 03/23/24 11:00
Physical Exam
Constitutional: Comfortable and Chronically Ill
Eyes: Sclera Anicteric
Cardiovascular: Regular Rate and S1/S2
Pulmonary: Clear
Gastrointestinal: Soft, Non Tender, Non Distended and Normal Bowel Sounds
Extremities: Edema
Neurological: AO x 3
Lines: Port (RCW no erythema)
Objective Data
Lab Data
Lab Results
03/23/24 04:19
03/23/24 04:19
Estimated Creat Clear 38 ml/min 03/23/24 04:19
Lactic Acid 2.0 mmol/L (0.7-2.0) 03/20/24 01:59
Total Bilirubin 1.3 mg/dl (0.2-1.3) 03/23/24 04:19
AST 31 U/L (14-36) 03/23/24 04:19
ALT 36 U/L (0-35) H 03/23/24 04:19
Alkaline Phosphatase 239 U/L (38-126) H 03/23/24 04:19
Most recent labs reviewed.
Micro Results:
03/19/24 18:33 Blood Culture - Preliminary
Blood/Venous No Growth in 72 hours- Final report to follow
03/19/24 15:13 Blood Culture - Preliminary
Blood/Venous No Growth in 72 hours- Final report to follow
03/21/24 13:57 Urine Culture - Final
Urine NO GROWTH
03/19/24 22:36 Legionella Urinary Antigen - Final
Urine Negative for Legionella pneumophila Serogroup 1 antigen.
A negative result does not rule out the possiblity of
Legionella infection due to other serogroups or species of
Legionella. Clinical correlation is recommended.
Streptococcus pneumoniae Antigen (M - Final
Negative for Streptococcus pneumoniae antigen.
A negative result does not exclude infection with
Streptococcus pneumoniae. Clinical correlation is
recommended.
03/19/24 CT chest wo: Small right pleural effusion. Minimal groundglass opacity within the left upper lobe, which may represent pneumonia/atypical infection or subsegmental atelectasis. Innumerable hepatic metastases, also seen on recent prior
abdominal ultrasound dated 03/15/2024.
[2024-03-23 12:08] LABS: Glucose - Point of Care 181 mg/dl (70-99)
[2024-03-23] MEDS: NSS 1000 IV (14:23)
--- NOTE | 2024-03-23 14:43 | CM ---
disease case manager rn following for d/c planning
Pt to be transferred to [facility] when bed available
CM will be available as needed
Plan - Transfer to [facility] when bed available
--- NOTE | 2024-03-23 14:51 | W.PN.HOSP.TC ---
Addendum entered and electronically signed by Didier Alonzo MD 03/23/24 16:45:
Gross hematuria secondary to thrombocytopenia and Eliquis.
Urine culture from 03/21 with no growth while on antibiotics.
Continue bladder scan monitoring for retention.
Avoid SC awful like catheterization in the settings of thrombocytopenia unless absolutely necessary for retention.
Original Note:
Today's Communication/Plan
-
Complete antibiotic course through 03/24.
Transfuse additional unit of platelets given ongoing epistaxis
Follow CBC
Continue stress dose of steroids.
Ongoing intermittent diarrhea likely related to recent chemotherapy. Low oral intake. IV fluid support.
Pending transfer to [facility]
Assessment / Plan
Assessment / Plan
#Epistaxis- Transfuse platelets to keep above 25k
-Now stopped
-Hold ASA and Eliquis
#Cough/shortness of breath/acute hypoxic respiratory insufficiency likely from atypical pneumonia
-Severe Sepsis as evident by WBC 26, lactic 4.3, tachycardic
-CT chest with impression of small right pleural effusion, left upper lobe opacity which may be atypical pneumonia
-Initially on broad-spectrum antibiotics cefepime/doxycycline consolidated to levofloxacin as per ID to complete course through 03/24.
-Lactic acidosis now improved.
-Elevated lactate could be also secondary to poor clearance given liver mets
-Mucinex for cough
-Currently Off O2
-Follow blood culture
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
-Chemo on 03/16; per patient plan for 3 months of chemotherapy (Irinotecan and 5-FU) then followed by chemoembolization
-LFT elevation likely from liver mets
-Follows at [place] with Dr.Anthony Leon
-Hematology Consulted
# Acute thrombocytopenia likely from chemo
-Hold Eliquis and ASA
-Platelets ordered
# Chronic kidney disease stage IIIb
-Creatinine 1.4 today
-Continue to monitor
# History of congestive heart failure with preserved EF, suspect mild acute on chronic on admission
-On Lasix
-Cardiology evaluation appreciated
-ProBNP elevated
-Recent echo 02/28 with EF 50 to 55%
# History of coronary artery disease
-Status post cardiac stent
-Aspirin Stopped due to low platelets
-Restart ASA when OK with Heme Onc give PCI January 2024
# Muscle spasm
-Valium
# Hyperlipidemia
-Zetia
# History of pulmonary embolism
- Eliquis on Hold
#H/O Radiation pneumonitis
# Anemia of chronic disease and malignancy
#Adrenal insufficiency secondary to surgery/radiation/chemotherapy for Hodgkin's disease
-Continue hydrocortisone
-Per D/W [facility] changed to Stress dose 25 mg Q8H
#Hypothyroidism
-Continue levothyroxine
#Essential hypertension
-Continue metoprolol
# History of hypotension (POTS)
-Midodrine
# History of tachycardia
-Toprol-XL
# History of Hodgkin's disease-status post abdominal surgery and radiation
# GERD
-PPI
# Splenectomy
# Pulmonary fibrosis
#History of small lacunar CVA
-Hold Eliquis and ASA
#Breast cancer status post modified right mastectomy, chemo and XRT -Breast reconstruction
# Lymphedema arm
#Valvular heart disease - Mitral regurgitation, aortic regurgitation
#DVT prophylaxis- Eliquis
#Full Code
D/W RN
D/W ID
Discussed with Dr.Anthony Leon's PA Hayes Burger at [facility]. Also got a call from her OP Endocrine Dr.Maryann Acosta .
Stress dose steroids ordered per rec from them though BP Stable.
[facility] wanted to transfer her to [facility].
Called transfer center and spoke to Dr. Case who accepted pt.
Pt agreeable for transfer and signed transfer form.
Patient also signed the consent
Called [facility] and left message to update
Total time spent over 65 minutes today
Anticipated Discharge: Within 24 hours
Subjective/Interval History
-
Date of Service: March 23, 2024
Objective Data
-
Labs:
Laboratory Results
03/23/24
04:19
WBC 4.4 L
Hgb 8.5 L
Hct 25.5 L
Plt Count 18 L* D
Sodium 138
Potassium 3.9
Chloride 101
Carbon Dioxide 32 H
BUN 52 H
Creatinine 1.3 H
Glucose 171 H
Calcium 8.0 L
Total Bilirubin 1.3
AST 31
ALT 36 H
Alkaline Phosphatase 239 H
Vital Signs:
Vital Signs
Temp Pulse Resp BP Pulse Ox
97.6 F 81 16 131/54 97
03/23/24 11:00 03/23/24 11:00 03/23/24 11:00 03/23/24 11:00 03/23/24 11:00
I&O
03/22/24 03/23/24 03/24/24
06:59 06:59 06:59
Intake Total 720 / 720 990 / 990
Output Total 125 / 125
Balance 595 / 595 990 / 990
Physical Exam
-
General: Well Developed and No Apparent Distress
HEENT: Normocephalic, Atraumatic and Moist Mucous Membranes
Respiratory: Clear to Auscultation
Cardiac: Regular Rhythm and S1/S2; Negative Murmur, Rub or Gallop
GI: Soft, Nontender, Nondistended and Normal Bowel Sounds; Negative Organomegaly
Rectal: Deferred by Provider
Musculoskeletal: No Clubbing, No Cyanosis and No Edema
Skin: Negative Rash
Neuro: Nonfocal/Grossly Intact
--- NOTE | 2024-03-23 16:37 | PTCARENOTE ---
Pt with dark maroon urine. No clots present. Bladder scan - 272ml urine in bladder. Dr Alonzo made aware. Waiting on PLT's from [place].
[2024-03-23 16:45] LABS: Glucose - Point of Care 279 mg/dl (70-99)
[2024-03-23] MEDS: NOVOLOG FLEXPEN-LOW RESISTANCE 3 UNITS SC (17:59)
[2024-03-23] MEDS: BACTROBAN 2% OINTMENT NASAL (21:03)
[2024-03-23] MEDS: PEPCID 20 MG PO (21:08)
[2024-03-23 21:26] LABS: Glucose - Point of Care 145 mg/dl (70-99)
[2024-03-23] MEDS: LIDOCAINE 4% PATCH 1 PATCH TOPICAL (22:41)
[2024-03-24] VITALS (12 sets, daily range): BP systolic 115–153; BP diastolic 45–68; BMI 24.9
[2024-03-24] MEDS: SOLU-CORTEF 25 MG IV ×3 (00:03→18:20)
--- NOTE | 2024-03-24 01:11 | PTCARENOTE ---
Patient received 1 unit platelets, no s/s of transfusion reaction. Patient tolerated well.
[2024-03-24 05:10] LABS: Hematocrit 23.9 % (37.0-47.0); Hemoglobin 7.7 g/dL (12.0-16.0); Mean Corp Hgb Conc. 32.2 g/dL (33.0-37.0); Mean Corpuscular Hgb 26.4 pg (27.0-31.0); Mean Corpuscular Volume 81.8 fL (81.0-99.0); Red Blood Cell Count 2.92 10^6/uL (4.20-5.40); Red Cell Dist. Width 26.7 % (11.5-14.5); White Blood Cell Count 3.9 10^3/uL (4.8-10.8)
[2024-03-24 05:20] LABS: Platelet Count 24 10^3/uL (130-400)
[2024-03-24 05:38] LABS: ALT (SGPT) 31 U/L (0-35); AST (SGOT) 30 U/L (14-36); Albumin 2.8 g/dl (3.5-5.0); Alkaline Phosphatase 226 U/L (38-126); Blood Urea Nitrogen 48 mg/dl (7-17); Calcium 7.6 mg/dl (8.4-10.2); Carbon Dioxide 33 mmol/L (22-30); Chloride 101 mmol/L (98-107); Estimated Creatinine Clearance 38 ml/min; Glucose 161 mg/dl (70-99); Potassium 3.4 mmol/L (3.5-5.1); Sodium 141 mmol/L (135-145); Total Bilirubin 1.1 mg/dl (0.2-1.3); Total Protein 5.2 g/dl (6.3-8.2); eGFR 45.35
[2024-03-24] MEDS: NSS 1000 IV (06:11)
[2024-03-24] MEDS: SYNTHROID 88 MCG PO (06:12)
--- NOTE | 2024-03-24 06:18 | W.PN.UPDATE ---
Update Note
Progress Note Update
Plt result this am is 24k, one unit of Platelets was ordered as recommended per attending to keep platelets above 25k.
[2024-03-24 08:08] LABS: Glucose - Point of Care 193 mg/dl (70-99)
[2024-03-24] MEDS: NOVOLOG FLEXPEN-LOW RESISTANCE 1 UNITS SC ×2 (10:08→17:01)
[2024-03-24] MEDS: ProAmatine 2.5 MG PO ×2 (10:13→16:51)
[2024-03-24] MEDS: FEOSOL PO ×2 (10:13→10:30)
[2024-03-24] MEDS: ZETIA 10 MG PO (10:13)
[2024-03-24] MEDS: TOPROL XL 12.5 MG PO ×2 (10:14→20:24)
[2024-03-24] MEDS: BACTROBAN 2% OINTMENT NASAL ×2 (10:15→20:22)
--- NOTE | 2024-03-24 10:16 | W.PN.ONC2 ---
Today's Communication / Plan
-
- give 1 unit plts, 1 unit pRBCs today.
- continue to hold eliquis
- CBC daily
Impression
Impression
Progressive bicytopenia postchemotherapy anemia and thrombocytopenia
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
Chronic tachycardia
POTS
Hyperlipidemia
Adrenal insufficiency
History of lacunar cerebrovascular accident
History of TIA
Type 2 diabetes
Breast cancer
Squamous cell esophageal cancer
Pulmonary fibrosis
Compression fracture of L4 vertebra
History of Hodgkin's disease
Basal cell carcinoma lymphedema
Pulmonary embolism
Coronary artery disease
Hypothyroidism
Osteopenia
Depression
CHF
Plan
Plan
Stress dose steroids Solu-Cortef 50 mg IV every 8 now reduced to 25 mg every 8
Plt 24K this am and 1 unit plts ordered. Agree with additional dose of platelets today with new hematuria however if hematuria improving can maintain transfusion threshold at platelets<20
Transfuse hemoglobin<8.0 g/dL
Continue antibiotic coverage as per ID
Presumably cytopenias are secondary to chemotherapy +/- exacerbated by infection.
continue to hold eliquis until plts stable > 50K and no ongoing bleeding symptoms
Subjective/Objective
Chief Complaint
esophageal cancer, pancytopenia
Subjective
pt is feeling better this am, was able to eat and keep everything down. She developed traumatic hematuria yesterday with mild ongoing painless hemturia this am. epistaxis improved. Denies fevers, chills.
Vital Signs:
Vital Signs
Temp Pulse Resp BP Pulse Ox
97.6 F 79 16 115/45 100
03/24/24 08:48 03/24/24 08:48 03/24/24 08:48 03/24/24 08:48 03/24/24 07:46
Lab Results:
Laboratory Data
WBC 3.9 10^3/uL (4.8-10.8) L 03/24/24 04:25
Hgb 7.7 g/dL (12.0-16.0) L 03/24/24 04:25
Plt Count 24 10^3/uL (130-400) L* D 03/24/24 04:25
eGFR 45.35 03/24/24 04:25
Physical Exam
HEENT: Other (pallor); No Jaundice
Cardiology: Normal Sinus Rhythm
Pulmonary: Clear
GI: Soft; No Distended
Extremities: Edema (RUE lymphedema, no LE edema bilaterally )
Neuro: Non Focal
Review of Systems
Review of Systems
Constitutional: Reports Fatigue; Denies Fever
Cardiovascular: Denies Chest Pain
Gastrointestinal: Denies Nausea/Vomiting
Genitourinary: Reports Hematuria
Orders
Orders
Orders From Last 24 Hours
03/24/24 09:10
Fibrinogen Routine
PT/INR [Prothrombin Time] Routine
PTT Routine
[2024-03-24] MEDS: PROTONIX 20 MG PO ×2 (10:20→16:51)
--- NOTE | 2024-03-24 11:40 | CM ---
residential real estate sales manager following for d/c planning
Pt to be transferred to [facility] when bed available
CM will be available as needed
Plan - Transfer to [facility] when bed available
[2024-03-24 12:00] LABS: Glucose - Point of Care 254 mg/dl (70-99)
[2024-03-24] MEDS: NOVOLOG FLEXPEN-LOW RESISTANCE 3 UNITS SC (12:14)
[2024-03-24 13:04] LABS: INR 2.05
[2024-03-24 13:05] LABS: APTT 35.4 Sec (23.4-35.0); Fibrinogen 448 MG/DL (199-459)
--- NOTE | 2024-03-24 13:14 | W.PN.HOSP.TC ---
Today's Communication/Plan
-
1 U PRBC and plt ordered
finishing course of abx today
awaiting bed at [facility]
Assessment / Plan
Assessment / Plan
#Epistaxis- Transfuse platelets to keep above 25k
-Now stopped
-Hold ASA and Eliquis
#Cough/shortness of breath/acute hypoxic respiratory insufficiency likely from atypical pneumonia
-Severe Sepsis as evident by WBC 26, lactic 4.3, tachycardic
-CT chest with impression of small right pleural effusion, left upper lobe opacity which may be atypical pneumonia
-Initially on broad-spectrum antibiotics cefepime/doxycycline consolidated to levofloxacin as per ID to complete course through 03/24.
-Lactic acidosis now improved.
-Elevated lactate could be also secondary to poor clearance given liver mets
-Remains off of oxygen. Finishing course of antibiotic today.
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
-Chemo on 03/16; per patient plan for 3 months of chemotherapy (Irinotecan and 5-FU) then followed by chemoembolization
-LFT elevation likely from liver mets
-Follows at [place] with Dr.Anthony Leon
-Hematology Consulted
# Pancytopenia
# Acute thrombocytopenia likely from chemo
-Hold Eliquis and ASA
-Patient getting 1 unit of platelet for 24 K
-Hemoglobin is also trending down and 7.7 today. Combination of bone marrow suppression from chemotherapy plus blood loss related
-Ordering 1 u PRBC as well
# Chronic kidney disease stage IIIb
-Creatinine down to 1.3 elevated
-Continue to monitor
# History of congestive heart failure with preserved EF, suspect mild acute on chronic on admission
-On Lasix
-Cardiology evaluation appreciated
-ProBNP elevated
-Recent echo 02/28 with EF 50 to 55%
# History of coronary artery disease
-Status post cardiac stent
-Aspirin Stopped due to low platelets
-Restart ASA when OK with Heme Onc give PCI January 2024
#Adrenal insufficiency secondary to surgery/radiation/chemotherapy for Hodgkin's disease
-Continue hydrocortisone
-Per D/W [facility] changed to Stress dose 25 mg Q8H
Hypothyroidism-Continue levothyroxine
Essential hypertension-Continue metoprolol
History of hypotension (POTS)-Midodrine
History of [id number]
History of Hodgkin's disease-status post abdominal surgery and radiation
GERD-PPI
Splenectomy
Pulmonary fibrosis
History of small lacunar CVA-Hold Eliquis and ASA
Breast cancer status post modified right mastectomy, chemo and XRT -Breast reconstruction
Lymphedema arm
Valvular heart disease - Mitral regurgitation, aortic regurgitation
Muscle spasm -Valium
Hyperlipidemia
History of pulmonary embolism
H/O Radiation pneumonitis
Anemia of chronic disease and malignancy
DVT prophylaxis- Eliquis
Full Code
Anticipated Discharge: Today
Subjective/Interval History
-
Date of Service: March 24, 2024
Hematuria improved
No fever overnight
Denies abdominal pain/nausea/vomiting
No other issues
Objective Data
-
Labs:
Laboratory Results
03/24/24 03/24/24
04:25 12:45
WBC 3.9 L
Hgb 7.7 L
Hct 23.9 L
Plt Count 24 L* D
PT 23.0 H
INR 2.05
APTT 35.4 H
Sodium 141
Potassium 3.4 L
Chloride 101
Carbon Dioxide 33 H
BUN 48 H
Creatinine 1.3 H
Glucose 161 H
Calcium 7.6 L
Total Bilirubin 1.1
AST 30
ALT 31
Alkaline Phosphatase 226 H
Vital Signs:
Vital Signs
Temp Pulse Resp BP Pulse Ox
97.1 F 77 15 127/45 100
03/24/24 11:10 03/24/24 11:10 03/24/24 11:10 03/24/24 11:10 03/24/24 11:10
I&O
03/23/24 03/24/24 03/25/24
06:59 06:59 06:59
Intake Total 990 / 990 579 / 579 247 / 247
Output Total 400 / 400 500 / 500
Balance 990 / 990 179 / 179 -253 / -253
Review of Systems
-
Respiratory: Reports No Symptoms
Cardiac: Reports No Symptoms
Abdomen/GI: Reports No Symptoms
Physical Exam
-
General: No Apparent Distress
HEENT: Negative Oxygen
Respiratory: Clear to Auscultation
GI: Soft, Nontender and Nondistended
Neuro: Awake, Alert and Oriented
Psych: Calm
[2024-03-24] MEDS: LEVAQUIN 750 MG PO (16:50)
[2024-03-24 16:57] LABS: Glucose - Point of Care 199 mg/dl (70-99)
[2024-03-24 21:50] LABS: Glucose - Point of Care 255 mg/dl (70-99)
[2024-03-24] MEDS: NSS IV (21:52)
[2024-03-24] MEDS: LIDOCAINE 4% PATCH 1 PATCH TOPICAL (21:54)
[2024-03-24] MEDS: PEPCID 20 MG PO (21:54)
[2024-03-25] VITALS (9 sets, daily range): BP systolic 124–156; BP diastolic 51–78; BMI 25.4
[2024-03-25] MEDS: SOLU-CORTEF 25 MG IV ×4 (00:01→23:32)
[2024-03-25] MEDS: VALIUM 2 MG PO (02:18)
[2024-03-25] MEDS: SYNTHROID 88 MCG PO (05:53)
[2024-03-25 08:34] LABS: Glucose - Point of Care 247 mg/dl (70-99)
[2024-03-25] MEDS: NOVOLOG FLEXPEN-LOW RESISTANCE 2 UNITS SC (09:03)
[2024-03-25] MEDS: BACTROBAN 2% OINTMENT 1 APPLIC NASAL ×2 (09:06→20:13)
[2024-03-25] MEDS: ZETIA 10 MG PO (09:10)
[2024-03-25] MEDS: TOPROL XL 12.5 MG PO ×2 (09:10→20:13)
[2024-03-25] MEDS: PROTONIX 20 MG PO ×2 (09:11→16:27)
[2024-03-25] MEDS: ProAmatine 2.5 MG PO (09:11)
[2024-03-25] MEDS: FEOSOL 325 MG PO (09:11)
--- NOTE | 2024-03-25 10:28 | W.PN.HOSP.TC ---
Today's Communication/Plan
-
pending transfer
[facility] wants to r/o Cdiff before accepting
discussed with RN
f/u cbc/bmp
Assessment / Plan
Assessment / Plan
#Epistaxis- Transfuse platelets to keep above 25k
-Now stopped
-Hold ASA and Eliquis
#Cough/shortness of breath/acute hypoxic respiratory insufficiency likely from atypical pneumonia
-Severe Sepsis as evident by WBC 26, lactic 4.3, tachycardic
-CT chest with impression of small right pleural effusion, left upper lobe opacity which may be atypical pneumonia
-Initially on broad-spectrum antibiotics cefepime/doxycycline consolidated to levofloxacin as per ID to complete course through 03/24.
-Lactic acidosis now improved.
-Elevated lactate could be also secondary to poor clearance given liver mets
-Remains off of oxygen. Finishing course of antibiotic today.
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
-Chemo on 03/16; per patient plan for 3 months of chemotherapy (Irinotecan and 5-FU) then followed by chemoembolization
-LFT elevation likely from liver mets
-Follows at [place] with Dr.Anthony Leon
-Hematology Consulted
# Pancytopenia
# Acute thrombocytopenia likely from chemo
-Hold Eliquis and ASA
-Hematology considering to possibly provide G-CSF injection
-Got 3 u plt and 1 u prbc today
-Transfuse for Plt < 25 K, pending labs today
-Transfuse prbc for hbg < 7
# Chronic kidney disease stage IIIb
-Creatinine down to 1.3 elevated
-Continue to monitor
# History of congestive heart failure with preserved EF, suspect mild acute on chronic on admission
-On Lasix
-Cardiology evaluation appreciated
-ProBNP elevated
-Recent echo 02/28 with EF 50 to 55%
# History of coronary artery disease
-Status post cardiac stent
-Aspirin Stopped due to low platelets
-Restart ASA when OK with Heme Onc give PCI January 2024
#Adrenal insufficiency secondary to surgery/radiation/chemotherapy for Hodgkin's disease
-Continue hydrocortisone
-Per D/W [facility] changed to Stress dose 25 mg Q8H
# Episode of diarrhea
-Patient having episodic diarrhea. Clinically less likely C. difficile
-[facility] mandated to have neg C. difficile test before could be accepted. [facility] dosent have isolation bed
-Discussed with Hospitalist Dr Dyer and transfer center staff on 03/25 AM
Hypothyroidism-Continue levothyroxine
Essential hypertension-Continue metoprolol
History of hypotension (POTS)-Midodrine
History of [id number]-FT
History of Hodgkin's disease-status post abdominal surgery and radiation
GERD-PPI
Splenectomy
Pulmonary fibrosis
History of small lacunar CVA-Hold Eliquis and ASA
Breast cancer status post modified right mastectomy, chemo and XRT -Breast reconstruction
Lymphedema arm
Valvular heart disease - Mitral regurgitation, aortic regurgitation
Muscle spasm -Valium
Hyperlipidemia
History of pulmonary embolism
H/O Radiation pneumonitis
Anemia of chronic disease and malignancy
DVT prophylaxis- Eliquis
Full Code
Total time spent : 53 mins
Anticipated Discharge: 24 - 48 hours
Subjective/Interval History
-
Date of Service: March 25, 2024
Patient reported to have diarrhea yesterday
Apparently having on and off for last few days
Afebrile
No reported abdominal pain nausea vomiting
Objective Data
-
Labs:
Laboratory Results
03/25/24
08:00
WBC Pending
Hgb Pending
Hct Pending
Plt Count Pending
Sodium Pending
Potassium Pending
Chloride Pending
Carbon Dioxide Pending
BUN Pending
Creatinine Pending
Glucose Pending
Calcium Pending
Vital Signs:
Vital Signs
Temp Pulse Resp BP Pulse Ox
96.9 F L 82 14 131/51 100
03/25/24 07:00 03/25/24 09:11 03/25/24 03:00 03/25/24 09:11 03/25/24 07:00
I&O
03/24/24 03/25/24 03/26/24
06:59 06:59 06:59
Intake Total 579 / 579 1067 / 1067 270 / 270
Output Total 400 / 400 900 / 900
Balance 179 / 179 167 / 167 270 / 270
Review of Systems
-
Respiratory: Reports No Symptoms
Cardiac: Reports No Symptoms
Abdomen/GI: Reports No Symptoms
Physical Exam
-
General: No Apparent Distress
HEENT: Negative Oxygen
Respiratory: Clear to Auscultation
GI: Soft, Nontender and Nondistended
Neuro: Awake, Alert and Oriented
Psych: Calm
[2024-03-25 11:50] LABS: Glucose - Point of Care 270 mg/dl (70-99)
[2024-03-25] MEDS: NOVOLOG FLEXPEN-LOW RESISTANCE 3 UNITS SC (13:06)
--- NOTE | 2024-03-25 15:43 | VATNOTE ---
Labs drawn at this time. Pt due for IV solu-cortef at 1600. Heparin lock held at this time, informed PCN that port is not heparin locked to avoid rapidly re-dosing pt with heparin.
[2024-03-25 15:58] LABS: Hemoglobin 9.6 g/dL (12.0-16.0); Mean Corp Hgb Conc. 33.1 g/dL (33.0-37.0); Mean Corpuscular Volume 81.5 fL (81.0-99.0); Red Blood Cell Count 3.56 10^6/uL (4.20-5.40); Red Cell Dist. Width 24.2 % (11.5-14.5)
[2024-03-25 16:08] LABS: Blood Urea Nitrogen 36 mg/dl (7-17); Calcium 7.7 mg/dl (8.4-10.2); Carbon Dioxide 34 mmol/L (22-30); Chloride 102 mmol/L (98-107); Estimated Creatinine Clearance 50 ml/min; Glucose 192 mg/dl (70-99); Potassium 3.4 mmol/L (3.5-5.1); Sodium 139 mmol/L (135-145); eGFR > 60.00
[2024-03-25 16:27] LABS: Platelet Count 18 10^3/uL (130-400)
[2024-03-25 16:28] LABS: White Blood Cell Count 2.2 10^3/uL (4.8-10.8)
[2024-03-25 16:35] LABS: Glucose - Point of Care 189 mg/dl (70-99)
[2024-03-25] MEDS: NOVOLOG FLEXPEN-LOW RESISTANCE 1 UNITS SC (17:52)
[2024-03-25] MEDS: ProAmatine PO (17:55)
[2024-03-25] MEDS: LIDOCAINE 4% PATCH 1 PATCH TOPICAL (20:27)
[2024-03-25] MEDS: PEPCID 20 MG PO (21:27)
[2024-03-25 21:33] LABS: Glucose - Point of Care 299 mg/dl (70-99)
[2024-03-26 03:00] VITALS: BP 128/57
[2024-03-26 04:52] LABS: Hematocrit 27.3 % (37.0-47.0); Hemoglobin 9.2 g/dL (12.0-16.0); Mean Corp Hgb Conc. 33.7 g/dL (33.0-37.0); Mean Corpuscular Hgb 27.8 pg (27.0-31.0); Mean Corpuscular Volume 82.5 fL (81.0-99.0); Mean Platelet Volume 10.1 fL (7.4-10.4); Platelet Count 53 10^3/uL (130-400); Red Blood Cell Count 3.31 10^6/uL (4.20-5.40); Red Cell Dist. Width 23.9 % (11.5-14.5)
[2024-03-26 04:53] LABS: White Blood Cell Count 1.7 10^3/uL (4.8-10.8)
[2024-03-26 05:51] LABS: Blood Urea Nitrogen 35 mg/dl (7-17); Calcium 7.9 mg/dl (8.4-10.2); Carbon Dioxide 34 mmol/L (22-30); Estimated Creatinine Clearance 55 ml/min; Glucose 201 mg/dl (70-99); Potassium 3.6 mmol/L (3.5-5.1); eGFR > 60.00
[2024-03-26] MEDS: SYNTHROID 88 MCG PO (05:53)
[2024-03-26 06:00] VITALS: BMI 25.3
[2024-03-26 06:05] LABS: Chloride 104 mmol/L (98-107); Sodium 141 mmol/L (135-145)
[2024-03-26 06:59] LABS: % Basophils 0.6 % (0-2); % Eosinophils 0.6 % (0-6); % Immature Granulocytes 1.2 % (0-0.5); % Lymphocytes 37.2 % (20.5-51.1); % Monocytes 1.7 % (1.7-9.3); % Neutrophils 58.7 % (42.2-75.2); Absolute Lymphocytes 0.6 10^3/uL (1.2-3.4); Nucleated Red Blood Cells % 1.7 %
[2024-03-26 07:37] LABS: Glucose - Point of Care 214 mg/dl (70-99)
--- NOTE | 2024-03-26 08:36 | W.PN.UPDATE ---
Update Note
Progress Note Update
epistaxis associated and exacerbated by Eliquis
--- NOTE | 2024-03-26 09:11 | W.PN.ONC2 ---
Today's Communication / Plan
-
Counts adequate today, no transfusions needed.
Now with ANC<1000, neutropenic precautions.
Continue current stress dose steroid and continue to hold Eliquis.
Await transfer to [facility].
Impression
Impression
Progressive bicytopenia postchemotherapy anemia and thrombocytopenia
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
Chronic tachycardia
POTS
Hyperlipidemia
Adrenal insufficiency
History of lacunar cerebrovascular accident
History of TIA
Type 2 diabetes
Breast cancer
Squamous cell esophageal cancer
Pulmonary fibrosis
Compression fracture of L4 vertebra
History of Hodgkin's disease
Basal cell carcinoma lymphedema
Pulmonary embolism
Coronary artery disease
Hypothyroidism
Osteopenia
Depression
CHF
Plan
Plan
Stress dose steroids Solu-Cortef 25 mg IV every 8. Maintain this dose for now. If pt dis not able to transfer to [facility] then would consider starting to taper tomorrow.
Plt 53K this am and 1 unit plts ordered. Continue to hold eliquis until plts stable > 50K and no ongoing bleeding symptoms
Transfuse hemoglobin<8.0 g/dL
Continue antibiotic coverage as per ID
Presumably cytopenias are secondary to chemotherapy +/- exacerbated by infection.
Subjective/Objective
Chief Complaint
Heme/Onc follow up of esophageal cancer, chemo cytopenias complicated by bleeding
Subjective
Pt states still bleeding. Food got stuck in throat this morning. She is for transfer to [facility] pending C.diff test.
Vital Signs:
Vital Signs
Temp Pulse Resp BP Pulse Ox
97.3 F 71 18 128/57 97
03/26/24 03:00 03/26/24 03:00 03/26/24 03:00 03/26/24 03:00 03/26/24 03:00
Lab Results:
Laboratory Data
WBC 1.7 10^3/uL (4.8-10.8) L* 03/26/24 04:29
Hgb 9.2 g/dL (12.0-16.0) L 03/26/24 04:29
Plt Count 53 10^3/uL (130-400) L D 03/26/24 04:29
PT 23.0 Sec (11.4-14.6) H 03/24/24 12:45
INR 2.05 03/24/24 12:45
APTT 35.4 Sec (23.4-35.0) H 03/24/24 12:45
eGFR > 60.00 03/26/24 04:29
Physical Exam
Awake, alert, non-toxic, anxious
Review of Systems
Review of Systems
Constitutional: Reports Fatigue; Denies Fever
Head: Denies Sore Throat or Hearing Loss
Respiratory: Denies Dyspnea or Cough
Cardiovascular: Denies Chest Pain or Palpitations
Gastrointestinal: Reports Diarrhea; Denies Nausea/Vomiting
Genitourinary: Reports Hematuria
Skin: Denies Rash or Pruritis
Neurological: Denies Headache or Numbness
Psychiatric: Denies Depression or Insomnia
Hem/Lymphatic: Reports Easy Bruising; Denies Night Sweats
Orders
Orders
Orders From Last 24 Hours
03/26/24 06:42
Add On- LAB Routine
[2024-03-26] MEDS: TOPROL XL PO (09:22)
[2024-03-26] MEDS: FEOSOL PO (09:22)
[2024-03-26] MEDS: ZETIA PO (09:22)
[2024-03-26] MEDS: ProAmatine PO (09:22)
[2024-03-26] MEDS: LASIX PO (09:22)
[2024-03-26] MEDS: PROTONIX PO (09:22)
[2024-03-26] MEDS: NOVOLOG FLEXPEN-LOW RESISTANCE 2 UNITS SC (09:23)
[2024-03-26] MEDS: SOLU-CORTEF 25 MG IV (09:23)
--- NOTE | 2024-03-26 10:48 | CM ---
CM following re: discharge planning.
Reviewed pt's chart.
Per MD, await transfer to [facility].
D/C plan: transfer to [facility].
[2024-03-26 10:50] VITALS: BP 154/72
--- NOTE | 2024-03-26 11:42 | W.PN.HOSP.TC ---
Addendum entered and electronically signed by Humberto Allen MD 03/26/24 12:31:
offered to talk to SUZANNE, pt declined, says she will be here soon. Pt has my contact in case SUZANNE has questions.
Original Note:
Today's Communication/Plan
-
Change meds to IV
Glucagon and Ativan
Transfer to [facility]
Assessment / Plan
Assessment / Plan
Coughing up and spitting up. Some blood-tinged sputum/saliva. Patient feels that she was able to cough up some scrambled eggs she still feels some food in the mid chest.
CVS: S1-S2 normal
Chest: CTA B/L
Abdomen: Soft, NT / Bowel sounds present
Extremities: No edema
# Dysphagia- Feels 'Food Stuck'
-NPO till GI evaluates
-IVF
-Will order Glucagon
-Did updated [facility] re this.
#Epistaxis- Transfuse platelets to keep above 25k
-Now stopped
-Hold ASA and Eliquis
#Cough/shortness of breath/acute hypoxic respiratory insufficiency likely from atypical pneumonia
-Severe Sepsis as evident by WBC 26, lactic 4.3, tachycardic
-CT chest with impression of small right pleural effusion, left upper lobe opacity which may be atypical pneumonia
-Initially on broad-spectrum antibiotics cefepime/doxycycline consolidated to levofloxacin as per ID to complete course through 03/24.
-Lactic acidosis now improved.
-Elevated lactate could be also secondary to poor clearance given liver mets
-Remains off of oxygen. Finished the course of antibiotics.
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
-Chemo on 03/16; per patient plan for 3 months of chemotherapy (Irinotecan and 5-FU) then followed by chemoembolization
-LFT elevation likely from liver mets
-Follows at [place] with Dr.Anthony Leon
-Hematology Consulted and following
# Pancytopenia
# Acute thrombocytopenia likely from chemo
-Hold Eliquis and ASA
-Hematology considering to possibly provide G-CSF injection
-Got 3 u plt and 1 u prbc today
-Transfuse for Plt < 25 K,
-Transfuse prbc for hbg < 7
# CKD ruled out. GERALDO resolved.
# History of congestive heart failure with preserved EF, suspect mild acute on chronic on admission
-On Lasix
-Cardiology evaluation appreciated
-ProBNP elevated
-Recent echo 02/28 with EF 50 to 55%
# History of coronary artery disease
-Status post cardiac stent
-Aspirin Stopped due to low platelets
-Restart ASA when OK with Heme Onc give PCI January 2024
#Adrenal insufficiency secondary to surgery/radiation/chemotherapy for Hodgkin's disease
-Continue hydrocortisone
-Per D/W [facility] changed to Stress dose 25 mg Q8H, blood pressure seems to be stable and her sugars are rising therefore I will change to Q 12 now , she cannot take PO meds
# Episode of diarrhea
-Patient having episodic diarrhea. Clinically less likely C. difficile
-[facility] mandated to have neg C. difficile test before could be accepted.
- Discussed with Hospitalist Dr Dyer and transfer center staff on 03/25 AM
-I Spoke to Dr Berry today and updated.
-Also spoke to Hayes COVARRUBIAS with Dr Johann May
Hypothyroidism-Continue levothyroxine, IV
Essential hypertension-Continue metoprolol, change to IV
History of hypotension (POTS)-Midodrine
History of tachycardia-Continue metoprolol, change to IV
History of Hodgkin's disease-status post abdominal surgery and radiation
GERD-PPI IV
Splenectomy
Pulmonary fibrosis
History of small lacunar CVA-Hold Eliquis and ASA
Breast cancer status post modified right mastectomy, chemo and XRT -Breast reconstruction
Lymphedema arm
Valvular heart disease - Mitral regurgitation, aortic regurgitation
Muscle spasm -Valium to be held
Hyperlipidemia
History of pulmonary embolism
H/O Radiation pneumonitis
Anemia of chronic disease and malignancy
DVT prophylaxis- SCD
Full Code
Total time spent : 55 mins
Called [facility] Bed flow
I Spoke to Dr Berry today and updated.
Also spoke to Hayes COVARRUBIAS to Dr Johann May
D/W GI
D/W Pharmacy
D/W RN
Anticipated Discharge: Today
Subjective/Interval History
-
Date of Service: March 26, 2024
Objective Data
-
Labs:
Laboratory Results
03/26/24
04:29
WBC 1.7 L*
Hgb 9.2 L
Hct 27.3 L
Plt Count 53 L D
Sodium 141
Potassium 3.6
Chloride 104
Carbon Dioxide 34 H
BUN 35 H
Creatinine 0.9
Glucose 201 H
Calcium 7.9 L
Vital Signs:
Vital Signs
Temp Pulse Resp BP Pulse Ox
97.3 F 71 18 154/72 79
03/26/24 03:00 03/26/24 03:00 03/26/24 03:00 03/26/24 10:50 03/26/24 10:50
I&O
03/25/24 03/26/24 03/27/24
06:59 06:59 06:59
Intake Total 1067 / 1067 1350 / 1350
Output Total 900 / 900
Balance 167 / 167 1350 / 1350
--- NOTE | 2024-03-26 11:47 | CON.GI ---
Addendum entered and electronically signed by Paula Stokes DO 03/26/24 13:42:
Patient seen and examined independently HILARIO. I agree with her note with my additions below
Beth is an unfortunate 68-year-old female who has been through quite a bit who we are being asked to see her for a food impaction after eating an Citizen [place] muffin and eggs. She has a history of food impactions after being diagnosed with squamous
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 Likely secondary to years of various radiation including for her Hodgkin's lymphoma at age 28, her breast cancer where she received chemo and
radiation and most recently her squamous cell esophageal cancer. Her last esophageal dilation was months ago with Dr. Wang at [place]. She is unclear if she had any dilations in 2023 but she said if they were in 2023 it would have been at
least November. She recently started 5-FU on March 16, 2023. She also has COPD and interstitial lung disease/pulmonary fibrosis because of her radiation injury. She is on chronic Eliquis which was stopped on the after having multiple episodes
of bleeding from her nose. She had a recent cardiac catheterization and stenting in January 2023 and was recently on both aspirin and Eliquis. The Eliquis was stopped because of the epistaxis. Currently she is now pancytopenic, she is currently off
antibiotics. Her platelet count was severely depressed and she received 3 units of platelets which did help with the epistaxis.
Right now she is feeling a pressure of the food stuck but she is not retching and she is comfortable. She has a bed at [place] today but unclear of her departure time.
I did review her CT chest including the images myself. She does have hyperattenuating material in the left superior mediastinum which could potentially be extravasated contrast. This was present back in February 2024 in November 2023
PLAN: Will give her glucagon and Ativan to see if that can help but in the setting of being transferred to [place] and her being relatively comfortable we will delay an endoscopy and allow her to be done at [place] or her GI doctor knows her
well. They are also more equipped as she is high risk with her multiple comorbidities, her thrombocytopenia, neutropenia.
-- keep her NPO
-- if unable to transfer and still with food impaction will have to proceed with EGD with general sedation to remove the food
Original Note:
Consultation
-
Date/Time Consultation Requested: 03/25/24 0949
Date/Time Consultation Performed: 03/25/24 1015
Requesting Provider: Dr. Allen
Performing Provider: Dr. Stokes/HILARIO Torres
Reason for Consultation: food impaction
Medical History
Chief Complaint / HPI
Chief Complaint: productive cough, SOB
History of Present Illness:
68-year-old female with past medical history of Hodgkin's lymphoma at the age of 28 status post laparotomy and radiation, breast cancer status post right mastectomy, chemo and radiation, squamous cell esophageal cancer of the upper third of the
esophagus diagnosed 04/[address] Yip but followed by [facility], with history of food impactions in the past. With last dilatation by Dr. Wang 'months ago'. Treated in the past with Opdivo, found to have metastatic disease to
the liver. Clinical trial with targeted therapy in October 2023 however was discontinued after patient had sepsis in November 2023. Chemoembolization in January 2024 to the liver. 5-FU started on 03/16/2023, COPD/interstitial lung disease/pulmonary
fibrosis secondary to radiation, mitral regurgitation, tricuspid regurgitation, chronic HFpEF, small bowel obstruction, osteopenia, PE right 08/2022 on chronic Eliquis, TIA/CVA, pneumonia, adrenal insufficiency, hypothyroidism, strep bacteremia
11/2023, left upper extremity lymphedema, CAD with cardiac stents mid LAD/ostial RCA 01/18/2024, POTS and compression fractures who presents to the ER on 03/18/2024 with shortness of breath and productive cough with green sputum. Patient was found to
be septic with an elevated lactic acid and WBC count of 26 and was treated for atypical pneumonia. The patient had pancytopenia. She also had epistaxis as well as hematuria. Eliquis and aspirin were held. She was also started on stress dose
steroids. Initially she was treated with cefepime and doxycycline that was narrowed down to Levaquin that was DC'd on 03/24/2024. For her pancytopenia she was transfused 4 units of platelets and 1 units of packed red blood cells. The patient also
developed loose stools which are negative for C. difficile. She is pending transfer to [facility] where she receives her treatment. We were asked to evaluate patient as this morning she was eating breakfast and she had an [place]
muffin with egg and she states that she felt that she ate too big of a bite and feels it stuck in her esophagus. She immediately stopped eating. She is not vomiting and has had no regurgitation. She is tolerating secretions at this time. She
does have epistaxis in her left nare with dark bloody drainage that is almost black in color seeping at this time. The patient denies any nausea, vomiting or abdominal pain. Labs today include WBC 1.7, hemoglobin 9.2, hematocrit 27.3, platelets 53
(of note platelets were 18 yesterday). She did receive a unit of platelets yesterday. Sodium 141, potassium 3.6, chloride 104, CO2 34, BUN 35, creatinine 0.9, glucose 201, calcium 7.9. Coags last performed on 03/24/2024 INR was 2.05, LFTs
performed on 03/24/2024 total bilirubin 1.1, AST 30, ALT 31, alk phos 226. Stool is negative for C. difficile.
Past Medical History
Past Medical History: CAD (Mid LAD/ostial RCA stent (01/18/2024)), Cancer (Hodgkin's, breast cancer, squamous cell esophageal cancer), CHF, CVA, GERD, Hypercholesterolemia, Hypothyroidism, NIDDM, Valvular Disease (Mitral regurgitation/tricuspid
regurgitation) and Other (Interstitial lung disease/pulmonary fibrosis, small bowel obstruction, osteopenia, pulmonary embolism right, pneumonia, adrenal insufficiency, strep bacteremia (11/2023), right upper extremity lymphedema, POTS, compression
fracture)
Past Surgical History: Other (Splenectomy, right mastectomy with reconstruction, hysterectomy, port a cath, laparoscopy, cardiac stents)
Social History
Tobacco: Non-Smoker
Alcohol: None
Drug: None
Personal: Single
Living: Alone
Family History
Family History: Other (Family history gastrointestinal malignancy or IBD)
Allergies / Home Medications
Allergy/AdvReac Type Severity Reaction Status Date / Time
diphenhydramine Allergy IV Verified 03/18/24 02:17
[From Benadryl] benadryl
caused
reaction
Iodinated Contrast Media Allergy Hives Verified 03/18/24 02:17
vancomycin AdvReac Florin Verified 03/20/24 10:55
syndrome
despite
slow
infusion
�Medication �Instructions �Recorded
apixaban 5 mg tablet (Eliquis) 5 mg PO BID Blood clot 08/30/22
prevention/tx
metoprolol succinate 25 mg 12.5 mg PO BID Blood Pressure 07/17/23
tablet,extended release 24 hr
(Toprol XL)
pantoprazole 20 mg tablet,delayed 20 mg PO BID@0800,1600 07/17/23
release Gastrointestinal Issue
ezetimibe 10 mg tablet 10 mg PO DAILY High cholesterol 01/19/24
#30 tabs
levothyroxine 88 mcg tablet 88 mcg PO DAILY Thyroid 01/19/24
famotidine 20 mg tablet (Pepcid) 20 mg PO HS Gastrointestinal Issue 01/30/24
acetaminophen 500 mg tablet 1,000 mg PO HS PRN mild pain 02/21/24
diazepam 2 mg tablet (Valium) 2 mg PO DAILYPRN PRN muscle spasm 02/21/24
midodrine 2.5 mg tablet 2.5 mg PO BID@0800,1800 Blood 02/21/24
Pressure
aspirin 81 mg chewable tablet 81 mg PO DAILY Blood Clot 03/19/24
(Children's Aspirin) Prevention/Tx
doxycycline monohydrate 100 mg 100 mg PO BID Infection 03/19/24
capsule
ferrous sulfate 325 mg (65 mg 325 mg PO .SEE BELOW 05/13/24
iron) tablet (iron) Supplement
furosemide 20 mg tablet (Lasix) 20 mg PO MOWEFR@0800 Fluid 03/19/24
Retention/Swelling
hydrocortisone 10 mg tablet 5 mg PO BID@1600,2200 03/19/24
Anti-Inflammatory
hydrocortisone 10 mg tablet 10 mg PO DAILY Anti-Inflammatory 03/19/24
hydrocortisone 10 mg tablet 15 mg PO BIDPRN PRN stress dosing 03/19/24
hydrocortisone 10 mg tablet 30 mg PO DAILYPRN PRN stress dosing 03/19/24
ondansetron 8 mg disintegrating 8 mg PO Q12H PRN nausea/vomiting 03/19/24
tablet
prochlorperazine maleate 10 mg 10 mg PO Q6H PRN nausea/vomiting 03/19/24
tablet
Review of Systems
-
All other systems: A 12 pt ROS was Negative except as stated above in HPI
Vital Signs
Temp Pulse Resp BP Pulse Ox
97.3 F 71 18 154/72 79
03/26/24 03:00 03/26/24 03:00 03/26/24 03:00 03/26/24 10:50 03/26/24 10:50
Physical Exam
Exam
General: No Apparent Distress
HEENT: Normocephalic, Anicteric and Other (dark blood oozing from left nare)
Respiratory: Clear (anterior)
Cardiac: Regular Rhythm
GI: Soft, Non Tender, Non Distended and Normal Bowel Sounds
Musculoskeletal: Edema (+ RUE edema (chronic), + Left hand edema)
Skin: Warm and Dry
Neuro: AO x 3
Psych: Calm
Results
WBC 1.7 10^3/uL (4.8-10.8) L* 03/26/24 04:29
Hgb 9.2 g/dL (12.0-16.0) L 03/26/24 04:29
Hct 27.3 % (37.0-47.0) L 03/26/24 04:29
MCV 82.5 fL (81.0-99.0) 03/26/24 04:29
Plt Count 53 10^3/uL (130-400) L D 03/26/24 04:29
Absolute Neuts (auto) 1.0 10^3/uL (1.4-6.5) L 03/26/24 04:29
PT 23.0 Sec (11.4-14.6) H 03/24/24 12:45
INR 2.05 03/24/24 12:45
APTT 35.4 Sec (23.4-35.0) H 03/24/24 12:45
Sodium 141 mmol/L (135-145) 03/26/24 04:29
Potassium 3.6 mmol/L (3.5-5.1) 03/26/24 04:29
Chloride 104 mmol/L (98-107) 03/26/24 04:29
Carbon Dioxide 34 mmol/L (22-30) H 03/26/24 04:29
BUN 35 mg/dl (7-17) H 03/26/24 04:29
Creatinine 0.9 mg/dL (0.6-1.0) 03/26/24 04:29
Calcium 7.9 mg/dl (8.4-10.2) L 03/26/24 04:29
Total Bilirubin 1.1 mg/dl (0.2-1.3) 03/24/24 04:25
AST 30 U/L (14-36) 03/24/24 04:25
ALT 31 U/L (0-35) 03/24/24 04:25
Alkaline Phosphatase 226 U/L (38-126) H 03/24/24 04:25
Diagnostic Image Results:
CT Chest 03/19/24:
Thyroid: No significant enlargement, and no significant nodules appreciated.
Supraclavicular region: No pathologic lymphadenopathy appreciated.
Axillary region: Surgical clips are seen within the right axilla, and within the right breast.
Mediastinum: Hyperattenuating material is seen within the left superior mediastinum, which may represent extravasated contrast, unchanged compared to multiple prior chest x-rays.
No significant pericardial effusion is appreciated. Advanced arterial vascular calcification. Likely stent within the proximal LAD.
Lungs: Small right pleural effusion. Mild scarring at each lung apex.
Minimal groundglass opacity is seen within the left upper lobe. No pneumothorax on either side.
Airways: The trachea and major bronchi are of normal caliber. No large endotracheal or endobronchial lesions are appreciated.
Osseous structures: No focal aggressive osseous lesions are seen. Mild degenerative change within the thoracic spine.
Upper abdomen: Large number of hepatic metastases. Atrophy of the visualized left kidney.
IMPRESSION:
1. Small right pleural effusion.
2. Minimal groundglass opacity within the left upper lobe, which may represent pneumonia/atypical infection or subsegmental atelectasis.
3. Innumerable hepatic metastases, also seen on recent prior abdominal ultrasound dated 03/15/2024.
Prior GI Procedures:
EGD: 08/30/22 (Dr. Bronson):Food was found in the middle third of the esophagus. Removal was
accomplished with a Quiroz net.
One severe (stenosis; an endoscope cannot pass) stenosis was found
around 25 cm from the incisors. The stenosis was not traversed. (
patient is on eliquis for PE )
Impression: - Food in the middle third of the esophagus. Removal
was successful.
- Esophageal stenosis. The stenosis was not
traversed.no dilatation attempted ( patient is on
eliquis for PE )
EGD 07/28/22: (Do) - Erythematous yellow mucosal changes from 20-25cm
from incisors seen in esophagus. No impaction seen.
- A small amount of food (residue) in the stomach.
- Normal duodenal bulb, first portion of the duodenum
and second portion of the duodenum.
- No specimens collected.
EGD 04/16/22 ([place]) - Partially obstructing esophageal tumor was found in
the upper third of the esophagus. Biopsied. (Squamous Cell Ca)
- Nodular mucosa in the esophagus. Biopsied.
- Z-line regular, 39 cm from the incisors.
- Small hiatal hernia.
- No gross lesions in the entire stomach.
- Normal examined duodenum.
Colonoscopy 04/16/22: ([facility]) - The examined portion of the ileum was normal.
- One 2 mm polyp in the ascending colon, removed with
a jumbo cold forceps. Resected and retrieved. (Colonic mucosa nodular lymphoid aggregates)
- One 5 mm polyp in the sigmoid colon, removed with a
cold snare. Resected and retrieved. (Sessile serrated polyp)
- Internal hemorrhoids.
- Tortuous colon.
Assessment / Plan
-
68-year-old female with past medical history of Hodgkin's lymphoma status post laparotomy, chemo and radiation, breast cancer status post right mastectomy chemoradiation, squamous cell esophageal cancer diagnosed 2021 currently followed at [facility] with food impactions in the past last dilatation with Dr. Albarado 'months ago'. Treated with Opdivo now with mets to the liver. Clinical trial with targeted therapy started in October 2023 discontinued after sepsis in November 2023.
Chemoembolization started in January 2024 to the liver. 5�a few started on 03/16/2023. History of COPD/interstitial lung disease/pulmonary fibrosis secondary to radiation, PE on chronic Eliquis, CAD with recent stents to the mid LAD/ostial RCA on
01/18/2024 currently on aspirin as well. Presents to the emergency room with persistent shortness of breath and productive cough with green sputum. Found to have sepsis with elevated lactic acid and WBC count of 26. Being treated for atypical
pneumonia. Also with epistaxis and hematuria. Eliquis and aspirin held. Started on stress dose steroids. Treated initially with cefepime and doxycycline that was narrowed to Levaquin that has all been DC'd on 03/24/2024. Pancytopenia treated
with 4 units platelets and 1 unit of packed blood blood cell. She was in the process of transfer to [facility] for ongoing care. We are asked to evaluate for food impaction/dysphagia associated with eating an [place] muffin with eggs. Patient is
tolerating her own secretions at this time. No nausea or vomiting. Patient's labs today include WBC 1.7, hemoglobin 9.2, hematocrit 27.3, platelets 53 (of note platelets were 18 yesterday). She did receive a unit of platelets yesterday. Sodium
141, potassium 3.6, chloride 104, CO2 34, BUN 35, creatinine 0.9, glucose 201, calcium 7.9. Coags last performed on 03/24/2024 INR was 2.05, LFTs performed on 03/24/2024 total bilirubin 1.1, AST 30, ALT 31, alk phos 226. Stool is negative for C.
difficile.
Impression:
Dysphagia:
-Tolerating secretions
-Glucagon ordered by IM
-Continue Pantoprazole, convert to IV
-IVF
-Further recommendations to made after seen by Dr. Stokes.
Esophageal Cancer (Squamous Cell with Mets to Liver)
-Follows with [facility], 5-FU given on 03/16/24
-Last dilation with Dr. Wang 'months ago'
Pancytopenia
-WBC 1.7
-Hgb 9.2 -> trf 1 unit PRBC during admission
-PLT 53 (Was 18 on 03/25-> given 1 pk PLT) total given 4 pk PLT during admission
Hx CAD with stents (Mid LAD/ostial RCA stent 01/18/2024)
-On ASA 81 mg
Hx PE (08/2022)
-Chronic Eliquis, last dose 03/19/24
Adrenal insufficiency
-On stress dose steroids
Cough/SOB/Atypical PNA
-not on supplemental O2
-Treated initially with cefepime/doxycycline, narrowed to Levaquin. Seen by ID. Finished antibiotics 03/24/2024.
-CT chest 03/19/24 ->Hyperattenuating material is seen within the left superior mediastinum, which may represent extravasated contrast, unchanged compared to multiple prior chest x-rays.
Episode of diarrhea
- Negative for Cdiff
-
-
Thank you for consultation and allowing me to participate in the patient's care. Please call the construction accountant GI physician during the after hours with any questions or concerns.
[2024-03-26] MEDS: PROTONIX IV 40 MG IV (12:59)
[2024-03-26] MEDS: ATIVAN 0.5 MG IV (13:00)
[2024-03-26] MEDS: NSS (PRESERVATIVE FREE) 10 ML IV (13:00)
[2024-03-26] MEDS: NSS (PRESERVATIVE FREE) 0.25 ML IV (13:00)
[2024-03-26] MEDS: NOVOLOG FLEXPEN-LOW RESISTANCE SC (13:01)
[2024-03-26] MEDS: GlucaGen 1 MG IV (13:01)
[2024-03-26] MEDS: NSS 1000 IV (13:01)
== END 2024-03-26 15:05 | disposition short-term general hospital (02) | DRG 871 ==
LOC: 3 WEST ACU 17:03
PROVIDERS: Hospitalist; Internal Medicine Hematology & Oncology; Registered Nurse; ADMITTING PHYSICIAN Internal Medicine; ATTENDING PHYSICIAN Hospitalist; CONSULT PHYSICIAN Internal Medicine; CONSULT PHYSICIAN Internal Medicine Infectious Disease; CONSULT PHYSICIAN Nuclear Medicine Nuclear Cardiology; EMERGENCY PHYSICIAN Emergency Medicine; FAMILY PHYSICIAN Family Medicine; OTHER PHYSICIAN Internal Medicine Hematology & Oncology
PROC: 30233R1 Transfusion of Nonautologous Platelets into Peripheral Vein, Percutaneous Approach (ICD-10-PCS; 2024-03-22)
PROC: 30233N1 Transfusion of Nonautologous Red Blood Cells into Peripheral Vein, Percutaneous Approach (ICD-10-PCS; 2024-03-24)
DX: A40.9 Streptococcal sepsis, unspecified (principal); I50.33 Acute on chronic diastolic (congestive) heart failure; J18.9 Pneumonia, unspecified organism; J96.01 Acute respiratory failure with hypoxia; J44.0 Chronic obstructive pulmonary disease with (acute) lower respiratory infection; C78.7 Secondary malignant neoplasm of liver and intrahepatic bile duct; C15.5 Malignant neoplasm of lower third of esophagus; I13.0 Hypertensive heart and chronic kidney disease with heart failure and stage 1 through stage 4 chronic kidney disease, or unspecified chronic kidney disease; E27.40 Unspecified adrenocortical insufficiency; C81.90 Hodgkin lymphoma, unspecified, unspecified site; E87.20 Acidosis, unspecified; D61.818 Other pancytopenia; D68.32 Hemorrhagic disorder due to extrinsic circulating anticoagulants; D69.59 Other secondary thrombocytopenia; T45.1X5A Adverse effect of antineoplastic and immunosuppressive drugs, initial encounter; N18.32 Chronic kidney disease, stage 3b; E11.22 Type 2 diabetes mellitus with diabetic chronic kidney disease; D63.8 Anemia in other chronic diseases classified elsewhere; E03.9 Hypothyroidism, unspecified; K21.9 Gastro-esophageal reflux disease without esophagitis; Z79.01 Long term (current) use of anticoagulants; E78.00 Pure hypercholesterolemia, unspecified; Z79.82 Long term (current) use of aspirin
CPT/HCPCS: 71046; 71250; 80048; 80053; 80061; 81003; 81015; 82248; 82805; 82962; 83036; 83605; 83880; 84443; 84484; 85025; 85027; 85384; 85610; 85730; 86850; 86900; 86901; 86920; 87040; 87086; 87324; 87449; 87811; 87899; 93005; 96365; 96367; 97162; 97166; 99285; J1610; P9016; P9073

== ENCOUNTER 2024-05-03 13:38 | Emergency (ER) | payer MEDICARE, OTHER, SELFPAY ==
[2024-05-03 13:47] VITALS: BP 113/41; BMI 23.2
[2024-05-03] MEDS: ZOFRAN 4 MG IV (13:56)
[2024-05-03 14:00] LABS: % Basophils 0.9 % (0-2); % Eosinophils 1.1 % (0-6); % Immature Granulocytes 1.5 % (0-0.5); % Lymphocytes 6.7 % (20.5-51.1); % Monocytes 9.9 % (1.7-9.3); % Neutrophils 79.9 % (42.2-75.2); Absolute Basophils 0.1 10^3/uL (0-0.2); Absolute Eosinophils 0.2 10^3/uL (0-0.7); Absolute Immature Granulocytes 0.2 10^3/uL (0-0.05); Absolute Monocytes 1.6 10^3/uL (0.1-0.6); Absolute Neutrophils 12.5 10^3/uL (1.4-6.5); Hematocrit 32.9 % (37.0-47.0); Hemoglobin 10.4 g/dL (12.0-16.0); Mean Corp Hgb Conc. 31.6 g/dL (33.0-37.0); Mean Corpuscular Hgb 29.5 pg (27.0-31.0); Mean Corpuscular Volume 93.5 fL (81.0-99.0); Mean Platelet Volume 10.7 fL (7.4-10.4); Nucleated Red Blood Cells % 0.4 %; Platelet Count 258 10^3/uL (130-400); Red Blood Cell Count 3.52 10^6/uL (4.20-5.40); Red Cell Dist. Width 22.3 % (11.5-14.5); White Blood Cell Count 15.6 10^3/uL (4.8-10.8)
[2024-05-03 14:12] VITALS: BP 132/51
[2024-05-03 14:14] LABS: Anisocytosis 1+; Hypochromasia 1+
[2024-05-03 14:16] LABS: Normal RBC Morphology No; Pelger-Huet 44
[2024-05-03 15:04] LABS: ALT (SGPT) 35 U/L (0-35); AST (SGOT) 90 U/L (14-36); Albumin 3.4 g/dl (3.5-5.0); Alkaline Phosphatase 606 U/L (38-126); Blood Urea Nitrogen 22 mg/dl (7-17); Carbon Dioxide 28 mmol/L (22-30); Chloride 100 mmol/L (98-107); Estimated Creatinine Clearance 52 ml/min; Glucose 114 mg/dl (70-99); Potassium 3.9 mmol/L (3.5-5.1); Sodium 137 mmol/L (135-145); Total Bilirubin 1.1 mg/dl (0.2-1.3); Total Protein 5.7 g/dl (6.3-8.2); eGFR > 60.00
[2024-05-03 15:31] VITALS: BP 137/51
[2024-05-03 16:00] VITALS: BP 136/51
[2024-05-03 16:23] VITALS: BP 149/84
--- NOTE | 2024-05-03 16:49 | CM ---
Addendum entered by Radha Ritchie RN 05/03/24 18:08:
SHAHNAZ spoke with patient. She is requesting a referral to [facility] for evaluation for additional services. CM sent referral via email.
Patient confirmed that she plans to have friends stay with her. She will be alone for three days until her partner returns and he will stay with her. She further plans to pay privately for [employer] assistance three days per week. She has a personal
friend that she will private pay.
Original Note:
SHAHNAZ spoke with patient. She stated that she does not want to return to [facility]. Patient is agreeable to home discharge with [facility]. She is requesting a walker as well for discharge. SHe stated that she has multiple friends who can assist her
in her home and she will be supported through out the day.
SHAHNAZ sent referral via [facility] to [facility]. SHAHNAZ updated [facility] medical scientific liaison .
--- NOTE | 2024-05-03 16:57 | ED.GENMED ---
History of Present Illness
General
Chief Complaint: Pneumonia Symptoms
Source: patient
Time Seen by Provider: 05/03/24 15:02
History of Present Illness
History of Present Illness:
68-year-old female presents to the emergency room from [facility]. Patient was admitted there after a prolonged hospitalization at [facility]. Patient is unhappy there. She has been having a cough and a chest x-ray was
performed. It evidently showed findings that were thought to represent pneumonia. The physician at [facility] started the patient on oral antibiotics. Patient felt she needed IV antibiotics and asked to be transferred to the hospital. She
has not had a fever. She does not feel short of breath. She is tolerating oral intake
Past History
Past History
ED Past Medical History: Cancer (Patient has had breast cancer and Hodgkin's lymphoma. Squamous cell carcinoma of the esophagus), COPD, CVA, HTN, Hypercholesterolemia, Valvular disease (Mitral regurgitation, aortic regurgitation with normal EF 55
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 Pneumonia, infectious colitis, IBS. PNA, Pulmonary nodules, right lymphedema. PE)
ED Past Surgical History: Other (Abdominal surgery for Hodgkin's disease modified right mastectomy, hysterectomy with ovary removed. Splenectomy, Breast reconstruction)
Social History
Tobacco: Non-smoker
Alcohol: None
Drug: None
Personal: Single
Living: alone
Employment: Employed
Family History
Family History: Hypertension
Phy Exam
Physical Exam
Physical Exam:
General: Awake, Alert, Oriented X3. Appears chronically ill
Vitals: unremarkable
Head: Atraumatic
Eyes: Pupils equal, EOMI
Throat: Airway intact, no exudates
Neck: Trachea midline
Lungs: Decreased breath sounds right base
Heart: Regular rate, no murmurs
Abd: Soft, Nontender, No pulsatile mass
Neuro: Nonfocal
Skin: Warm, dry, no rash
Extremities: pulses equal b/l, no edema
Course
Orders/Labs/Results
Orders:
Orders
05/03/24 13:41
CR Chest - 2 Views Urgent
Comment:
Reason For Exam: suspected infection
05/03/24 13:49
Complete Blood Count/With Diff Urgent
Comprehensive Metabolic Panel Urgent
05/03/24 13:54
Ondansetron Injectable [Zofran] 4 mg .ROUTE .STK-MED ONE
05/03/24 13:55
Ondansetron Injectable [Zofran] 4 mg IV NOW STA
05/03/24 15:35
CT Chest W/o Iv Contrast Urgent
Comment:
Reason For Exam: cough, malaise, ? infiltrate vs simple effusion
05/03/24 15:53
Case Management Consult ONCE
Case Management Consult: Discharge Planning
05/03/24 16:57
Amoxicillin 875 mg/Clav 125 mg [Augmentin 875 mg/125 mg] 1 tablet PO NOW STA
Abnormal Lab Results
05/03/24
13:49
WBC 15.6 H 10^3/uL
(4.8-10.8)
RBC 3.52 L 10^6/uL
(4.20-5.40)
Hgb 10.4 L g/dL
(12.0-16.0)
Hct 32.9 L %
(37.0-47.0)
MCHC 31.6 L g/dL
(33.0-37.0)
RDW 22.3 H %
(11.5-14.5)
MPV 10.7 H fL
(7.4-10.4)
Abs Immat Gran (auto) 0.2 H 10^3/uL
(0-0.05)
Absolute Neuts (auto) 12.5 H 10^3/uL
(1.4-6.5)
Absolute Lymphs (auto) 1.0 L 10^3/uL
(1.2-3.4)
Absolute Monos (auto) 1.6 H 10^3/uL
(0.1-0.6)
Immature Gran % 1.5 H %
(0-0.5)
Neutrophils % 79.9 H %
(42.2-75.2)
Lymphocytes % 6.7 L %
(20.5-51.1)
Monocytes % 9.9 H %
(1.7-9.3)
BUN 22 H mg/dl
(7-17)
Glucose 114 H mg/dl
(70-99)
AST 90 H U/L
(14-36)
Alkaline Phosphatase 606 H U/L
(38-126)
Total Protein 5.7 L g/dl
(6.3-8.2)
Albumin 3.4 L g/dl
(3.5-5.0)
05/03/24 13:49
05/03/24 13:49
Vital Signs
Initial and Last Documented VS:
Initial Vital Signs
Temp
98.7 F
05/03/24 13:41
Last Documented Vital Signs
Temp Pulse Resp BP Pulse Ox
98.7 F 101 19 121/63 95
05/03/24 13:41 05/03/24 18:15 05/03/24 18:15 05/03/24 17:00 05/03/24 17:15
MDM/Problems Addressed
Differential Diagnosis Includes:
Pneumonia, pleural effusion, bronchitis
MDM/Problems Addressed:
Chest x-ray shows effusion but no real convincing evidence for pneumonia. CT was performed without contrast. Ordered report is just a report effusion without evidence of surrounding pneumonia. Pneumonitis noted in left upper lobe appears better
and is not likely to be infectious. Patient stable for discharge on oral antibiotics. Her cough may very well be related simply to the effusion but given her medical history we will cover her with Augmentin. Patient does not want to go back to
[facility]. She would rather go home. Case management consulted. They made arrangements for her to have visiting nurses etc.
*Radiology
Radiology exam reviewed: radiology read reviewed
*Pulse Oximetry
Patient hypoxic: no
*Critical Care Note
Total Time (30-74mins, 75-104mins- exclusive of procedures): Not Applicable
ED Attending Note
-
Portions of this chart may have been created with voice recognition software.� Occasional wrong word or��sound alike� substitutions may have occurred due to the inherent limitations of voice recognition software.
Discharge Plan
Departure
Patient Disposition: Home (Routine Discharge)
Date of Disposition: 05/03/24
Time of Disposition: 16:57
Patient with high blood pressure during this ER visit?: Yes
Condition: Good
Discharge Problem:
Esophageal cancer, Acute bronchitis
Instructions: Acute Bronchitis, Adult (DC), BLOOD PRESSURE
Prescriptions:
New
amoxicillin-pot clavulanate 875-125 mg tablet
1 tab PO BID Qty: 14 0RF
No Action
Eliquis 5 mg tablet
5 mg PO Q12H
pantoprazole 20 mg Tablet,Delayed Release (Dr/Ec)
20 mg PO DAILY@0600
metoprolol succinate [Toprol XL] 25 mg Tablet Extended Release 24 Hr
12.5 mg PO Q12H
ezetimibe 10 mg Tablet
10 mg PO DAILY Qty: 30 11RF
levothyroxine 88 mcg Tablet
88 mcg PO DAILY@0600
hydrocortisone 10 mg Tablet
10 mg PO DAILY
hydrocortisone 10 mg Tablet
5 mg PO BID@1600,2000
ferrous sulfate [iron] 325 mg (65 mg iron) tablet
325 mg PO SUTH@0800
Patient Comments:
sennosides [senna] 8.6 mg Tablet
8.6 mg PO [id number] PRN (Reason: constipation)
acetaminophen [Tylenol] 325 mg Tablet
650 mg PO Q6H MDD 3000 mg PRN (Reason: temp>100/mild pain)
lidocaine 4 % Adhesive Patch,Medicated
1 patch TOPICAL DAILY PRN (Reason: above buttocks)
polyethylene glycol 3350 [Miralax] 17 gram Powder In Packet
17 g PO DAILY PRN (Reason: constipation)
ondansetron HCl 8 mg Tablet
8 mg PO Q12H PRN (Reason: nausea/vomiting)
midodrine 5 mg Tablet
5 mg PO BID
Patient Comments:
05/03/2024, hold if BP>170/80.
aspirin [Ecotrin Low Strength] 81 mg Tablet,Delayed Release (Dr/Ec)
81 mg PO DAILY
magnesium hydroxide [Milk of Magnesia] 400 mg/5 mL Suspension
30 ml PO DAILY PRN (Reason: if no BM x 3 days)
bisacodyl [Dulcolax (bisacodyl)] 10 mg Suppository
10 mg IN DAILY PRN (Reason: if MOM ineffective)
Fleet Enema 19-7 gram/118 mL Enema
118 ml IN DAILYPRN PRN (Reason: if dulcolax supp ineffective)
docusate sodium [Colace] 100 mg Capsule
100 mg PO DAILY
lidocaine HCl [Lidocaine Viscous] 2 % Solution
5 ml PO Q4HPRN PRN (Reason: mouth pain)
ergocalciferol (vitamin D2) 1,250 mcg (50,000 unit) Capsule
1,250 mcg PO FR@0800
cefuroxime axetil 500 mg Tablet
500 mg PO BID
Patient Comments:
05/03/2024, start date: 05/02/2024; end date: 05/07/2024.
albuterol sulfate 90 mcg/actuation Hfa Aerosol Inhaler
2 puff INHALATION R Q4HPRN PRN (Reason: sob/wheezing)
azithromycin 500 mg Tablet
500 mg PO DAILY@1999
Patient Comments:
05/03/2024, start date: 05/02/2024; end date: 05/05/2024.
Saccharomyces boulardii [Florastor] 250 mg Capsule
250 mg PO BID
Patient Comments:
05/03/2024, start date: 05/03/2024; end date: 05/13/2024.
Stiolto Respimat 2.5-2.5 mcg/actuation Mist
2 puff INHALATION R DAILY
magnesium oxide 400 mg magnesium Tablet
400 mg PO TID@0800,1400,2100
Barrier Cream
1 applic topical TIDPRN PRN (Reason: queenie-area/buttocks/sacrum)
Patient Comments:
05/03/2024, House Barrier Cream per [place] paperwork. Apply House Barrier cream to queenie-area/buttocks/sacrum after incontinence episode and as needed to prevent skin breakdown.
Referrals:
Dago Fowler, [Family Provider] -
Activity Restrictions/Additional Instructions:
Your CAT scan and chest x-ray showed the presence of a pleural effusion which was present on previous imaging. There is no convincing evidence for pneumonia. Because your oxygen level is good and your other vital signs are good there is no
indication to keep you in the hospital but we will start you on oral antibiotics for potential bronchitis. I understand that you do not want to go back to [facility]. Case management is arranging some home services.
Interventions
Interventions:
*Risk Screen - Suicide Last Done: 05/03/24 13:41
*General Assessment Last Done: 05/03/24 13:41
*Neglect/Abuse Screening Last Done: 05/03/24 13:41
ED- Fall Risk Assessment Last Done: 05/03/24 13:41
*ED COVID-19 Vaccine History Last Done: 05/03/24 13:41
*Nursing Disposition Last Done: 05/03/24 18:37
ED- Cardiac Assessment Last Done: 05/03/24 13:41
ED- Pulmonary Assessment Last Done: 05/03/24 13:41
Discharge Date and Time
Discharge Date/Time: 05/03/24 18:38
Print Language: SINHALA
[2024-05-03 17:00] VITALS: BP 121/63
[2024-05-03] MEDS: AUGMENTIN 875 MG/125 MG 1 TABLET PO (17:27)
== END 2024-05-03 18:38 | disposition home or self-care (01) ==
LOC: EMR 13:38
PROVIDERS: Emergency Medicine; EMERGENCY PHYSICIAN Emergency Medicine; FAMILY PHYSICIAN Student in an Organized Health Care Education/Training Program
DX: C15.9 Malignant neoplasm of esophagus, unspecified (principal); J20.9 Acute bronchitis, unspecified; J44.0 Chronic obstructive pulmonary disease with (acute) lower respiratory infection; I10 Essential (primary) hypertension; E78.00 Pure hypercholesterolemia, unspecified; J84.10 Pulmonary fibrosis, unspecified; K58.9 Irritable bowel syndrome, unspecified; Z82.49 Family history of ischemic heart disease and other diseases of the circulatory system; Z85.3 Personal history of malignant neoplasm of breast; Z85.71 Personal history of Hodgkin lymphoma; Z86.73 Personal history of transient ischemic attack (TIA), and cerebral infarction without residual deficits; Z90.11 Acquired absence of right breast and nipple; Z90.710 Acquired absence of both cervix and uterus; Z90.721 Acquired absence of ovaries, unilateral
CPT/HCPCS: 99284; 96374; 71046; 71250; 80053; 85025